=== PATIENT | female | born 1990 | race Caucasian/White ===

== ENCOUNTER 2016-09-26 14:18 | Inpatient (IN) | payer SELFPAY ==
[~2016-09-26] VITALS: Ht 157.5 cm; Wt 109.8 kg
[~2016-09-26 14:18] MED LIST: ASPI-664 PO; CARV12.579 PO; CARV6.2579 PO; FURO40TA4 PO; LEVO50TA74 PO; LISI20TA11 PO; LORA1TAB PO
[2016-09-26] MEDS ORDERED: ONDANSETRON 4 MG INJ IV STA ×2 (17:28→19:26)
[2016-09-26] MEDS ORDERED: SOD CHLORIDE 0.9% 1,000 ML IV STA ×2 (17:28→19:26)
[2016-09-26] MEDS ORDERED: morphine 4 MG/ML VIAL IV STA (17:28)
--- NOTE | 2016-09-26 18:10 | RADRPT ---
PROCEDURE: CT abdomen and pelvis without contrast. CLINICAL INDICATION: Abdominal Pain TECHNIQUE: CT scan of the abdomen and pelvis without contrast was performed and is reconstructed a t 5 mm contiguous axial intervals from the dome of the diaphragm to the inferior pubic rami.. The p atient was scanned without intravenous contrast. Sagittal and coronal reformatted images were obtai dorene from the axial source images. The calculated radiation dose measures 1204 mGy centimeters. The C TDI measures 20 mGy. COMPARISON: None. FINDINGS: Lung bases are clear of any infiltrate or nodule. There is no effusion. Liver is enlarged measuring 19.5 cm. There is fatty infiltration. No mass or ductal dilatation is present. No gallstones are visualized. No splenic or adrenal abnormality is present. There is no pancreatic mass or ductal dilatation. There is mild prominence of the uncinate process with probabl e stranding in the surrounding fat. Findings are suggestive of focal pancreatitis. There is no ass ociated hemorrhage and no gas is seen in the soft tissues. Kidneys are of normal size and contour. No hydronephrosis, calculus or masses present. Ureters are of normal course and caliber with no st one. No bladder masses stone is present. The uterus and ovaries are normal. There is diverticulos is. The appendix is normal. No bowel mass or obstruction is seen. There is no ascites or pneumope ritoneum. The osseous structures are normal. IMPRESSION: Enlarged fatty liver. Question focal pancreatitis uncinate process. Clinical correlation suggested. No hemorrhage. Diverticulosis. .Guillermo Watson MD, MD Date Time Electronically viewed and signed by .Guillermo Watson MD, MD on 09/26/2016 18:09 .A/
[2016-09-26 18:28] LABS: BASOPHILS % 0.1 % (0.0-2.0); EOSINOPHILS % 0.3 % (0.0-7.0); HEMOGLOBIN 15.3 g/dl (12.0-16.0); LYMPHOCYTES # 0.8 10^3/ul (0.8-2.9); LYMPHOCYTES % 11.3 % (15.0-51.0); MEAN CORPUSCULAR HEMOGLOBIN 32.9 pg (29.0-33.0); MEAN CORPUSCULAR HGB CONC 33.9 g/dl (32.0-37.0); MEAN PLATELET VOLUME 8.8 fl (7.4-10.4); MONOCYTE # 0.4 10^3/ul (0.3-0.9); MONOCYTES % 5.8 % (0.0-11.0); NEUTROPHIL # 5.9 10^3/ul (1.6-7.5); NEUTROPHILS % 82.5 % (39.0-77.0); PLATELET COUNT 214 10^3/UL (140-440); RED BLOOD COUNT 4.64 10^6/ul (4.20-5.40); RED CELL DISTRIBUTION WIDTH 14.6 % (11.5-14.5); UNCORRECTED WBC 7.1 10^3/ul (4.8-10.8); WHITE BLOOD COUNT 7.1 10^3/ul (4.8-10.8)
--- NOTE | 2016-09-26 18:28 | RADRPT ---
PROCEDURE: XR Chest. CLINICAL INDICATION: cough TECHNIQUE: Frontal chest x-ray was obtained. COMPARISON: Chest x-ray July 05, 2016 FINDINGS: Heart is not enlarged. Mediastinum is not widened. No hilar mass is present. Lungs are clear of a ny infiltrate or mass. There is no effusion or pneumothorax. IMPRESSION: No evidence for active cardiopulmonary disease. .Guillermo Watson MD, MD Date Time Electronically viewed and signed by .Guillermo Watson MD, on 09/26/2016 18:27 .A/
[2016-09-26 18:30] LABS: CONDITION 1; LH ANALYZER COMMENTS 1
[2016-09-26 18:41] LABS: ALBUMIN 5.1 g/dl (3.3-4.9)
[2016-09-26 18:41] LABS: ADD UMIC YES; URINE BILIRUBIN (Dip) 2+ (NEGATIVE); URINE BLOOD (Dip) NEGATIVE (NEGATIVE); URINE COLOR AMBER (YELLOW); URINE GLUCOSE (Dip) NEGATIVE (NEGATIVE); URINE KETONES (Dip) 15 (NEGATIVE); URINE LEUKOCYTE ESTERASE (Dip) NEGATIVE (NEGATIVE); URINE NITRITE (Dip) POSITIVE (NEGATIVE); URINE TOTAL PROTEIN (Dip) 2+ (NEGATIVE); URINE UROBILINOGEN (Dip) 2.0 E.U./dL (0.1-1.0)
[2016-09-26 18:42] LABS: POTASSIUM 3.3 mmol/L (3.5-5.1)
[2016-09-26 18:44] LABS: ALBUMIN/GLOBULIN RATIO 1.15; BILIRUBIN,INDIRECT 1.1 mg/dl (0-1.1); BILIRUBIN,TOTAL 1.1 mg/dl (0.2-1.3); CREATININE 0.94 mg/dl (0.44-1.00); TOTAL PROTEIN 9.5 g/dl (6.1-8.1)
[2016-09-26 18:45] LABS: CALCIUM 9.7 mg/dl (8.4-10.2)
[2016-09-26 19:00] LABS: ICTOTEST POSITIVE (NEGATIVE)
[2016-09-26 19:02] LABS: BACTERIA,URINE MANY; SQUAMOUS EPITHELIAL CELL,UR MANY; URINE RBCS NONE SEEN /HPF (0)
[2016-09-26 19:06] LABS: CANNABINOIDS Negative (NEGATIVE)
[2016-09-26 19:11] LABS: BARBITURATES Negative (NEGATIVE); BENZODIAZEPINES Negative (NEGATIVE); COCAINE Negative (NEGATIVE)
[2016-09-26] MEDS ORDERED: HYDROmorphONE 1 MG/ML SYG IV STA (19:26)
[2016-09-26] MEDS ORDERED: FAMOTIDINE 20 MG INJ IV STA (19:26)
[2016-09-26] MEDS ORDERED: CEFTRIAXONE 1 GM/50 ML (PMX) 50 ML IVPB ONE (19:30)
[2016-09-26 19:36] LABS: OPIATES Negative (NEGATIVE)
[2016-09-26] MEDS ORDERED: ACETAMINOPHEN 325 MG TAB PO PRN (20:30)
[2016-09-26] MEDS ORDERED: ONDANSETRON 4 MG INJ IV PRN ×2 (20:30→22:30)
[2016-09-26] MEDS ORDERED: METOCLOPRAMIDE 10 MG INJ IV ONE (20:30)
--- NOTE | 2016-09-26 21:08 | ERA ---
ER Documentation Chief Complaint Date/Time DATE: 09/26/16 TIME: 21:02 Chief Complaint COUGH AND SOB WHEN LAYING DOWN HPI This is a 26-year-old female with a known history of alcohol abuse and congestive heart failure diagnosed in 2013. The patient indicates she has been noncompliant with her Lasix and other medications as she ran out of them roughly 6 months prior to arrival. The patient indicates she drinks alcohol on a daily basis. For the past 3 days she indicates she has been having multiple episodes of nonbloody nonbilious emesis. She indicates that she has been experiencing epigastric pain that is worse when she lies supine and better when she sits up. Contrary to the triage note she denies any shortness of breath. She indicates the epigastric pain is a sharp shooting pain, 10 out of 10 in intensity. She denies any hemoptysis or hematemesis and no melanotic stools. She denies any swelling of her lower extremities. She complains of mild frequency urgency and dysuria. She denies any abnormal vaginal discharge or rashes. She denies a headache or changes in vision. She indicates that she has not been able to consume alcohol for the past 3 days due to the persistent emesis and epigastric pain she indicates that she has had roughly 50 episodes of emesis in the past 3 days. She denies any chest pain or pressure that radiates to the neck or back or jaw ROS All systems reviewed and are negative except as per history of present illness. Medications Home Meds Discontinued Reported Medications Levothyroxine Sodium* (Levothyroxine Sodium*) 50 Mcg Tablet, 50 MCG PO BEFORE BREAKFAST, #30 TAB 07/05/16 Aspirin (Low Dose Aspirin) 81 Mg Tablet.dr, 81 MG PO DAILY, #30 TAB 07/05/16 Furosemide* (Furosemide*) 40 Mg Tablet, 40 MG PO BID, TAB 07/05/16 Lisinopril* (Lisinopril*) 20 Mg Tablet, 20 MG PO DAILY, #30 TAB 07/05/16 Carvedilol* (Carvedilol*) 12.5 Mg Tablet, 12.5 MG PO BID, #60 TAB 07/05/16 Discontinued Scripts Carvedilol* (Carvedilol*) 6.25 Mg Tablet, 6.25 MG PO BID, #60 TAB Prov:APRIL BERGER DO 07/05/16 Furosemide* (Furosemide*) 40 Mg Tablet, 40 MG PO DAILY, #30 TAB Prov:APRIL BERGER. DO 07/05/16 Lisinopril* (Lisinopril*) 20 Mg Tablet, 20 MG PO DAILY, #30 TAB Prov:APRIL BERGER. DO 07/05/16 Lorazepam* (Lorazepam*) 1 Mg Tablet, 1 MG PO Q8H Y for ANXIETY, #12 TAB Prov:APRIL BERGER. DO 07/05/16 Allergies Allergies: Coded Allergies: No Known Allergy (Unverified , 09/26/16) PMhx/Soc History of Surgery: Yes (abdominal cyst as a child) Anesthesia Reaction: No Hx Neurological Disorder: No Hx Respiratory Disorders: No Hx Cardiac Disorders: Yes (chf; htn) Hx Psychiatric Problems: Yes (ETOH abuse) Hx Miscellaneous Medical Probl: No Hx Alcohol Use: Yes ("3 pints of vodka daily") Hx Substance Use: No Hx Tobacco Use: No Smoking Status: Never smoker Physical Exam Vitals Vital Signs Date Time Temp Pulse Resp B/P Pulse Ox O2 Delivery O2 Flow Rate FiO2 09/26/16 19:50 93 18 146/96 100 Room Air 09/26/16 14:26 98.8 89 18 166/91 98 Physical Exam Constitutional:Well-developed. Well-nourished. Patient appeared to be in a significant amount discomfort secondary to pain and actively vomiting nonbloody nonbilious emesis HEENT:Normocephalic. Atraumatic.Pupils were equal round reactive to light. Dry mucous membranes.No tonsillar exudates. Neck: No nuchal rigidity. No lymphadenopathy. No posterior cervical spine tenderness or step-offs. Respiratory: Not using accessory muscles of respiration.Lungs were clear to auscultation bilaterally. No rhonchi. No rales. No wheezing. Cardiovascular: Regular rate regular rhythm.No murmurs. No rubs were appreciated.S1, S2 normal. Distal pulses are palpable 2+ bilaterally. GI: Abdomen was soft. Epigastric tenderness Non Distended. No pulsatile abdominal masses or bruits. No rebound. No guarding. Bowel sounds were present and normal. Muscle skeletal: Full range of motion of both the upper and lower extremities bilaterally.Normal muscle tone.No assymetrical calf tenderness or swelling. Skin: No petechia, no purpura. No lesions on the palms or the soles of the feet. No maculopapular rash. No peripheral edema NEURO: Patient was alert, awake, orientated x3.No facial droop. Gait observed and normal with no ataxia.Speech had regular rate and rhythm. No focal neurological deficits. Result Diagram: 09/26/16 1735 09/26/16 1735 Results 24 hrs Laboratory Tests Test 09/26/16 17:00 09/26/16 17:35 09/26/16 17:52 Urine Amphetamines Screen Positive Urine Bacteria MANY Urine Barbiturates Negative Urine Benzodiazepines Screen Negative Urine Bilirubin 2+ Urine Cannabinoids Negative Urine Clarity CLOUDY Urine Cocaine Screen Negative Urine Color SUGAR Urine Glucose NEGATIVE% Urine Hemoglobin NEGATIVE Urine Ictotest POSITIVE Urine Ketones 15 Urine Leukocyte Esterase NEGATIVE Urine Microscopic RBC NONE SEEN/HPF Urine Microscopic WBC 10-25/HPF Urine Nitrite POSITIVE Urine Opiates Screen Negative Urine Specific [place] >=1.030 Urine Squamous Epithelial Cells MANY Urine Total Protein 2+ Urine Urobilinogen 2.0 E.U./dL Urine pH 5.0 Alanine Aminotransferase (ALT/SGPT) 238IU/L Albumin 5.1g/dl Albumin/Globulin Ratio 1.15 Alkaline Phosphatase 154IU/L Anion Gap 20 Aspartate Amino Transf (AST/SGOT) 354IU/L B-Type Natriuretic Peptide 80PG/ML Basophils # 0.010^3/ul Basophils % 0.1% Blood Morphology Comment Blood Urea Nitrogen 9mg/dl Calcium Level 9.7mg/dl Carbon Dioxide Level 32mmol/L Chloride Level 93mmol/L Creatinine 0.94mg/dl Direct Bilirubin 0.00mg/dl Eosinophils # 0.010^3/ul Eosinophils % 0.3% Globulin 4.40g/dl Glucose Level 147mg/dl Hematocrit 45.0% Hemoglobin 15.3g/dl Indirect Bilirubin 1.1mg/dl Lipase 1491U/L Lymphocytes # 0.810^3/ul Lymphocytes % 11.3% Mean Corpuscular Hemoglobin 32.9pg Mean Corpuscular Hemoglobin Concent 33.9g/dl Mean Corpuscular Volume 97.0fl Mean Platelet Volume 8.8fl Monocytes # 0.410^3/ul Monocytes % 5.8% Neutrophils # 5.910^3/ul Neutrophils % 82.5% Nucleated Red Blood Cells # 0.010^3/ul Nucleated Red Blood Cells % 0.0/100WBC Platelet Count 75825^3/UL Potassium Level 3.3mmol/L Red Blood Count 4.6410^6/ul Red Cell Distribution Width 14.6% Sodium Level 142mmol/L Total Bilirubin 1.1mg/dl Total Protein 9.5g/dl White Blood Count 7.110^3/ul Ethyl Alcohol Level < 10.0mg/dl Current Medications Medications (Trade) Dose Ordered Sig/Aliyah Route PRN Reason Start Time Stop Time Status Last Admin Dose Admin Sodium Chloride (NS) 1,000 ml @ 1,000 mls/hr Q1H STAT IV 09/26/16 17:28 09/26/16 18:27 Cancel Morphine Sulfate (morphine) 4 mg ONCE STAT IV 09/26/16 17:28 09/26/16 17:32 DC 09/26/16 17:50 Ondansetron HCl 4 mg 4 mg ONCE STAT IV 09/26/16 17:28 09/26/16 17:32 DC 09/26/16 17:49 Sodium Chloride (NS) 1,000 ml @ 1,000 mls/hr Q1H STAT IV 09/26/16 19:26 09/26/16 20:25 DC 09/26/16 20:01 Hydromorphone HCl (Dilaudid) 1 mg ONCE STAT IV 09/26/16 19:26 09/26/16 19:28 DC 09/26/16 20:01 Ondansetron HCl (Zofran Inj) 4 mg ONCE STAT IV 09/26/16 19:26 09/26/16 19:28 DC 09/26/16 20:01 Famotidine 20 mg 20 mg ONCE STAT IV 09/26/16 19:26 09/26/16 19:28 DC 09/26/16 20:01 Ceftriaxone Sodium (Rocephin) 50 ml @ 100 mls/hr ONCE ONCE IVPB 09/26/16 19:30 09/26/16 19:59 DC 09/26/16 20:01 Metoclopramide HCl (Reglan) 10 mg ONCE ONCE IV 09/26/16 20:30 09/26/16 20:57 DC Ondansetron HCl (Zofran Inj) 4 mg BRIDGE ORDER PRN IV NAUSEA AND/OR VOMITING 09/26/16 20:30 09/27/16 20:29 Acetaminophen (Tylenol Tab) 650 mg ER BRIDGE PRN PO MILD PAIN/FEVER 09/26/16 20:30 09/27/16 20:29 Procedures/MDM This patient presented to the emergency department with abdominal pain and was seen and evaluated by myself. My differential diagnosis included but was not limited to abdominal aortic aneurysm, appendicitis, pancreatitis, perforated peptic ulcer, perforated viscus, Boerhaaves syndrome or visceral pain such as diverticulitis, DKA, esophagitis, hepatitis or bowel obstruction. The patient was placed on a telephone answering service operator, continuous pulse oximetry, and IV access was established by nursing staff. 12 Lead EKG tracing ordered and reviewed by myself showed: Sinus tachycardia of 103 bpm and no arrhythmia. OR interval normal. QRS duration normal. No ST segment elevation No ST segment depression. No changes consistent with acute ischemia. I obtained a chest radiograph which showed no evidence of pulmonary vascular congestion. The patient's BNP was normal. I did not feel the patient was experiencing a CHF exacerbation The patient a CT scan of the abdomen that was ordered reviewed by myself as well as the radiologist and did show acute pancreatitis. The patient's lipase was elevated given that the patient was unable to tolerate oral intake despite multiple doses of antiemetics and PPIs the patient will be admitted for intractable nausea and vomiting and had been given opiates for analgesic control. She will be admitted in serious condition with an anticipated stay of greater than 2 midnights to the hospitalist Dr. Andrews to the medical surgical floor Departure Diagnosis: Primary Impression: Pancreatitis, acute Qualified Code: K85.20 - Alcohol-induced acute pancreatitis without infection or necrosis Additional Impression: Intractable nausea and vomiting Qualified Code: R11.2 - Intractable vomiting with nausea, unspecified vomiting type Condition: Serious LEYDI PINEDA Sep 26, 2016 21:07
[2016-09-26 21:41] VITALS: Ht 157.5 cm; Wt 109.8 kg
[2016-09-26 21:46] VITALS: BP 147/84; RESP 16
[2016-09-26] MEDS ORDERED: NACL 0.9% 3 ML SYG IV SCH (22:30)
[2016-09-26] MEDS: SOD CHLORIDE 0.45% 1,000 ML IV SCH (22:40)
[2016-09-27] MEDS: morphine 2 MG INJ IV PRN ×6 (03:12→23:02)
[2016-09-27] MEDS: PANTOPRAZOLE 40 MG INJ IV SCH (05:04)
[2016-09-27] MEDS: SOD CHLORIDE 0.45% 1,000 ML IV SCH (05:05)
[2016-09-27] MEDS ORDERED: VITAMIN A & D 5 GM OINT PACKET TOP ONE (05:12)
[2016-09-27 05:46] LABS: BASOPHILS % 0.1 % (0.0-2.0); EOSINOPHILS % 0.6 % (0.0-7.0); HEMATOCRIT 39.8 % (37.0-47.0); HEMOGLOBIN 13.4 g/dl (12.0-16.0); LYMPHOCYTES # 0.8 10^3/ul (0.8-2.9); LYMPHOCYTES % 12.5 % (15.0-51.0); MEAN CORPUSCULAR HEMOGLOBIN 32.9 pg (29.0-33.0); MEAN CORPUSCULAR HGB CONC 33.7 g/dl (32.0-37.0); MEAN CORPUSCULAR VOLUME 97.7 fl (82.0-101.0); MEAN PLATELET VOLUME 8.6 fl (7.4-10.4); MONOCYTE # 0.4 10^3/ul (0.3-0.9); MONOCYTES % 6.1 % (0.0-11.0); NEUTROPHIL # 5.5 10^3/ul (1.6-7.5); NEUTROPHILS % 80.7 % (39.0-77.0); PLATELET COUNT 156 10^3/UL (140-440); RED BLOOD COUNT 4.07 10^6/ul (4.20-5.40); RED CELL DISTRIBUTION WIDTH 14.3 % (11.5-14.5); UNCORRECTED WBC 6.8 10^3/ul (4.8-10.8); WHITE BLOOD COUNT 6.8 10^3/ul (4.8-10.8)
[2016-09-27 06:03] LABS: CONDITION 1
[2016-09-27 06:04] LABS: ALBUMIN 4.3 g/dl (3.3-4.9)
[2016-09-27 06:05] LABS: POTASSIUM 3.5 mmol/L (3.5-5.1)
[2016-09-27 06:07] LABS: ALBUMIN/GLOBULIN RATIO 1.26; BILIRUBIN,INDIRECT 0.9 mg/dl (0-1.1); BILIRUBIN,TOTAL 0.9 mg/dl (0.2-1.3); CREATININE 0.84 mg/dl (0.44-1.00); TOTAL PROTEIN 7.7 g/dl (6.1-8.1)
[2016-09-27 06:08] LABS: CALCIUM 8.7 mg/dl (8.4-10.2); MAGNESIUM 1.3 mg/dl (1.7-2.5); PHOSPHORUS 3.3 mg/dl (2.5-4.9)
[2016-09-27] MEDS ORDERED: LORAZEPAM 2 MG INJ IV PRN (08:00)
[2016-09-27 08:10] VITALS: BP 167/107; RESP 76
[2016-09-27] MEDS: 1/2 NS + KCL 20 MEQ 1,000 ML IV SCH ×2 (09:00→16:08)
[2016-09-27] MEDS ORDERED: MAGNESIUM SULFATE 4 GM/100 ML 100 ML IVPB ONE ×2 (09:00→15:00)
--- NOTE | 2016-09-27 09:00 | RADRPT ---
Vent Rate: 75 bpm RR Interval: 0 msec ME Interval: 156 msec QRS Duration: 98 msec QT Interval: 468 msec QTC Interval: 522 msec P-R-T Early: 15 - 15 - -2 degrees Normal sinus rhythm LVH Nonspecific T wave abnormality Prolonged QT Abnormal ECG Electronically Signed By: Myron Ferrer [id number]
--- NOTE | 2016-09-27 09:29 | HP ---
DATE OF ADMISSION: 09/26/2016 CHIEF COMPLAINT: Abdominal pain. HISTORY OF PRESENT ILLNESS: The patient is a 26-year-old female with a history of alcohol abuse. L ast drink was 2 days ago. She also has a history of heart failure, it sounds like dilated cardiomyo nabeel, but she is not exactly clear about that diagnosis. The patient began to develop abdominal pa in approximately 3 days ago associated with nausea and vomiting. She never had any episodes of panc reatitis in the past. With abdominal pain, she stopped drinking. The patient denies any hallucinat ions or any tremors. She has no other complaints except for the abdominal pain. PAST MEDICAL HISTORY: Alcohol abuse with likely dilated cardiomyopathy. The patient has not been c ompliant with her medications. It sounds like she was given an RENETTA inhibitor, beta dia, diureti c, and thiamine, but once again, she has not been taking those, has run out, and does not see a PCP for this. PAST SURGICAL HISTORY: Denies. HOME MEDICATIONS: None. ALLERGIES: NO KNOWN DRUG ALLERGIES. FAMILY HISTORY: Denies. SOCIAL HISTORY: Denies any drug abuse or tobacco abuse. She does drink daily. Last drink was satya ral days ago. REVIEW OF SYSTEMS: A 12-point review of systems negative except for that discussed in HPI. PHYSICAL EXAMINATION: VITAL SIGNS: Temperature is 97.4, pulse 76, respiratory rate 16, BP is 147/84, saturation 97% on ro om air. GENERAL: No acute distress, alert and oriented. HEENT: Normocephalic, atraumatic. LUNGS: Clear to auscultation. CARDIOVASCULAR: Regular rate and rhythm. ABDOMEN: Obese, nondistended, soft, tender to palpation in the epigastrium. EXTREMITIES: No clubbing, cyanosis, or edema. LABORATORIES: White count 6.8, hemoglobin 13.4, platelets 136. Chemistry within normal limits exce pt for chloride of 94, carbon dioxide 34. Magnesium is 1.3. AST is 206, ALT is 186. Lipase on arr ival was 1,491. UA shows 325 WBCs, leukocyte esterase negative, nitrites positive. U-tox is positi ve for amphetamines. DIAGNOSTICS: Chest x-ray shows no evidence for acute cardiopulmonary disease. Abdominopelvic CT sh ows enlarged fatty liver, questionable focal pancreatitis. ASSESSMENT AND PLAN: 1. Acute pancreatitis. This is the patient's first episode. It is secondary to alcohol abuse. Th e patient has been advised that she needs to stop drinking. We will keep the patient n.p.o. and giv e IV fluids. We will monitor lipase. 2. Substance abuse. The patient denies any substance abuse, but her U-tox is positive for amphetam baljit. We have advised to refrain from drug abuse as well. 3. Urinary tract infection. The patient does have what looks to be UTI on the UA. Would obtain ur ine culture and give her Rocephin empirically. 4. History of heart failure. Based on description, it sounds as though the patient has dilated car diomyopathy. She has not been compliant with her medications. She states that she was given an RENETTA inhibitor, beta dia, diuretic, and a vitamin which sounds like thiamine. We will get a 2-D ech o to evaluate for the status of her heart failure. 5. Alcohol abuse. The patient is a daily drinker. Her last drink was 2 days ago. She has no sign s of withdrawal at this time. We will give a banana bag as well as Ativan p.r.n. The patient once again has been advised to stop drinking. 6. Prophylaxis: SCDs. Dictated By: SAIRA CHACKO/TYRESE Conf#: [id number] DID#: [id number]
[2016-09-27] MEDS: CEFTRIAXONE 1 GM/50 ML (PMX) 50 ML IVPB SCH (10:10)
[2016-09-27] MEDS: hydrALAzine 20 MG INJ IV PRN ×2 (11:08→21:03)
--- NOTE | 2016-09-27 14:39 | PN ---
Date/Time of Note Date/Time of Note DATE: 09/27/16 TIME: 14:35 Assessment/Plan VTE Prophylaxis VTE Prophylaxis Intervention: SCD's Lines/Catheters IV Catheter Type (from [facility]): Peripheral IV Assessment/Plan Assessment/Plan 1. Acute pancreatitis. lipase downtrending - once < 500 and patient has appetite with less nausea - advance diet 2. Substance abuse. The patient denies any substance abuse, but her U-tox is positive for amphetamines. psychiatric social worker supervisor c/s 3. Urinary tract infection. The patient does have what looks to be UTI on the UA. Would obtain urine culture and give her Rocephin empirically. 4. Congestive heart failure. Based on description, it sounds as though the patient has dilated cardiomyopathy. ECHO pending - restart medications - once pancreatitis resolved 5. Alcohol abuse. The patient is a daily drinker. Her last drink was 2 days ago. She has no signs of withdrawal at this time. We will give a banana bag as well as Ativan p.r.n. The patient once again has been advised to stop drinking. 6. Prophylaxis: SCDs. 7. Hypomagnesemia - replete 8. GI ppx - protonix dispo- f/u labs, ECHO pending, as per clinical course this progress note took greater than 40 minutes to complete Subjective 24 Hr Interval Summary Free Text/Dictation Patient was admitted overnight 2/ to having pancreatitis. Patient complains of nausea, improved overall. I had a long discussion with her about ETOH abuse, and Methamphetamine use. She knows the risk of her lifestyle. She is open to options and resources. 20 minutes spent. Exam/Review of Systems Vital Signs Vitals Vital Signs Date Time Temp Pulse Resp B/P Pulse Ox O2 Delivery O2 Flow Rate FiO2 09/27/16 08:10 98.5 76 76 167/107 98 09/26/16 19:50 Room Air Intake and Output 09/26/16 09/26/16 09/27/16 15:00 23:00 07:00 Intake Total 1050 ml 1000 ml Balance 1050 ml 1000 ml Exam Gen Ellie: mild distress 2/2 to nausea, AAOx4, obese female HEENT: NC/AT, PERRLA, EOMI, no pharyngeal erythema, no tonsillar exudates, no lymphadenopathy, no JVD, no carotid bruits NECK: supple, no thyromegaly THORAX: symmetrical, no obvious deformities CV: S1S2, RRR, no M/G/R Lungs: CTAB no W/C/R/R Abd: soft, NT/ND, +BS, no rebound, no guarding, neg HSM EXT: no edema, no ecchymosis, no clubbing, FROM Neuro: CN II-XII grossly intact, no focal deficits Psych: good mentation, alert and oriented, good mood and affect Skin: C/D/I Results Result Diagram: 09/27/169 09/27/16448 Results 24 hrs Laboratory Tests Test 09/26/16 17:00 09/26/16 17:35 09/26/16 17:52 09/27/16 04:49 Urine Amphetamines Screen Positive Urine Bacteria MANY Urine Barbiturates Negative Urine Benzodiazepines Screen Negative Urine Bilirubin 2+ H Urine Cannabinoids Negative Urine Clarity CLOUDY Urine Cocaine Screen Negative Urine Color SUGAR Urine Glucose NEGATIVE Urine Hemoglobin NEGATIVE Urine Ictotest POSITIVE Urine Ketones 15 Urine Leukocyte Esterase NEGATIVE Urine Microscopic RBC NONE SEEN Urine Microscopic WBC 10-25 Urine Nitrite POSITIVE H Urine Opiates Screen Negative Urine Specific [place] >=1.030 H Urine Squamous Epithelial Cells MANY Urine Total Protein 2+ H Urine Urobilinogen 2.0 E.U./dL H Urine pH 5.0 Alanine Aminotransferase (ALT/SGPT) 238 H 186 H Albumin 5.1 H 4.3 Albumin/Globulin Ratio 1.15 1.26 Alkaline Phosphatase 154 H 115 Anion Gap 20 H 15 Aspartate Amino Transf (AST/SGOT) 354 H 206 H B-Type Natriuretic Peptide 80 Basophils # 0.0 0.0 Basophils % 0.1 0.1 Blood Morphology Comment Blood Urea Nitrogen 9 10 Calcium Level 9.7 8.7 Carbon Dioxide Level 32 H 34 H Chloride Level 93 L 94 L Creatinine 0.94 0.84 Direct Bilirubin 0.00 0.00 Eosinophils # 0.0 0.0 Eosinophils % 0.3 0.6 Globulin 4.40 H 3.40 H Glucose Level 147 107 # Hematocrit 45.0 39.8 Hemoglobin 15.3 13.4 Indirect Bilirubin 1.1 0.9 Lipase 1491 H 1060 H Lymphocytes # 0.8 0.8 Lymphocytes % 11.3 L 12.5 L Mean Corpuscular Hemoglobin 32.9 32.9 Mean Corpuscular Hemoglobin Concent 33.9 33.7 Mean Corpuscular Volume 97.0 97.7 Mean Platelet Volume 8.8 8.6 Monocytes # 0.4 0.4 Monocytes % 5.8 6.1 Neutrophils # 5.9 5.5 Neutrophils % 82.5 H 80.7 H Nucleated Red Blood Cells # 0.0 0.0 Nucleated Red Blood Cells % 0.0 0.0 Platelet Count 214 # 156 # Potassium Level 3.3 L 3.5 Red Blood Count 4.64 4.07 L Red Cell Distribution Width 14.6 H 14.3 Sodium Level 142 139 Total Bilirubin 1.1 0.9 Total Protein 9.5 H 7.7 # White Blood Count 7.1 6.8 Ethyl Alcohol Level < 10.0 Hemoglobin A1c 5.5 Magnesium Level 1.3 L Phosphorus Level 3.3 Medications Medications Current Medications Ondansetron HCl (Zofran Inj) 4 mg Q6H PRN IV NAUSEA AND/OR VOMITING; Start 09/26 at 22:30 Morphine Sulfate (morphine) 2 mg Q4H PRN IV SEVERE PAIN LEVEL 7-10 Last administered on 09/27/16 11:01; Admin Dose 2 MG; Start 09/26/16 at 22:30 Pantoprazole (Protonix Iv) 40 mg DAILY@06 IV Last administered on 09/27/16 05: 04; Admin Dose 40 MG; Start 09/27/16 at 06:00 Hydralazine HCl (Apresoline) 10 mg Q4H PRN IV SBP>170 Last administered on 11:08; Admin Dose 10 MG; Start 09/26/16 at 22:30 Influenza Virus Vaccine 0.5 ml 0.5 ml ONCE ONCE IM* ; Start 09/28/16 at 09:00; Stop 09/28/16 at 09:01 Multivitamins/ Thiamine HCl/ Folic Acid/Sodium Chloride (Mvi-12 Adult/ Vitamin B1/Folic Acid/NS) 1,011.2 ml @ 125 mls/ hr DAILY@09 IVPB ; Start 09/27/16 at 09: 00 Lorazepam 1 mg 1 mg Q4 PRN IV CONTROL WITHDRAWAL SYMPTOMS; Start 09/27/16 at 08: 00 Potassium Chloride/Sodium Chloride 1,000 ml @ 125 mls/hr Q8H IV ; Start at 09:00 Ceftriaxone Sodium (Rocephin) 50 ml @ 100 mls/hr Q24H IVPB Last administered on 09/27/16t 10:10; Admin Dose 100 MLS/HR; Start 09/27/16 at 08:15 DIANE PAYNE MD Sep 27, 2016 14:39
[2016-09-27] MEDS: MULTIVITAMINS 10 ML, THIAMINE 100 MG, FOLIC ACID 1 MG in SOD CHLORIDE 0.9% 1,000 ML IVPB SCH (15:15)
[2016-09-27 21:10] VITALS: BP 184/95; RESP 20
[2016-09-27 22:10] VITALS: BP 158/88; PULSE 91
[2016-09-28] MEDS: 1/2 NS + KCL 20 MEQ 1,000 ML IV SCH ×3 (00:19→17:21)
[2016-09-28] MEDS ORDERED: ZOLPIDEM 5 MG TAB PO PRN (01:30)
[2016-09-28] MEDS: morphine 2 MG INJ IV PRN ×5 (03:13→21:37)
[2016-09-28] MEDS: PANTOPRAZOLE 40 MG INJ IV SCH (05:06)
[2016-09-28 06:32] LABS: EOSINOPHILS # 0.1 10^3/ul (0.0-0.5); EOSINOPHILS % 1.4 % (0.0-7.0); HEMATOCRIT 40.7 % (37.0-47.0); HEMOGLOBIN 13.9 g/dl (12.0-16.0); LYMPHOCYTES % 15.1 % (15.0-51.0); MEAN CORPUSCULAR HEMOGLOBIN 33.1 pg (29.0-33.0); MEAN CORPUSCULAR VOLUME 97.1 fl (82.0-101.0); MEAN PLATELET VOLUME 8.8 fl (7.4-10.4); MONOCYTE # 0.4 10^3/ul (0.3-0.9); MONOCYTES % 5.8 % (0.0-11.0); NEUTROPHIL # 4.9 10^3/ul (1.6-7.5); NEUTROPHILS % 77.7 % (39.0-77.0); PLATELET COUNT 132 10^3/UL (140-440); RED BLOOD COUNT 4.19 10^6/ul (4.20-5.40); RED CELL DISTRIBUTION WIDTH 14.5 % (11.5-14.5); UNCORRECTED WBC 6.4 10^3/ul (4.8-10.8); WHITE BLOOD COUNT 6.4 10^3/ul (4.8-10.8)
[2016-09-28 06:35] LABS: CONDITION 1
[2016-09-28 06:38] LABS: ALBUMIN 4.3 g/dl (3.3-4.9)
[2016-09-28 06:41] LABS: ALBUMIN/GLOBULIN RATIO 1.26; BILIRUBIN,INDIRECT 0.8 mg/dl (0-1.1); BILIRUBIN,TOTAL 0.8 mg/dl (0.2-1.3); CREATININE 0.69 mg/dl (0.44-1.00); TOTAL PROTEIN 7.7 g/dl (6.1-8.1)
[2016-09-28 06:42] LABS: CALCIUM 9.1 mg/dl (8.4-10.2)
[2016-09-28 07:31] VITALS: BP 173/108; RESP 18
[2016-09-28] MEDS: CEFTRIAXONE 1 GM/50 ML (PMX) 50 ML IVPB SCH (07:42)
[2016-09-28 08:39] VITALS: BP 135/86; PULSE 96
[2016-09-28] MEDS: MULTIVITAMINS 10 ML, THIAMINE 100 MG, FOLIC ACID 1 MG in SOD CHLORIDE 0.9% 1,000 ML IVPB SCH (08:41)
[2016-09-28] MEDS ORDERED: INFLUENZA VIRUS VACCINE 0.5 ML (DISPENSING) IM* ONE (09:00)
[2016-09-28 13:00] LABS: CHOL/HDL RATIO 2.9 RATIO
--- NOTE | 2016-09-28 13:16 | PN ---
DATE: 09/28/2016 TIME OF EVALUATION: 12:15 p.m. SUBJECTIVE DATA: Complains of abdominal pain, but improved. Denies any nausea or vomiting. OBJECTIVE DATA: VITAL SIGNS: Temperature 98.8, pulse rate 96, respiratory rate 18, blood pressure 135/86, oxygen saturation 96% on room air. GENERAL: This is an obese female patient lying in bed in no apparent distress. HEENT: Head normocephalic and atraumatic. Eyes: Anicteric sclerae. Conjunctivae clear. ENT: Nasal septum is midline. Oral mucosa is dry. NECK: Supple. No JVD noticed. RESPIRATORY: Bilaterally clear to auscultation. No adventitious breath sounds heard. No use of accessory muscles of respiration. CARDIAC: Regular rate and rhythm. No murmurs heard. ABDOMEN: Distended. Diffuse tenderness. Bowel sounds hypoactive in all 4 quadrants. GENITOURINARY: Deferred. EXTREMITIES: No cyanosis, no clubbing, no edema. Peripheral pulses are palpable. NEUROLOGIC: The patient is awake, alert and oriented. Cranial nerves are grossly intact. SKIN: Clean, dry and intact. LABORATORY AND DIAGNOSTIC DATA: WBC 6.4, hemoglobin 13.9, hematocrit 40.7, platelet count 132. Sodium 140, potassium 4.0, chloride 90, carbon dioxide 29, anion gap 17, BUN 4, creatinine 0.69, glucose 89, calcium 9.1, AST 130, ALT 130 , alkaline phosphatase 104, lipase 1366. ASSESSMENT AND PLAN: 1. Acute pancreatitis. Most probably secondary to underlying alcohol abuse. Will trend pancreatic enzymes levels. The patient will be started on a diet once the pancreatic enzyme levels are trending down and when patient's abdominal pain is resolving. 2. Substance abuse. Urine drug toxicology positive for amphetamines. The patient denied using any recreational drugs. A social service consult ordered. 3. Urinary tract infection. Positive urinalysis: Urine culture inconclusive. Continue empiric antibiotic. 4. Cardiomegaly. Await 2D echocardiogram. No evidence of any heart failure at this time. 5. Alcohol abuse. Continue p.r.n. Ativan. Continue daily banana bag. Cessation was advised. 6. Obesity. BMI of 44.3 kilograms per meter squared. Hemoglobin A1c 5.5. Will obtain a fasting lipid panel on this patient. Will advise weight reduction. 7. Transaminitis. Most probably secondary to underlying alcohol abuse. Will trend LFTs. Will avoid any hepatotoxic medications. 8. Fluid, electrolytes and nutrition. Continue IV fluids. 9. Deep venous thrombosis prophylaxis. Bilateral sequential compression devices. 10. Gastrointestinal prophylaxis. Proton pump inhibitors. PLAN: Continue n.p.o. Continue IV hydration, trend LFTs and pancreatic enzyme levels. The patient unstable to be discharged home. The case was discussed with Dr. Lucas. NAOMI LUCAS MD, AM/TYRESE Conf#: [id number] DID#: [id number] [id number]
--- NOTE | 2016-09-28 16:41 | RADRPT ---
Echocardiogram Report Patient Name: BETHANY CARY Gender: Female Date: 1990 Study Date: 28-Sep-2016 Rn Emergency: Estella Griffin [facility] Location: 2248 Ref. Physician: SAIRA WILD Quality: Good Procedures: Transthoracic echocardiogram with complete 2D, M-Mode, and doppler examination. Indications: Cardiomyopathy. 2D/M Mode Doppler Measurement Value Normal Ranges Measurement Value Normal Ranges LVIDd 2D 6.1 3.5 - 5.6 cm AV Peak Nadeem 1.3 m/sec LVIDs 2D 4.6 2.1 - 4.1 cm AV Peak PG 6.6 mmHg LVPWd 2D 1.0 0.6 - 1.1 cm LVOT Peak Nadeem 0.7 m/sec IVSd 2D 1.1 0.6 - 1.1 cm LVOT Peak PG 1.9 mmHg AoR Diam 2D 2.7 2.0 - 3.7 cm MV E Peak Nadeem 0.8 m/sec EDV 2D 184.0 cm3 MV A Peak Nadeem 0.5 m/sec ESV 2D 98.0 cm3 MV E/A 1.6 LA Dimen 2D 4.5 2.3 - 4.0 cm MV Decel Time 161 msec MV Decel [place] 5 MV E/A 1.6 Findings Left Ventricle: Moderate enlargement of left ventricle cavity. Moderate global left ventricular systolic dysfunction. Ejection fraction is visually estimated at 35 %. Right Ventricle: Normal right ventricular size. Normal right ventricular systolic function. Left Atrium: There is moderate enlargement of left atrium. LA Dimension4.50 cm. Right Atrium: The right atrium is normal in size. Mitral Valve: Mitral valve leaflets appear mildly thickened. Mild mitral annular calcification. Trace mitral regurgitation. Aortic Valve: Normal appearance of the aortic valve. No significant aortic stenosis or insufficiency. Tricuspid Valve: Normal appearance and function of the tricuspid valve with trace physiologic regurgitation. Normal right ventricular systolic pressure. Pericardium: Normal pericardium with no significant pericardial effusion. Aorta: Normal aortic root. IVC: Normal size and normal respiratory collapse consistent with normal right atrial pressure. Conclusions 1.The left ventricle is moderately dilated with moderately reduced systolic function. There is global hypokinesis. 2.Estimated left ventricular ejection fraction of 35%. 3.Moderate left atrial enlargement. Electronically Signed By: Evan Hudson 28-Sep-2016 16:40:14 -0800 Patient Name: BETHANY CARY Study Date: 28-Sep-2016 [id number]
[2016-09-28 20:31] VITALS: BP 169/92; RESP 18
[2016-09-29] MEDS: 1/2 NS + KCL 20 MEQ 1,000 ML IV SCH ×3 (01:25→21:52)
[2016-09-29] MEDS: morphine 2 MG INJ IV PRN ×5 (01:27→20:40)
[2016-09-29] MEDS: PANTOPRAZOLE 40 MG INJ IV SCH (05:22)
[2016-09-29 06:26] LABS: BASOPHILS % 0.3 % (0.0-2.0); EOSINOPHILS # 0.1 10^3/ul (0.0-0.5); EOSINOPHILS % 2.1 % (0.0-7.0); HEMATOCRIT 39.9 % (37.0-47.0); HEMOGLOBIN 13.4 g/dl (12.0-16.0); LYMPHOCYTES # 1.2 10^3/ul (0.8-2.9); MEAN CORPUSCULAR HEMOGLOBIN 32.9 pg (29.0-33.0); MEAN CORPUSCULAR HGB CONC 33.7 g/dl (32.0-37.0); MEAN CORPUSCULAR VOLUME 97.7 fl (82.0-101.0); MEAN PLATELET VOLUME 9.4 fl (7.4-10.4); MONOCYTE # 0.5 10^3/ul (0.3-0.9); MONOCYTES % 7.5 % (0.0-11.0); NEUTROPHIL # 5.2 10^3/ul (1.6-7.5); NEUTROPHILS % 73.1 % (39.0-77.0); PLATELET COUNT 135 10^3/UL (140-440); RED BLOOD COUNT 4.08 10^6/ul (4.20-5.40); RED CELL DISTRIBUTION WIDTH 14.6 % (11.5-14.5); UNCORRECTED WBC 7.1 10^3/ul (4.8-10.8); WHITE BLOOD COUNT 7.1 10^3/ul (4.8-10.8)
[2016-09-29 06:32] LABS: ALBUMIN 3.8 g/dl (3.3-4.9); POTASSIUM 3.4 mmol/L (3.5-5.1)
[2016-09-29 06:33] LABS: CONDITION 1; LH ANALYZER COMMENTS 1
[2016-09-29 06:34] LABS: CREATININE 0.61 mg/dl (0.44-1.00)
[2016-09-29 06:35] LABS: ALBUMIN/GLOBULIN RATIO 1.11; BILIRUBIN,INDIRECT 0.5 mg/dl (0-1.1); BILIRUBIN,TOTAL 0.5 mg/dl (0.2-1.3); CALCIUM 9.2 mg/dl (8.4-10.2); TOTAL PROTEIN 7.2 g/dl (6.1-8.1)
[2016-09-29] MEDS: CEFTRIAXONE 1 GM/50 ML (PMX) 50 ML IVPB SCH (08:34)
[2016-09-29] MEDS: MULTIVITAMINS 10 ML, THIAMINE 100 MG, FOLIC ACID 1 MG in SOD CHLORIDE 0.9% 1,000 ML IVPB SCH (08:36)
[2016-09-29] MEDS: HYDROCODONE/APAP (5/325) TAB PO PRN ×4 (08:47→23:35)
[2016-09-29 08:53] VITALS: BP 165/99; PULSE 95; RESP 18
[2016-09-29 09:13] LABS: MAGNESIUM 1.7 mg/dl (1.7-2.5)
--- NOTE | 2016-09-29 10:13 | PN ---
Date/Time of Note Date/Time of Note DATE: 09/29/16 TIME: 10:08 Assessment/Plan VTE Prophylaxis VTE Prophylaxis Intervention: SCD's Lines/Catheters IV C[facility]ter Type (from [facility]): Peripheral IV Urinary Cath still in place: No Assessment/Plan Chief Complaint/Hosp Course 1. Acute pancreatitis. Most probably secondary to underlying alcohol abuse. No evidence of hypertriglyceridemia. No cholelithiasis. Will trend pancreatic enzymes levels. Enzyme levels are trending down. Will start the patient on clear liquid diet. 2. Nonischemic cardiomyopathy. Ejection fraction of 35%. No evidence of any acute decompensation. Will start the patient on beta blockers and RENETTA inhibitors. 3. Substance abuse. Urine drug toxicology positive for amphetamines. The patient initially denied using any recreational drugs. Social service consult ordered. 4. Urinary tract infection. Positive urinalysis: Urine culture inconclusive. Continue empiric antibiotics. 5. Alcohol abuse. Continue p.r.n. Ativan. Continue daily banana bag. Cessation was advised. 6. Obesity. BMI of 44.3 kilograms per meter squared. Hemoglobin A1c 5.5. 7. Transaminitis. Most probably secondary to underlying alcohol abuse. Will trend LFTs. Will avoid any hepatotoxic medications. 8. Fluid, electrolytes and nutrition. Continue IV fluids. 9. Deep venous thrombosis prophylaxis. Bilateral sequential compression devices. 10. Gastrointestinal prophylaxis. Proton pump inhibitors. PLAN: Replete potassium. Start the patient on clear liquids. Continue IV hydration, trend LFTs and pancreatic enzyme levels. Start the patient on beta- blockers and RENETTA inhibitors. The case was discussed with Dr. James. Problems: Subjective 24 Hr Interval Summary Free Text/Dictation Denies any nausea/vomiting. Abdominal pain better controlled. Exam/Review of Systems Vital Signs Vitals Vital Signs Date Time Temp Pulse Resp B/P Pulse Ox O2 Delivery O2 Flow Rate FiO2 09/29/16 08:53 97.8 95 18 165/99 95 Room Air Intake and Output 09/28/16 09/28/16 09/29/16 15:00 23:00 07:00 Intake Total 175 ml 1550 ml 1300 ml Balance 175 ml 1550 ml 1300 ml Exam GENERAL: This is an obese female patient lying in bed in no apparent distress. HEENT: Head normocephalic and atraumatic. Eyes: Anicteric sclerae. Conjunctivae clear. ENT: Nasal septum is midline. Oral mucosa is dry. NECK: Supple. No JVD noticed. RESPIRATORY: Bilaterally clear to auscultation. No adventitious breath sounds heard. No use of accessory muscles of respiration. CARDIAC: Regular rate and rhythm. No murmurs heard. ABDOMEN: Distended. Diffuse tenderness. Bowel sounds hypoactive in all 4 quadrants. GENITOURINARY: Deferred. EXTREMITIES: No cyanosis, no clubbing, no edema. Peripheral pulses are palpable. NEUROLOGIC: The patient is awake, alert and oriented. Cranial nerves are grossly intact. SKIN: Clean, dry and intact. Results Result Diagram: 09/29/165 09/29/16 0455 Results 24 hrs Laboratory Tests Test 09/29/16 04:55 Alanine Aminotransferase (ALT/SGPT) 96 H Albumin 3.8 Albumin/Globulin Ratio 1.11 Alkaline Phosphatase 103 Amylase Level 90 Anion Gap 15 Aspartate Amino Transf (AST/SGOT) 75 H Basophils # 0.0 Basophils % 0.3 Blood Morphology Comment Blood Urea Nitrogen 4 L Calcium Level 9.2 Carbon Dioxide Level 27 Chloride Level 100 Creatinine 0.61 Direct Bilirubin 0.00 Eosinophils # 0.1 Eosinophils % 2.1 Globulin 3.40 H Glucose Level 102 Hematocrit 39.9 Hemoglobin 13.4 Indirect Bilirubin 0.5 Lipase 725 H Lymphocytes # 1.2 Lymphocytes % 17.0 Magnesium Level 1.7 Mean Corpuscular Hemoglobin 32.9 Mean Corpuscular Hemoglobin Concent 33.7 Mean Corpuscular Volume 97.7 Mean Platelet Volume 9.4 Monocytes # 0.5 Monocytes % 7.5 Neutrophils # 5.2 Neutrophils % 73.1 Nucleated Red Blood Cells # 0.0 Nucleated Red Blood Cells % 0.0 Phosphorus Level 3.0 Platelet Count 135 L Potassium Level 3.4 L Red Blood Count 4.08 L Red Cell Distribution Width 14.6 H Sodium Level 139 Total Bilirubin 0.5 Total Protein 7.2 White Blood Count 7.1 Medications Medications Current Medications Ondansetron HCl (Zofran Inj) 4 mg Q6H PRN IV NAUSEA AND/OR VOMITING; Start 09/26 at 22:30 Morphine Sulfate (morphine) 2 mg Q4H PRN IV SEVERE PAIN LEVEL 7-10 Last administered on 09/29/16t 05:26; Admin Dose 2 MG; Start 09/26/16 at 22:30 Pantoprazole (Protonix Iv) 40 mg DAILY@06 IV Last administered on 09/29/16 05: 22; Admin Dose 40 MG; Start 09/27/16 at 06:00 Hydralazine HCl 10 mg 10 mg Q4H PRN IV SBP>170 Last administered on 09/27/16 21 :03; Admin Dose 10 MG; Start 09/26/16 at 22:30 Multivitamins/ Thiamine HCl/ Folic Acid/Sodium Chloride (Mvi-12 Adult/ Vitamin B1/Folic Acid/NS) 1,011.2 ml @ 125 mls/ hr DAILY@09 IVPB Last administered on 09/29/16 08:36; Admin Dose 125 MLS/HR; Start 09/27/16 at 09:00 Lorazepam 1 mg 1 mg Q4 PRN IV CONTROL WITHDRAWAL SYMPTOMS; Start 09/27/16 at 08: 00 Potassium Chloride/Sodium Chloride 1,000 ml @ 125 mls/hr Q8H IV Last administered on 09/29/16 01:25; Admin Dose 125 MLS/HR; Start 09/27/16 at 09:00 Ceftriaxone Sodium (Rocephin) 50 ml @ 100 mls/hr Q24H IVPB Last administered on 09/29/16 08:34; Admin Dose 100 MLS/HR; Start 09/27/16 at 08:15 Zolpidem Tartrate (Ambien) 5 mg HS PRN PO INSOMNIA Last administered on 01:30; Admin Dose 5 MG; Start 09/28/16 at 01:30 Acetaminophen/ Hydrocodone Bitart 1 tab 1 tab Q4H PRN PO PAIN Last administered on 09/29/16 08:47; Admin Dose 1 TAB; Start 09/29/16 at 08:45 Potassium Chloride/Dextrose (KCl/D5W) 265 ml @ 88.333 mls/ hr ONCE ONCE IVPB ; Start 09/29/16 at 11:00; Stop 09/29/16 at 13:59 NAOMI DUENAS NP Sep 29, 2016 10:12
[2016-09-29] MEDS: LISINOPRIL 5 MG TAB PO SCH (10:37)
[2016-09-29] MEDS ORDERED: POTASSIUM CHLORIDE 30 MEQ in DEXTROSE 5% 250 ML IVPB ONE (11:00)
[2016-09-29 11:35] VITALS: BP 171/97
[2016-09-29 12:45] VITALS: BP 152/89
[2016-09-29 20:42] VITALS: BP 153/93; RESP 18
[2016-09-30] MEDS: morphine 2 MG INJ IV PRN ×2 (01:18→05:32)
[2016-09-30] MEDS: PANTOPRAZOLE 40 MG INJ IV SCH (05:27)
[2016-09-30 05:40] LABS: BASOPHILS % 0.2 % (0.0-2.0); EOSINOPHILS # 0.3 10^3/ul (0.0-0.5); EOSINOPHILS % 4.7 % (0.0-7.0); HEMATOCRIT 36.9 % (37.0-47.0); HEMOGLOBIN 12.5 g/dl (12.0-16.0); LYMPHOCYTES # 1.4 10^3/ul (0.8-2.9); LYMPHOCYTES % 19.2 % (15.0-51.0); MEAN CORPUSCULAR HEMOGLOBIN 33.2 pg (29.0-33.0); MEAN CORPUSCULAR HGB CONC 33.9 g/dl (32.0-37.0); MEAN CORPUSCULAR VOLUME 98.1 fl (82.0-101.0); MEAN PLATELET VOLUME 9.3 fl (7.4-10.4); MONOCYTE # 0.5 10^3/ul (0.3-0.9); MONOCYTES % 6.5 % (0.0-11.0); NEUTROPHIL # 4.9 10^3/ul (1.6-7.5); NEUTROPHILS % 69.4 % (39.0-77.0); PLATELET COUNT 134 10^3/UL (140-440); RED BLOOD COUNT 3.77 10^6/ul (4.20-5.40); RED CELL DISTRIBUTION WIDTH 14.8 % (11.5-14.5); UNCORRECTED WBC 7.1 10^3/ul (4.8-10.8); WHITE BLOOD COUNT 7.1 10^3/ul (4.8-10.8)
[2016-09-30 05:50] LABS: ALBUMIN 3.5 g/dl (3.3-4.9); CONDITION 1; LH ANALYZER COMMENTS 1
[2016-09-30 05:51] LABS: POTASSIUM 4.3 mmol/L (3.5-5.1)
[2016-09-30 05:53] LABS: ALBUMIN/GLOBULIN RATIO 1.09; BILIRUBIN,INDIRECT 0.3 mg/dl (0-1.1); BILIRUBIN,TOTAL 0.3 mg/dl (0.2-1.3); CREATININE 0.7 mg/dl (0.44-1.00); TOTAL PROTEIN 6.7 g/dl (6.1-8.1)
[2016-09-30 05:54] LABS: CALCIUM 8.8 mg/dl (8.4-10.2)
[2016-09-30 05:59] LABS: MAGNESIUM 1.7 mg/dl (1.7-2.5); PHOSPHORUS 3.3 mg/dl (2.5-4.9)
[2016-09-30] MEDS: HYDROCODONE/APAP (5/325) TAB PO PRN ×2 (07:20→13:05)
[2016-09-30] MEDS: CEFTRIAXONE 1 GM/50 ML (PMX) 50 ML IVPB SCH (09:07)
[2016-09-30] MEDS: MULTIVITAMINS 10 ML, THIAMINE 100 MG, FOLIC ACID 1 MG in SOD CHLORIDE 0.9% 1,000 ML IVPB SCH (09:07)
[2016-09-30] MEDS: LISINOPRIL 5 MG TAB PO SCH (09:10)
[2016-09-30] MEDS: 1/2 NS + KCL 20 MEQ 1,000 ML IV SCH (10:54)
--- NOTE | 2016-09-30 11:20 | PDOCDIS ---
Discharge Instructions DIAGNOSIS Discharge Diagnosis: Alcoholic pancreatitis. Nonischemic cardiomyopathy. CONDITION Patient Condition: Stable HOME CARE INSTRUCTIONS: Diet Instructions: Regular FOLLOW UP/APPOINTMENTS Appointments Flex Williamson MD Specialty: Internal Medicine Office Address: [address] [place], [place] [id number] Office OTHER ORDERS: Other Orders: 1. Take medications as per prescription. 2. Abstain from using alcohol and recreational drugs. 3. Take a regular diet as tolerated. 4. Resume activities as tolerated. 5. Follow-up with a primary care physician in 2 weeks. If you do not have a primary care physician, please call Dr. Flex Williamson's office. NAOMI DUENAS NP Sep 30, 2016 11:20
[2016-09-30] MEDS ORDERED: LISI-313 PO (11:21)
[2016-09-30] MEDS ORDERED: CARV3.1260 PO (11:21)
--- NOTE | 2016-09-30 15:45 | DS ---
DATE OF ADMISSION: 09/26/2016 DATE OF DISCHARGE: 09/30/2016 FINAL DIAGNOSES 1. Acute pancreatitis secondary to alcohol abuse. Resolved. 2. Nonischemic cardiomyopathy. 3. Substance abuse. 4. Urinary tract infection. 5. Alcoholism. 6. Obesity. 7. Transaminitis. 8. Fatty liver. HOSPITAL COURSE: This is a 26-year-old female with past medical history of alcohol abuse and cardiomyopathy who came to the emergency room with chief complaint of abdominal pain. The patient verbalized that her last drink was 2 days prior to the ER visit. The patient also verbalized some associated nausea and vomiting. The patient was complaining of nonbilious emesis with associated nausea. In the emergency room, the patient underwent a CT scan of the abdomen and pelvis that showed enlarged fatty liver and possible underlying pancreatitis. The patient's pancreatic lipase level was found to be 1491. Provided the patient's history of present illness and the diagnostic findings, a clinical decision was made to admit the patient to inpatient setting to have her further evaluated. The patient was admitted to inpatient medical/surgical floor. The patient was kept n.p.o. She was started on IV fluids. The patient was started on analgesics. The patient's pancreatic lipase levels were trended with improvement. Once the patient's lipase levels are trending down and the abdominal pain was getting better, she was started on a clear liquid diet, and the diet was advanced as tolerated to a regular consistency diet without any significant gastrointestinal symptoms. The etiology of the patient's pancreatitis was concluded to be because of alcohol abuse. The patient had no hypertriglyceridemia. She had no cholelithiasis. The patient was maintained on multivitamin for her underlying alcohol abuse. She was maintained on p.r.n. benzodiazepines. The patient did not have any evidence of any alcohol withdrawal delirium. The patient was advised on quitting the use of alcohol. The patient was also noticed to have positive amphetamines in the urine. Although the patient denied any drug abuse in the beginning, later she admitted to using amphetamines. The patient was advised on quitting the use of illicit medications. The patient was seen by social work program coordinator and was provided with resources. The patient also has underlying cardiomyopathy. However, the patient has not been taking any medications at home. The patient most probably has nonischemic cardiomyopathy secondary to drug and alcohol abuse. The patient's 2D echocardiogram showed ejection fraction of 35% with moderate left atrial enlargement and global hypokinesis of the left ventricle. Because of this, the patient was started on RENETTA inhibitors and beta blockers. The patient had no evidence of any acute decompensated heart failure. The patient's BNP was within normal limits. The patient had no respiratory distress during this visit. The patient's urinalysis on admission was positive for nitrate with a urine microscopic WBC of 10 to 25. Hence, the patient was started on empiric antibiotics for any underlying urinary tract infection. The patient's urine culture was inconclusive. Despite that, the patient got 4 doses of IV antibiotics. The patient was noticed to be obese with a BMI of 44.3 kg per meter squared. The patient was advised on weight reduction. The patient's hemoglobin A1c was 5.5. The patient's fasting lipid panel was optimal. The patient had a stable hospital course. The patient is stable to be discharged home today. The patient is able to tolerate a regular consistency diet without any significant gastrointestinal symptoms. DISCHARGE DISPOSITION/PLAN: The patient will be discharged home today. The patient was instructed to take medications as per prescription. She was instructed to abstain from using alcohol and recreational drugs. She was instructed to take a regular diet as tolerated. She was instructed to resume activities as tolerated. She was instructed to follow up with a primary care physician in 2 weeks and if she does not have a primary care physician to please call Dr. Flex Williamson's office for an appointment. The patient was instructed to return back to the emergency room if she has any significant abdominal pain, persistent nausea and vomiting or any other unusual signs/ symptoms. The patient verbalized understanding of her discharge instructions. CONDITION AT DISCHARGE: Stable. DISCHARGE MEDICATIONS: 1. Coreg 3.125 mg p.o. twice a day. 2. Lisinopril 5 mg p.o. daily. PERTINENT LABORATORY AND DIAGNOSTIC DATA: 1. 2D echocardiogram. The left ventricle was moderately dilated with moderately reduced systolic function. There is global hypokinesis. Estimated left ventricular ejection fraction of 35%. Moderate left atrial enlargement. 2. Urine culture. Mixed gram-positive organisms. 3. Chest x-ray on admission. No evidence of active cardiopulmonary disease. 4. CT scan of the abdomen and pelvis. Enlarged fatty liver. Question focal pancreatitis. Diverticulosis. 5. Latest amylase and lipase 90 and 599 respectively. 6. Latest CBC: WBC 7.1, hemoglobin 12.5, hematocrit 36.9, platelet count 134. 7. Latest BMP: Sodium 140, potassium 4.3, chloride 104, carbon dioxide 27, anion gap 13, BUN 7, creatinine 0.74, glucose 100, calcium 8.8, phosphorus 3.3, magnesium 1.7, AST 59, ALT 77, alkaline phosphatase 96%. 8. Hemoglobin A1c 5.5. 9. Fasting lipid panel: Triglycerides 69, total cholesterol 155, LDL 89, HDL 52. The case and management of this patient was fully discussed with Dr. Lucas. Approximately 40 minutes was spent on coordinating the discharge on this patient. NAOMI LUCAS MD, AM/TYRESE Conf#: [id number] DID#: [id number] MTDD
== END 2016-09-30 15:40 | disposition home or self-care (01) | DRG 439 ==
LOC: FTE 14:18 → PP2 20:18
PROVIDERS: ADMIT Internal Medicine; ATTEND Internal Medicine
DX: K85.20 Alcohol induced acute pancreatitis without necrosis or infection (principal); I42.7 Cardiomyopathy due to drug and external agent; I42.6 Alcoholic cardiomyopathy; N39.0 Urinary tract infection, site not specified; Z68.41 Body mass index [BMI] 40.0-44.9, adult; E83.42 Hypomagnesemia; F15.10 Other stimulant abuse, uncomplicated; Z91.14 Patient's other noncompliance with medication regimen; E66.9 Obesity, unspecified; I51.7 Cardiomegaly; R74.0 Nonspecific elevation of levels of transaminase and lactic acid dehydrogenase [LDH]; F10.20 Alcohol dependence, uncomplicated
CPT/HCPCS: 71010; 74176; 80053; 80061; 80306; 80307; 81001; 81003; 82150; 83036; 83690; 83735; 83880; 84100; 85025; 87086; 90686; 93005; 93306; C9113; J0360; J0696; J1170; J2270; J2405; J2765; J3411; J3480; J7030; J7070

== ENCOUNTER 2016-10-13 06:14 | Emergency (ER) | END 2016-10-13 09:14 | disposition home or self-care (01) | DX: I10 Essential (primary) hypertension (principal); I50.9 Heart failure, unspecified; Z87.891 Personal history of nicotine dependence | CPT/HCPCS: 36415; 76705; 80053; 81003; 83690; 85025; 85610; 85730; 96361; 96374; 96375; 99285; J2270; J2405; J7030 ==

== ENCOUNTER 2016-11-22 21:06 | Inpatient (IN) | payer MEDICAID ==
[~2016-11-22] VITALS: Ht 152.4 cm; Wt 109.7 kg
[~2016-11-22 21:06] MED LIST changes: -ASPI-664 PO; -CARV12.579 PO; -CARV6.2579 PO; -FURO40TA4 PO; +HYDR-902 PO; -LEVO50TA74 PO; -LISI20TA11 PO; -LORA1TAB PO; +ONDA4TAB14 PO
[2016-11-22 21:48] LABS: URINE BLOOD (Dip) POC 2+ (NEGATIVE)
[2016-11-22 22:01] VITALS: TEMP 98.6
[2016-11-22] MEDS ORDERED: ONDANSETRON 4 MG INJ IV STA (22:10)
[2016-11-22] MEDS ORDERED: morphine 4 MG/ML VIAL IV STA (22:10)
[2016-11-22] MEDS ORDERED: hydrALAzine 20 MG INJ IV ONE (22:30)
[2016-11-22 22:44] LABS: ADD SCAN DIFF NO
[2016-11-22 22:50] LABS: BASOPHILS % 0.2 % (0.0-2.0); EOSINOPHILS % 0.1 % (0.0-7.0); HEMATOCRIT 49.4 % (37.0-47.0); HEMOGLOBIN 16.5 g/dl (12.0-16.0); LYMPHOCYTES # 1.2 10^3/ul (0.8-2.9); LYMPHOCYTES % 9.6 % (15.0-51.0); MEAN CORPUSCULAR HEMOGLOBIN 32.1 pg (29.0-33.0); MEAN CORPUSCULAR HGB CONC 33.4 g/dl (32.0-37.0); MEAN CORPUSCULAR VOLUME 96.1 fl (82.0-101.0); MEAN PLATELET VOLUME 9.9 fl (7.4-10.4); MONOCYTE # 0.7 10^3/ul (0.3-0.9); MONOCYTES % 5.6 % (0.0-11.0); NEUTROPHIL # 10.4 10^3/ul (1.6-7.5); NEUTROPHILS % 84.1 % (39.0-77.0); PLATELET COUNT 250 10^3/UL (140-415); RED BLOOD COUNT 5.14 10^6/ul (4.20-5.40); RED CELL DISTRIBUTION WIDTH 14.2 % (11.5-14.5); WHITE BLOOD COUNT 12.4 10^3/ul (4.8-10.8)
[2016-11-22 22:51] LABS: ADD UMIC YES; URINE BILIRUBIN (Dip) 2+ (NEGATIVE); URINE BLOOD (Dip) 2+ (NEGATIVE); URINE COLOR AMBER (YELLOW); URINE GLUCOSE (Dip) NEGATIVE (NEGATIVE); URINE KETONES (Dip) 15 (NEGATIVE); URINE LEUKOCYTE ESTERASE (Dip) NEGATIVE (NEGATIVE); URINE NITRITE (Dip) POSITIVE (NEGATIVE); URINE TOTAL PROTEIN (Dip) 4+ (NEGATIVE); URINE UROBILINOGEN (Dip) 1.0 E.U./dL (0.1-1.0)
[2016-11-22 22:55] LABS: ALBUMIN 4.7 g/dl (3.3-4.9); POTASSIUM 3.2 mmol/L (3.5-5.1)
[2016-11-22 22:57] LABS: CREATININE 0.92 mg/dl (0.44-1.00)
[2016-11-22 22:58] LABS: ALBUMIN/GLOBULIN RATIO 1.14; CALCIUM 9.1 mg/dl (8.4-10.2); TOTAL PROTEIN 8.8 g/dl (6.1-8.1)
[2016-11-22] MEDS ORDERED: METOCLOPRAMIDE 10 MG INJ IV ONE (23:00)
--- NOTE | 2016-11-22 23:04 | RADRPT ---
PROCEDURE: XR Chest. CLINICAL INDICATION: Abdominal pain. TECHNIQUE: Portable AP semi erect view of the chest was obtained. COMPARISON: 09/26/2016 FINDINGS: The cardiomediastinal silhouette is mildly enlarged. Mild bibasilar subsegmental atelectasis is not ed. There is no evidence for pleural effusion, pneumothorax or pulmonary vascular congestion. The osseous structures are intact with no evidence for acute abnormality. Copious soft tissues limit fin e evaluation, the exam limited by body evidence RPTAT:HJJR IMPRESSION: Mild cardiomegaly and bibasilar subsegmental atelectasis new compared 09/26/2016. Physician Cristina Date Time Electronically viewed and signed by Travis Roper Physician on 11/22/2016 23:04 JR/
[2016-11-22 23:07] LABS: SQUAMOUS EPITHELIAL CELL,UR MANY
[2016-11-22 23:08] LABS: BACTERIA,URINE MODERATE; ICTOTEST NEGATIVE (NEGATIVE); MUCUS,URINE MODERATE
[2016-11-22 23:10] LABS: TROPONIN-I 0.056 ng/ml (0.00-0.12)
[2016-11-23] VITALS (11 sets, daily range): BP systolic 131–183; BP diastolic 79–122; PULSE 106–125; RESP 18–24; Ht 152.4 cm; Wt 109.7 kg
[2016-11-23] MEDS ORDERED: IMIPENEM-CILAST 500MG IV (PMX) 100 ML IVPB ONE
[2016-11-23] MEDS ORDERED: HYDROmorphONE 2 MG/ML SYG IV STA (00:05)
--- NOTE | 2016-11-23 00:20 | ERA ---
ER Documentation Chief Complaint Date/Time DATE: 11/23/16 TIME: 00:17 Chief Complaint LT SIDE CHEST PAIN X2 HR NON RADIATING +ABDOMINAL PAIN HX CHF HPI 6 her female left-sided chest pain for 2 hours with certain epigastric region and radiates up. Patient has a history of pancreatitis. Patient is a chronic alcoholic. Pain is [id number] in intensity. Positive nausea. Multiple episodes of vomiting which nonbilious. No blood in the vomit. Patient admits to drinking recently. No other current complaints. ROS All systems reviewed and are negative except as per history of present illness. Medications Home Meds Active Scripts Ondansetron (Ondansetron Odt) 4 Mg Tab.rapdis, 4 MG PO Q6H Y for NAUSEA AND/OR VOMITING, #30 TAB Prov:JASBIR AGUSTIN MD 10/13/16 Hydrocodone/Acetaminophen ([place] 10-325 Tablet) 1 Each Tablet, 1 TAB PO Q6H Y for PAIN, #7 TAB Prov:JASBIR AGUSTIN MD 10/13/16 Allergies Allergies: Coded Allergies: No Known Allergy (Unverified , 11/22/16) PMhx/Soc History of Surgery: No Anesthesia Reaction: No Hx Neurological Disorder: No Hx Respiratory Disorders: No Hx Cardiac Disorders: Yes (HTN, HX CHF) Hx Psychiatric Problems: No Hx Miscellaneous Medical Probl: Yes (Pancreatitis) Hx Alcohol Use: Yes (2 pints of vodka per day ) Hx Substance Use: Yes (reports meth use today) Hx Tobacco Use: No Smoking Status: Never smoker Physical Exam Vitals Vital Signs Date Time Temp Pulse Resp B/P Pulse Ox O2 Delivery O2 Flow Rate FiO2 11/23/16 00:03 111 21 134/90 99 Room Air 11/22/16 22:01 98.6 111 16 173/115 100 Room Air 11/22/16 21:08 98.0 117 24 189/133 96 Physical Exam Const: [] Head: Atraumatic Eyes: Normal Conjunctiva ENT: Normal External Ears, Nose and Mouth. Neck: Full range of motion..~ No meningismus. Resp: Clear to auscultation bilaterally Cardio: Regular rate and rhythm, no murmurs Abd: Soft, non tender, non distended. Normal bowel sounds Skin: No petechiae or rashes Back: No midline or flank tenderness Ext: No cyanosis, or edema Neur: Awake and alert Psych: Normal Mood and Affect Result Diagram: 11/22/16222911/22/162229 Results 24 hrs Laboratory Tests Test 11/22/16 21:50 11/22/16 22:30 Bedside Urine Blood 2+ Bedside Urine Glucose (UA) Negative Bedside Urine Ketones (LAB) 1+ Bedside Urine Leukocyte Esterase (L Negative Bedside Urine Nitrite (LAB) Positive Bedside Urine Protein (LAB) 3+ Bedside Urine pH (LAB) 5.5 Alanine Aminotransferase (ALT/SGPT) 86IU/L Albumin 4.7g/dl Albumin/Globulin Ratio 1.14 Alkaline Phosphatase 159IU/L Anion Gap 24 Aspartate Amino Transf (AST/SGOT) 152IU/L Basophils # 0.010^3/ul Basophils % 0.2% Blood Urea Nitrogen 11mg/dl Calcium Level 9.1mg/dl Carbon Dioxide Level 25mmol/L Chloride Level 96mmol/L Creatinine 0.92mg/dl Direct Bilirubin 0.00mg/dl Eosinophils # 0.010^3/ul Eosinophils % 0.1% Globulin 4.10g/dl Glucose Level 108mg/dl Hematocrit 49.4% Hemoglobin 16.5g/dl Indirect Bilirubin 1.0mg/dl Lipase 50812C/L Lymphocytes # 1.210^3/ul Lymphocytes % 9.6% Mean Corpuscular Hemoglobin 32.1pg Mean Corpuscular Hemoglobin Concent 33.4g/dl Mean Corpuscular Volume 96.1fl Mean Platelet Volume 9.9fl Monocytes # 0.710^3/ul Monocytes % 5.6% Neutrophils # 10.410^3/ul Neutrophils % 84.1% Nucleated Red Blood Cells # 0.010^3/ul Nucleated Red Blood Cells % 0.0/100WBC Platelet Count 37089^3/UL Potassium Level 3.2mmol/L Red Blood Count 5.1410^6/ul Red Cell Distribution Width 14.2% Sodium Level 142mmol/L Total Bilirubin 1.0mg/dl Total Protein 8.8g/dl Troponin I 0.056ng/ml Urine Bacteria MODERATE Urine Bilirubin 2+ Urine Clarity CLOUDY Urine Color SUGAR Urine Glucose NEGATIVE% Urine Hemoglobin 2+ Urine Hyaline Casts OCCASIONAL Urine Ictotest NEGATIVE Urine Ketones 15 Urine Leukocyte Esterase NEGATIVE Urine Microscopic RBC 5-10/HPF Urine Microscopic WBC 5-10/HPF Urine Mucus MODERATE Urine Nitrite POSITIVE Urine Specific [place] >=1.030 Urine Squamous Epithelial Cells MANY Urine Total Protein 4+ Urine Urobilinogen 1.0 E.U./dL Urine pH 5.5 White Blood Count 12.410^3/ul Current Medications Medications (Trade) Dose Ordered Sig/Aliyah Route PRN Reason Start Time Stop Time Status Last Admin Dose Admin Morphine Sulfate (morphine) 4 mg ONCE STAT IV 11/22/16 22:10 11/22/16 22:16 DC 11/22/16 22:18 Ondansetron HCl (Zofran Inj) 4 mg ONCE STAT IV 11/22/16 22:10 11/22/16 22:16 DC 11/22/16 22:18 Hydralazine HCl (Apresoline) 20 mg ONCE ONCE IV 11/22/16 22:30 11/22/16 22:31 DC 11/22/16 22:19 Metoclopramide HCl 10 mg 10 mg ONCE ONCE IV 11/22/16 23:00 11/22/16 23:01 DC 11/22/16 22:54 Imipenem/ Cilastatin Sodium (Primaxin 500 Mg/ 100 ml (Pmx)) 100 ml @ 100 mls/hr ONCE ONCE IVPB 11/23/16 00:00 11/23/16 00:59 11/23/16 00:11 Hydromorphone HCl (Dilaudid) 2 mg ONCE STAT IV 11/23/16 00:05 11/23/16 00:06 DC 11/23/16 00:11 Procedures/MDM EKG: Rate/Rhythm: Normal Sinus Rhythm QRS, ST, T-waves: No changes consistent w/ acute ischemia Impression: No evidence of ischemia or arrhythmia Chest X-ray 1V Interpreted by me: Soft Tissue: No acute abnormalities Bones: No acute abnormalities Mediastinum/Cardiac Silhouette/Lungs: No acute abnormalities Medical decision-making: This is acute pancreatitis. Grandson score is low. This may severe pancreatitis unlikely. Patient was admitted to medical surgical floor. Hospitalist is notified. Patient also had evidence of urinary tract infection. Given dose of Ativan and to cover both urinary tract infection and acute pancreatitis. Departure Diagnosis: Primary Impression: Acute pancreatitis Qualified Code: K85.20 - Alcohol-induced acute pancreatitis, unspecified complication status Additional Impression: Hypertensive urgency, malignant Condition: Serious AMISHA COYNE Nov 23, 2016 00:19
[2016-11-23] MEDS ORDERED: SOD CHLORIDE 0.45% 1,000 ML IV SCH (00:50)
[2016-11-23] MEDS ORDERED: ACETAMINOPHEN 325 MG TAB PO PRN (01:00)
[2016-11-23] MEDS ORDERED: MAGNESIUM HYDROXIDE 30ML CUP PO PRN (01:00)
[2016-11-23] MEDS ORDERED: NITROGLYCERIN (SL) 0.4 MG TAB SL PRN (01:00)
[2016-11-23] MEDS ORDERED: ALBUTEROL/IPRATROPIUM (NEB) 3 ML AMP HHN PRN (01:00)
[2016-11-23] MEDS ORDERED: NACL 0.9% 3 ML SYG IV SCH (01:00)
[2016-11-23] MEDS ORDERED: hydrALAzine 20 MG INJ IV PRN (01:00)
[2016-11-23] MEDS ORDERED: NA PHOSPHATE/BIPHOS 133 ML ENEMA PR PRN (01:00)
[2016-11-23] MEDS ORDERED: DOCUSATE SODIUM 100 MG CAP PO PRN (01:00)
[2016-11-23] MEDS: ONDANSETRON 4 MG INJ IV PRN ×3 (01:30→17:29)
[2016-11-23] MEDS: morphine 2 MG INJ IV PRN ×2 (01:30→05:31)
[2016-11-23] MEDS: PIPER-TAZO 3.375 GM IV (PMX) 100 ML IVPB SCH ×4 (05:31→23:40)
[2016-11-23] MEDS: PANTOPRAZOLE 40 MG INJ IV SCH (05:32)
--- NOTE | 2016-11-23 06:18 | HP ---
DATE OF ADMISSION: 11/22/2016 The patient was seen and examined by me on 11/22/2016 at 11:30 p.m. CHIEF COMPLAINT: Abdominal pain and mild chest pain. HISTORY OF PRESENT ILLNESS: A 26-year-old female with past medical history of alcohol abuse, IV feroz g abuse prior pancreatitis, prior UTI, obesity, fatty liver, nonischemic cardiomyopathy who presents with abdominal pain and chest pain. The pain occurred for about 2 hours prior to admission. The p chetna is a chronic alcoholic, pain described mild to moderate in intensity. She also had some naus ea symptoms and some nonbilious, nonbloody vomiting. No upper or lower GI bleeding . No fevers or chills. When she came in today, she was found with an elevated white blood cell count of 12.4 and h er LFTs are slightly elevated as well and her lipase was 12,055. The patient was last here at our hospital 09/26/2016 to 09/30/2016 for pancreatitis at that time. PAST MEDICAL HISTORY: As stated above. ALLERGIES: NO KNOWN DRUG ALLERGIES. HOME MEDICATIONS: 1. [place] /325 q.6 hours p.r.n. 2. Zofran 4 mg p.o. q.6 hours p.r.n. FAMILY HISTORY: Noncontributory. PAST SURGICAL HISTORY: Unknown. SOCIAL HISTORY: Drinks 2 pints of vodka per day. Uses methamphetamine. Denies any smoking history today. PHYSICAL EXAMINATION: VITAL SIGNS: T-max 98.6, pulse 111 to 117, respirations 16 to 24, blood pressure is 134 to 189 syst olic/90 to 133 diastolic, saturating at 99% on room air. GENERAL: The patient is lying in bed in mild to moderate distress. HEENT: Pupils equal, round, react to light. Extraocular muscles intact. NECK: Supple, no thyromegaly. LUNGS: Clear to auscultation bilaterally. CARDIOVASCULAR: S1, S2 heard. No rubs or gallops. ABDOMEN: Obese, mild tenderness to palpation in epigastric area. No rebound or guarding. MUSCULOSKELETAL: No lower extremity edema bilaterally. NEUROLOGIC: No focal deficits. LABORATORIES: WBC 12.4, hemoglobin 16.5, hematocrit 49.4, platelets 250. Sodium 142, potassium 3.2 , chloride 96, CO2 of 25, BUN 11, creatinine 0.92, glucose 108. Her direct and total bilirubins are normal. AST is 152, ALT 86, alkaline phosphatase 159. Again, lipase 12,055. Chest x-ray: Mild c ardiomegaly, bibasilar subsegmental atelectasis. ASSESSMENT AND PLAN: A 26-year-old female with alcohol abuse, methamphetamine use, who presents wit h abdominal pain and signs of pancreatitis. 1. Abdominal pain secondary to pancreatitis, most likely alcohol induced, keep her n.p.o., put her on banana bag, antiemetic medicines, pain medicines, IV fluids, trend her lipase levels, consider [place] stroenterology consult. Trend her LFTs as well. 2. History nonischemic cardiomyopathy, consider checking an echocardiogram and continue to monitor for now. 3. Leukocytosis most likely secondary to urinary tract infection, also probably be from dehydration as well. She does have a positive UA with positive nitrites, so will put her on broad spectrum ant ibiotics; follow up on her culture results. 4. History of substance abuse. Again, need to do education for cessation. Monitor for signs of de lirium tremens or withdrawal. 5. Gastrointestinal prophylaxis, proton pump inhibitor. 6. Deep venous thrombosis prophylaxis, heparin subQ. Dictated By: DARIEN JACKSON Conf#: [id number] DID#: [id number]
[2016-11-23 06:33] LABS: ALBUMIN 4.5 g/dl (3.3-4.9)
[2016-11-23] MEDS: HYDROCODONE/APAP (5/325) TAB PO PRN ×3 (06:33→23:36)
[2016-11-23 06:36] LABS: BILIRUBIN,INDIRECT 1.2 mg/dl (0-1.1); BILIRUBIN,TOTAL 1.2 mg/dl (0.2-1.3); TOTAL PROTEIN 7.8 g/dl (6.1-8.1)
[2016-11-23] MEDS: MULTIVITAMINS 10 ML, THIAMINE 100 MG, FOLIC ACID 1 MG in SOD CHLORIDE 0.9% 1,000 ML IVPB SCH (09:00)
[2016-11-23] MEDS: morphine 4 MG/ML VIAL IV PRN ×4 (09:24→21:56)
[2016-11-23] MEDS: HEPARIN 5,000 UNIT/0.5 ML SYG SC SCH ×2 (09:28→20:51)
[2016-11-23] MEDS ORDERED: METOPROLOL 5 MG INJ IV PRN (12:00)
[2016-11-23] MEDS: D5W-0.45 NACL + KCL 20 MEQ 1,000 ML IV SCH ×3 (12:09→23:40)
[2016-11-23] MEDS: LORAZEPAM 2 MG INJ IV PRN (20:24)
[2016-11-23 20:54] LABS: BARBITURATES Negative (NEGATIVE); BENZODIAZEPINES Negative (NEGATIVE); CANNABINOIDS Negative (NEGATIVE); COCAINE Negative (NEGATIVE); OPIATES Positive (NEGATIVE)
[2016-11-24] VITALS (11 sets, daily range): BP systolic 105–149; BP diastolic 60–78; PULSE 107–126; RESP 15–22
[2016-11-24] MEDS: morphine 4 MG/ML VIAL IV PRN ×6 (01:59→22:18)
[2016-11-24] MEDS: PIPER-TAZO 3.375 GM IV (PMX) 100 ML IVPB SCH ×4 (05:27→23:19)
[2016-11-24] MEDS: PANTOPRAZOLE 40 MG INJ IV SCH (05:27)
[2016-11-24 07:56] LABS: ADD SCAN DIFF NO
[2016-11-24 07:58] LABS: BASOPHILS % 0.2 % (0.0-2.0); EOSINOPHILS % 0.1 % (0.0-7.0); HEMATOCRIT 43.9 % (37.0-47.0); HEMOGLOBIN 14.8 g/dl (12.0-16.0); LYMPHOCYTES # 0.6 10^3/ul (0.8-2.9); LYMPHOCYTES % 3.2 % (15.0-51.0); MEAN CORPUSCULAR HGB CONC 33.7 g/dl (32.0-37.0); MEAN PLATELET VOLUME 11.1 fl (7.4-10.4); MONOCYTES % 5.2 % (0.0-11.0); NEUTROPHIL # 17.5 10^3/ul (1.6-7.5); PLATELET COUNT 184 10^3/UL (140-415); RED BLOOD COUNT 4.48 10^6/ul (4.20-5.40); RED CELL DISTRIBUTION WIDTH 14.6 % (11.5-14.5); WHITE BLOOD COUNT 19.4 10^3/ul (4.8-10.8)
[2016-11-24] MEDS: D5W-0.45 NACL + KCL 20 MEQ 1,000 ML IV SCH ×2 (08:00→18:00)
[2016-11-24 08:01] LABS: NEUTROPHILS % 90.5 % (39.0-77.0)
[2016-11-24] MEDS: HYDROCODONE/APAP (5/325) TAB PO PRN ×2 (08:14→16:09)
[2016-11-24] MEDS: MULTIVITAMINS 10 ML, THIAMINE 100 MG, FOLIC ACID 1 MG in SOD CHLORIDE 0.9% 1,000 ML IVPB SCH (08:16)
[2016-11-24] MEDS: HEPARIN 5,000 UNIT/0.5 ML SYG SC SCH ×2 (08:25→20:22)
[2016-11-24 08:28] LABS: POTASSIUM 3.6 mmol/L (3.5-5.1)
[2016-11-24 08:30] LABS: CREATININE 1.51 mg/dl (0.44-1.00)
[2016-11-24 08:31] LABS: PHOSPHORUS 1.8 mg/dl (2.5-4.9)
[2016-11-24 08:32] LABS: CALCIUM 7.3 mg/dl (8.4-10.2); CHOL/HDL RATIO 3.1 RATIO; MAGNESIUM 1.2 mg/dl (1.7-2.5)
[2016-11-24 08:47] LABS: AMYLASE 282 U/L (11-123)
[2016-11-24 08:54] LABS: THYROID STIMULATING HORMONE 2.1 MIU/L (0.465-4.680)
[2016-11-24] MEDS ORDERED: LISINOPRIL 5 MG TAB PO SCH (09:00)
[2016-11-24] MEDS: ONDANSETRON 4 MG INJ IV PRN (13:15)
[2016-11-24] MEDS ORDERED: MAGNESIUM SULFATE 3 GM in SOD CHLORIDE 0.9% 100 ML IVPB ONE (16:30)
--- NOTE | 2016-11-24 17:17 | PN ---
DATE: 11/24/2016 SUBJECTIVE: The patient complains of abdominal pain. She had an episode of vomiting today. OBJECTIVE DATA: VITAL SIGNS: Temperature 98.4, pulse of 110, respiratory rate 20, blood pressure 105/74, oxygen saturation 94% on room air. GENERAL: This is an obese female patient lying in bed in no apparent distress. HEENT: Head normocephalic and atraumatic. Eyes: Anicteric sclerae. Conjunctivae clear. ENT: Nasal septum is midline. Oral mucosa is dry. NECK: Supple. No JVD noticed. RESPIRATORY: Bilaterally clear to auscultation. No adventitious breath sounds heard. No use of accessory muscles of respiration. CARDIAC: Regular rate and rhythm. No obvious murmurs heard. ABDOMEN: Distended. Diffuse tenderness. Bowel sounds positive in all 4 quadrants. GENITOURINARY: Deferred. EXTREMITIES: No cyanosis, no clubbing, no edema. Peripheral pulses are palpable. NEUROLOGIC: The patient is awake, alert and oriented. Cranial nerves are grossly intact. LABORATORY AND DIAGNOSTIC DATA: WBC 19.4, hemoglobin 14.8, hematocrit 43.9, platelet count 184. Sodium 132, potassium 3.6, chloride 93, carbon dioxide 25, anion gap 19, BUN 23, creatinine 1.51, glucose 141, calcium 7.3, phosphorus 1.8 , magnesium 1.2. ASSESSMENT AND PLAN: 1. Acute alcoholic pancreatitis. Continue the patient n.p.o. Continue IV fluids. Continue analgesics. 2. Nonischemic cardiomyopathy. Ejection fraction of 35% as per 2D echocardiogram done on 09/28/2016. Continue beta blockers and RENETTA inhibitors. However, RENETTA inhibitors will be put on hold because of worsening renal function. 3. Acute kidney injury. Etiology unclear, most probably secondary to hemodynamic versus other. Will hold the patient's RENETTA inhibitors at this time. 4. Substance abuse. Cessation was advised. 5. Leukocytosis. Etiology unclear. The patient remains afebrile. Continue antibiotics. 6. Obesity. BMI of 47.2 kilograms per meter square. We will advise weight reduction. 7. Sinus tachycardia. Currently the rate is controlled. Continue beta blockers. 8. Fluids, electrolytes and nutrition. Continue IV fluids. Continue n.p.o. except for ice chips. 9. DVT prophylaxis with subcutaneous heparin. 10. Gastrointestinal prophylaxis. Histamine 2 receptor blockers. 11. Plan. Continue n.p.o. Continue IV fluids. Continue pain control. Case discussed with Dr. Lucas. NAOMI LUCAS MD, AM/TYRESE Conf#: [id number] DID#: [id number] MTDD
[2016-11-24] MEDS: FAMOTIDINE 20 MG INJ IV SCH (20:17)
[2016-11-24] MEDS: SODIUM PHOSPHATE 30 MMOL in SOD CHLORIDE 0.9% 250 ML IVPB ONE ×2 (23:15→23:54)
[2016-11-25] VITALS (11 sets, daily range): BP systolic 117–152; BP diastolic 60–97; PULSE 100–117; RESP 15–22
[2016-11-25] MEDS: HYDROCODONE/APAP (5/325) TAB PO PRN ×4 (00:29→23:36)
[2016-11-25] MEDS: morphine 4 MG/ML VIAL IV PRN ×5 (03:17→20:27)
[2016-11-25] MEDS: D5W-0.45 NACL + KCL 20 MEQ 1,000 ML IV SCH ×2 (04:00→14:00)
[2016-11-25] MEDS: PANTOPRAZOLE 40 MG INJ IV SCH (05:36)
[2016-11-25] MEDS: PIPER-TAZO 3.375 GM IV (PMX) 100 ML IVPB SCH ×3 (05:36→19:00)
[2016-11-25 06:11] LABS: ADD SCAN DIFF NO
[2016-11-25 06:35] LABS: BASOPHILS % 0.2 % (0.0-2.0); EOSINOPHILS # 0.1 10^3/ul (0.0-0.5); EOSINOPHILS % 0.5 % (0.0-7.0); HEMATOCRIT 35.5 % (37.0-47.0); HEMOGLOBIN 11.8 g/dl (12.0-16.0); LYMPHOCYTES % 7.5 % (15.0-51.0); MEAN CORPUSCULAR HEMOGLOBIN 33.4 pg (29.0-33.0); MEAN CORPUSCULAR HGB CONC 33.2 g/dl (32.0-37.0); MEAN CORPUSCULAR VOLUME 100.6 fl (82.0-101.0); MEAN PLATELET VOLUME 10.9 fl (7.4-10.4); MONOCYTE # 0.9 10^3/ul (0.3-0.9); MONOCYTES % 6.3 % (0.0-11.0); NEUTROPHIL # 11.6 10^3/ul (1.6-7.5); NEUTROPHILS % 84.8 % (39.0-77.0); PLATELET COUNT 148 10^3/UL (140-415); RED BLOOD COUNT 3.53 10^6/ul (4.20-5.40); RED CELL DISTRIBUTION WIDTH 15.1 % (11.5-14.5); WHITE BLOOD COUNT 13.6 10^3/ul (4.8-10.8)
[2016-11-25 06:47] LABS: POTASSIUM 3.4 mmol/L (3.5-5.1)
[2016-11-25 06:50] LABS: CREATININE 1.53 mg/dl (0.44-1.00)
[2016-11-25 06:51] LABS: CALCIUM 7.3 mg/dl (8.4-10.2)
--- NOTE | 2016-11-25 07:26 | PN ---
Date/Time of Note Date/Time of Note DATE: 11/25/16 TIME: 07:25 Assessment/Plan VTE Prophylaxis VTE Prophylaxis Intervention: heparin Lines/Catheters IV C[facility] Type (from [facility] Peripheral IV Assessment/Plan Chief Complaint/Hosp Course 1. Acute alcoholic pancreatitis. Continue IV fluids. Continue analgesics. Will start the patient on clear liquid diet. 2. Nonischemic cardiomyopathy. Ejection fraction of 35% as per 2D echocardiogram done on 09/28/2016. Was on beta blockers and RENETTA inhibitors. However, RENETTA inhibitors on hold because of worsening renal function. 3. Acute kidney injury. Etiology unclear, most probably secondary to hemodynamic versus other. Will hold the patient's RENETTA inhibitors at this time. 4. Substance abuse. Cessation was advised. 5. Leukocytosis. Etiology unclear. The patient remains afebrile. Continue antibiotics. 6. Obesity. BMI of 47.2 kilograms per meter square. Will advise weight reduction. 7. Sinus tachycardia. Currently controlled. Continue beta blockers. 8. Fluids, electrolytes and nutrition. Continue IV fluids. Continue n.p.o. except for ice chips. 9. DVT prophylaxis with subcutaneous heparin. 10. Gastrointestinal prophylaxis. Histamine 2 receptor blockers. 12. Plan. Start clear liquids. Continue IV fluids. Continue pain control. Replete potassium. Transfer the patient to [facility]. Case discussed with Dr. James. Problems: Subjective 24 Hr Interval Summary Free Text/Dictation Abdominal pain well controlled. Denies any nausea or vomiting. Exam/Review of Systems Vital Signs Vitals Vital Signs Date Time Temp Pulse Resp B/P Pulse Ox O2 Delivery O2 Flow Rate FiO2 11/25/16 04:50 100 11/25/16 04:00 99.5 15 125/60 92 11/24/16 01:11 21 11/23/16 19:13 Room Air Intake and Output 11/24/16 11/24/16 11/25/16 15:00 23:00 07:00 Intake Total 100.663 ml 425.333 ml Output Total 600 ml Balance -499.337 ml 425.333 ml Exam GENERAL: This is an obese female patient lying in bed in no apparent distress. HEENT: Head normocephalic and atraumatic. Eyes: Anicteric sclerae. Conjunctivae clear. ENT: Nasal septum is midline. Oral mucosa is dry. NECK: Supple. No JVD noticed. RESPIRATORY: Bilaterally clear to auscultation. No adventitious breath sounds heard. No use of accessory muscles of respiration. CARDIAC: Regular rate and rhythm. No obvious murmurs heard. ABDOMEN: Distended. Diffuse tenderness. Bowel sounds positive in all 4 quadrants. GENITOURINARY: Deferred. EXTREMITIES: No cyanosis, no clubbing, no edema. Peripheral pulses are palpable. NEUROLOGIC: The patient is awake, alert and oriented. Cranial nerves are grossly intact. Results Result Diagram: 11/25/1655411/25/16 0555 Results 24 hrs Laboratory Tests Test 11/25/16 05:55 Anion Gap 14 Basophils # 0.0 Basophils % 0.2 Blood Urea Nitrogen 30 H Calcium Level 7.3 L Carbon Dioxide Level 26 Chloride Level 96 L Creatinine 1.53 H Eosinophils # 0.1 Eosinophils % 0.5 Glucose Level 118 Hematocrit 35.5 L Hemoglobin 11.8 #L Lymphocytes # 1.0 Lymphocytes % 7.5 L Magnesium Level 2.3 # Mean Corpuscular Hemoglobin 33.4 H Mean Corpuscular Hemoglobin Concent 33.2 Mean Corpuscular Volume 100.6 Mean Platelet Volume 10.9 H Monocytes # 0.9 Monocytes % 6.3 Neutrophils # 11.6 H Neutrophils % 84.8 H Nucleated Red Blood Cells # 0.0 Nucleated Red Blood Cells % 0.0 Platelet Count 148 Potassium Level 3.4 L Red Blood Count 3.53 #L Red Cell Distribution Width 15.1 H Sodium Level 133 L White Blood Count 13.6 #H Medications Medications Current Medications Ondansetron HCl (Zofran Inj) 4 mg Q6H PRN IV NAUSEA AND/OR VOMITING Last administered on 11/24/16 13:15; Admin Dose 4 MG; Start 11/23/16 at 01:00 Acetaminophen (Tylenol Tab) 650 mg Q6H PRN PO PAIN LEVEL 1-3 OR FEVER Last administered on 11/23/16 15:35; Admin Dose 650 MG; Start 11/23/16 at 01:00 Acetaminophen/ Hydrocodone Bitart ([place] (5/325)) 1 tab Q6H PRN PO MODERATE PAIN LEVEL 4-6 Last administered on 11/25/16 00:29; Admin Dose 1 TAB; Start 11/23 at 01:00 Docusate Sodium (Colace) 100 mg Q12H PRN PO CONSTIPATION; Start 11/23/16 at 01: 00 Magnesium Hydroxide (Milk Of Mag) 30 ml DAILY PRN PO CONSTIPATION; Start at 01:00 Sodium Biphosphate/ Sodium Phosphate (Fleet Enema) 133 ml DAILY PRN [place] CONSTIPATION; Start 11/23/16 at 01:00 Pantoprazole (Protonix Iv) 40 mg DAILY@06 IV Last administered on 11/25/16 05: 36; Admin Dose 40 MG; Start 11/23/16 at 06:00 Heparin Sodium (Porcine) (Heparin (5000 Units/0.5 ml)) 5,000 unit Q12 SC Last administered on 11/24/16 20:22; Admin Dose 5,000 UNIT; Start 11/23/16 at 09:00 Lorazepam 0.5 mg 0.5 mg Q6H PRN IV ANXIETY Last administered on 11/23/16 20:24 ; Admin Dose 0.5 MG; Start 11/23/16 at 01:00 Piperacillin Sod/ Tazobactam Sod (Zosyn 3.375gm/ 100 ml (Pmx)) 100 ml @ 200 mls /hr Q6 IVPB Last administered on 11/25/16 05:36; Admin Dose 200 MLS/HR; Start 11/23/16 at 06:00 Hydralazine HCl (Apresoline) 10 mg Q6H PRN IV ELEVATED BLOOD PRESSURE; Start at 01:00 Nitroglycerin 1 tab 1 tab Q5M PRN SL ANGINA; Start 11/23/16 at 01:00 Multivitamins/ Thiamine HCl/ Folic Acid/Sodium Chloride (Mvi-12 Adult/ Vitamin B1/Folic Acid/NS) 1,011.2 ml @ 125 mls/ hr DAILY@09 IVPB Last administered on 11/24/16 08:16; Admin Dose 125 MLS/HR; Start 11/23/16 at 09:00 Morphine Sulfate (morphine) 4 mg Q4H PRN IV SEVERE PAIN LEVEL 7-10 Last administered on 11/25/16 03:17; Admin Dose 4 MG; Start 11/23/16 at 09:17 Carvedilol 3.125 mg 3.125 mg BID PO Last administered on 11/24/16 20:21; Admin Dose 3.125 MG; Start 11/23/16 at 10:00 Potassium Chloride/Dextrose/ Sod Cl (D5-1/2ns + KCl 20 Meq) 1,000 ml @ 100 mls/ hr Q10H IV Last administered on 11/23/16 23:40; Admin Dose 100 MLS/HR; Start at 12:00 Metoprolol Tartrate (Lopressor) 2.5 mg Q6H PRN IV HR>130; Start 11/23/16 at 12: 00 Famotidine (Pepcid Iv) 20 mg BID IV Last administered on 11/24/16 20:17; Admin Dose 20 MG; Start 11/24/16 at 21:00 NAOMI DUENAS NP Nov 25, 2016 07:25
[2016-11-25 07:38] LABS: AMYLASE 151 U/L (11-123)
[2016-11-25] MEDS: FAMOTIDINE 20 MG INJ IV SCH ×2 (08:35→20:25)
[2016-11-25] MEDS: HEPARIN 5,000 UNIT/0.5 ML SYG SC SCH ×2 (08:44→20:34)
[2016-11-25] MEDS ORDERED: POTASSIUM CHLORIDE 30 MEQ in DEXTROSE 5% 250 ML IVPB SCH (09:00)
[2016-11-25] MEDS: MULTIVITAMINS 10 ML, THIAMINE 100 MG, FOLIC ACID 1 MG in SOD CHLORIDE 0.9% 1,000 ML IVPB SCH (12:45)
[2016-11-26] MEDS: PIPER-TAZO 3.375 GM IV (PMX) 100 ML IVPB SCH ×3 (00:28→11:45)
[2016-11-26] MEDS: morphine 4 MG/ML VIAL IV PRN ×6 (00:28→21:49)
[2016-11-26] MEDS: D5W-0.45 NACL + KCL 20 MEQ 1,000 ML IV SCH ×5 (02:22→22:10)
[2016-11-26] MEDS: HYDROCODONE/APAP (5/325) TAB PO PRN ×3 (05:23→20:21)
[2016-11-26 05:38] LABS: ADD SCAN DIFF NO
[2016-11-26 05:43] LABS: BASOPHILS % 0.3 % (0.0-2.0); EOSINOPHILS # 0.1 10^3/ul (0.0-0.5); EOSINOPHILS % 0.4 % (0.0-7.0); HEMATOCRIT 35.5 % (37.0-47.0); HEMOGLOBIN 11.6 g/dl (12.0-16.0); LYMPHOCYTES % 8.5 % (15.0-51.0); MEAN CORPUSCULAR HGB CONC 32.7 g/dl (32.0-37.0); MEAN CORPUSCULAR VOLUME 100.9 fl (82.0-101.0); MEAN PLATELET VOLUME 10.3 fl (7.4-10.4); MONOCYTE # 0.9 10^3/ul (0.3-0.9); MONOCYTES % 7.7 % (0.0-11.0); NEUTROPHIL # 9.8 10^3/ul (1.6-7.5); NEUTROPHILS % 81.7 % (39.0-77.0); PLATELET COUNT 175 10^3/UL (140-415); RED BLOOD COUNT 3.52 10^6/ul (4.20-5.40); RED CELL DISTRIBUTION WIDTH 15.4 % (11.5-14.5); WHITE BLOOD COUNT 11.9 10^3/ul (4.8-10.8)
[2016-11-26 05:56] LABS: POTASSIUM 3.9 mmol/L (3.5-5.1)
[2016-11-26 05:58] LABS: AMYLASE 51 U/L (11-123)
[2016-11-26 05:59] LABS: CREATININE 0.76 mg/dl (0.44-1.00)
[2016-11-26 06:00] LABS: CALCIUM 7.9 mg/dl (8.4-10.2)
[2016-11-26 08:15] VITALS: BP 129/70; RESP 16
[2016-11-26] MEDS: FAMOTIDINE 20 MG INJ IV SCH ×2 (08:37→20:26)
[2016-11-26] MEDS: HEPARIN 5,000 UNIT/0.5 ML SYG SC SCH ×2 (08:47→20:25)
[2016-11-26] MEDS: MULTIVITAMINS 10 ML, THIAMINE 100 MG, FOLIC ACID 1 MG in SOD CHLORIDE 0.9% 1,000 ML IVPB SCH (11:45)
[2016-11-26] MEDS: LORAZEPAM 2 MG INJ IV PRN (16:19)
[2016-11-26] MEDS: FUROSEMIDE 20 MG TAB PO SCH ×2 (16:19→17:48)
[2016-11-26] MEDS: MULTIVITAMINS THERAPEUTIC TAB PO SCH (16:19)
--- NOTE | 2016-11-26 21:59 | PN ---
Date/Time of Note Date/Time of Note DATE: 11/26/16 TIME: 21:57 Assessment/Plan VTE Prophylaxis VTE Prophylaxis Intervention: heparin Lines/Catheters IV Catheter Type (from [facility]): Peripheral IV Assessment/Plan Assessment/Plan 1. Acute alcoholic pancreatitis. Continue IV fluids. Continue analgesics. Will start the patient on clear liquid diet. 2. Nonischemic cardiomyopathy. Ejection fraction of 35% as per 2D echocardiogram done on 09/28/2016. Was on beta blockers and RENETTA inhibitors. However, RENETTA inhibitors on hold because of worsening renal function. 3. Acute kidney injury. Etiology unclear, most probably secondary to hemodynamic versus other. Will hold the patient's RENETTA inhibitors at this time. 4. Substance abuse. Cessation was advised. 5. Leukocytosis. Etiology unclear. The patient remains afebrile. Continue antibiotics. 6. Obesity. BMI of 47.2 kilograms per meter square. Will advise weight reduction. 7. Sinus tachycardia. Currently controlled. Continue beta blockers. 8. Fluids, electrolytes and nutrition. Continue IV fluids. Continue n.p.o. except for ice chips. 9. DVT prophylaxis with subcutaneous heparin. Subjective 24 Hr Interval Summary Free Text/Dictation pain controlled, labs ok, wants to have waterpill Exam/Review of Systems Vital Signs Vitals Vital Signs Date Time Temp Pulse Resp B/P Pulse Ox O2 Delivery O2 Flow Rate FiO2 11/26/16 08:15 98.6 99 16 129/70 95 11/25/16 16:27 Room Air 11/24/16 01:11 21 Intake and Output 11/25/16 11/25/16 11/26/16 15:00 23:00 07:00 Intake Total 981 ml 2781.2 ml Output Total 500 ml Balance 981 ml 2281.2 ml Exam GENERAL: This is an obese female patient lying in bed in no apparent distress. HEENT: Head normocephalic and atraumatic. Eyes: Anicteric sclerae. Conjunctivae clear. ENT: Nasal septum is midline. Oral mucosa is dry. NECK: Supple. No JVD noticed. RESPIRATORY: Bilaterally clear to auscultation. No adventitious breath sounds heard. No use of accessory muscles of respiration. CARDIAC: Regular rate and rhythm. No obvious murmurs heard. ABDOMEN: Distended. Diffuse tenderness. Bowel sounds positive in all 4 quadrants. GENITOURINARY: Deferred. EXTREMITIES: No cyanosis, no clubbing, no edema. Peripheral pulses are palpable. NEUROLOGIC: The patient is awake, alert and oriented. Cranial nerves are grossly intact. Results Result Diagram: 11/26/16 0520 11/26/16 0520 Results 24 hrs Laboratory Tests Test 11/26/16 05:20 Amylase Level 51 Anion Gap 15 Basophils # 0.0 Basophils % 0.3 Blood Urea Nitrogen 13 # Calcium Level 7.9 L Carbon Dioxide Level 27 Chloride Level 97 Creatinine 0.76 Eosinophils # 0.1 Eosinophils % 0.4 Glucose Level 146 Hematocrit 35.5 L Hemoglobin 11.6 L Lipase 279 Lymphocytes # 1.0 Lymphocytes % 8.5 L Magnesium Level 2.4 Mean Corpuscular Hemoglobin 33.0 Mean Corpuscular Hemoglobin Concent 32.7 Mean Corpuscular Volume 100.9 Mean Platelet Volume 10.3 Monocytes # 0.9 Monocytes % 7.7 Neutrophils # 9.8 H Neutrophils % 81.7 H Nucleated Red Blood Cells # 0.0 Nucleated Red Blood Cells % 0.0 Platelet Count 175 Potassium Level 3.9 Red Blood Count 3.52 L Red Cell Distribution Width 15.4 H Sodium Level 135 White Blood Count 11.9 H Medications Medications Current Medications Ondansetron HCl (Zofran Inj) 4 mg Q6H PRN IV NAUSEA AND/OR VOMITING Last administered on 11/24/16 13:15; Admin Dose 4 MG; Start 11/23/16 at 01:00 Acetaminophen (Tylenol Tab) 650 mg Q6H PRN PO PAIN LEVEL 1-3 OR FEVER Last administered on 11/23/16 15:35; Admin Dose 650 MG; Start 11/23/16 at 01:00 Acetaminophen/ Hydrocodone Bitart ([place] (5/325)) 1 tab Q6H PRN PO MODERATE PAIN LEVEL 4-6 Last administered on 11/26/16 20:21; Admin Dose 1 TAB; Start 11/23 at 01:00 Docusate Sodium (Colace) 100 mg Q12H PRN PO CONSTIPATION; Start 11/23/16 at 01: 00 Magnesium Hydroxide (Milk Of Mag) 30 ml DAILY PRN PO CONSTIPATION; Start at 01:00 Sodium Biphosphate/ Sodium Phosphate (Fleet Enema) 133 ml DAILY PRN [place] CONSTIPATION; Start 11/23/16 at 01:00 Heparin Sodium (Porcine) (Heparin (5000 Units/0.5 ml)) 5,000 unit Q12 SC Last administered on 11/26/16 20:25; Admin Dose 5,000 UNIT; Start 11/23/16 at 09:00 Lorazepam (Ativan) 0.5 mg Q6H PRN IV ANXIETY Last administered on 11/26/16 16: 19; Admin Dose 0.5 MG; Start 11/23/16 at 01:00 Hydralazine HCl (Apresoline) 10 mg Q6H PRN IV ELEVATED BLOOD PRESSURE; Start at 01:00 Nitroglycerin 1 tab 1 tab Q5M PRN SL ANGINA; Start 11/23/16 at 01:00 Multivitamins/ Thiamine HCl/ Folic Acid/Sodium Chloride (Mvi-12 Adult/ Vitamin B1/Folic Acid/NS) 1,011.2 ml @ 125 mls/ hr DAILY@09 IVPB Last administered on 11/26/16 11:45; Admin Dose 125 MLS/HR; Start 11/23/16 at 09:00 Morphine Sulfate (morphine) 4 mg Q4H PRN IV SEVERE PAIN LEVEL 7-10 Last administered on 11/26/16 21:49; Admin Dose 4 MG; Start 11/23/16 at 09:17 Carvedilol 3.125 mg 3.125 mg BID PO Last administered on 11/26/16 20:22; Admin Dose 3.125 MG; Start 11/23/16 at 10:00 Potassium Chloride/Dextrose/ Sod Cl (D5-1/2ns + KCl 20 Meq) 1,000 ml @ 100 mls/ hr Q10H IV Last administered on 11/26/16 10:00; Admin Dose 100 MLS/HR; Start at 12:00 Famotidine (Pepcid Iv) 20 mg BID IV Last administered on 11/26/16 20:26; Admin Dose 20 MG; Start 11/24/16 at 21:00; Stop 11/26/16 at 23:59 Multivitamins Therapeutic (Theragran) 1 tab DAILY PO Last administered on 16:19; Admin Dose 1 TAB; Start 11/26/16 at 12:30 Famotidine (Pepcid) 20 mg BID PO ; Start 3/10/17 at 09:00 MEHNAZ MCINTOSH MD Nov 26, 2016 21:59
[2016-11-27] MEDS: HYDROCODONE/APAP (5/325) TAB PO PRN ×2 (03:24→14:39)
[2016-11-27 05:48] LABS: ADD SCAN DIFF NO
[2016-11-27 05:54] LABS: BASOPHIL # 0.1 10^3/ul (0.0-0.1); BASOPHILS % 0.4 % (0.0-2.0); EOSINOPHILS # 0.1 10^3/ul (0.0-0.5); EOSINOPHILS % 0.6 % (0.0-7.0); HEMATOCRIT 34.9 % (37.0-47.0); HEMOGLOBIN 11.2 g/dl (12.0-16.0); LYMPHOCYTES # 1.2 10^3/ul (0.8-2.9); LYMPHOCYTES % 10.2 % (15.0-51.0); MEAN CORPUSCULAR HEMOGLOBIN 32.1 pg (29.0-33.0); MEAN CORPUSCULAR HGB CONC 32.1 g/dl (32.0-37.0); MEAN PLATELET VOLUME 10.6 fl (7.4-10.4); MONOCYTE # 1.3 10^3/ul (0.3-0.9); MONOCYTES % 11.8 % (0.0-11.0); NEUTROPHIL # 8.5 10^3/ul (1.6-7.5); NEUTROPHILS % 75.4 % (39.0-77.0); NUCLEATED RED BLOOD CELLS% 0.2 /100WBC (0.0-0.0); PLATELET COUNT 201 10^3/UL (140-415); RED BLOOD COUNT 3.49 10^6/ul (4.20-5.40); RED CELL DISTRIBUTION WIDTH 15.5 % (11.5-14.5); WHITE BLOOD COUNT 11.2 10^3/ul (4.8-10.8)
[2016-11-27] MEDS: D5W-0.45 NACL + KCL 20 MEQ 1,000 ML IV SCH (06:00)
[2016-11-27 06:07] LABS: POTASSIUM 3.1 mmol/L (3.5-5.1)
[2016-11-27 06:10] LABS: CREATININE 0.65 mg/dl (0.44-1.00)
[2016-11-27 06:11] LABS: CALCIUM 8.1 mg/dl (8.4-10.2)
[2016-11-27 06:11] LABS: AMYLASE 43 U/L (11-123)
[2016-11-27] MEDS: FUROSEMIDE 20 MG TAB PO SCH (06:11)
[2016-11-27 07:31] VITALS: BP 166/108; RESP 18
[2016-11-27] MEDS ORDERED: FAMOTIDINE 20 MG TAB PO SCH (09:00)
[2016-11-27] MEDS: MULTIVITAMINS THERAPEUTIC TAB PO SCH (10:25)
[2016-11-27] MEDS: MULTIVITAMINS 10 ML, THIAMINE 100 MG, FOLIC ACID 1 MG in SOD CHLORIDE 0.9% 1,000 ML IVPB SCH (10:26)
--- NOTE | 2016-11-27 10:46 | PDOCDIS ---
Discharge Instructions CONDITION Patient Condition: Good HOME CARE INSTRUCTIONS: Special Diet: Soft diet ACTIVITY: Activity Restrictions: Slowly Increase Activity Rest between Activity Avoid heavy lifting Avoid Heavy Housework FOLLOW UP/APPOINTMENTS Appointments follow up with her own PMD through HMO insurance in 1-2 week after MEHNAZ Soto MD Nov 27, 2016 10:46
[2016-11-27] MEDS ORDERED: ONDA4TAB14 PO (10:49)
[2016-11-27] MEDS ORDERED: LAS20 PO (10:49)
[2016-11-27] MEDS ORDERED: FAMO20TA18 PO (10:49)
[2016-11-27] MEDS ORDERED: MULTI PO (10:49)
[2016-11-27] MEDS ORDERED: AMLO5TAB4 PO (10:52)
[2016-11-27] MEDS: HEPARIN 5,000 UNIT/0.5 ML SYG SC SCH (11:10)
[2016-11-27] MEDS: morphine 4 MG/ML VIAL IV PRN (12:50)
[2016-11-27] MEDS ORDERED: POTASSIUM CHLORIDE (SR) 20 MEQ TAB PO STA (14:11)
--- NOTE | 2016-11-29 23:37 | DS ---
DATE OF ADMISSION: 11/22/2016 DATE OF DISCHARGE: 11/27/2016 FINAL DISCHARGE DIAGNOSES: 1. Acute alcoholic pancreatitis. 2. Nonischemic cardiomyopathy. 3. Acute kidney injury secondary to prerenal azotemia. 4. History of substance abuse. 5. History of morbid obesity. 6. Sinus tachycardia secondary to moderate dehydration and pain. CONSULTATIONS DONE DURING THIS HOSPITALIZATION: None. HOSPITAL COURSE: This is a 26-year-old female with a past medical history of nonischemic cardiomyop athy who has been on water pill, as per the patient, who presented with abdominal pain. The patient is noted to have acute alcoholic pancreatitis and intractable abdominal pain. She also had acute k idney injury and moderate to severe dehydration causing acute kidney injury. She was admitted to [facility] med-surg floor, was given IV fluids. The patient was subsequently started on diet after her lipas e was normalized. She was tolerating her diet and she was discharged home with prescriptions of Las ix. DISPOSITION: To home. DISCHARGE CONDITION: Stable and improved compared to admission. DISCHARGE ACTIVITIES: As tolerated, slowly resume to the normal baseline activity. DISCHARGE MEDICATIONS: She is given new prescriptions of amlodipine for better blood pressure contr ol upon discharge. DISCHARGE AND FOLLOWUP INSTRUCTIONS: The patient is to follow up with her own primary care doctor t [facility] her O insurance 1 to 2 weeks after discharge. DISCHARGE MEDICATIONS: She is given a prescription of: 1. Amlodipine. 2. Pepcid. 3. Lasix. 4. Multivitamin. The patient has been explained about her discharge plan and followup instructions. She understood a nd verbalized understanding. Dictated By: MEHNAZ MCINTOSH MD, KP/TYRESE Conf#: [id number] DID#: [id number] CC: DARIEN PRATER;*Irma*
== END 2016-11-27 15:10 | disposition home or self-care (01) | DRG 439 ==
LOC: E/R 21:06 → MS1 23:46 → TEL 11-23 00:21 → MS2 11-25 15:08
PROVIDERS: ADMIT Hospitalist; ATTEND Hospitalist
DX: K86.0 Alcohol-induced chronic pancreatitis (principal); I42.9 Cardiomyopathy, unspecified; N17.9 Acute kidney failure, unspecified; Z68.41 Body mass index [BMI] 40.0-44.9, adult; N39.0 Urinary tract infection, site not specified; E66.01 Morbid (severe) obesity due to excess calories; F15.90 Other stimulant use, unspecified, uncomplicated; F10.10 Alcohol abuse, uncomplicated; E86.0 Dehydration; R00.0 Tachycardia, unspecified
CPT/HCPCS: 36415; 71010; 80048; 80053; 80061; 80076; 80306; 80307; 81001; 81003; 82150; 83036; 83690; 83735; 84100; 84439; 84443; 84484; 84703; 85025; 87086; 93005; 96374; 96375; 96376; C9113; J0360; J0743; J1170; J2060; J2270; J2405; J2543; J2765; J3411; J3475; J3480; J7030; J7050; J7070

== ENCOUNTER 2017-03-20 18:07 | Emergency (ER) | payer MEDICAID, OTHER ==
[~2017-03-20] VITALS: Ht 154.9 cm; Wt 86.0 kg
[~2017-03-20 18:07] MED LIST changes: +AMLO5TAB4 PO; +FAMO20TA18 PO; +LAS20 PO; +MULTI PO
[2017-03-20 18:08] VITALS: Ht 154.9 cm; Wt 86.0 kg
[2017-03-20] MEDS ORDERED: ONDANSETRON 4 MG INJ IV STA ×2 (18:19→22:07)
[2017-03-20] MEDS ORDERED: KETOROLAC 30 MG INJ IV STA (18:19)
[2017-03-20] MEDS ORDERED: SOD CHLORIDE 0.9% 1,000 ML IV STA (18:19)
[2017-03-20] MEDS ORDERED: LISI20TA11 PO (18:24)
[2017-03-20] MEDS ORDERED: LEVO50TA71 PO (18:24)
[2017-03-20] MEDS ORDERED: LANT3I SC (18:24)
[2017-03-20] MEDS ORDERED: CARV6.2579 PO (18:24)
[2017-03-20] MEDS ORDERED: MULT-278 PO (18:25)
[2017-03-20 19:28] LABS: ALANINE AMINOTRANSFERASE 133 IU/L (13-69); ALBUMIN 4.5 g/dl (3.3-4.9); ALBUMIN/GLOBULIN RATIO 1.36; ALKALINE PHOSPHATASE 282 IU/L (42-121); ANION GAP 23 (8-16); ASPARTATE AMINO TRANSFERASE 507 IU/L (15-46); BILIRUBIN,INDIRECT 1.9 mg/dl (0-1.1); BILIRUBIN,TOTAL 8.1 mg/dl (0.2-1.3); BLOOD UREA NITROGEN 5 mg/dl (7-20); CALCIUM 7.8 mg/dl (8.4-10.2); CARBON DIOXIDE 30 mmol/L (21-31); CHLORIDE 83 mmol/L (97-110); CREATININE 1.22 mg/dl (0.44-1.00); GLUCOSE 136 mg/dl (70-220); SALICYLATE 7.4 mg/dl (5.0-30.0); SODIUM 134 mmol/L (135-144); TOTAL PROTEIN 7.8 g/dl (6.1-8.1)
[2017-03-20 19:31] LABS: ADD SCAN DIFF NO; BASOPHILS % 0.4 % (0.0-2.0); EOSINOPHILS % 0.4 % (0.0-7.0); HEMATOCRIT 36.4 % (37.0-47.0); HEMOGLOBIN 13.3 g/dl (12.0-16.0); LYMPHOCYTES # 1.6 10^3/ul (0.8-2.9); LYMPHOCYTES % 32.3 % (15.0-51.0); MEAN CORPUSCULAR HEMOGLOBIN 33.7 pg (29.0-33.0); MEAN CORPUSCULAR HGB CONC 36.5 g/dl (32.0-37.0); MEAN CORPUSCULAR VOLUME 92.2 fl (82.0-101.0); MEAN PLATELET VOLUME 11.1 fl (7.4-10.4); MONOCYTE # 0.5 10^3/ul (0.3-0.9); MONOCYTES % 9.4 % (0.0-11.0); NEUTROPHIL # 2.9 10^3/ul (1.6-7.5); NEUTROPHILS % 57.3 % (39.0-77.0); PLATELET COUNT 239 10^3/UL (140-415); RED BLOOD COUNT 3.95 10^6/ul (4.20-5.40); RED CELL DISTRIBUTION WIDTH 14.5 % (11.5-14.5)
[2017-03-20 19:32] LABS: INR 1.55; PROTIME 18.7 Sec (12.2-14.2); PT RATIO 1.5
[2017-03-20 19:33] LABS: PARTIAL THROMBOPLASTIN TIME 34.3 Sec (25.0-35.0)
[2017-03-20 19:34] LABS: ACETAMINOPHEN < 10.0 ug/ml (10.0-30.0); POTASSIUM 2.2 mmol/L (3.5-5.1)
[2017-03-20] MEDS ORDERED: POTASSIUM CHLORIDE (SR) 20 MEQ TAB PO STA (19:34)
--- NOTE | 2017-03-20 19:59 | RADRPT ---
PROCEDURE: Right Upper Quadrant Ultrasound. CLINICAL INDICATION: Abdominal Pain TECHNIQUE: Multiple real-time images were acquired of the patient's right upper quadrant abdomen a nd retroperitoneum utilizing a high resolution transducer. COMPARISON: None FINDINGS: The liver measures 22.8 cm, and demonstrates diffusely increased echogenicity. The main portal vein is patent with proper directional flow. There is no intrahepatic biliary ductal dilatation. The extr ahepatic common bile duct measures 5 mm. The gallbladder is without stones, wall thickening, or pericholecystic fluid. The gallbladder is con tracted. The pancreas is not visualized due to overlying bowel gas. The right kidney measures 10.4 cm and demonstrates normal echotexture. There is no right renal calcu trace or hydronephrosis. The visualized abdominal aorta and IVC are grossly unremarkable. IMPRESSION: Marked hepatomegaly with severe fatty infiltration. Contracted gallbladder without cholelithiasis or acute cholecystitis. Normal CBD. RPTAT: EE Physician Shaheed Date Time Electronically viewed and signed by Physician Shaehed on 03/20/2017 19:58 /
[2017-03-20] MEDS ORDERED: POTASSIUM CHLORIDE 250 ML IVPB ONE (20:00)
[2017-03-20 20:08] LABS: ADD UMIC YES; UR ASCORBIC ACID NEGATIVE (NEGATIVE); UR BACTERIA FEW /HPF (NONE SEEN); UR BILIRUBIN (Dip) 2+ mg/dL (NEGATIVE); UR BLOOD (Dip) 1+ mg/dL (NEGATIVE); UR CLARITY CLOUDY (CLEAR); UR COLOR AMBER (YELLOW); UR GLUCOSE (Dip) NEGATIVE (NEGATIVE); UR KETONES (Dip) NEGATIVE (NEGATIVE); UR LEUKOCYTE ESTERASE (Dip) 2+ Leu/ul (NEGATIVE); UR MUCUS MODERATE /HPF (NONE SEEN); UR NITRITE (Dip) NEGATIVE (NEGATIVE); UR RBC 3 /HPF (0-5); UR SPECIFIC GRAVITY (Dip) 1.027 (1.003-1.030); UR SQUAMOUS EPITHELIAL CELL MANY /HPF (FEW); UR TOTAL PROTEIN (Dip) 1+ mg/dl (NEGATIVE); UR UROBILINOGEN (Dip) 2+ mg/dL (NEGATIVE)
--- NOTE | 2017-03-20 20:09 | ERA ---
ER Documentation Chief Complaint Date/Time DATE: 03/20/17 TIME: 20:06 Chief Complaint ABDOMINAL PAIN X 3DAYS - HISTORY OF CHF, PANCREATITIS, HYPERTENSION; DM HPI Patient is a 27-year-old female with diabetes, high blood pressure, and CHF who presents with abdominal pain. She had abdominal pain for the past 1 week. She said that her eyes turned yellow 3 days ago. She has shortness of breath. She said that she has run out of her medications. She admits to drinking alcohol heavily this week and says that she is drinking about a pint of vodka per day. Upon review of old medical records this is the patient's 10th visit to the ER since 2008. Review of the emergency department information exchange system shows visits to 3 separate emergency departments. ROS All systems reviewed and are negative except as per history of present illness. Medications Home Meds Reported Medications Multivitamin (Daily Vitamin Formula) 1 Each Tablet, 1 EACH PO DAILY, TAB 03/20/17 Carvedilol* (Carvedilol*) 6.25 Mg Tablet, 6.25 MG PO BID, #60 TAB 03/20/17 Levothyroxine Sodium* (Levoxyl*) 50 Mcg Tablet, 50 MCG PO BEFORE BREAKFAST, #30 TAB 03/20/17 Lisinopril* (Lisinopril*) 20 Mg Tablet, 20 MG PO DAILY, #30 TAB 03/20/17 Insulin Glargine* (Lantus*) 100 Unit/Ml Soln, 22 UNIT SC QAM, #1 VIAL 03/20/17 Discontinued Scripts Amlodipine Besylate* (Norvasc*) 5 Mg Tablet, 5 MG PO DAILY, #90 TAB Prov:MEHNAZ MCINTOSH MD 11/27/16 Multivitamins* (Theragran*) 1 Tab Tab, 1 TAB PO DAILY, #100 TAB Prov:MEHNAZ MCINTOSH MD 11/27/16 Famotidine* (Famotidine*) 20 Mg Tablet, 20 MG PO BID, #60 TAB Prov:MEHNAZ MCINTOSH MD 11/27/16 Furosemide (Lasix) 20 Mg Tab, 20 MG PO DAILY, #30 TAB Prov:MEHNAZ MCINTOSH MD 11/27/16 Ondansetron (Ondansetron Odt) 4 Mg Tab.rapdis, 4 MG PO Q6H Y for NAUSEA AND/OR VOMITING, #30 TAB Prov:MEHNAZ MCINTOSH MD 11/27/16 Hydrocodone/Acetaminophen ([place] 10-325 Tablet) 1 Each Tablet, 1 TAB PO Q6H Y for PAIN, #7 TAB Prov:JASBIR AGUSTIN MD 10/13/16 Allergies Allergies: Coded Allergies: No Known Allergy (Unverified , 03/20/17) PMhx/Soc History of Surgery: No Anesthesia Reaction: No Hx Neurological Disorder: No Hx Respiratory Disorders: No Hx Cardiac Disorders: Yes (CHF) Hx Psychiatric Problems: No Hx Miscellaneous Medical Probl: Yes (DM, Pancreatitis) Hx Alcohol Use: Yes (2 PINTS VODKA. TODAY) Hx Substance Use: No Hx Tobacco Use: No Smoking Status: Never smoker FmHx Family History: diabetes Physical Exam Vitals Vital Signs Date Time Temp Pulse Resp B/P Pulse Ox O2 Delivery O2 Flow Rate FiO2 03/20/17 18:08 98.8 129 18 168/103 98 Physical Exam Const: Jaundice Head: Atraumatic Eyes: Scleral icterus ENT: Normal External Ears, Nose and Mouth. Neck: Full range of motion..~ No meningismus. Resp: Clear to auscultation bilaterally Cardio: Regular rate and rhythm, no murmurs Abd: Soft, distended abdomen Skin: Jaundice Back: No midline or flank tenderness Ext: No cyanosis, or edema Neur: Awake and alert Psych: Normal Mood and Affect Result Diagram: 03/20/17 1849 03/20/17 1849 Results 24 hrs Laboratory Tests Test 03/20/17 18:49 White Blood Count 5.010^3/ul Red Blood Count 3.9510^6/ul Hemoglobin 13.3g/dl Hematocrit 36.4% Mean Corpuscular Volume 92.2fl Mean Corpuscular Hemoglobin 33.7pg Mean Corpuscular Hemoglobin Concent 36.5g/dl Red Cell Distribution Width 14.5% Platelet Count 17209^3/UL Mean Platelet Volume 11.1fl Neutrophils % 57.3% Lymphocytes % 32.3% Monocytes % 9.4% Eosinophils % 0.4% Basophils % 0.4% Nucleated Red Blood Cells % 0.0/100WBC Neutrophils # 2.910^3/ul Lymphocytes # 1.610^3/ul Monocytes # 0.510^3/ul Eosinophils # 0.010^3/ul Basophils # 0.010^3/ul Nucleated Red Blood Cells # 0.010^3/ul Prothrombin Time 18.7Sec Prothrombin Time Ratio 1.5 INR International Normalized Ratio 1.55 Activated Partial Thromboplast Time 34.3Sec Sodium Level 134mmol/L Potassium Level 2.2mmol/L Chloride Level 83mmol/L Carbon Dioxide Level 30mmol/L Anion Gap 23 Blood Urea Nitrogen 5mg/dl Creatinine 1.22mg/dl Glucose Level 136mg/dl Calcium Level 7.8mg/dl Total Bilirubin 8.1mg/dl Direct Bilirubin 6.20mg/dl Indirect Bilirubin 1.9mg/dl Aspartate Amino Transf (AST/SGOT) 507IU/L Alanine Aminotransferase (ALT/SGPT) 133IU/L Alkaline Phosphatase 282IU/L Total Protein 7.8g/dl Albumin 4.5g/dl Globulin 3.30g/dl Albumin/Globulin Ratio 1.36 Lipase 70U/L Salicylates Level 7.4mg/dl Acetaminophen Level < 10.0ug/ml Ethyl Alcohol Level 173.0mg/dl Current Medications Medications (Trade) Dose Ordered Sig/Aliyah Route PRN Reason Start Time Stop Time Status Last Admin Dose Admin Sodium Chloride (NS) 1,000 ml @ 1,000 mls/hr Q1H STAT IV 03/20/17 18:19 03/20/17 19:18 DC 03/20/17 18:54 Ondansetron HCl (Zofran Inj) 4 mg ONCE STAT IV 03/20/17 18:19 03/20/17 18:20 DC 03/20/17 18:59 Ketorolac Tromethamine (Toradol) 30 mg ONCE STAT IV 03/20/17 18:19 03/20/17 18:20 DC 03/20/17 19:48 Potassium Chloride 40 meq 40 meq ONCE STAT PO 03/20/17 19:34 03/20/17 19:35 DC 03/20/17 19:47 Potassium Chloride (KCl 40 MEQ/250 ML NS) 250 ml @ 62.5 mls/hr ONCE ONCE IVPB 03/20/17 20:00 03/20/17 23:59 03/20/17 19:52 Procedures/MDM Ultrasound shows no gallbladder issues per radiology. Patient is a 27-year-old male who presents with what appears to be acute liver failure. Her bilirubin is elevated at 8.1. Her AST and ALT are elevated as well consistent with alcohol injury. The patient has a MELD score of 23 which portends a poor prognosis. The patient had significant hypokalemia with a potassium of 2.2 and will be given potassium both IV and by mouth. The patient will need admission and I am concerned about hepatic failure. She may require liver transplant if her liver function does not improve. The patient will need to be transferred to another hospital based on her insurance status which is capitated to [facility]. I spoke with Dr. Zurita who is accepting the patient in transfer and the patient will be admitted to a telemetry bed. The patient will be transferred by ambulance. Critical Care: Time: 35 minutes excluding all billable procedures. Treatments/Evaluations: Close monitoring and treatment of unstable vital signs, cardiorespiratory, and neurologic status, while maintaining tight balance of fluid, respiratory, and cardiac interventions. Departure Diagnosis: Primary Impression: Hypokalemia Additional Impressions: Liver failure Qualified Code: K72.00 - Acute liver failure without hepatic coma Abdominal pain Qualified Code: R10.84 - Generalized abdominal pain Condition: Serious JASBIR AGUSTIN MD Mar 20, 2017 20:09
[2017-03-20 20:42] LABS: BARBITURATES NEGATIVE (NEGATIVE); BENZODIAZEPINES NEGATIVE (NEGATIVE); CANNABINOIDS NEGATIVE (NEGATIVE); COCAINE NEGATIVE (NEGATIVE); OPIATES NEGATIVE (NEGATIVE)
[2017-03-20] MEDS ORDERED: morphine 4 MG/ML VIAL IV STA (22:07)
[2017-03-20 23:44] VITALS: BP 125/87; PULSE 106; RESP 18; TEMP 98.7
== END 2017-03-20 23:44 | disposition short-term general hospital (02) ==
LOC: E/R 18:07
DX: E87.6 Hypokalemia (principal); K72.00 Acute and subacute hepatic failure without coma; R10.84 Generalized abdominal pain; E11.9 Type 2 diabetes mellitus without complications; I50.9 Heart failure, unspecified; Z79.4 Long term (current) use of insulin
CPT/HCPCS: 36415; 76705; 80053; 80306; 80307; 81001; 83690; 85025; 85610; 85730; 96374; 96375; 96376; J1885; J2270; J2405; J3480; J7030; Z7502; Z7610

== ENCOUNTER 2017-06-07 04:47 | Inpatient (IN) | payer OTHER ==
[2017-06-07] VITALS (10 sets, daily range): BP systolic 111–130; BP diastolic 72–90; PULSE 66–107; RESP 17–20; TEMP 98.3; Ht 157.5 cm; Wt 89.2 kg
[~2017-06-07] VITALS: Ht 157.5 cm; Wt 89.2 kg
[~2017-06-07 04:47] MED LIST changes: -AMLO5TAB4 PO; +CARV6.2579 PO; -FAMO20TA18 PO; -HYDR-902 PO; +LANT3I SC; -LAS20 PO; +LEVO50TA71 PO; +LISI20TA11 PO; +MULT-278 PO; -MULTI PO; -ONDA4TAB14 PO
[2017-06-07] MEDS ORDERED: SOD CHLORIDE 0.9% 500 ML IV STA (05:08)
[2017-06-07 05:32] LABS: ABNORMAL IP MESSAGE 1; HEMATOCRIT 32.1 % (37.0-47.0); HEMOGLOBIN 10.6 g/dl (12.0-16.0); MEAN CORPUSCULAR VOLUME 115.1 fl (82.0-101.0); PLATELET COUNT 197 10^3/UL (140-415); RED BLOOD COUNT 2.79 10^6/ul (4.20-5.40); RED CELL DISTRIBUTION WIDTH 14.3 % (11.5-14.5); WHITE BLOOD COUNT 10.7 10^3/ul (4.8-10.8)
[2017-06-07 05:37] LABS: POSITIVE DIFF @See below
[2017-06-07 05:52] LABS: ADD UMIC YES; UR AMORPHOUS CRYSTAL MODERATE /HPF (NONE SEEN); UR ASCORBIC ACID NEGATIVE (NEGATIVE); UR BACTERIA FEW /HPF (NONE SEEN); UR BILIRUBIN (Dip) 2+ mg/dL (NEGATIVE); UR BLOOD (Dip) 1+ mg/dL (NEGATIVE); UR CLARITY SLIGHTLY CLOUDY (CLEAR); UR COLOR AMBER (YELLOW); UR GLUCOSE (Dip) NEGATIVE (NEGATIVE); UR KETONES (Dip) NEGATIVE (NEGATIVE); UR LEUKOCYTE ESTERASE (Dip) NEGATIVE Leu/ul (NEGATIVE); UR MUCUS MANY /HPF (NONE SEEN); UR NITRITE (Dip) NEGATIVE (NEGATIVE); UR RBC 1 /HPF (0-5); UR SPECIFIC GRAVITY (Dip) 1.018 (1.003-1.030); UR SQUAMOUS EPITHELIAL CELL MODERATE /HPF (FEW); UR TOTAL PROTEIN (Dip) 2+ mg/dl (NEGATIVE); UR TRANSITIONAL EPI CELL FEW /HPF (NONE SEEN); UR UROBILINOGEN (Dip) 2+ mg/dL (NEGATIVE)
[2017-06-07 05:58] LABS: ALANINE AMINOTRANSFERASE 75 IU/L (13-69); ALBUMIN/GLOBULIN RATIO 0.62; ALKALINE PHOSPHATASE 501 IU/L (42-121); ANION GAP 14 (8-16); ASPARTATE AMINO TRANSFERASE 117 IU/L (15-46); BILIRUBIN,INDIRECT 3.1 mg/dl (0-1.1); BLOOD UREA NITROGEN 5 mg/dl (7-20); CALCIUM 9.5 mg/dl (8.4-10.2); CARBON DIOXIDE 18 mmol/L (21-31); CHLORIDE 110 mmol/L (97-110); CREATININE 1.01 mg/dl (0.44-1.00); ETHANOL < 10.0 mg/dl; GLUCOSE 119 mg/dl (70-220); POTASSIUM 3.2 mmol/L (3.5-5.1); SALICYLATE < 1.0 mg/dl (5.0-30.0); SODIUM 139 mmol/L (135-144); TOTAL PROTEIN 7.8 g/dl (6.1-8.1)
[2017-06-07 06:16] LABS: TROPONIN-I < 0.012 ng/ml (0.00-0.12)
[2017-06-07 06:22] LABS: ANISOCYTOSIS 3+ (0-0); EOSINOPHILS % (M) 1 % (0-7); GIANT THROMBO% (M) 1 % (0-0); METAMYELOCYTES %M 2 % (0-0); MONOCYTES % (M) 6 % (0-11); MYELOCYTES % (M) 3 % (0-0); PLASMA CELLS #M 0.1 10^3/ul (0.0-0.0); PLASMAC%(M) 1 % (0); PLATELET ESTIMATE NORMAL; POIKILOCYTOSIS 1+ (0-0); POLYCHROMASIA 1+ (0-0); PROMYELOCYTES #M 0 10^3/ul (0-0); PROMYELOCYTES % (M) 2 % (0-0)
--- NOTE | 2017-06-07 06:27 | RADRPT ---
PROCEDURE: CT BRAIN WITHOUT CONTRAST CLINICAL INDICATION: 27-year-old female with altered mental status. TECHNIQUE: The study was performed utilizing a GE [employer] VCT 64-slice CT scanner. Direct axia l sections were obtained from the foramen magnum to the vertex without the use of intravenous contra st material. Sagittal and coronal reformations were obtained. One or more the following dose reduct ion techniques were utilized: automated exposure control, adjustment of the mA and/or kV according t o patient's size or use of iterative reconstruction technique. The images were viewed on a PACS [employer]. CTD/vol = 45.0 mGy; Total Exam DLP = 720.2 mGy-cm. COMPARISON: None. FINDINGS: The ventricles have a normal size, shape and position. There is no evidence for mass effect or midl ine shift. There are no intracranial areas of abnormal attenuation. There is no evidence for acute intra or extra-axial blood. The bony calvarium is intact. There is mild dependent mucosal thickenin g within the maxillary sinuses bilaterally. There is minimal soft tissue within the dependent portio n of the right mastoid air cells. The left mastoid air cells are without significant soft tissue. IMPRESSION: 1. The intracranial contents are unremarkable on this noncontrast CT scan of the brain. 2. Mild dependent mucosal thickening bilateral ethmoid air cells. .Jose Julio MD, Date Time Electronically viewed and signed by .Jose Julio MD, MD on 06/07/2017 06:26 .M/
--- NOTE | 2017-06-07 06:27 | ERA ---
ER Documentation Chief Complaint Date/Time DATE: 06/07/17 TIME: 06:26 Chief Complaint Pt reports liver damage, dizziness, more confused and abd pain, HPI 27-year-old woman with a history of alcoholic cirrhosis presents with complaints of "confusion" 2-3 days. Patient states her last drink was about a week ago, she complains of one episode of blood per rectum, no melena, no vomiting or diarrhea, no chest pain or shortness of breath, no loss of consciousness ROS All systems reviewed and are negative except as per history of present illness. Medications Home Meds Reported Medications Furosemide* (Furosemide*) 20 Mg Tablet, 20 MG PO DAILY, #60 TAB 06/07/17 Prednisone* (Prednisone*) 20 Mg Tab, 40 MG PO DAILY, TAB 06/07/17 Multivitamin (Daily Vitamin Formula) 1 Each Tablet, 1 EACH PO DAILY, TAB 03/20/17 Carvedilol* (Carvedilol*) 6.25 Mg Tablet, 6.25 MG PO BID, #60 TAB 03/20/17 Levothyroxine Sodium* (Levoxyl*) 50 Mcg Tablet, 50 MCG PO BEFORE BREAKFAST, #30 TAB 03/20/17 Lisinopril* (Lisinopril*) 20 Mg Tablet, 20 MG PO DAILY, #30 TAB 03/20/17 Insulin Glargine* (Lantus*) 100 Unit/Ml Soln, 22 UNIT SC QAM, #1 VIAL 03/20/17 Allergies Allergies: Coded Allergies: No Known Allergy (Unverified , 06/07/17) PMhx/Soc Alcoholism, cirrhosis, amphetamine abuse, alcoholism, hypertension, diabetes mellitus, congestive heart failure, recent negative gallbladder ultrasound History of Surgery: No Anesthesia Reaction: No Hx Neurological Disorder: No Hx Respiratory Disorders: No Hx Cardiac Disorders: Yes (CHF, HTN) Hx Psychiatric Problems: No Hx Miscellaneous Medical Probl: Yes (DM, Pancreatitis, liver failure) Hx Alcohol Use: Yes (pt states she has not had a drink since 06/01/17) Hx Substance Use: No Hx Tobacco Use: No Smoking Status: Never smoker FmHx Family History: No diabetes Physical Exam Vitals Vital Signs Date Time Temp Pulse Resp B/P Pulse Ox O2 Delivery O2 Flow Rate FiO2 06/07/17 05:03 98.3 122 20 122/96 100 Room Air 06/07/17 04:51 98.3 118 20 138/91 100 Physical Exam GENERAL: Well-developed, well-nourished, appears dehydrated, afebrile HEENT: Positive jaundice and icterus, dry mucous membranes, no Kernig's sign NEURO: Alert and oriented 3, cranial nerves II through XII intact bilaterally, pupils equal round reactive to light, no focal deficits or facial asymmetry, sensation intact distally Strength 5/5 in upper and lower extremities bilaterally CARDIAC:Tachycardic and regular, no murmurs rubs or gallops LUNGS: Clear bilaterally no wheezing crackles or stridor ABDOMEN: Soft nontender, no guarding, no rigidity, no rebound, no psoas sign no obturator sign. Normoactive bowel sounds SKIN: Warm and dry to touch, no abrasions, contusions, or hematomas, no lacerations, no ecchymosis, no target lesions, and without ulcers EXTREMITIES: No clubbing cyanosis, 3+ pitting edema in the lower extremities bilaterally,calves are bilaterally symmetrical, no Homans sign, no popliteal cord sign. Distal pulses equal and bilateral PSYCH: Normal affect without agitation or irritability Result Diagram: 06/07/1715 06/07/17 0515 Results 24 hrs Laboratory Tests Test 06/07/17 05:10 06/07/17 05:15 Urine Color SUGAR Urine Clarity SLIGHTLY CLOUDY Urine pH 6.0 Urine Specific Mobile 1.018 Urine Ketones NEGATIVEmg/dL Urine Nitrite NEGATIVEmg/dL Urine Bilirubin 2+mg/dL Urine Urobilinogen 2+mg/dL Urine Leukocyte Esterase NEGATIVELeu/ul Urine Microscopic RBC 1/HPF Urine Microscopic WBC 8/HPF Urine Squamous Epithelial Cells MODERATE/HPF Urine Transitional Epithelial Cells FEW/HPF Urine Amorphous Crystals MODERATE/HPF Urine Bacteria FEW/HPF Urine Hyaline Casts FEW/HPF Urine Granular Casts FEW/HPF Urine Mucus MANY/HPF Urine Hemoglobin 1+mg/dL Urine Glucose NEGATIVEmg/dL Urine Total Protein 2+mg/dl Urine Opiates Screen POSITIVE Urine Barbiturates Negative Urine Amphetamines Screen Positive Urine Benzodiazepines Screen Negative Urine Cocaine Screen Negative Urine Cannabinoids Negative White Blood Count 10.710^3/ul Red Blood Count 2.7910^6/ul Hemoglobin 10.6g/dl Hematocrit 32.1% Mean Corpuscular Volume 115.1fl Mean Corpuscular Hemoglobin 38.0pg Mean Corpuscular Hemoglobin Concent 33.0g/dl Red Cell Distribution Width 14.3% Platelet Count 78488^3/UL Mean Platelet Volume 10.0fl Neutrophils % % Segmented Neutrophils % (Manual) 72% Band Neutrophils % (Manual) 3% Lymphocytes % % Lymphocytes % (Manual) 10% Monocytes % % Monocytes % (Manual) 6% Eosinophils % % Eosinophils % (Manual) 1% Basophils % % Metamyelocytes % (manual) 2% Myelocytes % (Manual) 3% Promyelocytes % (Manual) 2% Plasma Cells % (manual) 1% Nucleated Red Blood Cells % 0.0/100WBC Neutrophils # 10^3/ul Neutrophils # (Manual) 7.710^3/ul Band Neutrophils # 0.310^3/ul Absolute Lymphocytes (Manual) 1.010^3/ul Lymphocytes # 10^3/ul Monocytes # 10^3/ul Absolute Monocytes (Manual) 0.610^3/ul Eosinophils # 10^3/ul Basophils # 10^3/ul Metamyelocytes # 0.210^3/ul Myelocytes # 0.310^3/ul Promyelocytes # 010^3/ul Plasma Cells # (manual) 0.110^3/ul Nucleated Red Blood Cells # 10^3/ul Platelet Estimate NORMAL Giant Platelets 1% Polychromasia 1+ Poikilocytosis 1+ Anisocytosis 3+ Macrocytosis 3+ Sodium Level 139mmol/L Potassium Level 3.2mmol/L Chloride Level 110mmol/L Carbon Dioxide Level 18mmol/L Anion Gap 14 Blood Urea Nitrogen 5mg/dl Creatinine 1.01mg/dl Glucose Level 119mg/dl Hemoglobin A1c 4.7% Calcium Level 9.5mg/dl Total Bilirubin 25.0mg/dl Direct Bilirubin 21.90mg/dl Indirect Bilirubin 3.1mg/dl Aspartate Amino Transf (AST/SGOT) 117IU/L Alanine Aminotransferase (ALT/SGPT) 75IU/L Alkaline Phosphatase 501IU/L Ammonia 143umol/l Troponin I < 0.012ng/ml Total Protein 7.8g/dl Albumin 3.0g/dl Globulin 4.80g/dl Albumin/Globulin Ratio 0.62 Amylase Level 57U/L Lipase 16U/L Salicylates Level < 1.0mg/dl Acetaminophen Level 16.0ug/ml Ethyl Alcohol Level < 10.0mg/dl Current Medications Medications (Trade) Dose Ordered Sig/Aliyah Route PRN Reason Start Time Stop Time Status Last Admin Dose Admin Sodium Chloride (NS) 500 ml @ 500 mls/hr Q1H STAT IV 06/07/17 05:08 06/07/17 06:08 DC 06/07/17 05:41 Lactulose (Enulose) 40 gm ONCE ONCE PO 06/07/17 06:30 06/07/17 06:31 DC 06/07/17 07:34 Procedures/MDM IV line was established patient was placed on quality assurance monitor body rhythm strip revealed a sinus tachycardia at 120 bpm. Patient was afebrile. EKG performed, read by me revealed a sinus tachycardia at 110 bpm, normal axis, narrow QRS complex, no concerning ST elevations or depressions noted. I administered 500 cc normal saline intravenously, morphine 2 mg IV, octreotide 50 mcg IV 1 given her recent history of GI bleed and alcoholic cirrhosis. CBC was normal, electrolytes revealed hypokalemia 3.2, liver function tests elevated, Total to direct bilirubin of 25/22, alkaline phosphatase elevated, troponin negative, ammonia level elevated at 143. Urine analysis revealed bilirubinuria, negative , no signs of infection. I treated the patient here with lactulose 40 g p.o. for hyperammonemia. Patient has had previous abnormal liver function tests and negative gallbladder ultrasound, further imaging if indicated deferred to admitting team. Patient admitted to telemetry setting. Departure Diagnosis: Primary Impression: Acute encephalopathy Additional Impressions: Cirrhosis Qualified Code: K70.30 - Alcoholic cirrhosis of liver without ascites Hyperammonemia Alcoholism Dehydration Condition: ALIN Hernandez MD Jun 07, 2017 06:27
[2017-06-07] MEDS ORDERED: LACTULOSE 30ML CUP PO ONE (06:30)
[2017-06-07 06:33] LABS: CANNABINOIDS Negative (NEGATIVE)
--- NOTE | 2017-06-07 06:33 | RADRPT ---
PROCEDURE: CHEST - 1 VIEW CLINICAL INDICATION: 27-year-old female with altered level of consciousness. TECHNIQUE: A single frontal AP upright portable view of the chest was performed. The images were reviewed on a PACS workstation. COMPARISON: Chest x-ray November 22, 2016. FINDINGS: The cardiomediastinal silhouette thin normal limits. There is a shallow inspiration. There is no patrice dence for an infiltrate. The pulmonary vascularity is within normal limits. There is no evidence fo r pneumothorax or pneumomediastinum. The osseous structures are intact. IMPRESSION: No evidence for active cardiopulmonary disease. .Jose Julio MD, MD Date Time Electronically viewed and signed by .Jose Julio MD, on 06/07/2017 06:33 .Catalino/
[2017-06-07 06:48] LABS: BARBITURATES Negative (NEGATIVE); BENZODIAZEPINES Negative (NEGATIVE); COCAINE Negative (NEGATIVE)
[2017-06-07 06:50] LABS: OPIATES POSITIVE (NEGATIVE)
[2017-06-07] MEDS ORDERED: OCTREOTIDE 50 MCG INJ SC ONE (07:00)
[2017-06-07] MEDS ORDERED: FUROSEMIDE 40 MG INJ IV ONE (07:00)
[2017-06-07] MEDS ORDERED: PRED20TA PO (07:14)
[2017-06-07] MEDS ORDERED: FURO20TA3 PO (07:15)
[2017-06-07] MEDS ORDERED: morphine 10 MG INJ IM PRN (08:30)
[2017-06-07] MEDS: LACTULOSE 30ML CUP PO SCH ×3 (09:03→20:27)
[2017-06-07] MEDS: PROPRANOLOL 20 MG TAB PO SCH ×2 (09:03→20:28)
[2017-06-07] MEDS: ONDANSETRON 4 MG INJ IV PRN ×2 (09:04→13:06)
[2017-06-07] MEDS: morphine 2 MG INJ IV PRN ×4 (09:04→22:07)
[2017-06-07 13:32] LABS: AMYLASE 57 U/L (11-123)
--- NOTE | 2017-06-07 13:39 | HP ---
DATE OF ADMISSION: 06/07/2017 CHIEF COMPLAINT: Confusion and gait imbalances with recent onset of falls and abdominal pain. HISTORY OF PRESENT ILLNESS: The patient is a 27-year-old female with history of congestive heart failure, cardiomyopathy, hypertension, diabetes mellitus, alcoholism, and history of pancreatitis, as well as history of amphetamine abuse. The patient presented to the emergency room stated that she is feeling more confused with increased jaundice. The patient was noted to have tachycardia in the emergency room with EKG reveals sinus tachycardia with no ST-segment elevation or depression. The patient was also noted to have elevated ammonia level, as well as elevated liver enzymes. In the emergency room the patient was given lactulose and octreotide, as well as Lasix and the patient denies any fever. Denies any dysuria. Denies chest pain. Denies shortness of breath. Complains of epigastric abdominal pain, increased jaundiced and indicate imbalances with recent falls. The patient will be admitted for further evaluation and management. The patient stated that she has been drinking vodka about 2 pints since she was 25 years old and patient stated that she quit drinking 1 week ago, last drink on June 01. PAST MEDICAL HISTORY: Per HPI. PAST SURGICAL HISTORY: Patient denies any surgeries in the past. FAMILY HISTORY: Patient's mother of alcoholic liver cirrhosis at age of 39, father at age of 27. SOCIAL HISTORY: The patient has history of methamphetamine use, stated that she does not use it any more. Patient drinks 2 pints of vodka per day, stopped 1 week ago. Patient denies any smoking history. Patient currently lives with her grandmother. ALLERGIES: NO KNOWN ALLERGIES. HOME MEDICATIONS: Includes Coreg, Lasix, Lantus, levothyroxine, lisinopril, prednisone, and multivitamins. REVIEW OF SYSTEMS: Twelve point review of system is negative unless what is mentioned in HPI. PHYSICAL EXAMINATION: GENERAL: Well-developed, obese female currently is awake, alert, appears jaundice. VITAL SIGNS: Temperature is 97.9, pulse is 88, blood pressure 123/92, respiratory rate 18, and oxygen saturation 99 percent on room air. HEENT: Head is atraumatic, normocephalic. Pupils equal, round, reactive to light and accommodation. Jaundice sclerae. NECK: Supple. No cervical lymphadenopathy. No thyromegaly. CHEST: Lungs clear bilaterally. There is no rhonchi, wheezes, or rales noted. CARDIOVASCULAR: Normal S1, S2. No murmurs, gallops, clicks, rubs noted. ABDOMEN: Protuberant, soft, nondistended. Patient complains of epigastric tenderness on palpation. EXTREMITIES: Mild edema. Pulses equal bilaterally 2 plus. SKIN: No rash. No petechiae noted. NEUROLOGICAL: Patient is awake, alert, and oriented times 3. LABORATORY/DIAGNOSTIC DATA: On admission, CBC, white blood cells 10.7, hemoglobin 10.6, hematocrit 32.1, and platelets 197. Chemistry, sodium was 139, potassium 3.2, chloride 110, carbon dioxide 18, anion gap of 14, BUN is 5, creatinine 1.01. Glucose 119, AST is 117, ALT 75, alkaline phosphatase 501. Ammonia is 143, troponin less than 0.012. Toxicology is positive for opiates and positive for amphetamines, Brain CT with impression of the intracranial contents are unremarkable. Noncontrast CT of the brain mild dependent mucosal thickening in bilateral ethmoid air cell cells. Chest x-ray was impression of no evidence for acute cardiopulmonary disease. ASSESSMENT AND PLAN: 1. Hepatic encephalopathy. Continue lactulose. Monitor ammonia level. We will ask Dr. Gonzalez to see patient in gastroenterology consultation. We will obtain amylase and lipase. 2. The patient has a history of alcoholic pancreatitis. 3. Nonischemic cardiomyopathy. 4. History of alcohol abuse. 5. History of amphetamine use with current drug screen is positive for amphetamines. 6. Morbid obesity. PLAN: 1. We will continue Protonix for peptic ulcer disease prophylaxis. 2. Continue to monitor electrolytes. 3. Further recommendations based on clinical course. Plan of care discussed with Dr. Dawson. Dictated By: Tabby Mark NP /regi/monica /Document#: [id number]
[2017-06-07] MEDS ORDERED: POTASSIUM CHLORIDE (SR) 20 MEQ TAB PO STA (19:23)
[2017-06-07] MEDS ORDERED: Discontinue current oral sulfonylureas (glyburide, glipizide, and/or glimepiride) prior to XX ONE ×2 (19:30)
[2017-06-07] MEDS ORDERED: HYPOGLYCEMIA PROTOCOL when Glucose is <70 mg/dL or symptomatic <90 mg/dL. XX ONE ×2 (19:30)
[2017-06-07] MEDS ORDERED: GLUCOSE GEL 15 GRAM TUBE BUCCAL PRN (20:00)
[2017-06-07] MEDS ORDERED: GLUCAGON 1 MG INJ IM PRN (20:00)
[2017-06-07] MEDS ORDERED: DEXTROSE 50% 50 ML SYRINGE IV PRN ×2 (20:00)
[2017-06-07] MEDS ORDERED: GLUCOSE GEL 15 GRAM TUBE PO PRN ×2 (20:00)
[2017-06-07] MEDS: INSULIN ASPART [NOVOLOG] 3 ML PEN SC SCH (20:30)
[2017-06-07] MEDS: THIAMINE 100 MG TAB PO SCH (20:37)
[2017-06-08] VITALS (12 sets, daily range): BP systolic 103–124; BP diastolic 66–81; PULSE 40–75; RESP 18–19
[2017-06-08] MEDS ORDERED: ACCU-CHEK XX SCH (02:00)
[2017-06-08] MEDS: ACCU-CHEK XX SCH ×2 (02:00)
[2017-06-08] MEDS: morphine 2 MG INJ IV PRN ×5 (04:52→21:16)
[2017-06-08] MEDS ORDERED: PANTOPRAZOLE 40 MG INJ IV SCH (06:00)
[2017-06-08] MEDS: LACTULOSE 30ML CUP PO SCH ×3 (06:06→21:11)
[2017-06-08] MEDS: INSULIN ASPART [NOVOLOG] 3 ML PEN SC SCH ×4 (08:00→21:00)
[2017-06-08 08:14] LABS: ABNORMAL IP MESSAGE 1; BASOPHILS % 0.5 % (0.0-2.0); EOSINOPHILS # 0.1 10^3/ul (0.0-0.5); EOSINOPHILS % 1.4 % (0.0-7.0); LYMPHOCYTES # 1.3 10^3/ul (0.8-2.9); LYMPHOCYTES % 15.3 % (15.0-51.0); MEAN CORPUSCULAR HEMOGLOBIN 37.8 pg (29.0-33.0); MEAN CORPUSCULAR HGB CONC 32.1 g/dl (32.0-37.0); MEAN CORPUSCULAR VOLUME 117.6 fl (82.0-101.0); MEAN PLATELET VOLUME 10.9 fl (7.4-10.4); MONOCYTE # 0.6 10^3/ul (0.3-0.9); MONOCYTES % 7.2 % (0.0-11.0); NEUTROPHILS % 69.5 % (39.0-77.0); PLATELET COUNT 170 10^3/UL (140-415); RED BLOOD COUNT 2.38 10^6/ul (4.20-5.40); RED CELL DISTRIBUTION WIDTH 14.4 % (11.5-14.5); WHITE BLOOD COUNT 8.6 10^3/ul (4.8-10.8)
[2017-06-08 08:16] LABS: POSITIVE DIFF @See below
[2017-06-08 08:29] LABS: ALBUMIN 2.6 g/dl (3.3-4.9); ALBUMIN/GLOBULIN RATIO 0.61; CALCIUM 9.1 mg/dl (8.4-10.2); CREATININE 1.07 mg/dl (0.44-1.00); POTASSIUM 3.4 mmol/L (3.5-5.1); TOTAL PROTEIN 6.8 g/dl (6.1-8.1)
[2017-06-08 08:51] LABS: BILIRUBIN,INDIRECT 2.6 mg/dl (0-1.1); BILIRUBIN,TOTAL 21.6 mg/dl (0.2-1.3)
[2017-06-08] MEDS: THIAMINE 100 MG TAB PO SCH (08:59)
[2017-06-08] MEDS: FOLIC ACID 1 MG TAB PO SCH (08:59)
[2017-06-08] MEDS: PROPRANOLOL 20 MG TAB PO SCH ×2 (09:38→21:14)
[2017-06-08 09:46] LABS: ANISOCYTOSIS 2+ (0-0); EOSINOPHILS % (M) 3 % (0-7); METAMYELOCYTES %M 2 % (0-0); MONOCYTES % (M) 4 % (0-11); MYELOCYTES % (M) 2 % (0-0); PLATELET ESTIMATE NORMAL; POIKILOCYTOSIS 1+ (0-0); POLYCHROMASIA 3+ (0-0)
[2017-06-08] MEDS ORDERED: POTASSIUM CHLORIDE (SR) 20 MEQ TAB PO STA (17:20)
[2017-06-08] MEDS: SPIRONOLACTONE 50 MG TAB PO SCH (19:03)
--- NOTE | 2017-06-08 19:27 | PN ---
Date/Time of Note Date/Time of Note DATE: 06/08/17 TIME: 19:25 Assessment/Plan VTE Prophylaxis VTE Prophylaxis Intervention: SCD's Lines/Catheters [facility] Saline Lock Urinary Cath still in place: No Assessment/Plan Assessment/Plan 1. Hepatic encephalopathy. Continue lactulose. Monitor ammonia level. 2. Transaminitis 3. Nonischemic cardiomyopathy. 4. History of alcohol abuse. 5. History of amphetamine use with current drug screen is positive for amphetamines. 6. Morbid obesity. Further recommendations based on clinical course. Plan of care discussed with Dr. Dawson. Exam/Review of Systems Vital Signs Vitals Vital Signs Date Time Temp Pulse Resp B/P Pulse Ox O2 Delivery O2 Flow Rate FiO2 06/08/17 16:21 67 06/08/17 15:50 97.5 19 122/81 98 06/07/17 07:58 Room Air Intake and Output 06/07/17 06/07/17 06/08/17 15:00 23:00 07:00 Intake Total 100 ml 1000 ml Balance 100 ml 1000 ml Exam Constitutional: alert, other Head: normocephalic Eyes: icteric Neck: supple Cardiovascular: nl pulses Gastrointestinal: soft, tender Extremities: normal pulses Results Result Diagram: 06/08/17 0645 06/08/17 0645 Results 24 hrs Laboratory Tests Test 06/07/17 20:26 06/08/17 06:45 06/08/17 08:08 06/08/17 12:00 Bedside Glucose 101 109 118 White Blood Count 8.6 Red Blood Count 2.38 L Hemoglobin 9.0 L Hematocrit 28.0 L Mean Corpuscular Volume 117.6 H Mean Corpuscular Hemoglobin 37.8 H Mean Corpuscular Hemoglobin Concent 32.1 Red Cell Distribution Width 14.4 Platelet Count 170 Mean Platelet Volume 10.9 H Neutrophils % 69.5 Segmented Neutrophils % (Manual) 76 Lymphocytes % 15.3 Lymphocytes % (Manual) 13 L Monocytes % 7.2 Monocytes % (Manual) 4 Eosinophils % 1.4 Eosinophils % (Manual) 3 Basophils % 0.5 Metamyelocytes % (manual) 2 H Myelocytes % (Manual) 2 H Nucleated Red Blood Cells % 0.0 Neutrophils # 6.0 Absolute Lymphocytes (Manual) 1.1 Lymphocytes # 1.3 Monocytes # 0.6 Absolute Monocytes (Manual) 0.3 Eosinophils # 0.1 Basophils # 0.0 Metamyelocytes # 0.1 H Myelocytes # 0.1 H Nucleated Red Blood Cells # 0.0 Platelet Estimate NORMAL Polychromasia 3+ Poikilocytosis 1+ Anisocytosis 2+ Macrocytosis 2+ Sodium Level 137 Potassium Level 3.4 L Chloride Level 112 H Carbon Dioxide Level 20 L Anion Gap 8 Blood Urea Nitrogen 6 L Creatinine 1.07 H Glucose Level 99 Hemoglobin A1c 4.7 Calcium Level 9.1 Total Bilirubin 21.6 H Direct Bilirubin 19.00 *H Indirect Bilirubin 2.6 H Aspartate Amino Transf (AST/SGOT) 111 H Alanine Aminotransferase (ALT/SGPT) 64 Alkaline Phosphatase 353 H Ammonia 196 H Total Protein 6.8 # Albumin 2.6 L Globulin 4.20 H Albumin/Globulin Ratio 0.61 Test 06/08/17 18:01 Bedside Glucose 100 Medications Medications Current Medications Lactulose (Enulose) 20 gm Q8 PO Last administered on 06/08/17 13:03; Admin Dose 20 GM; Start 06/07/17 at 09:00 Ondansetron HCl (Zofran Inj) 4 mg Q4H PRN IV NAUSEA AND/OR VOMITING Last administered on 06/07/17 13:06; Admin Dose 4 MG; Start 06/07/17 at 09:00 Morphine Sulfate (morphine) 2 mg Q4H PRN IV pain 7-10 Last administered on 06/08 17:50; Admin Dose 2 MG; Start 06/07/17 at 09:00 Thiamine HCl (Vitamin B1) 100 mg DAILY PO Last administered on 06/08/17 08:59 ; Admin Dose 100 MG; Start 06/07/17 at 19:30 Folic Acid (Folic Acid) 1 mg DAILY PO Last administered on 06/08/17 08:59; Admin Dose 1 MG; Start 06/08/17 at 09:00 Diagnostic Test (Pha) (Accu-Chek) 1 ea 02 XX ; Start 06/08/17 at 02:00 Diagnostic Test (Pha) (Accu-Chek) 1 ea 02 XX ; Start 06/08/17 at 02:00 Miscellaneous Information 1 ea NOTE XX ; Start 06/07/17 at 20:00 Glucose (Glutose) 15 gm Q15M PRN PO DECREASED GLUCOSE; Start 06/07/17 at 20:00 Glucose (Glutose) 22.5 gm Q15M PRN PO DECREASED GLUCOSE; Start 06/07/17 at 20: 00 Dextrose (D50w Syringe) 25 ml Q15M PRN IV DECREASED GLUCOSE; Start 06/07/17 at 20:00 Dextrose (D50w Syringe) 50 ml Q15M PRN IV DECREASED GLUCOSE; Start 06/07/17 at 20:00 Glucagon (Glucagen) 1 mg Q15M PRN IM DECREASED GLUCOSE; Start 06/07/17 at 20:00 Glucose (Glutose) 15 gm Q15M PRN BUCCAL DECREASED GLUCOSE; Start 06/07/17 at 20 :00 Diagnostic Test (Pha) (Accu-Chek) 1 ea 02 XX ; Start 06/09/17 at 02:00 Spironolactone (Aldactone) 100 mg DAILY PO Last administered on 06/08/17t 19:03 ; Admin Dose 100 MG; Start 06/08/17 at 18:30 Propranolol HCl (Inderal) 10 mg BID PO ; Start 06/08/17 at 21:00 Pantoprazole (Protonix Tab) 40 mg DAILY@06 PO ; Start 06/09/17 at 06:00 KORIN FORBES Jun 08, 2017 19:27
[2017-06-08] MEDS ORDERED: PROPRANOLOL 10 MG TAB PO SCH (21:00)
[2017-06-09] VITALS (12 sets, daily range): BP systolic 106–122; BP diastolic 66–82; PULSE 63–68; RESP 16–18
[2017-06-09] MEDS: ACCU-CHEK XX SCH ×3 (02:00)
[2017-06-09] MEDS: morphine 2 MG INJ IV PRN ×5 (03:15→20:26)
[2017-06-09] MEDS: PANTOPRAZOLE (EC) 40 MG TAB PO SCH (05:45)
[2017-06-09] MEDS: LACTULOSE 30ML CUP PO SCH ×3 (05:45→22:05)
[2017-06-09] MEDS: INSULIN ASPART [NOVOLOG] 3 ML PEN SC SCH ×4 (07:31→20:29)
[2017-06-09] MEDS: SPIRONOLACTONE 50 MG TAB PO SCH (08:35)
[2017-06-09] MEDS: PROPRANOLOL 20 MG TAB PO SCH ×2 (08:35→20:26)
[2017-06-09] MEDS: FOLIC ACID 1 MG TAB PO SCH (08:35)
[2017-06-09] MEDS: THIAMINE 100 MG TAB PO SCH (08:35)
[2017-06-09 08:51] LABS: CALCIUM 8.5 mg/dl (8.4-10.2); CREATININE 0.93 mg/dl (0.44-1.00); POTASSIUM 4.1 mmol/L (3.5-5.1)
--- NOTE | 2017-06-09 14:00 | PN ---
Date/Time of Note Date/Time of Note DATE: 06/09/17 TIME: 13:57 Assessment/Plan VTE Prophylaxis VTE Prophylaxis Intervention: SCD's Lines/Catheters [facility] Saline Lock Urinary Cath still in place: No Assessment/Plan Chief Complaint/Hosp Course Patient complains of melena, will obtain stool for occult blood, CBC tomorrow. Ammonia level is trending down, patient denies any nausea vomiting. Continue physical therapy. Assessment/Plan 1. Hepatic encephalopathy. Continue lactulose. Monitor ammonia level. 2. Transaminitis. Gastroenterology consultation, Dr. Gonzalez is pending. 3. Nonischemic cardiomyopathy. 4. History of alcohol abuse. 5. History of amphetamine use with current drug screen is positive for amphetamines. 6. Morbid obesity. Further recommendations based on clinical course. Plan of care discussed with Dr. Dawson. Problems: Exam/Review of Systems Vital Signs Vitals Vital Signs Date Time Temp Pulse Resp B/P Pulse Ox O2 Delivery O2 Flow Rate FiO2 06/09/17 12:06 66 06/09/17 11:35 98.6 18 106/66 100 06/07/17 07:58 Room Air Intake and Output 06/08/17 06/08/17 06/09/17 15:00 23:00 07:00 Intake Total 1100 ml 1000 ml 900 ml Balance 1100 ml 1000 ml 900 ml Exam Constitutional: alert, other Head: normocephalic Eyes: icteric Neck: supple Cardiovascular: nl pulses Gastrointestinal: soft, tender Extremities: normal pulses Results Result Diagram: 06/08/17 0645 06/09/17 0713 Results 24 hrs Laboratory Tests Test 06/08/17 18:01 06/08/17 21:09 06/09/17 07:13 06/09/17 07:28 Bedside Glucose 100 86 130 Sodium Level 137 Potassium Level 4.1 Chloride Level 115 H Carbon Dioxide Level 16 L Anion Gap 10 Blood Urea Nitrogen 6 L Creatinine 0.93 Glucose Level 126 Calcium Level 8.5 Ammonia 149 H Test 06/09/17 11:55 Bedside Glucose 121 Medications Medications Current Medications Lactulose (Enulose) 20 gm Q8 PO Last administered on 06/09/17t 13:48; Admin Dose 20 GM; Start 06/07/17 at 09:00 Ondansetron HCl (Zofran Inj) 4 mg Q4H PRN IV NAUSEA AND/OR VOMITING Last administered on 06/07/17 13:06; Admin Dose 4 MG; Start 06/07/17 at 09:00 Morphine Sulfate (morphine) 2 mg Q4H PRN IV pain 7-10 Last administered on 06/09 11:51; Admin Dose 2 MG; Start 06/07/17 at 09:00 Thiamine HCl (Vitamin B1) 100 mg DAILY PO Last administered on 06/09/17 08:35 ; Admin Dose 100 MG; Start 06/07/17 at 19:30 Folic Acid (Folic Acid) 1 mg DAILY PO Last administered on 06/09/17 08:35; Admin Dose 1 MG; Start 06/08/17 at 09:00 Diagnostic Test (Pha) (Accu-Chek) 1 ea 02 XX ; Start 06/08/17 at 02:00 Diagnostic Test (Pha) (Accu-Chek) 1 ea 02 XX ; Start 06/08/17 at 02:00 Miscellaneous Information 1 ea NOTE XX ; Start 06/07/17 at 20:00 Glucose (Glutose) 15 gm Q15M PRN PO DECREASED GLUCOSE; Start 06/07/17 at 20:00 Glucose (Glutose) 22.5 gm Q15M PRN PO DECREASED GLUCOSE; Start 06/07/17 at 20: 00 Dextrose (D50w Syringe) 25 ml Q15M PRN IV DECREASED GLUCOSE; Start 06/07/17 at 20:00 Dextrose (D50w Syringe) 50 ml Q15M PRN IV DECREASED GLUCOSE; Start 06/07/17 at 20:00 Glucagon (Glucagen) 1 mg Q15M PRN IM DECREASED GLUCOSE; Start 06/07/17 at 20:00 Glucose (Glutose) 15 gm Q15M PRN BUCCAL DECREASED GLUCOSE; Start 06/07/17 at 20 :00 Diagnostic Test (Pha) (Accu-Chek) 1 ea 02 XX ; Start 06/09/17 at 02:00 Spironolactone (Aldactone) 100 mg DAILY PO Last administered on 06/09/17 08:35 ; Admin Dose 100 MG; Start 06/08/17 at 18:30 Propranolol HCl (Inderal) 10 mg BID PO Last administered on 06/09/17 08:35; Admin Dose 10 MG; Start 06/08/17 at 21:00 Pantoprazole (Protonix Tab) 40 mg DAILY@06 PO Last administered on 06/09/17t 05 :45; Admin Dose 40 MG; Start 06/09/17 at 06:00 KORIN FORBES Jun 09, 2017 14:00
[2017-06-09 19:48] LABS: INR 1.95; PROTIME 22.4 Sec (12.2-14.2); PT RATIO 1.8
--- NOTE | 2017-06-09 21:40 | CONS ---
DATE OF ADMISSION: 06/07/2017 DATE OF CONSULTATION: 06/09/2017 HISTORY OF PRESENT ILLNESS: The patient is a 27-year-old female with a history of cardiomyopathy, hypertension, diabetes mellitus, pancreatitis in the past, amphetamine abuse, alcoholism, who comes to the hospital with increased jaundice and confusional state. The patient's bilirubin was high at 22. In the ER, for some reason, the patient was started on octreotide and was given lactulose. She denies of any acute GI bleeding. No vomiting. No hematochezia. No melena. She had fresh red blood in the stool, most probably related to her hemorrhoids. PAST MEDICAL HISTORY: As described. FAMILY HISTORY: Mother from alcoholic liver disease at the age of 39, father at the age of 27. SOCIAL HISTORY: Amphetamine use. She drinks 2 pints of vodka per day. Stopped just 1 week ago. History of smoking. ALLERGIES: NONE. MEDICATION: All reviewed. The patient is on Coreg, Lasix, Lantus, levothyroxine, lisinopril and prednisolone. REVIEW OF SYSTEMS: Negative. PHYSICAL EXAMINATION: GENERAL: Overweight, not in distress. VITAL SIGNS: Stable. HEENT: Unremarkable. NECK: Supple. No thyromegaly. No lymphadenopathy. HEART: No murmur, gallop, or click. LUNGS: Clear. ABDOMEN: Benign. EXTREMITIES: No edema. NEUROLOGIC: The patient is oriented to time, place, and space, but has got a hepatic flap. LABORATORY: Bilirubin is 21.6. IMPRESSION: 1. Alcoholic liver disease. 2. Anemia with macrocytosis. 3. Cardiomyopathy by history. 4. Amphetamine abuse. 5. Obesity. 6. Hepatic encephalopathy. PLAN: To continue lactulose and rifaximin. Agree with thiamine. Refrain from sedatives. We will check PT, PTT as a prognosticator. Will monitor total bilirubin closely. Patient needs also ultrasound of the liver. Dictated By: Aneesh Gonzalez MD /regi/yuly /Document#: [id number] CC: Aneesh Gonzalez MD;*EndCC*
[2017-06-10] VITALS (11 sets, daily range): BP systolic 111–135; BP diastolic 52–77; PULSE 54–74; RESP 15–18
[2017-06-10] MEDS: morphine 2 MG INJ IV PRN ×5 (00:41→20:29)
[2017-06-10] MEDS: ACCU-CHEK XX SCH (02:00)
[2017-06-10] MEDS: PANTOPRAZOLE (EC) 40 MG TAB PO SCH (06:02)
[2017-06-10] MEDS: LACTULOSE 30ML CUP PO SCH ×3 (06:02→20:29)
[2017-06-10 07:50] LABS: BASOPHILS % 0.2 % (0.0-2.0); EOSINOPHILS # 0.1 10^3/ul (0.0-0.5); HEMATOCRIT 26.5 % (37.0-47.0); HEMOGLOBIN 8.3 g/dl (12.0-16.0); LYMPHOCYTES # 1.6 10^3/ul (0.8-2.9); LYMPHOCYTES % 18.2 % (15.0-51.0); MEAN CORPUSCULAR HEMOGLOBIN 36.6 pg (29.0-33.0); MEAN CORPUSCULAR HGB CONC 31.3 g/dl (32.0-37.0); MEAN CORPUSCULAR VOLUME 116.7 fl (82.0-101.0); MEAN PLATELET VOLUME 10.5 fl (7.4-10.4); MONOCYTE # 0.7 10^3/ul (0.3-0.9); MONOCYTES % 7.5 % (0.0-11.0); NEUTROPHIL # 6.2 10^3/ul (1.6-7.5); NEUTROPHILS % 70.7 % (39.0-77.0); PLATELET COUNT 153 10^3/UL (140-415); RED BLOOD COUNT 2.27 10^6/ul (4.20-5.40); RED CELL DISTRIBUTION WIDTH 14.2 % (11.5-14.5); WHITE BLOOD COUNT 8.8 10^3/ul (4.8-10.8)
[2017-06-10] MEDS: INSULIN ASPART [NOVOLOG] 3 ML PEN SC SCH ×4 (07:56→21:00)
[2017-06-10 08:10] LABS: ALBUMIN 2.3 g/dl (3.3-4.9); ALBUMIN/GLOBULIN RATIO 0.6; BILIRUBIN,INDIRECT 2.5 mg/dl (0-1.1); BILIRUBIN,TOTAL 17.9 mg/dl (0.2-1.3); CALCIUM 9.2 mg/dl (8.4-10.2); CREATININE 0.88 mg/dl (0.44-1.00); POTASSIUM 3.7 mmol/L (3.5-5.1); TOTAL PROTEIN 6.1 g/dl (6.1-8.1)
[2017-06-10] MEDS: FOLIC ACID 1 MG TAB PO SCH (08:17)
[2017-06-10] MEDS: THIAMINE 100 MG TAB PO SCH (08:17)
[2017-06-10] MEDS: PROPRANOLOL 20 MG TAB PO SCH ×2 (08:18→20:29)
[2017-06-10] MEDS: SPIRONOLACTONE 50 MG TAB PO SCH (08:18)
--- NOTE | 2017-06-10 12:55 | CONS ---
Date/Time of Note Date/Time of Note DATE: 06/10/17 TIME: 12:54 Assessment/Plan Assessment/Plan Additional Assessment/Plan IMPRESSION: 1. Alcoholic liver disease. Bilirubin has come down to 17 from 2. Anemia with macrocytosis. 3. Cardiomyopathy by history. 4. Amphetamine abuse. 5. Obesity. 6. Hepatic encephalopathy. Plan Continue lactulose and rifaximin PPI Monitor H&H Monitor total bilirubin. Vitamin K to correct the coagulopathy. Consultation Date/Type/Reason Admit Date/Time Jun 07, 2017 at 06:49 Initial Consult Date 24 HR Interval Summary Constitutional: improved Exam/Review of Systems Vital Signs Vitals Vital Signs Date Time Temp Pulse Resp B/P Pulse Ox O2 Delivery O2 Flow Rate FiO2 06/10/17 12:10 60 06/10/17 11:35 98.2 18 124/72 100 06/10/17 04:07 Room Air Intake and Output 06/09/17 06/09/17 06/10/17 15:00 23:00 07:00 Intake Total 1200 ml 300 ml Balance 1200 ml 300 ml Exam Constitutional: alert, oriented, well developed Psych: nl mood/affect, no complaints Head: atraumatic, normocephalic Eyes: EOMI, PERRL, nl conjunctiva, nl lids, nl sclera ENMT: nl external ears & nose, nl lips & teeth, nl nasal mucosa & septum Neck: non-tender, supple Respiratory: clear to auscultation, normal air movement Cardiovascular: nl pulses, regular rate and rhythm Gastrointestinal: nl liver, spleen, non-tender, soft Musculoskeletal: nl extremities to inspection, nl gait and stance Extremities: normal pulses Neurological: SAUSAGE CUTTER II-XII intact, 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, nl speech, nl strength Skin: nl turgor, No rash or lesions Lymph: nl lymph nodes Results Result Diagram: 06/10/17 0702 06/10/17 0702 Results 24 hrs Laboratory Tests Test 06/09/17 16:30 06/09/17 16:51 06/09/17 19:12 06/09/17 20:25 Stool Occult Blood POSITIVE Bedside Glucose 114 128 Prothrombin Time 22.4 H Prothrombin Time Ratio 1.8 INR International Normalized Ratio 1.95 Test 06/10/17 07:02 06/10/17 07:51 06/10/17 11:38 White Blood Count 8.8 Red Blood Count 2.27 L Hemoglobin 8.3 L Hematocrit 26.5 L Mean Corpuscular Volume 116.7 H Mean Corpuscular Hemoglobin 36.6 H Mean Corpuscular Hemoglobin Concent 31.3 L Red Cell Distribution Width 14.2 Platelet Count 153 Mean Platelet Volume 10.5 H Neutrophils % 70.7 Lymphocytes % 18.2 Monocytes % 7.5 Eosinophils % 1.0 Basophils % 0.2 Nucleated Red Blood Cells % 0.0 Neutrophils # 6.2 Lymphocytes # 1.6 Monocytes # 0.7 Eosinophils # 0.1 Basophils # 0.0 Nucleated Red Blood Cells # 0.0 Sodium Level 137 Potassium Level 3.7 Chloride Level 114 H Carbon Dioxide Level 18 L Anion Gap 9 Blood Urea Nitrogen 5 L Creatinine 0.88 Glucose Level 105 Calcium Level 9.2 Total Bilirubin 17.9 H Direct Bilirubin 15.40 *H Indirect Bilirubin 2.5 H Aspartate Amino Transf (AST/SGOT) 105 H Alanine Aminotransferase (ALT/SGPT) 58 Alkaline Phosphatase 286 H Ammonia 105 H Total Protein 6.1 Albumin 2.3 L Globulin 3.80 H Albumin/Globulin Ratio 0.60 Bedside Glucose 99 130 Medications Medications Current Medications Lactulose (Enulose) 20 gm Q8 PO Last administered on 06/10/17 06:02; Admin Dose 20 GM; Start 06/07/17 at 09:00 Ondansetron HCl (Zofran Inj) 4 mg Q4H PRN IV NAUSEA AND/OR VOMITING Last administered on 06/07/17 13:06; Admin Dose 4 MG; Start 06/07/17 at 09:00 Morphine Sulfate (morphine) 2 mg Q4H PRN IV pain 7-10 Last administered on 06/10 10:51; Admin Dose 2 MG; Start 06/07/17 at 09:00 Thiamine HCl (Vitamin B1) 100 mg DAILY PO Last administered on 06/10/17 08:17 ; Admin Dose 100 MG; Start 06/07/17 at 19:30 Folic Acid (Folic Acid) 1 mg DAILY PO Last administered on 06/10/17 08:17; Admin Dose 1 MG; Start 06/08/17 at 09:00 Miscellaneous Information 1 ea NOTE XX ; Start 06/07/17 at 20:00 Glucose (Glutose) 15 gm Q15M PRN PO DECREASED GLUCOSE; Start 06/07/17 at 20:00 Glucose (Glutose) 22.5 gm Q15M PRN PO DECREASED GLUCOSE; Start 06/07/17 at 20: 00 Dextrose (D50w Syringe) 25 ml Q15M PRN IV DECREASED GLUCOSE; Start 06/07/17 at 20:00 Dextrose (D50w Syringe) 50 ml Q15M PRN IV DECREASED GLUCOSE; Start 06/07/17 at 20:00 Glucagon (Glucagen) 1 mg Q15M PRN IM DECREASED GLUCOSE; Start 06/07/17 at 20:00 Glucose (Glutose) 15 gm Q15M PRN BUCCAL DECREASED GLUCOSE; Start 06/07/17 at 20 :00 Diagnostic Test (Pha) (Accu-Chek) 1 ea 02 XX ; Start 06/09/17 at 02:00 Spironolactone (Aldactone) 100 mg DAILY PO Last administered on 06/10/17 08:18 ; Admin Dose 100 MG; Start 06/08/17 at 18:30 Propranolol HCl (Inderal) 10 mg BID PO Last administered on 06/10/17 08:18; Admin Dose 10 MG; Start 06/08/17 at 21:00 Pantoprazole (Protonix Tab) 40 mg DAILY@06 PO Last administered on 06/10/17 06 :02; Admin Dose 40 MG; Start 06/09/17 at 06:00 SUSAN GARCIAS MD Jun 10, 2017 12:55
--- NOTE | 2017-06-10 19:43 | PN ---
Date/Time of Note Date/Time of Note DATE: 06/10/17 TIME: 19:41 Assessment/Plan VTE Prophylaxis VTE Prophylaxis Intervention: other Lines/Catheters IV [facility]from [facility] Saline Lock Urinary Cath still in place: No Assessment/Plan Assessment/Plan 1. Hepatic encephalopathy. Continue lactulose. Monitor ammonia - 105, cont monitor am level. 2. Transaminitis. Gastroenterology consultation, Dr. Gonzalez is pending. 3. Nonischemic cardiomyopathy. 4. History of alcohol abuse. 5. History of amphetamine use with current drug screen is positive for amphetamines. 6. Morbid obesity. - weight management Further recommendations based on clinical course. Plan of care discussed with Dr. Dawson. Subjective 24 Hr Interval Summary Respiratory: no complaints Cardiovascular: no complaints Gastrointestinal: no complaints Genitourinary: no complaints Musculoskeletal: no complaints Exam/Review of Systems Vital Signs Vitals Vital Signs Date Time Temp Pulse Resp B/P Pulse Ox O2 Delivery O2 Flow Rate FiO2 06/10/17 19:24 98.3 62 15 112/75 99 06/10/17 04:07 Room Air Intake and Output 06/09/17 06/09/17 06/10/17 15:00 23:00 07:00 Intake Total 1200 ml 300 ml Balance 1200 ml 300 ml Exam Constitutional: alert, obese, oriented, well developed Respiratory: clear to auscultation, normal air movement Cardiovascular: nl pulses, regular rate and rhythm Gastrointestinal: non-tender, soft Musculoskeletal: nl extremities to inspection Extremities: normal pulses Neurological: 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, nl speech Results Result Diagram: 06/10/17 0702 06/10/17 0702 Results 24 hrs Laboratory Tests Test 06/09/17 20:25 06/10/17 07:02 06/10/17 07:51 06/10/17 11:38 Bedside Glucose 128 99 130 White Blood Count 8.8 Red Blood Count 2.27 L Hemoglobin 8.3 L Hematocrit 26.5 L Mean Corpuscular Volume 116.7 H Mean Corpuscular Hemoglobin 36.6 H Mean Corpuscular Hemoglobin Concent 31.3 L Red Cell Distribution Width 14.2 Platelet Count 153 Mean Platelet Volume 10.5 H Neutrophils % 70.7 Lymphocytes % 18.2 Monocytes % 7.5 Eosinophils % 1.0 Basophils % 0.2 Nucleated Red Blood Cells % 0.0 Neutrophils # 6.2 Lymphocytes # 1.6 Monocytes # 0.7 Eosinophils # 0.1 Basophils # 0.0 Nucleated Red Blood Cells # 0.0 Sodium Level 137 Potassium Level 3.7 Chloride Level 114 H Carbon Dioxide Level 18 L Anion Gap 9 Blood Urea Nitrogen 5 L Creatinine 0.88 Glucose Level 105 Calcium Level 9.2 Total Bilirubin 17.9 H Direct Bilirubin 15.40 *H Indirect Bilirubin 2.5 H Aspartate Amino Transf (AST/SGOT) 105 H Alanine Aminotransferase (ALT/SGPT) 58 Alkaline Phosphatase 286 H Ammonia 105 H Total Protein 6.1 Albumin 2.3 L Globulin 3.80 H Albumin/Globulin Ratio 0.60 Test 06/10/17 17:03 Bedside Glucose 135 Medications Medications Current Medications Lactulose (Enulose) 20 gm Q8 PO Last administered on 06/10/17 13:59; Admin Dose 20 GM; Start 06/07/17 at 09:00 Ondansetron HCl (Zofran Inj) 4 mg Q4H PRN IV NAUSEA AND/OR VOMITING Last administered on 06/07/17 13:06; Admin Dose 4 MG; Start 06/07/17 at 09:00 Morphine Sulfate (morphine) 2 mg Q4H PRN IV pain 7-10 Last administered on 06/10 15:10; Admin Dose 2 MG; Start 06/07/17 at 09:00 Thiamine HCl (Vitamin B1) 100 mg DAILY PO Last administered on 06/10/17 08:17 ; Admin Dose 100 MG; Start 06/07/17 at 19:30 Folic Acid (Folic Acid) 1 mg DAILY PO Last administered on 06/10/17 08:17; Admin Dose 1 MG; Start 06/08/17 at 09:00 Miscellaneous Information 1 ea NOTE XX ; Start 06/07/17 at 20:00 Glucose (Glutose) 15 gm Q15M PRN PO DECREASED GLUCOSE; Start 06/07/17 at 20:00 Glucose (Glutose) 22.5 gm Q15M PRN PO DECREASED GLUCOSE; Start 06/07/17 at 20: 00 Dextrose (D50w Syringe) 25 ml Q15M PRN IV DECREASED GLUCOSE; Start 06/07/17 at 20:00 Dextrose (D50w Syringe) 50 ml Q15M PRN IV DECREASED GLUCOSE; Start 06/07/17 at 20:00 Glucagon (Glucagen) 1 mg Q15M PRN IM DECREASED GLUCOSE; Start 06/07/17 at 20:00 Glucose (Glutose) 15 gm Q15M PRN BUCCAL DECREASED GLUCOSE; Start 06/07/17 at 20 :00 Diagnostic Test (Pha) (Accu-Chek) 1 ea 02 XX ; Start 06/09/17 at 02:00 Spironolactone (Aldactone) 100 mg DAILY PO Last administered on 06/10/17 08:18 ; Admin Dose 100 MG; Start 06/08/17 at 18:30 Propranolol HCl (Inderal) 10 mg BID PO Last administered on 06/10/17 08:18; Admin Dose 10 MG; Start 06/08/17 at 21:00 Pantoprazole (Protonix Tab) 40 mg DAILY@06 PO Last administered on 06/10/17 06 :02; Admin Dose 40 MG; Start 06/09/17 at 06:00 SWATHI RESENDIZ Jun 10, 2017 19:43
[2017-06-11] VITALS (10 sets, daily range): BP systolic 110–125; BP diastolic 65–77; PULSE 58–64; RESP 15–18
[2017-06-11] MEDS: morphine 2 MG INJ IV PRN ×6 (00:24→21:12)
[2017-06-11] MEDS: ACCU-CHEK XX SCH ×2 (01:10→21:15)
[2017-06-11] MEDS: LACTULOSE 30ML CUP PO SCH ×3 (05:36→21:14)
[2017-06-11] MEDS: PANTOPRAZOLE (EC) 40 MG TAB PO SCH (05:36)
[2017-06-11 07:22] LABS: BASOPHILS % 0.3 % (0.0-2.0); EOSINOPHILS # 0.1 10^3/ul (0.0-0.5); EOSINOPHILS % 1.3 % (0.0-7.0); HEMOGLOBIN 8.5 g/dl (12.0-16.0); LYMPHOCYTES # 1.7 10^3/ul (0.8-2.9); LYMPHOCYTES % 19.8 % (15.0-51.0); MEAN CORPUSCULAR HEMOGLOBIN 38.5 pg (29.0-33.0); MEAN CORPUSCULAR HGB CONC 32.7 g/dl (32.0-37.0); MEAN CORPUSCULAR VOLUME 117.6 fl (82.0-101.0); MEAN PLATELET VOLUME 10.6 fl (7.4-10.4); MONOCYTE # 0.8 10^3/ul (0.3-0.9); MONOCYTES % 9.7 % (0.0-11.0); NEUTROPHIL # 5.8 10^3/ul (1.6-7.5); NEUTROPHILS % 66.9 % (39.0-77.0); PLATELET COUNT 168 10^3/UL (140-415); RED BLOOD COUNT 2.21 10^6/ul (4.20-5.40); RED CELL DISTRIBUTION WIDTH 14.1 % (11.5-14.5); WHITE BLOOD COUNT 8.7 10^3/ul (4.8-10.8)
[2017-06-11 07:48] LABS: CALCIUM 9.1 mg/dl (8.4-10.2); CREATININE 0.85 mg/dl (0.44-1.00); POTASSIUM 4.1 mmol/L (3.5-5.1)
[2017-06-11] MEDS: INSULIN ASPART [NOVOLOG] 3 ML PEN SC SCH ×4 (08:00→20:17)
[2017-06-11] MEDS: SPIRONOLACTONE 50 MG TAB PO SCH (08:35)
[2017-06-11] MEDS: FOLIC ACID 1 MG TAB PO SCH (08:35)
[2017-06-11] MEDS: PROPRANOLOL 20 MG TAB PO SCH ×2 (08:36→20:14)
[2017-06-11] MEDS: THIAMINE 100 MG TAB PO SCH (08:36)
[2017-06-11] MEDS ORDERED: PHYTONADIONE 10 MG/ML INJ SC ONE (13:00)
[2017-06-11 13:07] LABS: BILIRUBIN,DIRECT 15.4 mg/dl (0.00-0.20)
[2017-06-11] MEDS: RIFAXIMIN 550 MG TAB PO SCH ×2 (13:36→20:14)
--- NOTE | 2017-06-11 18:56 | PN ---
Date/Time of Note Date/Time of Note DATE: 06/11/17 TIME: 18:51 Assessment/Plan VTE Prophylaxis VTE Prophylaxis Intervention: SCD's Lines/Catheters [facility] Saline Lock Urinary Cath still in place: No Assessment/Plan Chief Complaint/Hosp Course Patient tolerates diet well denies any nausea and vomiting, complaints of abdominal occasional abdominal pain, jaundice. Assessment/Plan - Alcoholic liver disease. Dr. Gonzalez is following in gastroenterology consultation. Continue propranolol and Aldactone. - Hepatic encephalopathy. Continue lactulose. Monitor ammonia level. - Stool for OB positive, continue Protonix. - Nonischemic cardiomyopathy. - History of alcohol abuse. - History of amphetamine use with current drug screen is positive for amphetamines. - Morbid obesity. Further recommendations based on clinical course. Plan of care discussed with Dr. Dawson. Problems: Exam/Review of Systems Vital Signs Vitals Vital Signs Date Time Temp Pulse Resp B/P Pulse Ox O2 Delivery O2 Flow Rate FiO2 06/11/17 16:01 60 06/11/17 15:45 17 125/74 99 06/11/17 11:17 97.2 06/10/17 04:07 Room Air Intake and Output 06/10/17 06/10/17 06/11/17 15:00 23:00 07:00 Intake Total 1200 ml 500 ml Balance 1200 ml 500 ml Exam Constitutional: alert, other Head: normocephalic Eyes: icteric Neck: supple Cardiovascular: nl pulses Gastrointestinal: soft, tender Extremities: normal pulses Results Result Diagram: 06/11/17 0643 06/11/17 0643 Results 24 hrs Laboratory Tests Test 06/10/17 21:22 06/11/17 06:43 06/11/17 08:22 06/11/17 12:09 Bedside Glucose 131 100 109 White Blood Count 8.7 Red Blood Count 2.21 L Hemoglobin 8.5 L Hematocrit 26.0 L Mean Corpuscular Volume 117.6 H Mean Corpuscular Hemoglobin 38.5 H Mean Corpuscular Hemoglobin Concent 32.7 Red Cell Distribution Width 14.1 Platelet Count 168 Mean Platelet Volume 10.6 H Neutrophils % 66.9 Lymphocytes % 19.8 Monocytes % 9.7 Eosinophils % 1.3 Basophils % 0.3 Nucleated Red Blood Cells % 0.0 Neutrophils # 5.8 Lymphocytes # 1.7 Monocytes # 0.8 Eosinophils # 0.1 Basophils # 0.0 Nucleated Red Blood Cells # 0.0 Sodium Level 137 Potassium Level 4.1 Chloride Level 113 H Carbon Dioxide Level 22 Anion Gap 6 L Blood Urea Nitrogen 4 L Creatinine 0.85 Glucose Level 104 Calcium Level 9.1 Ammonia 128 H Test 06/11/17 17:40 Bedside Glucose 137 Medications Medications Current Medications Lactulose (Enulose) 20 gm Q8 PO Last administered on 06/11/17 13:33; Admin Dose 20 GM; Start 06/07/17 at 09:00 Ondansetron HCl (Zofran Inj) 4 mg Q4H PRN IV NAUSEA AND/OR VOMITING Last administered on 06/07/17 13:06; Admin Dose 4 MG; Start 06/07/17 at 09:00 Morphine Sulfate (morphine) 2 mg Q4H PRN IV pain 7-10 Last administered on 06/11 17:41; Admin Dose 2 MG; Start 06/07/17 at 09:00 Thiamine HCl (Vitamin B1) 100 mg DAILY PO Last administered on 06/11/17 08:36 ; Admin Dose 100 MG; Start 06/07/17 at 19:30 Folic Acid (Folic Acid) 1 mg DAILY PO Last administered on 06/11/17 08:35; Admin Dose 1 MG; Start 06/08/17 at 09:00 Miscellaneous Information 1 ea NOTE XX ; Start 06/07/17 at 20:00 Glucose (Glutose) 15 gm Q15M PRN PO DECREASED GLUCOSE; Start 06/07/17 at 20:00 Glucose (Glutose) 22.5 gm Q15M PRN PO DECREASED GLUCOSE; Start 06/07/17 at 20: 00 Dextrose (D50w Syringe) 25 ml Q15M PRN IV DECREASED GLUCOSE; Start 06/07/17 at 20:00 Dextrose (D50w Syringe) 50 ml Q15M PRN IV DECREASED GLUCOSE; Start 06/07/17 at 20:00 Glucagon (Glucagen) 1 mg Q15M PRN IM DECREASED GLUCOSE; Start 06/07/17 at 20:00 Glucose (Glutose) 15 gm Q15M PRN BUCCAL DECREASED GLUCOSE; Start 06/07/17 at 20 :00 Diagnostic Test (Pha) (Accu-Chek) 1 ea 02 XX ; Start 06/09/17 at 02:00 Spironolactone (Aldactone) 100 mg DAILY PO Last administered on 06/11/17 08:35 ; Admin Dose 100 MG; Start 06/08/17 at 18:30 Propranolol HCl (Inderal) 10 mg BID PO Last administered on 06/11/17 08:36; Admin Dose 10 MG; Start 06/08/17 at 21:00 Pantoprazole (Protonix Tab) 40 mg DAILY@06 PO Last administered on 06/11/17 05 :36; Admin Dose 40 MG; Start 06/09/17 at 06:00 Rifaximin (Xifaxan) 550 mg BID PO Last administered on 06/11/17 13:36; Admin Dose 550 MG; Start 06/11/17 at 13:00 KORIN FORBES Jun 11, 2017 18:56
--- NOTE | 2017-06-11 22:56 | CONS ---
DATE OF ADMISSION: 06/07/2017 DATE OF CONSULTATION: 06/11/2017 SUBJECTIVE: Patient is a 27-year-old female with a history of alcohol abuse, has no complaint now. OBJECTIVE: VITAL SIGNS: Stable. ABDOMEN: Benign. LUNGS: Clear. EXTREMITIES: No edema. NEUROLOGIC: STEWARD/STEWARDESS SMOKE ROOM is within normal limits. She is oriented to time, place, and space, an hepatic flareup has reduced. LABORATORY: Her hematocrit is 26. WBCs within normal limits. Platelet count is 168,000. Her INR is elevated, it is 1.8. Stool for occult blood was reported positive. IMPRESSION: 1. Alcoholic liver disease. 2. Hepatic encephalopathy. 3. Anemia. 4. History of amphetamine use. 5. Morbid obesity. 6. Nonischemic cardiomyopathy. PLAN: Plan at this point is to continue lactulose and rifaximin. Avoid all kinds of sedatives and patient needs further workup for positive stool guaiac in the form of EGD and colonoscopy. This can be done as an outpatient since patient is not acutely bleeding. Will monitor ammonia level. Dictated By: Aneesh Gonzalez MD /regi/jody /Document#: [id number]
[2017-06-12] VITALS (12 sets, daily range): BP systolic 114–137; BP diastolic 70–86; PULSE 58–74; RESP 15–20
[2017-06-12] MEDS: morphine 2 MG INJ IV PRN ×4 (03:37→20:31)
[2017-06-12] MEDS: PANTOPRAZOLE (EC) 40 MG TAB PO SCH (06:08)
[2017-06-12] MEDS: LACTULOSE 30ML CUP PO SCH ×3 (06:09→21:38)
[2017-06-12 07:17] LABS: BASOPHIL # 0.1 10^3/ul (0.0-0.1); BASOPHILS % 0.5 % (0.0-2.0); EOSINOPHILS # 0.1 10^3/ul (0.0-0.5); EOSINOPHILS % 1.4 % (0.0-7.0); HEMATOCRIT 28.7 % (37.0-47.0); HEMOGLOBIN 9.4 g/dl (12.0-16.0); LYMPHOCYTES # 1.8 10^3/ul (0.8-2.9); LYMPHOCYTES % 18.4 % (15.0-51.0); MEAN CORPUSCULAR HEMOGLOBIN 38.1 pg (29.0-33.0); MEAN CORPUSCULAR HGB CONC 32.8 g/dl (32.0-37.0); MEAN CORPUSCULAR VOLUME 116.2 fl (82.0-101.0); MEAN PLATELET VOLUME 11.1 fl (7.4-10.4); MONOCYTE # 0.8 10^3/ul (0.3-0.9); MONOCYTES % 7.7 % (0.0-11.0); NEUTROPHILS % 70.4 % (39.0-77.0); PLATELET COUNT 184 10^3/UL (140-415); RED BLOOD COUNT 2.47 10^6/ul (4.20-5.40); RED CELL DISTRIBUTION WIDTH 13.7 % (11.5-14.5)
[2017-06-12] MEDS: INSULIN ASPART [NOVOLOG] 3 ML PEN SC SCH ×4 (07:50→21:00)
[2017-06-12] MEDS: ONDANSETRON 4 MG INJ IV PRN ×2 (07:55→16:55)
[2017-06-12] MEDS: THIAMINE 100 MG TAB PO SCH (07:56)
[2017-06-12] MEDS: FOLIC ACID 1 MG TAB PO SCH (07:56)
[2017-06-12] MEDS: SPIRONOLACTONE 50 MG TAB PO SCH (07:56)
[2017-06-12 07:57] LABS: ALBUMIN 2.8 g/dl (3.3-4.9); ALBUMIN/GLOBULIN RATIO 0.62; BILIRUBIN,INDIRECT 2.7 mg/dl (0-1.1); BILIRUBIN,TOTAL 18.8 mg/dl (0.2-1.3); CALCIUM 9.1 mg/dl (8.4-10.2); CREATININE 0.84 mg/dl (0.44-1.00); POTASSIUM 5.3 mmol/L (3.5-5.1); TOTAL PROTEIN 7.3 g/dl (6.1-8.1)
[2017-06-12] MEDS: PROPRANOLOL 20 MG TAB PO SCH ×2 (07:58→20:31)
[2017-06-12] MEDS: RIFAXIMIN 550 MG TAB PO SCH ×2 (08:01→20:30)
[2017-06-12 08:15] LABS: BILIRUBIN,DIRECT 16.1 mg/dl (0.00-0.20)
--- NOTE | 2017-06-12 11:20 | PN ---
Date/Time of Note Date/Time of Note DATE: 06/12/17 TIME: 11:14 Assessment/Plan VTE Prophylaxis VTE Prophylaxis Intervention: other Lines/Catheters [facility] Peripheral IV Urinary Cath still in place: No Assessment/Plan Assessment/Plan - Hyperkalemia- Kayexalate 15 gm po x1, bmp am - Alcoholic liver disease. Dr. Gonzalez is following in gastroenterology consultation. Continue propranolol and Aldactone. - Hepatic encephalopathy. Continue lactulose. Monitor ammonia level. - 143 today - Stool for OB positive, continue Protonix. - Nonischemic cardiomyopathy. - History of alcohol abuse. - History of amphetamine use with current drug screen is positive for amphetamines. - Morbid obesity. - dietary consult Further recommendations based on clinical course. Plan of care discussed with Dr. Dawson. Subjective 24 Hr Interval Summary Free Text/Dictation complaints of abdominal occasional abdominal pain, jaundice, asks morphine all times- walks with unsteady gait , will change morphine toQ6 PRN, tolerating diet well without any nausea and vomiting reported, Constitutional: improved Respiratory: no complaints Cardiovascular: no complaints Gastrointestinal: pain Genitourinary: no complaints Musculoskeletal: no complaints Exam/Review of Systems Vital Signs Vitals Vital Signs Date Time Temp Pulse Resp B/P Pulse Ox O2 Delivery O2 Flow Rate FiO2 06/12/17 08:01 59 06/12/17 07:51 98.1 18 122/74 99 06/12/17 04:00 Room Air Intake and Output 06/11/17 06/11/17 06/12/17 15:00 23:00 07:00 Intake Total 1200 ml 500 ml Balance 1200 ml 500 ml Exam Constitutional: alert, obese, oriented Respiratory: clear to auscultation, normal air movement Cardiovascular: nl pulses, other (SB HR 50's) Musculoskeletal: nl extremities to inspection Extremities: normal pulses Neurological: 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, nl speech Results Result Diagram: 06/12/17 0605 06/12/17 0605 Results 24 hrs Laboratory Tests Test 06/11/17 12:09 06/11/17 17:40 06/11/17 20:15 06/11/17 20:59 Bedside Glucose 109 137 127 Hepatitis B Surface Antigen NEGATIVE Hepatitis C Antibody NEGATIVE Test 06/12/17 06:05 06/12/17 07:49 White Blood Count 10.0 Red Blood Count 2.47 L Hemoglobin 9.4 L Hematocrit 28.7 L Mean Corpuscular Volume 116.2 H Mean Corpuscular Hemoglobin 38.1 H Mean Corpuscular Hemoglobin Concent 32.8 Red Cell Distribution Width 13.7 Platelet Count 184 Mean Platelet Volume 11.1 H Neutrophils % 70.4 Lymphocytes % 18.4 Monocytes % 7.7 Eosinophils % 1.4 Basophils % 0.5 Nucleated Red Blood Cells % 0.0 Neutrophils # 7.0 Lymphocytes # 1.8 Monocytes # 0.8 Eosinophils # 0.1 Basophils # 0.1 Nucleated Red Blood Cells # 0.0 Sodium Level 135 Potassium Level 5.3 H Chloride Level 113 H Carbon Dioxide Level 16 L Anion Gap 11 Blood Urea Nitrogen 4 L Creatinine 0.84 Glucose Level 121 Calcium Level 9.1 Total Bilirubin 18.8 H Direct Bilirubin 16.10 *H Indirect Bilirubin 2.7 H Aspartate Amino Transf (AST/SGOT) 133 H Alanine Aminotransferase (ALT/SGPT) 56 Alkaline Phosphatase 284 H Ammonia 143 H Total Protein 7.3 # Albumin 2.8 L Globulin 4.50 H Albumin/Globulin Ratio 0.62 Bedside Glucose 133 Medications Medications Current Medications Lactulose (Enulose) 20 gm Q8 PO Last administered on 06/12/17 06:09; Admin Dose 20 GM; Start 06/07/17 at 09:00 Ondansetron HCl (Zofran Inj) 4 mg Q4H PRN IV NAUSEA AND/OR VOMITING Last administered on 06/12/17 07:55; Admin Dose 4 MG; Start 06/07/17 at 09:00 Morphine Sulfate (morphine) 2 mg Q4H PRN IV pain 7-10 Last administered on 06/12 07:55; Admin Dose 2 MG; Start 06/07/17 at 09:00 Thiamine HCl (Vitamin B1) 100 mg DAILY PO Last administered on 06/12/17 07:56 ; Admin Dose 100 MG; Start 06/07/17 at 19:30 Folic Acid (Folic Acid) 1 mg DAILY PO Last administered on 06/12/17 07:56; Admin Dose 1 MG; Start 06/08/17 at 09:00 Miscellaneous Information 1 ea NOTE XX ; Start 06/07/17 at 20:00 Glucose (Glutose) 15 gm Q15M PRN PO DECREASED GLUCOSE; Start 06/07/17 at 20:00 Glucose (Glutose) 22.5 gm Q15M PRN PO DECREASED GLUCOSE; Start 06/07/17 at 20: 00 Dextrose (D50w Syringe) 25 ml Q15M PRN IV DECREASED GLUCOSE; Start 06/07/17 at 20:00 Dextrose (D50w Syringe) 50 ml Q15M PRN IV DECREASED GLUCOSE; Start 06/07/17 at 20:00 Glucagon (Glucagen) 1 mg Q15M PRN IM DECREASED GLUCOSE; Start 06/07/17 at 20:00 Glucose (Glutose) 15 gm Q15M PRN BUCCAL DECREASED GLUCOSE; Start 06/07/17 at 20 :00 Diagnostic Test (Pha) (Accu-Chek) 1 ea 02 XX ; Start 06/09/17 at 02:00 Spironolactone (Aldactone) 100 mg DAILY PO Last administered on 06/12/17 07:56 ; Admin Dose 100 MG; Start 06/08/17 at 18:30 Propranolol HCl (Inderal) 10 mg BID PO Last administered on 06/12/17 07:58; Admin Dose 10 MG; Start 06/08/17 at 21:00 Pantoprazole (Protonix Tab) 40 mg DAILY@06 PO Last administered on 06/12/17 06 :08; Admin Dose 40 MG; Start 06/09/17 at 06:00 Rifaximin (Xifaxan) 550 mg BID PO Last administered on 06/12/17 08:01; Admin Dose 550 MG; Start 06/11/17 at 13:00 SWATHI RESENDIZ Jun 12, 2017 11:20
[2017-06-12] MEDS ORDERED: NA POLYST SULFON 15 GM/60 ML BTL PO ONE (12:00)
--- NOTE | 2017-06-12 13:04 | CONS ---
Date/Time of Note Date/Time of Note DATE: 06/12/17 TIME: 13:04 Assessment/Plan Assessment/Plan Additional Assessment/Plan Additional Assessment/Plan IMPRESSION: 1. Alcoholic liver disease. Bilirubin has come down to 17 from 21 2. Anemia with macrocytosis. 3. Cardiomyopathy by history. 4. Amphetamine abuse. 5. Obesity. 6. Hepatic encephalopathy. Likely resolved patient is oriented to time place and space and there is no hepatic flap Plan Continue lactulose and rifaximin PPI Monitor H&H Monitor total bilirubin. Vitamin K to correct the coagulopathy. Ultrasound of the abdomen Consultation Date/Type/Reason Admit Date/Time Jun 07, 2017 at 06:49 24 HR Interval Summary Free Text/Dictation Complaints of weakness and abdominal pain Exam/Review of Systems Vital Signs Vitals Vital Signs Date Time Temp Pulse Resp B/P Pulse Ox O2 Delivery O2 Flow Rate FiO2 06/12/17 12:01 63 06/12/17 11:45 98.6 17 114/72 100 06/12/17 04:00 Room Air Intake and Output 06/11/17 06/11/17 06/12/17 14:59 22:59 06:59 Intake Total 1200 ml 500 ml Balance 1200 ml 500 ml Exam Constitutional: alert, oriented, well developed Psych: nl mood/affect, no complaints Head: atraumatic, normocephalic Eyes: EOMI, PERRL, nl conjunctiva, nl lids, nl sclera ENMT: nl external ears & nose, nl lips & teeth, nl nasal mucosa & septum Neck: non-tender, supple Respiratory: clear to auscultation, normal air movement Cardiovascular: nl pulses, regular rate and rhythm Gastrointestinal: nl liver, spleen, non-tender, soft Musculoskeletal: nl extremities to inspection, nl gait and stance Extremities: normal pulses 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, 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, nl speech, nl strength Skin: nl turgor, No rash or lesions Lymph: nl lymph nodes Results Result Diagram: 06/12/17 0606/12/17 06 Results 24 hrs Laboratory Tests Test 06/11/17 17:40 06/11/17 20:15 06/11/17 20:59 06/12/17 06:05 Bedside Glucose 137 127 Hepatitis B Surface Antigen NEGATIVE Hepatitis C Antibody NEGATIVE White Blood Count 10.0 Red Blood Count 2.47 L Hemoglobin 9.4 L Hematocrit 28.7 L Mean Corpuscular Volume 116.2 H Mean Corpuscular Hemoglobin 38.1 H Mean Corpuscular Hemoglobin Concent 32.8 Red Cell Distribution Width 13.7 Platelet Count 184 Mean Platelet Volume 11.1 H Neutrophils % 70.4 Lymphocytes % 18.4 Monocytes % 7.7 Eosinophils % 1.4 Basophils % 0.5 Nucleated Red Blood Cells % 0.0 Neutrophils # 7.0 Lymphocytes # 1.8 Monocytes # 0.8 Eosinophils # 0.1 Basophils # 0.1 Nucleated Red Blood Cells # 0.0 Sodium Level 135 Potassium Level 5.3 H Chloride Level 113 H Carbon Dioxide Level 16 L Anion Gap 11 Blood Urea Nitrogen 4 L Creatinine 0.84 Glucose Level 121 Calcium Level 9.1 Total Bilirubin 18.8 H Direct Bilirubin 16.10 *H Indirect Bilirubin 2.7 H Aspartate Amino Transf (AST/SGOT) 133 H Alanine Aminotransferase (ALT/SGPT) 56 Alkaline Phosphatase 284 H Ammonia 143 H Total Protein 7.3 # Albumin 2.8 L Globulin 4.50 H Albumin/Globulin Ratio 0.62 Test 06/12/17 07:49 06/12/17 11:42 06/12/17 11:52 Bedside Glucose 133 111 Ammonia 135 H Medications Medications Current Medications Lactulose (Enulose) 20 gm Q8 PO Last administered on 06/12/17 06:09; Admin Dose 20 GM; Start 06/07/17 at 09:00 Ondansetron HCl (Zofran Inj) 4 mg Q4H PRN IV NAUSEA AND/OR VOMITING Last administered on 06/12/17 07:55; Admin Dose 4 MG; Start 06/07/17 at 09:00 Thiamine HCl (Vitamin B1) 100 mg DAILY PO Last administered on 06/12/17 07:56 ; Admin Dose 100 MG; Start 06/07/17 at 19:30 Folic Acid (Folic Acid) 1 mg DAILY PO Last administered on 06/12/17 07:56; Admin Dose 1 MG; Start 06/08/17 at 09:00 Miscellaneous Information 1 ea NOTE XX ; Start 06/07/17 at 20:00 Glucose (Glutose) 15 gm Q15M PRN PO DECREASED GLUCOSE; Start 06/07/17 at 20:00 Glucose (Glutose) 22.5 gm Q15M PRN PO DECREASED GLUCOSE; Start 06/07/17 at 20: 00 Dextrose (D50w Syringe) 25 ml Q15M PRN IV DECREASED GLUCOSE; Start 06/07/17 at 20:00 Dextrose (D50w Syringe) 50 ml Q15M PRN IV DECREASED GLUCOSE; Start 06/07/17 at 20:00 Glucagon (Glucagen) 1 mg Q15M PRN IM DECREASED GLUCOSE; Start 06/07/17 at 20:00 Glucose (Glutose) 15 gm Q15M PRN BUCCAL DECREASED GLUCOSE; Start 06/07/17 at 20 :00 Diagnostic Test (Pha) (Accu-Chek) 1 ea 02 XX ; Start 06/09/17 at 02:00 Spironolactone (Aldactone) 100 mg DAILY PO Last administered on 06/12/17 07:56 ; Admin Dose 100 MG; Start 06/08/17 at 18:30 Propranolol HCl (Inderal) 10 mg BID PO Last administered on 06/12/17 07:58; Admin Dose 10 MG; Start 06/08/17 at 21:00 Pantoprazole (Protonix Tab) 40 mg DAILY@06 PO Last administered on 06/12/17 06 :08; Admin Dose 40 MG; Start 06/09/17 at 06:00 Rifaximin (Xifaxan) 550 mg BID PO Last administered on 06/12/17 08:01; Admin Dose 550 MG; Start 06/11/17 at 13:00 Morphine Sulfate (morphine) 2 mg Q6 PRN IV pain 7-10; Start 06/12/17 at 12:00 SUSAN GARCIAS MD Jun 12, 2017 13:04
[2017-06-12 15:18] LABS: INR 1.78; PROTIME 20.9 Sec (12.2-14.2); PT RATIO 1.6
[2017-06-13] VITALS (11 sets, daily range): BP systolic 111–124; BP diastolic 65–78; PULSE 53–66; RESP 15–18
[2017-06-13] MEDS: ACCU-CHEK XX SCH (02:00)
[2017-06-13] MEDS: morphine 2 MG INJ IV PRN ×4 (02:14→20:42)
[2017-06-13] MEDS: LACTULOSE 30ML CUP PO SCH ×3 (06:13→22:00)
[2017-06-13] MEDS: PANTOPRAZOLE (EC) 40 MG TAB PO SCH (06:13)
[2017-06-13 07:19] LABS: BASOPHIL # 0.1 10^3/ul (0.0-0.1); BASOPHILS % 0.7 % (0.0-2.0); EOSINOPHILS # 0.1 10^3/ul (0.0-0.5); EOSINOPHILS % 1.4 % (0.0-7.0); HEMATOCRIT 28.5 % (37.0-47.0); HEMOGLOBIN 9.1 g/dl (12.0-16.0); LYMPHOCYTES # 1.9 10^3/ul (0.8-2.9); LYMPHOCYTES % 22.3 % (15.0-51.0); MEAN CORPUSCULAR HEMOGLOBIN 37.3 pg (29.0-33.0); MEAN CORPUSCULAR HGB CONC 31.9 g/dl (32.0-37.0); MEAN CORPUSCULAR VOLUME 116.8 fl (82.0-101.0); MEAN PLATELET VOLUME 11.3 fl (7.4-10.4); MONOCYTE # 0.8 10^3/ul (0.3-0.9); MONOCYTES % 9.6 % (0.0-11.0); NEUTROPHIL # 5.4 10^3/ul (1.6-7.5); NEUTROPHILS % 64.2 % (39.0-77.0); PLATELET COUNT 220 10^3/UL (140-415); RED BLOOD COUNT 2.44 10^6/ul (4.20-5.40); RED CELL DISTRIBUTION WIDTH 13.4 % (11.5-14.5); WHITE BLOOD COUNT 8.4 10^3/ul (4.8-10.8)
[2017-06-13 07:23] LABS: POSITIVE DIFF @See below
[2017-06-13 07:27] LABS: CALCIUM 9.4 mg/dl (8.4-10.2); CREATININE 0.91 mg/dl (0.44-1.00); POTASSIUM 4.1 mmol/L (3.5-5.1)
[2017-06-13] MEDS: INSULIN ASPART [NOVOLOG] 3 ML PEN SC SCH ×4 (07:58→20:43)
[2017-06-13] MEDS: FOLIC ACID 1 MG TAB PO SCH (09:02)
[2017-06-13] MEDS: THIAMINE 100 MG TAB PO SCH (09:02)
[2017-06-13] MEDS: ONDANSETRON 4 MG INJ IV PRN ×3 (09:02→18:06)
[2017-06-13] MEDS: RIFAXIMIN 550 MG TAB PO SCH ×2 (09:02→20:43)
[2017-06-13] MEDS: PROPRANOLOL 20 MG TAB PO SCH ×2 (09:04→20:43)
[2017-06-13] MEDS: SPIRONOLACTONE 50 MG TAB PO SCH (09:04)
--- NOTE | 2017-06-13 11:09 | PN ---
Date/Time of Note Date/Time of Note DATE: 06/13/17 TIME: 11:07 Assessment/Plan VTE Prophylaxis VTE Prophylaxis Intervention: other Lines/Catheters IV [facility]ter Type (from [facility]): Peripheral IV Urinary Cath still in place: No Assessment/Plan Assessment/Plan - Hyperkalemia- Kayexalate 15 gm po x1, bmp am - Alcoholic liver disease. Dr. Gonzalez is following in gastroenterology consultation. Continue propranolol and Aldactone. - Hepatic encephalopathy. Continue lactulose. Monitor ammonia level. - 143 today - Stool for OB positive, continue Protonix. - Nonischemic cardiomyopathy. - History of alcohol abuse. - History of amphetamine use with current drug screen is positive for amphetamines. - Morbid obesity. - dietary consult Further recommendations based on clinical course. Plan of care discussed with Dr. Dawson. Subjective 24 Hr Interval Summary Respiratory: no complaints Cardiovascular: no complaints Gastrointestinal: pain Genitourinary: no complaints Musculoskeletal: no complaints Skin: no complaints Exam/Review of Systems Vital Signs Vitals Vital Signs Date Time Temp Pulse Resp B/P Pulse Ox O2 Delivery O2 Flow Rate FiO2 06/13/17 08:00 66 06/13/17 07:49 98.1 16 113/71 97 06/12/17 04:00 Room Air Intake and Output 06/12/17 06/12/17 06/13/17 15:00 23:00 07:00 Intake Total 500 ml Balance 500 ml Exam Constitutional: alert, obese, oriented Cardiovascular: nl pulses, regular rate and rhythm Gastrointestinal: soft Musculoskeletal: nl extremities to inspection Neurological: 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, nl speech Results Result Diagram: 06/13/17 0641 06/13/17 0641 Results 24 hrs Laboratory Tests Test 06/12/17 11:42 06/12/17 11:52 06/12/17 14:33 06/12/17 16:59 Ammonia 135 H Bedside Glucose 111 98 Prothrombin Time 20.9 H Prothrombin Time Ratio 1.6 INR International Normalized Ratio 1.78 Test 06/12/17 21:31 06/13/17 06:41 06/13/17 07:49 Bedside Glucose 138 106 White Blood Count 8.4 Red Blood Count 2.44 L Hemoglobin 9.1 L Hematocrit 28.5 L Mean Corpuscular Volume 116.8 H Mean Corpuscular Hemoglobin 37.3 H Mean Corpuscular Hemoglobin Concent 31.9 L Red Cell Distribution Width 13.4 Platelet Count 220 Mean Platelet Volume 11.3 H Neutrophils % 64.2 Lymphocytes % 22.3 Monocytes % 9.6 Eosinophils % 1.4 Basophils % 0.7 Nucleated Red Blood Cells % 0.0 Neutrophils # 5.4 Lymphocytes # 1.9 Monocytes # 0.8 Eosinophils # 0.1 Basophils # 0.1 Nucleated Red Blood Cells # 0.0 Sodium Level 136 Potassium Level 4.1 Chloride Level 113 H Carbon Dioxide Level 19 L Anion Gap 8 Blood Urea Nitrogen 5 L Creatinine 0.91 Glucose Level 104 Calcium Level 9.4 Medications Medications Current Medications Lactulose (Enulose) 20 gm Q8 PO Last administered on 06/13/17 06:13; Admin Dose 20 GM; Start 06/07/17 at 09:00 Ondansetron HCl (Zofran Inj) 4 mg Q4H PRN IV NAUSEA AND/OR VOMITING Last administered on 06/13/17 09:02; Admin Dose 4 MG; Start 06/07/17 at 09:00 Thiamine HCl (Vitamin B1) 100 mg DAILY PO Last administered on 06/13/17 09:02 ; Admin Dose 100 MG; Start 06/07/17 at 19:30 Folic Acid (Folic Acid) 1 mg DAILY PO Last administered on 06/13/17 09:02; Admin Dose 1 MG; Start 06/08/17 at 09:00 Miscellaneous Information 1 ea NOTE XX ; Start 06/07/17 at 20:00 Glucose (Glutose) 15 gm Q15M PRN PO DECREASED GLUCOSE; Start 06/07/17 at 20:00 Glucose (Glutose) 22.5 gm Q15M PRN PO DECREASED GLUCOSE; Start 06/07/17 at 20: 00 Dextrose (D50w Syringe) 25 ml Q15M PRN IV DECREASED GLUCOSE; Start 06/07/17 at 20:00 Dextrose (D50w Syringe) 50 ml Q15M PRN IV DECREASED GLUCOSE; Start 06/07/17 at 20:00 Glucagon (Glucagen) 1 mg Q15M PRN IM DECREASED GLUCOSE; Start 06/07/17 at 20:00 Glucose (Glutose) 15 gm Q15M PRN BUCCAL DECREASED GLUCOSE; Start 06/07/17 at 20 :00 Diagnostic Test (Pha) (Accu-Chek) 1 ea 02 XX ; Start 06/09/17 at 02:00 Spironolactone (Aldactone) 100 mg DAILY PO Last administered on 06/13/17 09:04 ; Admin Dose 100 MG; Start 06/08/17 at 18:30 Propranolol HCl (Inderal) 10 mg BID PO Last administered on 06/13/17 09:04; Admin Dose 10 MG; Start 06/08/17 at 21:00 Pantoprazole (Protonix Tab) 40 mg DAILY@06 PO Last administered on 06/13/17 06 :13; Admin Dose 40 MG; Start 06/09/17 at 06:00 Rifaximin (Xifaxan) 550 mg BID PO Last administered on 06/13/17 09:02; Admin Dose 550 MG; Start 06/11/17 at 13:00 Morphine Sulfate (morphine) 2 mg Q6 PRN IV pain 7-10 Last administered on 07:58; Admin Dose 2 MG; Start 06/12/17 at 12:00 SWATHI RESENDIZ Jun 13, 2017 11:09
--- NOTE | 2017-06-13 11:43 | RADRPT ---
AMENDMENT: 06/13/2017 11:44:49 AM Betito Matt MD Correction: IMPRESSION: 1. Hepatomegaly. 2. Fatty metamorphosis of the liver. 3. Gallbladder wall thickening and edema. No gallstones. This may indicate acalculous cholecystitis or may be related to hepatic, renal, or cardiac disease. Clinical correlation is advised. 4. Pancreas not visualized. 5. Small amount of free fluid. 6. Otherwise unremarkable study PROCEDURE: US Abdomen (right upper quadrant). CLINICAL INDICATION: Right upper quadrant abdomen pain. TECHNIQUE: Multiple real-time longitudinal and transverse images of the right upper quadrant of [facility] abdomen were acquired utilizing a curved array transducer. Images were reviewed on a high-resoluti on PACS workstation. COMPARISON: None FINDINGS: The liver is enlarged and diffusely increased in echogenicity. There is no focal hepatic lesion. Color Doppler and pulsed Doppler sonography demonstrate normal a ntegrade flow in the portal vein. There is gallbladder wall thickening and edema with gallbladder wall measuring 7.5 mm. There are no gallstones in the gallbladder. The bile ducts are normal with the common bile duct measuring 5.1 mm in diameter. The pancreas is not visualized due to overlying bowel gas. There is a small amount of free fluid in the right upper quadrant and in the pelvis. The right kidney measures 11.4 x 4.6 x 5.8 cm. There is normal echogenicity of the right kidney. There is no perinephric fluid collection. No hydronephrosis, mass, or calculus is seen. IMPRESSION: 1. Unremarkable right upper quadrant abdomen ultrasound. RPTAT: QQ .Betito Matt MD, MD Date Time Electronically viewed and signed by .Betito Matt MD, on 06/13/2017 11:44 .R/
--- NOTE | 2017-06-13 14:32 | CONS ---
Date/Time of Note Date/Time of Note DATE: 06/13/17 TIME: 14:31 Assessment/Plan Assessment/Plan Additional Assessment/Plan IMPRESSION: 1. Alcoholic liver disease. Bilirubin has come down to 17 from 21 2. Anemia with macrocytosis. 3. Cardiomyopathy by history. 4. Amphetamine abuse. 5. Obesity. 6. Hepatic encephalopathy. Likely resolved patient is oriented to time place and space and there is no hepatic flap ammonia is still high Plan Continue lactulose and rifaximin PPI Monitor H&H Monitor total bilirubin. Vitamin K to correct the coagulopathy. Ultrasound of the abdomen shows steatohepatitis Continue with lactulose and rifaximin Patient will need EGD and colonoscopy which can be done as an outpatient there is no evidence of active GI bleeding Consultation Date/Type/Reason Admit Date/Time Jun 07, 2017 at 06:49 24 HR Interval Summary Constitutional: no complaints Exam/Review of Systems Vital Signs Vitals Vital Signs Date Time Temp Pulse Resp B/P Pulse Ox O2 Delivery O2 Flow Rate FiO2 06/13/17 12:00 63 06/13/17 11:46 97.2 18 124/78 100 06/12/17 04:00 Room Air Intake and Output 06/12/17 06/12/17 06/13/17 15:00 23:00 07:00 Intake Total 500 ml Balance 500 ml Exam Constitutional: alert, oriented, well developed Psych: nl mood/affect, no complaints Head: atraumatic, normocephalic Eyes: EOMI, PERRL, nl conjunctiva, nl lids, nl sclera ENMT: nl external ears & nose, nl lips & teeth, nl nasal mucosa & septum Neck: non-tender, supple Respiratory: clear to auscultation, normal air movement Cardiovascular: nl pulses, regular rate and rhythm Gastrointestinal: nl liver, spleen, non-tender, soft Musculoskeletal: nl extremities to inspection, nl gait and stance Extremities: normal pulses 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, 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, nl speech, nl strength Skin: nl turgor, No rash or lesions Lymph: nl lymph nodes Results Result Diagram: 06/13/17 0641 06/13/17 0641 Results 24 hrs Laboratory Tests Test 06/12/17 14:33 06/12/17 16:59 06/12/17 21:31 06/13/17 06:41 Prothrombin Time 20.9 H Prothrombin Time Ratio 1.6 INR International Normalized Ratio 1.78 Bedside Glucose 98 138 White Blood Count 8.4 Red Blood Count 2.44 L Hemoglobin 9.1 L Hematocrit 28.5 L Mean Corpuscular Volume 116.8 H Mean Corpuscular Hemoglobin 37.3 H Mean Corpuscular Hemoglobin Concent 31.9 L Red Cell Distribution Width 13.4 Platelet Count 220 Mean Platelet Volume 11.3 H Neutrophils % 64.2 Lymphocytes % 22.3 Monocytes % 9.6 Eosinophils % 1.4 Basophils % 0.7 Nucleated Red Blood Cells % 0.0 Neutrophils # 5.4 Lymphocytes # 1.9 Monocytes # 0.8 Eosinophils # 0.1 Basophils # 0.1 Nucleated Red Blood Cells # 0.0 Sodium Level 136 Potassium Level 4.1 Chloride Level 113 H Carbon Dioxide Level 19 L Anion Gap 8 Blood Urea Nitrogen 5 L Creatinine 0.91 Glucose Level 104 Calcium Level 9.4 Test 06/13/17 07:49 06/13/17 11:48 06/13/17 11:53 Bedside Glucose 106 99 Ammonia 112 H Medications Medications Current Medications Lactulose (Enulose) 20 gm Q8 PO Last administered on 06/13/17 13:41; Admin Dose 20 GM; Start 06/07/17 at 09:00 Ondansetron HCl (Zofran Inj) 4 mg Q4H PRN IV NAUSEA AND/OR VOMITING Last administered on 06/13/17 13:41; Admin Dose 4 MG; Start 06/07/17 at 09:00 Thiamine HCl (Vitamin B1) 100 mg DAILY PO Last administered on 06/13/17 09:02 ; Admin Dose 100 MG; Start 06/07/17 at 19:30 Folic Acid (Folic Acid) 1 mg DAILY PO Last administered on 06/13/17 09:02; Admin Dose 1 MG; Start 06/08/17 at 09:00 Miscellaneous Information 1 ea NOTE XX ; Start 06/07/17 at 20:00 Glucose (Glutose) 15 gm Q15M PRN PO DECREASED GLUCOSE; Start 06/07/17 at 20:00 Glucose (Glutose) 22.5 gm Q15M PRN PO DECREASED GLUCOSE; Start 06/07/17 at 20: 00 Dextrose (D50w Syringe) 25 ml Q15M PRN IV DECREASED GLUCOSE; Start 06/07/17 at 20:00 Dextrose (D50w Syringe) 50 ml Q15M PRN IV DECREASED GLUCOSE; Start 06/07/17 at 20:00 Glucagon (Glucagen) 1 mg Q15M PRN IM DECREASED GLUCOSE; Start 06/07/17 at 20:00 Glucose (Glutose) 15 gm Q15M PRN BUCCAL DECREASED GLUCOSE; Start 06/07/17 at 20 :00 Diagnostic Test (Pha) (Accu-Chek) 1 ea 02 XX ; Start 06/09/17 at 02:00 Spironolactone (Aldactone) 100 mg DAILY PO Last administered on 06/13/17 09:04 ; Admin Dose 100 MG; Start 06/08/17 at 18:30 Propranolol HCl (Inderal) 10 mg BID PO Last administered on 06/13/17 09:04; Admin Dose 10 MG; Start 06/08/17 at 21:00 Pantoprazole (Protonix Tab) 40 mg DAILY@06 PO Last administered on 06/13/17 06 :13; Admin Dose 40 MG; Start 06/09/17 at 06:00 Rifaximin (Xifaxan) 550 mg BID PO Last administered on 06/13/17 09:02; Admin Dose 550 MG; Start 06/11/17 at 13:00 Morphine Sulfate (morphine) 2 mg Q6 PRN IV pain 7-10 Last administered on 07:58; Admin Dose 2 MG; Start 06/12/17 at 12:00 SUSAN GARCIAS MD Jun 13, 2017 14:32
[2017-06-14] VITALS (13 sets, daily range): BP systolic 103–118; BP diastolic 56–79; PULSE 66–78; RESP 15–20
[2017-06-14] MEDS: morphine 2 MG INJ IV PRN ×4 (01:53→20:42)
[2017-06-14] MEDS: ONDANSETRON 4 MG INJ IV PRN ×2 (01:53→20:42)
[2017-06-14] MEDS: ACCU-CHEK XX SCH (01:54)
[2017-06-14] MEDS: PANTOPRAZOLE (EC) 40 MG TAB PO SCH (05:45)
[2017-06-14] MEDS: LACTULOSE 30ML CUP PO SCH ×3 (05:45→20:41)
[2017-06-14 07:14] LABS: BASOPHILS % 0.2 % (0.0-2.0); EOSINOPHILS # 0.1 10^3/ul (0.0-0.5); EOSINOPHILS % 0.7 % (0.0-7.0); HEMATOCRIT 25.8 % (37.0-47.0); HEMOGLOBIN 8.2 g/dl (12.0-16.0); LYMPHOCYTES # 1.7 10^3/ul (0.8-2.9); LYMPHOCYTES % 16.7 % (15.0-51.0); MEAN CORPUSCULAR HEMOGLOBIN 36.4 pg (29.0-33.0); MEAN CORPUSCULAR HGB CONC 31.8 g/dl (32.0-37.0); MEAN CORPUSCULAR VOLUME 114.7 fl (82.0-101.0); MEAN PLATELET VOLUME 10.9 fl (7.4-10.4); MONOCYTE # 0.8 10^3/ul (0.3-0.9); NEUTROPHIL # 7.6 10^3/ul (1.6-7.5); NEUTROPHILS % 73.1 % (39.0-77.0); PLATELET COUNT 229 10^3/UL (140-415); RED BLOOD COUNT 2.25 10^6/ul (4.20-5.40); RED CELL DISTRIBUTION WIDTH 13.5 % (11.5-14.5); WHITE BLOOD COUNT 10.4 10^3/ul (4.8-10.8)
[2017-06-14 07:35] LABS: CALCIUM 8.7 mg/dl (8.4-10.2); CREATININE 0.92 mg/dl (0.44-1.00); POTASSIUM 4.5 mmol/L (3.5-5.1)
[2017-06-14] MEDS: INSULIN ASPART [NOVOLOG] 3 ML PEN SC SCH ×4 (08:00→20:42)
[2017-06-14] MEDS: FOLIC ACID 1 MG TAB PO SCH (09:57)
[2017-06-14] MEDS: THIAMINE 100 MG TAB PO SCH (09:57)
[2017-06-14] MEDS: RIFAXIMIN 550 MG TAB PO SCH ×2 (09:57→20:41)
[2017-06-14] MEDS: SPIRONOLACTONE 50 MG TAB PO SCH (09:59)
[2017-06-14] MEDS: PROPRANOLOL 20 MG TAB PO SCH ×2 (09:59→20:41)
--- NOTE | 2017-06-14 14:00 | CONS ---
Date/Time of Note Date/Time of Note DATE: 06/14/17 TIME: 13:59 Assessment/Plan Assessment/Plan Additional Assessment/Plan IMPRESSION: 1. Alcoholic liver disease. Bilirubin has come down to 17 from 21 2. Anemia with macrocytosis. 3. Cardiomyopathy by history. 4. Amphetamine abuse. 5. Obesity. 6. Hepatic encephalopathy. Likely resolved patient is oriented to time place and space and there is no hepatic flap ammonia is still high Plan Continue lactulose and rifaximin PPI Monitor H&H Monitor total bilirubin. Vitamin K to correct the coagulopathy. Ultrasound of the abdomen shows steatohepatitis Continue with lactulose and rifaximin Patient will need EGD and colonoscopy which can be done as an outpatient there is no evidence of active GI bleeding Discontinue narcotics and sedatives Consultation Date/Type/Reason Admit Date/Time Jun 07, 2017 at 06:49 24 HR Interval Summary Constitutional: improved Exam/Review of Systems Vital Signs Vitals Vital Signs Date Time Temp Pulse Resp B/P Pulse Ox O2 Delivery O2 Flow Rate FiO2 06/14/17 12:00 74 06/14/17 11:39 98.0 20 113/66 100 06/14/17 08:30 Nasal Cannula Intake and Output 06/13/17 06/13/17 06/14/17 15:00 23:00 07:00 Intake Total 600 ml 750 ml Balance 600 ml 750 ml Exam Constitutional: alert, oriented, well developed Psych: nl mood/affect, no complaints Head: atraumatic, normocephalic Eyes: EOMI, PERRL, nl conjunctiva, nl lids, nl sclera ENMT: nl external ears & nose, nl lips & teeth, nl nasal mucosa & septum Neck: non-tender, supple Respiratory: clear to auscultation, normal air movement Cardiovascular: nl pulses, regular rate and rhythm Gastrointestinal: nl liver, spleen, non-tender, soft Musculoskeletal: nl extremities to inspection, nl gait and stance Extremities: normal pulses 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, 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, nl speech, nl strength Skin: nl turgor, No rash or lesions Lymph: nl lymph nodes Results Result Diagram: 06/14/17 0623 06/14/17 0623 Results 24 hrs Laboratory Tests Test 06/13/17 17:05 06/13/17 20:41 06/14/17 06:23 06/14/17 08:31 Bedside Glucose 119 135 136 White Blood Count 10.4 # Red Blood Count 2.25 L Hemoglobin 8.2 L Hematocrit 25.8 L Mean Corpuscular Volume 114.7 H Mean Corpuscular Hemoglobin 36.4 H Mean Corpuscular Hemoglobin Concent 31.8 L Red Cell Distribution Width 13.5 Platelet Count 229 Mean Platelet Volume 10.9 H Neutrophils % 73.1 Lymphocytes % 16.7 Monocytes % 8.0 Eosinophils % 0.7 Basophils % 0.2 Nucleated Red Blood Cells % 0.0 Neutrophils # 7.6 H Lymphocytes # 1.7 Monocytes # 0.8 Eosinophils # 0.1 Basophils # 0.0 Nucleated Red Blood Cells # 0.0 Sodium Level 130 L Potassium Level 4.5 Chloride Level 108 Carbon Dioxide Level 19 L Anion Gap 8 Blood Urea Nitrogen 5 L Creatinine 0.92 Glucose Level 128 Calcium Level 8.7 Ammonia 113 H Test 06/14/17 12:00 Bedside Glucose 129 Medications Medications Current Medications Lactulose (Enulose) 20 gm Q8 PO Last administered on 06/14/17 13:42; Admin Dose 20 GM; Start 06/07/17 at 09:00 Ondansetron HCl (Zofran Inj) 4 mg Q4H PRN IV NAUSEA AND/OR VOMITING Last administered on 06/14/17 01:53; Admin Dose 4 MG; Start 06/07/17 at 09:00 Thiamine HCl (Vitamin B1) 100 mg DAILY PO Last administered on 06/14/17 09:57 ; Admin Dose 100 MG; Start 06/07/17 at 19:30 Folic Acid (Folic Acid) 1 mg DAILY PO Last administered on 06/14/17 09:57; Admin Dose 1 MG; Start 06/08/17 at 09:00 Miscellaneous Information 1 ea NOTE XX ; Start 06/07/17 at 20:00 Glucose (Glutose) 15 gm Q15M PRN PO DECREASED GLUCOSE; Start 06/07/17 at 20:00 Glucose (Glutose) 22.5 gm Q15M PRN PO DECREASED GLUCOSE; Start 06/07/17 at 20: 00 Dextrose (D50w Syringe) 25 ml Q15M PRN IV DECREASED GLUCOSE; Start 06/07/17 at 20:00 Dextrose (D50w Syringe) 50 ml Q15M PRN IV DECREASED GLUCOSE; Start 06/07/17 at 20:00 Glucagon (Glucagen) 1 mg Q15M PRN IM DECREASED GLUCOSE; Start 06/07/17 at 20:00 Glucose (Glutose) 15 gm Q15M PRN BUCCAL DECREASED GLUCOSE; Start 06/07/17 at 20 :00 Diagnostic Test (Pha) (Accu-Chek) 1 ea 02 XX ; Start 06/09/17 at 02:00 Spironolactone (Aldactone) 100 mg DAILY PO Last administered on 06/14/17 09:59 ; Admin Dose 100 MG; Start 06/08/17 at 18:30 Propranolol HCl (Inderal) 10 mg BID PO Last administered on 06/14/17 09:59; Admin Dose 10 MG; Start 06/08/17 at 21:00 Pantoprazole (Protonix Tab) 40 mg DAILY@06 PO Last administered on 06/14/17 05 :45; Admin Dose 40 MG; Start 06/09/17 at 06:00 Rifaximin (Xifaxan) 550 mg BID PO Last administered on 06/14/17 09:57; Admin Dose 550 MG; Start 06/11/17 at 13:00 Morphine Sulfate (morphine) 2 mg Q6 PRN IV pain 7-10 Last administered on 13:57; Admin Dose 2 MG; Start 06/12/17 at 12:00 USSAN GARCIAS MD Jun 14, 2017 14:00
--- NOTE | 2017-06-14 18:41 | PN ---
Date/Time of Note Date/Time of Note DATE: 06/14/17 TIME: 18:38 Assessment/Plan VTE Prophylaxis VTE Prophylaxis Intervention: SCD's Lines/Catheters IV [facility]ter [facility] (from [facility]): Peripheral IV Urinary Cath still in place: No Assessment/Plan Chief Complaint/Hosp Course Patient is jaundiced, able to tolerate diet well without any nausea and vomiting , complains of abdominal pain, continue to taper off morphine. Assessment/Plan - Alcoholic liver disease. Dr. Gonzalez is following in gastroenterology consultation. Continue propranolol and Aldactone. - Hepatic encephalopathy, resolving. continue lactulose. Monitor ammonia level. - Stool for OB positive, continue Protonix. Discussed with Dr. Gonzalez, recommendation to undergo endoscopy as an outpatient. Continue to monitor hemoglobin and hematocrit. - Nonischemic cardiomyopathy. - History of alcohol abuse. - History of amphetamine use with current drug screen is positive for amphetamines. - Morbid obesity. Further recommendations based on clinical course. Plan of care discussed with Dr. Dawson. Problems: Exam/Review of Systems Vital Signs Vitals Vital Signs Date Time Temp Pulse Resp B/P Pulse Ox O2 Delivery O2 Flow Rate FiO2 06/14/17 16:00 78 06/14/17 15:56 98.4 19 118/66 100 06/14/17 08:30 Nasal Cannula Intake and Output 06/13/17 06/13/17 06/14/17 15:00 23:00 07:00 Intake Total 600 ml 750 ml Balance 600 ml 750 ml Exam Constitutional: alert, other Head: normocephalic Eyes: icteric Neck: supple Cardiovascular: nl pulses Gastrointestinal: soft, tender Extremities: normal pulses Results Result Diagram: 06/14/1723 06/14/17 0623 Results 24 hrs Laboratory Tests Test 06/13/17 20:41 06/14/17 06:23 06/14/17 08:31 06/14/17 12:00 Bedside Glucose 135 136 129 White Blood Count 10.4 # Red Blood Count 2.25 L Hemoglobin 8.2 L Hematocrit 25.8 L Mean Corpuscular Volume 114.7 H Mean Corpuscular Hemoglobin 36.4 H Mean Corpuscular Hemoglobin Concent 31.8 L Red Cell Distribution Width 13.5 Platelet Count 229 Mean Platelet Volume 10.9 H Neutrophils % 73.1 Lymphocytes % 16.7 Monocytes % 8.0 Eosinophils % 0.7 Basophils % 0.2 Nucleated Red Blood Cells % 0.0 Neutrophils # 7.6 H Lymphocytes # 1.7 Monocytes # 0.8 Eosinophils # 0.1 Basophils # 0.0 Nucleated Red Blood Cells # 0.0 Sodium Level 130 L Potassium Level 4.5 Chloride Level 108 Carbon Dioxide Level 19 L Anion Gap 8 Blood Urea Nitrogen 5 L Creatinine 0.92 Glucose Level 128 Calcium Level 8.7 Ammonia 113 H Test 06/14/17 17:15 Bedside Glucose 134 Medications Medications Current Medications Lactulose (Enulose) 20 gm Q8 PO Last administered on 06/14/17 13:42; Admin Dose 20 GM; Start 06/07/17 at 09:00 Ondansetron HCl (Zofran Inj) 4 mg Q4H PRN IV NAUSEA AND/OR VOMITING Last administered on 06/14/17 01:53; Admin Dose 4 MG; Start 06/07/17 at 09:00 Thiamine HCl (Vitamin B1) 100 mg DAILY PO Last administered on 06/14/17 09:57 ; Admin Dose 100 MG; Start 06/07/17 at 19:30 Folic Acid (Folic Acid) 1 mg DAILY PO Last administered on 06/14/17 09:57; Admin Dose 1 MG; Start 06/08/17 at 09:00 Miscellaneous Information 1 ea NOTE XX ; Start 06/07/17 at 20:00 Glucose (Glutose) 15 gm Q15M PRN PO DECREASED GLUCOSE; Start 06/07/17 at 20:00 Glucose (Glutose) 22.5 gm Q15M PRN PO DECREASED GLUCOSE; Start 06/07/17 at 20: 00 Dextrose (D50w Syringe) 25 ml Q15M PRN IV DECREASED GLUCOSE; Start 06/07/17 at 20:00 Dextrose (D50w Syringe) 50 ml Q15M PRN IV DECREASED GLUCOSE; Start 06/07/17 at 20:00 Glucagon (Glucagen) 1 mg Q15M PRN IM DECREASED GLUCOSE; Start 06/07/17 at 20:00 Glucose (Glutose) 15 gm Q15M PRN BUCCAL DECREASED GLUCOSE; Start 06/07/17 at 20 :00 Diagnostic Test (Pha) (Accu-Chek) 1 ea 02 XX ; Start 06/09/17 at 02:00 Spironolactone (Aldactone) 100 mg DAILY PO Last administered on 06/14/17 09:59 ; Admin Dose 100 MG; Start 06/08/17 at 18:30 Propranolol HCl (Inderal) 10 mg BID PO Last administered on 06/14/17 09:59; Admin Dose 10 MG; Start 06/08/17 at 21:00 Pantoprazole (Protonix Tab) 40 mg DAILY@06 PO Last administered on 06/14/17 05 :45; Admin Dose 40 MG; Start 06/09/17 at 06:00 Rifaximin (Xifaxan) 550 mg BID PO Last administered on 06/14/17 09:57; Admin Dose 550 MG; Start 06/11/17 at 13:00 Morphine Sulfate (morphine) 2 mg Q6 PRN IV pain 7-10 Last administered on 13:57; Admin Dose 2 MG; Start 06/12/17 at 12:00 KORIN FORBES Jun 14, 2017 18:41
[2017-06-15] VITALS (9 sets, daily range): BP systolic 102–119; BP diastolic 58–72; PULSE 67–75; RESP 18–20
[2017-06-15] MEDS: ACCU-CHEK XX SCH (01:54)
[2017-06-15] MEDS: morphine 2 MG INJ IV PRN ×3 (03:33→14:53)
[2017-06-15] MEDS: ONDANSETRON 4 MG INJ IV PRN ×2 (03:33→14:53)
[2017-06-15] MEDS: LACTULOSE 30ML CUP PO SCH ×2 (06:12→13:09)
[2017-06-15] MEDS: PANTOPRAZOLE (EC) 40 MG TAB PO SCH (06:12)
[2017-06-15 07:36] LABS: BASOPHILS % 0.4 % (0.0-2.0); EOSINOPHILS # 0.1 10^3/ul (0.0-0.5); EOSINOPHILS % 1.6 % (0.0-7.0); HEMATOCRIT 24.2 % (37.0-47.0); MEAN CORPUSCULAR HEMOGLOBIN 38.1 pg (29.0-33.0); MEAN CORPUSCULAR HGB CONC 33.1 g/dl (32.0-37.0); MEAN CORPUSCULAR VOLUME 115.2 fl (82.0-101.0); MEAN PLATELET VOLUME 11.4 fl (7.4-10.4); MONOCYTE # 1.2 10^3/ul (0.3-0.9); MONOCYTES % 14.3 % (0.0-11.0); NEUTROPHIL # 4.6 10^3/ul (1.6-7.5); NEUTROPHILS % 56.7 % (39.0-77.0); PLATELET COUNT 228 10^3/UL (140-415); RED CELL DISTRIBUTION WIDTH 13.5 % (11.5-14.5)
[2017-06-15 07:52] LABS: ALBUMIN 2.2 g/dl (3.3-4.9); ALBUMIN/GLOBULIN RATIO 0.5; BILIRUBIN,INDIRECT 2.1 mg/dl (0-1.1); BILIRUBIN,TOTAL 15.1 mg/dl (0.2-1.3); CALCIUM 8.9 mg/dl (8.4-10.2); CREATININE 0.99 mg/dl (0.44-1.00); POTASSIUM 4.9 mmol/L (3.5-5.1); TOTAL PROTEIN 6.6 g/dl (6.1-8.1)
[2017-06-15 07:53] LABS: INR 2.02; PROTIME 23.1 Sec (12.2-14.2); PT RATIO 1.8
[2017-06-15] MEDS: INSULIN ASPART [NOVOLOG] 3 ML PEN SC SCH ×2 (08:00→12:00)
[2017-06-15] MEDS: THIAMINE 100 MG TAB PO SCH (08:51)
[2017-06-15] MEDS: FOLIC ACID 1 MG TAB PO SCH (08:51)
[2017-06-15] MEDS: SPIRONOLACTONE 50 MG TAB PO SCH (08:51)
[2017-06-15] MEDS: RIFAXIMIN 550 MG TAB PO SCH (08:51)
[2017-06-15] MEDS: PROPRANOLOL 20 MG TAB PO SCH (08:52)
[2017-06-15] MEDS ORDERED: PANT40TA4 PO (16:06)
[2017-06-15] MEDS ORDERED: RIFA550T4 PO (16:06)
[2017-06-15] MEDS ORDERED: TRAM50TA2 PO (16:06)
[2017-06-15] MEDS ORDERED: Thiamine PO (16:06)
[2017-06-15] MEDS ORDERED: PROP20TA4 PO (16:06)
[2017-06-15] MEDS ORDERED: LACT20SO2 PO (16:06)
[2017-06-15] MEDS ORDERED: FOLI-49 PO (16:06)
[2017-06-15] MEDS ORDERED: SPIR50TA PO (16:06)
--- NOTE | 2017-06-15 17:41 | DS ---
Date/Time of Note Date/Time of Note DATE: 06/15/17 TIME: 17:38 Discharge Summary Admission/Discharge Info Admit Date/Time Jun 07, 2017 at 06:49 Discharge Date/Time Patient Condition: Stable Hx of Present Illness The patient is a 27-year-old female with history of congestive heart failure, cardiomyopathy, hypertension, diabetes mellitus, alcoholism, and history of pancreatitis, as well as history of amphetamine abuse. The patient presented to the emergency room stated that she is feeling more confused with increased jaundice. The patient was noted to have tachycardia in the emergency room with EKG reveals sinus tachycardia with no ST-segment elevation or depression. The patient was also noted to have elevated ammonia level, as well as elevated liver enzymes. In the emergency room the patient was given lactulose and octreotide, as well as Lasix and the patient denies any fever. Denies any dysuria. Denies chest pain. Denies shortness of breath. Complains of epigastric abdominal pain, increased jaundiced and indicate imbalances with recent falls. The patient will be admitted for further evaluation and management. The patient stated that she has been drinking vodka about 2 pints since she was 25 years old and patient stated that she quit drinking 1 week ago, last drink on June 01. Hospital Course - Alcoholic liver disease. Dr. Gonzalez is following in gastroenterology consultation. Continue propranolol and Aldactone. - Hepatic encephalopathy, resolved. Continue lactulose. Monitor ammonia level. - Stool for OB positive, continue Protonix. Discussed with Dr. Gonzalez, recommendation to undergo endoscopy as an outpatient. Continue to monitor hemoglobin and hematocrit. - Nonischemic cardiomyopathy. - History of alcohol abuse. - History of amphetamine use with current drug screen is positive for amphetamines. - Morbid obesity. Patient condition improved, patient is alert and oriented with no episodes of confusion, ambulates in the hallway. Home Meds Active Scripts Tramadol HCl (Tramadol HCl) 50 Mg Tablet, 50 MG PO Q6H Y for PAIN, #30 TAB Prov:KORIN FORBES 06/15/17 Folic Acid* (Folic Acid*) 1 Mg Tablet, 1 MG PO DAILY for 14 Days, TAB Prov:KORIN FORBES 06/15/17 [Thiamine] 100 MG TAB No Conflict Check, 100 MG PO DAILY for 14 Days Prov:KORIN FORBES 06/15/17 Spironolactone* (Aldactone*) 50 Mg Tablet, 100 MG PO DAILY for 30 Days, TAB Prov:KORIN FORBES 06/15/17 Rifaximin* (Xifaxan*) 550 Mg Tablet, 550 MG PO BID for 30 Days, TAB Prov:KORIN FORBES 06/15/17 Propranolol Hcl* (Propranolol Hcl*) 20 Mg Tablet, 10 MG PO BID for 30 Days, TAB Prov:KORIN FORBES 06/15/17 Pantoprazole* (Pantoprazole*) 40 Mg Tablet.dr, 40 MG PO DAILY@06 for 30 Days Prov:KORIN FORBES 06/15/17 Lactulose* (Lactulose*) 20 Gm/30 Ml Solution, 20 GM PO Q8 for 30 Days Prov:KORIN FORBES 06/15/17 Reported Medications Multivitamin (Daily Vitamin Formula) 1 Each Tablet, 1 EACH PO DAILY, TAB 03/20/17 Levothyroxine Sodium* (Levoxyl*) 50 Mcg Tablet, 50 MCG PO BEFORE BREAKFAST, #30 TAB 03/20/17 Discontinued Reported Medications Furosemide* (Furosemide*) 20 Mg Tablet, 20 MG PO DAILY, #60 TAB 06/07/17 Prednisone* (Prednisone*) 20 Mg Tab, 40 MG PO DAILY, TAB 06/07/17 Carvedilol* (Carvedilol*) 6.25 Mg Tablet, 6.25 MG PO BID, #60 TAB 03/20/17 Lisinopril* (Lisinopril*) 20 Mg Tablet, 20 MG PO DAILY, #30 TAB 03/20/17 Insulin Glargine* (Lantus*) 100 Unit/Ml Soln, 22 UNIT SC QAM, #1 VIAL 03/20/17 Follow-up Plan Follow-up with PMD in 2 weeks, CBC and CMP in 2 weeks at PMD office, follow up with Dr. Gonzalez or contracted GI provider in 2 weeks. Primary Care Provider Care Physician No Primary Time spent on discharge: > 30 minutes Pending Labs Laboratory Tests Test 06/14/17 20:39 06/15/17 06:12 06/15/17 08:15 06/15/17 11:49 Bedside Glucose 142mg/dL (70-220) 111mg/dL (70-220) 125mg/dL (70-220) White Blood Count 8.010^3/ul (4.8-10.8) Red Blood Count 2.1010^6/ul (4.20-5.40) Hemoglobin 8.0g/dl (12.0-16.0) Hematocrit 24.2% (37.0-47.0) Mean Corpuscular Volume 115.2fl (82.0-101.0) Mean Corpuscular Hemoglobin 38.1pg (29.0-33.0) Mean Corpuscular Hemoglobin Concent 33.1g/dl (32.0-37.0) Red Cell Distribution Width 13.5% (11.5-14.5) Platelet Count 84394^3/UL (140-415) Mean Platelet Volume 11.4fl (7.4-10.4) Neutrophils % 56.7% (39.0-77.0) Lymphocytes % 25.0% (15.0-51.0) Monocytes % 14.3% (0.0-11.0) Eosinophils % 1.6% (0.0-7.0) Basophils % 0.4% (0.0-2.0) Nucleated Red Blood Cells % 0.0/100WBC (0.0-0.0) Neutrophils # 4.610^3/ul (1.6-7.5) Lymphocytes # 2.010^3/ul (0.8-2.9) Monocytes # 1.210^3/ul (0.3-0.9) Eosinophils # 0.110^3/ul (0.0-0.5) Basophils # 0.010^3/ul (0.0-0.1) Nucleated Red Blood Cells # 0.010^3/ul (0.0-0.0) Prothrombin Time 23.1Sec (12.2-14.2) Prothrombin Time Ratio 1.8 INR International Normalized Ratio 2.02 Sodium Level 132mmol/L (135-144) Potassium Level 4.9mmol/L (3.5-5.1) Chloride Level 111mmol/L (97-110) Carbon Dioxide Level 19mmol/L (21-31) Anion Gap 7 (8-16) Blood Urea Nitrogen 5mg/dl (7-20) Creatinine 0.99mg/dl (0.44-1.00) Glucose Level 131mg/dl (70-220) Calcium Level 8.9mg/dl (8.4-10.2) Total Bilirubin 15.1mg/dl (0.2-1.3) Direct Bilirubin 13.00mg/dl (0.00-0.20) Indirect Bilirubin 2.1mg/dl (0-1.1) Aspartate Amino Transf (AST/SGOT) 92IU/L (15-46) Alanine Aminotransferase (ALT/SGPT) 51IU/L (13-69) Alkaline Phosphatase 235IU/L (42-121) Ammonia 145umol/l (9-30) Total Protein 6.6g/dl (6.1-8.1) Albumin 2.2g/dl (3.3-4.9) Globulin 4.40g/dl (1.3-3.2) Albumin/Globulin Ratio 0.50 KORIN FORBES Jun 15, 2017 17:41
== END 2017-06-15 18:31 | disposition home or self-care (01) | DRG 433 ==
LOC: E/R 04:47 → MS4 06:49
PROVIDERS: ADMIT Internal Medicine; ATTEND Internal Medicine
DX: K70.40 Alcoholic hepatic failure without coma (principal); I42.9 Cardiomyopathy, unspecified; E66.01 Morbid (severe) obesity due to excess calories; E87.5 Hyperkalemia; I11.0 Hypertensive heart disease with heart failure; I50.9 Heart failure, unspecified; D64.9 Anemia, unspecified; F11.129 Opioid abuse with intoxication, unspecified; F15.129 Other stimulant abuse with intoxication, unspecified; Z68.36 Body mass index [BMI] 36.0-36.9, adult; K64.9 Unspecified hemorrhoids; F10.20 Alcohol dependence, uncomplicated; F15.10 Other stimulant abuse, uncomplicated; Z81.1 Family history of alcohol abuse and dependence; D53.9 Nutritional anemia, unspecified; E11.9 Type 2 diabetes mellitus without complications
CPT/HCPCS: 36415; 70450; 71010; 76705; 80048; 80053; 80306; 80307; 81001; 82140; 82150; 82270; 82962; 83036; 83690; 84484; 85025; 85610; 86803; 87340; 93005; 96372; 96374; 97110; 97116; 97161; 97530; C9113; J1815; J1940; J2270; J2405; J7040

== ENCOUNTER 2017-06-29 09:37 | Inpatient (IN) | payer OTHER ==
[~2017-06-29] VITALS: Ht 154.9 cm; Wt 80.0 kg
[~2017-06-29 09:37] MED LIST changes: -CARV6.2579 PO; +FOLI-49 PO; +LACT20SO2 PO; -LANT3I SC; -LISI20TA11 PO; +PANT40TA4 PO; +PROP20TA4 PO; +RIFA550T4 PO; +SPIR50TA PO; +TRAM50TA2 PO; +Thiamine PO
[2017-06-29] MEDS ORDERED: SOD CHLORIDE 0.9% 500 ML IV STA (10:15)
[2017-06-29] MEDS ORDERED: ONDANSETRON 4 MG INJ IV STA (10:15)
[2017-06-29] MEDS ORDERED: morphine 2 MG INJ IV STA (10:15)
[2017-06-29 10:31] VITALS: TEMP 98.6
[2017-06-29 10:32] LABS: BASOPHILS % 0.4 % (0.0-2.0); EOSINOPHILS % 0.5 % (0.0-7.0); HEMATOCRIT 24.7 % (37.0-47.0); LYMPHOCYTES # 1.3 10^3/ul (0.8-2.9); LYMPHOCYTES % 16.8 % (15.0-51.0); MEAN CORPUSCULAR HEMOGLOBIN 33.3 pg (29.0-33.0); MEAN CORPUSCULAR HGB CONC 32.4 g/dl (32.0-37.0); MEAN CORPUSCULAR VOLUME 102.9 fl (82.0-101.0); MEAN PLATELET VOLUME 10.1 fl (7.4-10.4); MONOCYTE # 0.6 10^3/ul (0.3-0.9); MONOCYTES % 7.3 % (0.0-11.0); NEUTROPHIL # 5.9 10^3/ul (1.6-7.5); PLATELET COUNT 276 10^3/UL (140-415); RED CELL DISTRIBUTION WIDTH 15.5 % (11.5-14.5); WHITE BLOOD COUNT 7.9 10^3/ul (4.8-10.8)
[2017-06-29 10:50] LABS: INR 1.9; PT RATIO 1.7
[2017-06-29 10:51] LABS: PARTIAL THROMBOPLASTIN TIME 46.3 Sec (25.0-35.0)
[2017-06-29 10:56] LABS: ALBUMIN 2.8 g/dl (3.3-4.9); ALBUMIN/GLOBULIN RATIO 0.52; CALCIUM 9.4 mg/dl (8.4-10.2); CREATININE 1.12 mg/dl (0.44-1.00); TOTAL PROTEIN 8.1 g/dl (6.1-8.1)
[2017-06-29 11:03] LABS: BILIRUBIN,TOTAL 14.2 mg/dl (0.2-1.3)
[2017-06-29 11:04] LABS: BILIRUBIN,DIRECT 11.5 mg/dl (0.00-0.20); BILIRUBIN,INDIRECT 2.7 mg/dl (0-1.1)
[2017-06-29] MEDS ORDERED: LACTULOSE 30ML CUP PO ONE (12:30)
[2017-06-29] MEDS ORDERED: POTASSIUM CHLORIDE (SR) 20 MEQ TAB PO STA (12:47)
[2017-06-29] MEDS ORDERED: SOD CHLORIDE 0.9% 1,000 ML IV SCH (12:52)
--- NOTE | 2017-06-29 12:52 | ERA ---
ER Documentation Chief Complaint Date/Time DATE: 06/29/17 TIME: 12:48 Chief Complaint ap, nausea, cofusion at times hx cirrhosis HPI This is a 27-year-old female who was an alcoholic and quit drinking 1 month ago. She was drinking 2 bottles of vodka a day she is subsequently developed alcoholic cardiomyopathy with liver cirrhosis. The patient says that she is feeling weak over the past 2-3 days with nausea. She states that she is feeling confused with brain fog and dozing off repeatedly during the past 2 days. She says this is how her symptoms were last time she was here and she had a very elevated ammonia level. Patient says that she fell 3 days ago while losing her balance but did not hit her head. She also states her abdomen feels "sore all over". She is having no vomiting or diarrhea but is nauseated. Denies any chest pain shortness of breath recent illness such as fever cough GI symptoms. Bilirubin on last admit was 13 ROS All systems reviewed and are negative except as per history of present illness. Medications Home Meds Active Scripts Tramadol HCl (Tramadol HCl) 50 Mg Tablet, 50 MG PO Q6H Y for PAIN, #30 TAB Prov:KORIN FORBES 06/15/17 Folic Acid* (Folic Acid*) 1 Mg Tablet, 1 MG PO DAILY for 14 Days, TAB Prov:KORIN FORBES 06/15/17 [Thiamine] 100 MG TAB No Conflict Check, 100 MG PO DAILY for 14 Days Prov:KORIN FORBES 06/15/17 Spironolactone* (Aldactone*) 50 Mg Tablet, 100 MG PO DAILY for 30 Days, TAB Prov:KORIN FORBES 06/15/17 Rifaximin* (Xifaxan*) 550 Mg Tablet, 550 MG PO BID for 30 Days, TAB Prov:KORIN FORBES 06/15/17 Propranolol Hcl* (Propranolol Hcl*) 20 Mg Tablet, 10 MG PO BID for 30 Days, TAB Prov:KORIN FORBES 06/15/17 Pantoprazole* (Pantoprazole*) 40 Mg Tablet.dr, 40 MG PO DAILY@06 for 30 Days Prov:KORIN FORBES 06/15/17 Lactulose* (Lactulose*) 20 Gm/30 Ml Solution, 20 GM PO Q8 for 30 Days Prov:KORIN FORBES 06/15/17 Reported Medications Multivitamin (Daily Vitamin Formula) 1 Each Tablet, 1 EACH PO DAILY, TAB 03/20/17 Levothyroxine Sodium* (Levoxyl*) 50 Mcg Tablet, 50 MCG PO BEFORE BREAKFAST, #30 TAB 03/20/17 Allergies Allergies: Coded Allergies: No Known Allergy (Unverified , 06/29/17) PMhx/Soc History of Surgery: No Anesthesia Reaction: No Hx Neurological Disorder: No Hx Respiratory Disorders: No Hx Cardiac Disorders: No Hx Psychiatric Problems: No Hx Miscellaneous Medical Probl: Yes (Alcohol and amphetamine abuse, ALCOHOL INDUCED HEPATITIS. ) Hx Alcohol Use: Yes Hx Substance Use: Yes Hx Tobacco Use: No Smoking Status: Never smoker FmHx Family History: No coronary disease Physical Exam Vitals Vital Signs Date Time Temp Pulse Resp B/P Pulse Ox O2 Delivery O2 Flow Rate FiO2 06/29/17 10:31 98.6 77 18 123/98 100 Room Air 06/29/17 09:41 98.1 77 18 152/90 99 Physical Exam Const: Well-developed, well-nourished Head: Atraumatic, normocephalic Eyes: Normal Conjunctiva, PERRLA, EOMI, icteric sclera, no nystagmus ENT: Normal External Ears, Nose and Mouth, moist mucus membranes. Neck: Full range of motion. No meningismus, no lymphadenopathy. Resp: Clear to auscultation bilaterally, no wheezing, rhonchi, rales Cardio: Regular rate and rhythm, no murmurs, S1 S2 present Abd: Soft, mild diffuse tenderness, non distended. Normal bowel sounds , no guarding or rebound, no pulsitile abdominal masses or bruits Skin: No petechiae or rashes, no ecchymosis , no maculopapular rash Back: No midline or flank tenderness Ext: No cyanosis, or edema, FROM x 4, normal inspection, neurovascularly intact x 4 Neur: Awake and alert, STR 5/5 x 4, sensation intact x 4, no focal findings, cerebellum intact Psych: Normal Mood and Affect Result Diagram: 06/29/17 1020 06/29/17 1020 Results 24 hrs Laboratory Tests Test 06/29/17 10:20 06/29/17 10:26 White Blood Count 7.910^3/ul Red Blood Count 2.4010^6/ul Hemoglobin 8.0g/dl Hematocrit 24.7% Mean Corpuscular Volume 102.9fl Mean Corpuscular Hemoglobin 33.3pg Mean Corpuscular Hemoglobin Concent 32.4g/dl Red Cell Distribution Width 15.5% Platelet Count 76308^3/UL Mean Platelet Volume 10.1fl Neutrophils % 74.0% Lymphocytes % 16.8% Monocytes % 7.3% Eosinophils % 0.5% Basophils % 0.4% Nucleated Red Blood Cells % 0.0/100WBC Neutrophils # 5.910^3/ul Lymphocytes # 1.310^3/ul Monocytes # 0.610^3/ul Eosinophils # 0.010^3/ul Basophils # 0.010^3/ul Nucleated Red Blood Cells # 0.010^3/ul Prothrombin Time 22.0Sec Prothrombin Time Ratio 1.7 INR International Normalized Ratio 1.90 Activated Partial Thromboplast Time 46.3Sec Sodium Level 134mmol/L Potassium Level 3.0mmol/L Chloride Level 110mmol/L Carbon Dioxide Level 19mmol/L Anion Gap 8 Blood Urea Nitrogen 3mg/dl Creatinine 1.12mg/dl Glucose Level 124mg/dl Calcium Level 9.4mg/dl Total Bilirubin 14.2mg/dl Direct Bilirubin 11.50mg/dl Indirect Bilirubin 2.7mg/dl Aspartate Amino Transf (AST/SGOT) 115IU/L Alanine Aminotransferase (ALT/SGPT) 64IU/L Alkaline Phosphatase 262IU/L Total Protein 8.1g/dl Albumin 2.8g/dl Globulin 5.30g/dl Albumin/Globulin Ratio 0.52 Lipase 47U/L Ammonia 175umol/l Current Medications Medications (Trade) Dose Ordered Sig/Aliyah Route PRN Reason Start Time Stop Time Status Last Admin Dose Admin Sodium Chloride (NS) 500 ml @ 500 mls/hr Q1H STAT IV 06/29/17 10:15 06/29/17 11:14 DC 06/29/17 10:31 Morphine Sulfate (morphine) 2 mg ONCE STAT IV 06/29/17 10:15 06/29/17 10:17 DC 06/29/17 10:31 Ondansetron HCl (Zofran Inj) 4 mg ONCE STAT IV 06/29/17 10:15 06/29/17 10:17 DC 06/29/17 10:31 Lactulose (Enulose) 20 gm ONCE ONCE PO 06/29/17 12:30 06/29/17 12:31 DC Procedures/MDM Patient's labs show she has some anemia with hypokalemia which was replaced orally. The patient's ammonia level is very elevated consistent with her mental status. The patient will need to be admitted for ammonia correction. Patient has a CT head and abdomen currently pending. However did not fill these will have any significant findings, she does not have a surgical abdomen and no signs of head trauma Patient has an elevated INR of 1.9. Feel the patient needs to be admitted for the above corrections and also needs to be evaluated for getting put on a liver transplant list Departure Diagnosis: Primary Impression: Hepatic encephalopathy Additional Impressions: Hyperbilirubinemia Hyperammonemia Condition: Stable APRIL BERGER DO Jun 29, 2017 12:52
[2017-06-29] MEDS ORDERED: ACETAMINOPHEN 325 MG TAB PO PRN (13:00)
[2017-06-29] MEDS ORDERED: ONDANSETRON 4 MG INJ IV PRN (13:00)
[2017-06-29] MEDS ORDERED: IOHEXOL 300MG/ML 150 ML BTL ONE (14:50)
[2017-06-29] MEDS ORDERED: SOD CHLORIDE 0.9% 100 ML ONE (14:50)
--- NOTE | 2017-06-29 15:19 | RADRPT ---
PROCEDURE: CT BRAIN WITHOUT CONTRAST. CLINICAL INDICATION: Headache TECHNIQUE: A CT of the brain was performed on a multidetector high-resolution CT scanner utilizing axial imaging from the skull base through the vertex without IV contrast. Multiplanar reformatted images were made. Images were reviewed on a PACS workstation. The CTDIvol is 44.5 mGy and the DLP is 720.2 mGycm. One or more of the following dose reduction techniques were used: - Automated exposure control. - Adjustment of the mA and/or kV according to patient size. - Use of iterative reconstruction technique. COMPARISON: None FINDINGS: The posterior fossa structures are unremarkable. The kassandra, midbrain, and medulla appear to be with n ormal limits. There is no evidence of acute intracranial hemorrhage, infarct, or extra-axial fluid collection. No gross mass effect or midline shift. Cerebral sulci, cisternal spaces, and ventricles are within norm al limits. The visualized paranasal sinuses are clear. The mastoid air cells are well-aerated. The calvarium is unremarkable. IMPRESSION: 1. No evidence of acute intracranial hemorrhage, infarct, or extra-axial fluid collection. 2. Unremarkable CT brain. RPTAT: AARR Physician Zenaida Date Time Electronically viewed and signed by Physician Zenaida on 06/29/2017 15:19 RILEY/
--- NOTE | 2017-06-29 16:00 | RADRPT ---
PROCEDURE: CT Abdomen and Pelvis with intravenous contrast. CLINICAL INDICATION: Abdominal pain.. History of cirrhosis and alcohol induced hepatitis. TECHNIQUE: CT scan of the abdomen and pelvis with intravenous contrast was performed on the multi- slice CT scanner. The patient was scanned following the uncomplicated intravenous administration of 100 cc of Omnipaque-300 contrast. Coronal and sagittal reformatted images were obtained from the a xial source images. Images were reviewed on a high-resolution PACS workstation. Total DLP = 1315.4 mGy-cm. CTDIvol = 23.1 mGy. One or more of the following dose reduction techniques were used: Automated exposure control. Adjustment of the mA and/or kV according to patient size. Use of iterative reconstruction technique. COMPARISON: 09/26/2016 FINDINGS: CT abdomen and pelvis: The lung bases are clear of acute infiltrates or effusions. There is focal cavitary or bronchiectati c changes seen in the left lung base new since prior exam. The heart size is normal in size. The liver is enlarged and diffusely fatty in density without focal mass or intrahepatic biliary dilatati on. The spleen is normal in size and homogeneous in density. The pancreas demonstrates a 4.2 cm c ystic lesion in the tail the pancreas new since prior exam.. The gallbladder shows no evidence of stones or distension . The adrenal glands are normal. The kidneys are symmetrically unremarkable. No urolithiasis, obstructive uropathy, or solid mass lesion is seen. The stomach is partially collapsed, but is grossly unremarkable. The small bowels demonstrates mild fluid distension in the left abdomen. I no evidence of small bowel obstruction. The colon and rectum are normal. The appendix is normal.. No evidence of acute appendicitis or diverticulitis. The pelv ic organs are normal. The bladder is decompressed. There is mild scattered ascites in the abdomen an d pelvis new since prior exam. There is no abdominal or pelvic adenopathy, free air. The aorta is normal in caliber and course. The osseous structures are intact. No osteolytic or osteo blastic lesions are identified. The soft tissues are within normal limits. IMPRESSION: 1. Cystic 4.2 cm lesion at the tail of the pancreas new since prior exam.. This likely represents s equela of pancreatitis with pseudocyst formation.. Cystic masses of the pancreas are less likely. Mu ltiphasic CT of the abdomen - pancreatic protocol could be obtained to further evaluate. 2. Mild scattered ascites new since prior exam. 3. Hepatomegaly with steatosis. 4. Focal cavitary or bronchiectatic changes seen in the left lung base new since prior exam. CT sca n of the chest could be obtained to further evaluate. 5. Mild fluid distension of left abdominal small bowels suggesting ileus or enteritis. No evidence of bowel obstruction. RPTAT: GG .Favian Winkler MD, MD Date Time Electronically viewed and signed by .Favian Winkler MD, on 06/29/2017 16:00 .L/
[2017-06-29 16:11] VITALS: BP 107/74; RESP 16
--- NOTE | 2017-06-29 16:30 | HP ---
Date/Time of Note Date/Time of Note DATE: 06/29/17 TIME: 16:27 Assessment/Plan VTE Prophylaxis VTE Prophylaxis Intervention: SCD's Assessment/Plan Chief Complaint/Hosp Course Assessment/Plan - Alcoholic liver disease. Dr. Gonzalez is to see pt in gastroenterology consultation. Continue propranolol and Aldactone. - Hepatic encephalopathy, Monitor ammonia level. - Nonischemic cardiomyopathy. - Anemia - Hx of GI bleed - History of alcohol abuse. - History of amphetamine - Morbid obesity. Further recommendations based on clinical course. Plan of care discussed with Dr. Dawson. Problems: HPI/ROS Admit Date/Time Admit Date/Time Jun 29, 2017 at 12:53 Hx of Present Illness Patient is a 27-year-old female known to me from previous admission. The patient with alcoholic liver disease and cardiomyopathy, stated that her last drink was 1 month ago. Patient was treated for hepatic encephalopathy and discharged home in stable condition previously. Patient stated that she was compliant with her medication regimen was discharged on with prescription for lactulose. The patient patient stated that she was feeling weak over the last couple of days, she also felt confused and forgetful. Patient says that she fell 3 days ago while losing her balance but did not hit her head. Patient also complains of generalized abdominal pain but denies any vomiting and diarrhea. She complains of nausea. Patient complains of nonproductive cough, although denies any chest pain denies shortness of breath. Patient underwent CT of the brain in emergency room which was unremarkable. Patient ammonia level was elevated and patient is being admitted for further evaluation and management. PMH/Family/Social Past Medical History Medical History: other (Alcoholic liver disease) Family History Significant Family History: other ( Patient's mother of alcoholic liver) Social History The patient has history of methamphetamine history of alcohol use stated that her last drink was 1 month ago Patient denies any smoking history. Patient currently lives with her grandmother. Alcohol Use: heavy Smoking Status: Never smoker Drug Use: other (Methamphetamine ) Exam/Review of Systems Vital Signs Vitals Vital Signs Date Time Temp Pulse Resp B/P Pulse Ox O2 Delivery O2 Flow Rate FiO2 06/29/17 16:11 97.7 69 16 107/74 100 06/29/17 13:47 Room Air Exam Constitutional: alert, oriented, other (jaundiced) Head: atraumatic, normocephalic Eyes: icteric Neck: supple Respiratory: diminished breath sounds, normal air movement Cardiovascular: nl pulses Gastrointestinal: distended, hepatomegaly, soft, tender Extremities: normal pulses Neurological: 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 Labs Result Diagram: 06/29/17 1020 06/29/17 1020 Medications Medications Current Medications Sodium Chloride (NS) 1,000 ml @ 80 mls/hr [id number] IV ; Start 06/29/17 at 12:52 ; Stop 06/30/17 at 01:21 KORIN FORBES Jun 29, 2017 16:30
[2017-06-29 17:32] VITALS: Ht 154.9 cm; Wt 80.0 kg
[2017-06-29] MEDS: ONDANSETRON 4 MG INJ IV PRN ×2 (17:59→23:51)
[2017-06-29] MEDS: morphine 2 MG INJ IV PRN ×2 (18:00→23:47)
[2017-06-29 20:00] VITALS: BP 124/69; RESP 18
[2017-06-29] MEDS ORDERED: INFLUENZA VIRUS VACCINE 0.5 ML (DISPENSING) IM* ONE (20:30)
[2017-06-29] MEDS: RIFAXIMIN 550 MG TAB PO SCH (20:40)
[2017-06-29] MEDS: PROPRANOLOL 20 MG TAB PO SCH (20:41)
[2017-06-29] MEDS: LACTULOSE 30ML CUP PO SCH (22:30)
[2017-06-30 02:02] VITALS: BP 110/62; RESP 16
[2017-06-30] MEDS: ONDANSETRON 4 MG INJ IV PRN ×4 (04:17→20:01)
[2017-06-30] MEDS: morphine 2 MG INJ IV PRN ×4 (04:19→20:01)
[2017-06-30] MEDS: LACTULOSE 30ML CUP PO SCH ×3 (05:29→21:25)
[2017-06-30] MEDS: PANTOPRAZOLE (EC) 40 MG TAB PO SCH (05:29)
[2017-06-30 06:17] LABS: BASOPHILS % 0.2 % (0.0-2.0); EOSINOPHILS # 0.1 10^3/ul (0.0-0.5); EOSINOPHILS % 0.5 % (0.0-7.0); HEMATOCRIT 22.3 % (37.0-47.0); LYMPHOCYTES # 1.6 10^3/ul (0.8-2.9); LYMPHOCYTES % 14.7 % (15.0-51.0); MEAN CORPUSCULAR HEMOGLOBIN 33.3 pg (29.0-33.0); MEAN CORPUSCULAR HGB CONC 31.4 g/dl (32.0-37.0); MEAN CORPUSCULAR VOLUME 106.2 fl (82.0-101.0); MEAN PLATELET VOLUME 10.5 fl (7.4-10.4); MONOCYTE # 0.6 10^3/ul (0.3-0.9); MONOCYTES % 5.3 % (0.0-11.0); NEUTROPHIL # 8.7 10^3/ul (1.6-7.5); NEUTROPHILS % 78.8 % (39.0-77.0); PLATELET COUNT 205 10^3/UL (140-415)
[2017-06-30 06:40] LABS: ADD UMIC YES; UR ASCORBIC ACID NEGATIVE (NEGATIVE); UR BILIRUBIN (Dip) 2+ mg/dL (NEGATIVE); UR BLOOD (Dip) NEGATIVE (NEGATIVE); UR CLARITY CLEAR (CLEAR); UR COLOR AMBER (YELLOW); UR GLUCOSE (Dip) NEGATIVE (NEGATIVE); UR KETONES (Dip) NEGATIVE (NEGATIVE); UR LEUKOCYTE ESTERASE (Dip) NEGATIVE Leu/ul (NEGATIVE); UR NITRITE (Dip) NEGATIVE (NEGATIVE); UR RBC 1 /HPF (0-5); UR TOTAL PROTEIN (Dip) 1+ mg/dl (NEGATIVE); UR UROBILINOGEN (Dip) 2+ mg/dL (NEGATIVE)
[2017-06-30 06:50] LABS: CALCIUM 8.6 mg/dl (8.4-10.2); CREATININE 0.98 mg/dl (0.44-1.00); POTASSIUM 3.6 mmol/L (3.5-5.1)
[2017-06-30 07:08] LABS: BARBITURATES Negative (NEGATIVE); BENZODIAZEPINES Negative (NEGATIVE); CANNABINOIDS Negative (NEGATIVE); COCAINE Negative (NEGATIVE)
[2017-06-30 07:10] LABS: OPIATES Positive (NEGATIVE)
[2017-06-30 07:30] VITALS: BP 118/72; RESP 16
[2017-06-30] MEDS: RIFAXIMIN 550 MG TAB PO SCH ×2 (09:19→20:07)
[2017-06-30] MEDS: SPIRONOLACTONE 50 MG TAB PO SCH (09:19)
[2017-06-30] MEDS: PROPRANOLOL 20 MG TAB PO SCH ×2 (09:20→20:06)
[2017-06-30 13:20] VITALS: BP 104/55; RESP 16
--- NOTE | 2017-06-30 14:05 | PN ---
Date/Time of Note Date/Time of Note DATE: 06/30/17 TIME: 13:58 Assessment/Plan VTE Prophylaxis VTE Prophylaxis Intervention: SCD's Lines/Catheters [facility]from [facility] Saline Lock Central line still needed: Yes Assessment/Plan Chief Complaint/Hosp Course Patient's hemoglobin is 7.0, obtain stool for OB, transfuse 2 units of packed red blood cells, the patient's remains hemodynamically stable, afebrile, calm. Clear liquid diet if pt patient tolerates Assessment/Plan - Alcoholic liver disease. Dr. Gonzalez is to see pt in gastroenterology consultation. Continue propranolol and Aldactone. - Hepatic encephalopathy, Monitor ammonia level. - Possible chronic pancreatitis with pseudocyst formation per CT - Possible ileus per CT - Nonischemic cardiomyopathy. - Anemia, will obtain stool for OB, transfuse as needed, need to monitor hemoglobin and hematocrit. - Hx of GI bleed - History of alcohol abuse. - History of amphetamine - Morbid obesity. Further recommendations based on clinical course. Plan of care discussed with Dr. Dawson. Problems: Exam/Review of Systems Vital Signs Vitals Vital Signs Date Time Temp Pulse Resp B/P Pulse Ox O2 Delivery O2 Flow Rate FiO2 06/30/17 13:20 98.2 70 16 104/55 100 06/29/17 13:47 Room Air Intake and Output 06/29/17 06/29/17 06/30/17 15:00 23:00 07:00 Intake Total 120 ml 2160 ml Output Total 200 ml Balance 120 ml 1960 ml Exam Constitutional: alert, oriented, other (jaundiced) Head: atraumatic, normocephalic Eyes: icteric Neck: supple Respiratory: diminished breath sounds, normal air movement Cardiovascular: nl pulses Gastrointestinal: distended, hepatomegaly, soft, tender Extremities: normal pulses Neurological: 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 Results Result Diagram: 06/30/17 0547 06/30/17 0547 Results 24 hrs Laboratory Tests Test 06/30/17 04:20 06/30/17 05:47 Urine Color SUGAR Urine Clarity CLEAR Urine pH 8.0 Urine Specific [place] 1.040 H Urine Ketones NEGATIVE Urine Nitrite NEGATIVE Urine Bilirubin 2+ H Urine Urobilinogen 2+ H Urine Leukocyte Esterase NEGATIVE Urine Microscopic RBC 1 Urine Microscopic WBC 4 Urine Hemoglobin NEGATIVE Urine Glucose NEGATIVE Urine Total Protein 1+ H Urine Opiates Screen Positive Urine Barbiturates Negative Urine Amphetamines Screen Negative Urine Benzodiazepines Screen Negative Urine Cocaine Screen Negative Urine Cannabinoids Negative White Blood Count 11.0 #H Red Blood Count 2.10 L Hemoglobin 7.0 L Hematocrit 22.3 L Mean Corpuscular Volume 106.2 H Mean Corpuscular Hemoglobin 33.3 H Mean Corpuscular Hemoglobin Concent 31.4 L Red Cell Distribution Width 16.0 H Platelet Count 205 # Mean Platelet Volume 10.5 H Neutrophils % 78.8 H Lymphocytes % 14.7 L Monocytes % 5.3 Eosinophils % 0.5 Basophils % 0.2 Nucleated Red Blood Cells % 0.0 Neutrophils # 8.7 H Lymphocytes # 1.6 Monocytes # 0.6 Eosinophils # 0.1 Basophils # 0.0 Nucleated Red Blood Cells # 0.0 Sodium Level 133 L Potassium Level 3.6 Chloride Level 112 H Carbon Dioxide Level 18 L Anion Gap 7 L Blood Urea Nitrogen 3 L Creatinine 0.98 Glucose Level 155 Calcium Level 8.6 Medications Medications Current Medications Morphine Sulfate (morphine) 2 mg Q4H PRN IV PAIN Last administered on 10:39; Admin Dose 2 MG; Start 06/29/17 at 17:00 Ondansetron HCl (Zofran Inj) 4 mg Q4H PRN IV NAUSEA AND/OR VOMITING Last administered on 06/30/17 10:39; Admin Dose 4 MG; Start 06/29/17 at 17:00 Lactulose (Enulose) 20 gm Q8 PO Last administered on 06/30/17 05:29; Admin Dose 20 GM; Start 06/29/17 at 22:00 Pantoprazole (Protonix Tab) 40 mg DAILY@06 PO Last administered on 06/30/17 05:29; Admin Dose 40 MG; Start 06/30/17 at 06:00 Propranolol HCl (Inderal) 10 mg BID PO Last administered on 06/30/17 09:20; Admin Dose 10 MG; Start 06/29/17 at 21:00 Rifaximin (Xifaxan) 550 mg BID PO Last administered on 06/30/17 09:19; Admin Dose 550 MG; Start 06/29/17 at 21:00 Spironolactone (Aldactone) 100 mg DAILY PO Last administered on 06/30/17 09: 19; Admin Dose 100 MG; Start 06/30/17 at 09:00 KORIN FORBES Jun 30, 2017 14:05
[2017-06-30 19:52] VITALS: BP 133/72; RESP 18
[2017-06-30] MEDS ORDERED: RIFAXIMIN 550 MG TAB PO SCH (21:00)
[2017-06-30 22:20] VITALS: BP 147/87; PULSE 65; RESP 18
[2017-07-01] MEDS: ONDANSETRON 4 MG INJ IV PRN ×5 (01:52→21:26)
[2017-07-01] MEDS: morphine 2 MG INJ IV PRN ×5 (01:53→21:26)
[2017-07-01 02:00] VITALS: BP 146/96; RESP 20
[2017-07-01] MEDS: PANTOPRAZOLE (EC) 40 MG TAB PO SCH (05:39)
[2017-07-01] MEDS: LACTULOSE 30ML CUP PO SCH ×3 (05:40→21:25)
[2017-07-01 05:47] LABS: BASOPHIL # 0.1 10^3/ul (0.0-0.1); BASOPHILS % 0.7 % (0.0-2.0); EOSINOPHILS # 0.1 10^3/ul (0.0-0.5); EOSINOPHILS % 1.5 % (0.0-7.0); HEMATOCRIT 31.9 % (37.0-47.0); HEMOGLOBIN 10.7 g/dl (12.0-16.0); LYMPHOCYTES # 1.5 10^3/ul (0.8-2.9); LYMPHOCYTES % 20.5 % (15.0-51.0); MEAN CORPUSCULAR HEMOGLOBIN 32.6 pg (29.0-33.0); MEAN CORPUSCULAR HGB CONC 33.5 g/dl (32.0-37.0); MEAN CORPUSCULAR VOLUME 97.3 fl (82.0-101.0); MEAN PLATELET VOLUME 10.6 fl (7.4-10.4); MONOCYTE # 0.7 10^3/ul (0.3-0.9); MONOCYTES % 9.7 % (0.0-11.0); NEUTROPHIL # 4.7 10^3/ul (1.6-7.5); NEUTROPHILS % 66.8 % (39.0-77.0); PLATELET COUNT 201 10^3/UL (140-415); RED BLOOD COUNT 3.28 10^6/ul (4.20-5.40); RED CELL DISTRIBUTION WIDTH 18.1 % (11.5-14.5); WHITE BLOOD COUNT 7.1 10^3/ul (4.8-10.8)
[2017-07-01 06:04] LABS: ALBUMIN 2.6 g/dl (3.3-4.9); ALBUMIN/GLOBULIN RATIO 0.55; BILIRUBIN,DIRECT 12.7 mg/dl (0.00-0.20); BILIRUBIN,INDIRECT 2.6 mg/dl (0-1.1); BILIRUBIN,TOTAL 15.3 mg/dl (0.2-1.3); CALCIUM 8.7 mg/dl (8.4-10.2); CREATININE 0.98 mg/dl (0.44-1.00); POTASSIUM 3.9 mmol/L (3.5-5.1); TOTAL PROTEIN 7.3 g/dl (6.1-8.1)
--- NOTE | 2017-07-01 07:17 | CONS ---
DATE OF ADMISSION: 06/29/2017 DATE OF CONSULTATION: HISTORY OF PRESENT ILLNESS: Thank you for your kind referral. The patient is a 27-year-old female with a history of ethanol abuse who comes to the hospital complaining of abdominal pain. Patient wa s evaluated in the ER, had a CAT scan of the abdomen and pelvis done which showed a pancreatic pseud ocyst in the tail of the pancreas. The patient also had a fatty liver. She has been sober for the last 1 month. 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 The patient has been co nfused for the last 2 to 3 days and the lost her balance a few days ago. She also complains of nonp roductive cough. PAST MEDICAL HISTORY: Alcoholic liver disease. FAMILY HISTORY: Mother of alcoholic liver. 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 No smoking. Currentl y lives with her grandmother, alcohol use heavy in the past. PHYSICAL EXAMINATION GENERAL: Well-built, well-nourished, not in distress, anxious, crying. CARDIOVASCULAR: No murmur, gallop or click. LUNGS: Clear. ABDOMEN: Benign. EXTREMITIES: No edema. CENTRAL NERVOUS SYSTEM: Grossly within normal limits. LABORATORY DATA: Hematocrit is 24.7, platelet count is 276, BUN is 3, creatinine is 1.1, total bili tam is 14.2, INR is 1.7. IMPRESSION: 1. Alcoholic liver disease, most probably fatty liver. 2. Cyst in the tail of the pancreas, probably cirrhosis. 3. Anemia. 4. Mild coagulopathy 5. Hepatitic encephalopathy. PLAN: To continue with lactulose and rifaximin. Await [place] sedatives. I would like to revi ew her 2D echo because the history says there is a history of cardiomyopathy and I do not see any re port on a 2D echo. Dictated By: SUSAN ALVARADO/TYRESE Conf#: [id number] DID#: [id number]
[2017-07-01 07:25] LABS: THYROID STIMULATING HORMONE 2.48 MIU/L (0.465-4.680)
[2017-07-01 07:32] VITALS: BP 122/77; RESP 16
[2017-07-01] MEDS: SPIRONOLACTONE 50 MG TAB PO SCH ×2 (08:47→12:02)
[2017-07-01] MEDS: RIFAXIMIN 550 MG TAB PO SCH ×3 (08:48→21:26)
[2017-07-01] MEDS: PROPRANOLOL 20 MG TAB PO SCH ×3 (08:48→21:27)
--- NOTE | 2017-07-01 11:02 | CONS ---
Date/Time of Note Date/Time of Note DATE: 07/01/17 TIME: 11:01 Assessment/Plan Assessment/Plan Additional Assessment/Plan IMPRESSION: 1. Alcoholic liver disease, most probably fatty liver. 2. Cyst in the tail of the pancreas, probably cirrhosis. 3. Anemia. 4. Mild coagulopathy 5. Hepatitic encephalopathy. PLAN: To continue with lactulose and rifaximin. Avoid sedatives and narcotics Patient may be started on prednisolone Consultation Date/Type/Reason Admit Date/Time Jun 29, 2017 at 12:53 Initial Consult Date 24 HR Interval Summary Free Text/Dictation Feels better Exam/Review of Systems Vital Signs Vitals Vital Signs Date Time Temp Pulse Resp B/P Pulse Ox O2 Delivery O2 Flow Rate FiO2 07/01/17 07:32 98.2 61 16 122/77 99 06/30/17 22:20 Room Air Intake and Output 06/30/17 06/30/17 07/01/17 15:00 23:00 07:00 Intake Total 1820 ml 830 ml Output Total 850 ml 1400 ml Balance 970 ml -570 ml Exam Constitutional: alert, oriented, well developed Psych: nl mood/affect, no complaints Head: atraumatic, normocephalic Eyes: EOMI, PERRL, nl conjunctiva, nl lids, nl sclera ENMT: nl external ears & nose, nl lips & teeth, nl nasal mucosa & septum Neck: non-tender, supple Respiratory: clear to auscultation, normal air movement Cardiovascular: nl pulses, regular rate and rhythm Gastrointestinal: nl liver, spleen, non-tender, soft Musculoskeletal: nl extremities to inspection, nl gait and stance Extremities: normal pulses Neurological: CORPORATE STRATEGY ASSOCIATE II-XII intact, 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, nl speech, nl strength Skin: nl turgor, No rash or lesions Lymph: nl lymph nodes Results Result Diagram: 07/01/17 0500 07/01/17 0500 Results 24 hrs Laboratory Tests Test 07/01/17 05:00 07/01/17 06:14 White Blood Count 7.1 # Red Blood Count 3.28 #L Hemoglobin 10.7 #L Hematocrit 31.9 #L Mean Corpuscular Volume 97.3 Mean Corpuscular Hemoglobin 32.6 Mean Corpuscular Hemoglobin Concent 33.5 Red Cell Distribution Width 18.1 H Platelet Count 201 Mean Platelet Volume 10.6 H Neutrophils % 66.8 Lymphocytes % 20.5 Monocytes % 9.7 Eosinophils % 1.5 Basophils % 0.7 Nucleated Red Blood Cells % 0.0 Neutrophils # 4.7 Lymphocytes # 1.5 Monocytes # 0.7 Eosinophils # 0.1 Basophils # 0.1 Nucleated Red Blood Cells # 0.0 Sodium Level 137 Potassium Level 3.9 Chloride Level 113 H Carbon Dioxide Level 18 L Anion Gap 10 Blood Urea Nitrogen 3 L Creatinine 0.98 Glucose Level 137 Calcium Level 8.7 Total Bilirubin 15.3 H Direct Bilirubin 12.70 H Indirect Bilirubin 2.6 H Aspartate Amino Transf (AST/SGOT) 88 H Alanine Aminotransferase (ALT/SGPT) 50 Alkaline Phosphatase 226 H Ammonia 150 H Total Protein 7.3 Albumin 2.6 L Globulin 4.70 H Albumin/Globulin Ratio 0.55 Amylase Level 48 Lipase 32 Thyroid Stimulating Hormone (TSH) 2.480 Lab Scanned Report BLOOD TRANSFUSION Medications Medications Current Medications Morphine Sulfate (morphine) 2 mg Q4H PRN IV PAIN Last administered on 05:47; Admin Dose 2 MG; Start 06/29/17 at 17:00 Ondansetron HCl (Zofran Inj) 4 mg Q4H PRN IV NAUSEA AND/OR VOMITING Last administered on 07/01/17 05:40; Admin Dose 4 MG; Start 06/29/17 at 17:00 Lactulose (Enulose) 20 gm Q8 PO Last administered on 07/01/17 05:40; Admin Dose 20 GM; Start 06/29/17 at 22:00 Pantoprazole (Protonix Tab) 40 mg DAILY@06 PO Last administered on 07/01/17 05:39; Admin Dose 40 MG; Start 06/30/17 at 06:00 Propranolol HCl (Inderal) 10 mg BID PO Last administered on 06/30/17 20:06; Admin Dose 10 MG; Start 06/29/17 at 21:00 Rifaximin (Xifaxan) 550 mg BID PO Last administered on 06/30/17 20:07; Admin Dose 550 MG; Start 06/29/17 at 21:00 Spironolactone (Aldactone) 100 mg DAILY PO Last administered on 06/30/17 09: 19; Admin Dose 100 MG; Start 06/30/17 at 09:00 SUSAN GARCIAS MD Jul 01, 2017 11:02
[2017-07-01 13:47] VITALS: BP 148/93; RESP 18
[2017-07-01 20:06] VITALS: BP 138/89; RESP 16
--- NOTE | 2017-07-01 20:30 | PN ---
Date/Time of Note Date/Time of Note DATE: 07/01/17 TIME: 20:30 Assessment/Plan Lines/Catheters IV [facility] (from [facility]): Saline Lock Assessment/Plan Assessment/Plan - Alcoholic liver disease. Dr. Gonzalez is to see pt in gastroenterology consultation. Continue propranolol and Aldactone. - Hepatic encephalopathy, Monitor ammonia level. - Possible chronic pancreatitis with pseudocyst formation per CT - Possible ileus per CT - Nonischemic cardiomyopathy. - Anemia, will obtain stool for OB, transfuse as needed, need to monitor hemoglobin and hematocrit. - Hx of GI bleed - History of alcohol abuse. - History of amphetamine - Morbid obesity. Further recommendations based on clinical course. Plan of care discussed with Dr. Dawson. Exam/Review of Systems Vital Signs Vitals Vital Signs Date Time Temp Pulse Resp B/P Pulse Ox O2 Delivery O2 Flow Rate FiO2 07/01/17 20:06 97.9 66 16 138/89 98 06/30/17 22:20 Room Air Intake and Output 06/30/17 06/30/17 07/01/17 15:00 23:00 07:00 Intake Total 1820 ml 830 ml Output Total 850 ml 1400 ml Balance 970 ml -570 ml Results Result Diagram: 07/01/17 0500 07/01/17 0500 Results 24 hrs Laboratory Tests Test 07/01/17 05:00 07/01/17 06:14 White Blood Count 7.1 # Red Blood Count 3.28 #L Hemoglobin 10.7 #L Hematocrit 31.9 #L Mean Corpuscular Volume 97.3 Mean Corpuscular Hemoglobin 32.6 Mean Corpuscular Hemoglobin Concent 33.5 Red Cell Distribution Width 18.1 H Platelet Count 201 Mean Platelet Volume 10.6 H Neutrophils % 66.8 Lymphocytes % 20.5 Monocytes % 9.7 Eosinophils % 1.5 Basophils % 0.7 Nucleated Red Blood Cells % 0.0 Neutrophils # 4.7 Lymphocytes # 1.5 Monocytes # 0.7 Eosinophils # 0.1 Basophils # 0.1 Nucleated Red Blood Cells # 0.0 Sodium Level 137 Potassium Level 3.9 Chloride Level 113 H Carbon Dioxide Level 18 L Anion Gap 10 Blood Urea Nitrogen 3 L Creatinine 0.98 Glucose Level 137 Calcium Level 8.7 Total Bilirubin 15.3 H Direct Bilirubin 12.70 H Indirect Bilirubin 2.6 H Aspartate Amino Transf (AST/SGOT) 88 H Alanine Aminotransferase (ALT/SGPT) 50 Alkaline Phosphatase 226 H Ammonia 150 H Total Protein 7.3 Albumin 2.6 L Globulin 4.70 H Albumin/Globulin Ratio 0.55 Amylase Level 48 Lipase 32 Thyroid Stimulating Hormone (TSH) 2.480 Lab Scanned Report BLOOD TRANSFUSION Medications Medications Current Medications Morphine Sulfate (morphine) 2 mg Q4H PRN IV PAIN Last administered on 16:48; Admin Dose 2 MG; Start 06/29/17 at 17:00 Ondansetron HCl (Zofran Inj) 4 mg Q4H PRN IV NAUSEA AND/OR VOMITING Last administered on 07/01/17 16:48; Admin Dose 4 MG; Start 06/29/17 at 17:00 Lactulose (Enulose) 20 gm Q8 PO Last administered on 07/01/17 15:16; Admin Dose 20 GM; Start 06/29/17 at 22:00 Pantoprazole (Protonix Tab) 40 mg DAILY@06 PO Last administered on 07/01/17 05:39; Admin Dose 40 MG; Start 06/30/17 at 06:00 Propranolol HCl (Inderal) 10 mg BID PO Last administered on 07/01/17 12:01; Admin Dose 10 MG; Start 06/29/17 at 21:00 Rifaximin (Xifaxan) 550 mg BID PO Last administered on 07/01/17 12:01; Admin Dose 550 MG; Start 06/29/17 at 21:00 Spironolactone (Aldactone) 100 mg DAILY PO Last administered on 07/01/17 12: 02; Admin Dose 100 MG; Start 06/30/17 at 09:00 SWATHI RESENDIZ Jul 01, 2017 20:30
[2017-07-02] MEDS: morphine 2 MG INJ IV PRN ×5 (00:28→22:30)
[2017-07-02] MEDS: ONDANSETRON 4 MG INJ IV PRN ×5 (00:28→22:47)
[2017-07-02] MEDS: PANTOPRAZOLE (EC) 40 MG TAB PO SCH (04:57)
[2017-07-02] MEDS: LACTULOSE 30ML CUP PO SCH ×3 (04:58→21:04)
[2017-07-02 07:50] VITALS: BP 129/80; RESP 16
[2017-07-02] MEDS: SPIRONOLACTONE 50 MG TAB PO SCH (08:59)
[2017-07-02] MEDS: RIFAXIMIN 550 MG TAB PO SCH ×2 (09:00→21:05)
[2017-07-02] MEDS: PROPRANOLOL 20 MG TAB PO SCH ×3 (09:02→21:05)
[2017-07-02 14:17] VITALS: BP 171/90; RESP 16
--- NOTE | 2017-07-02 14:57 | PN ---
Date/Time of Note Date/Time of Note DATE: 07/02/17 TIME: 14:55 Assessment/Plan VTE Prophylaxis VTE Prophylaxis Intervention: SCD's Lines/Catheters IV Catheter Type (from [facility]): Saline Lock Assessment/Plan Chief Complaint/Hosp Course Pt tolerated diet well, denies N/V,unstable balance, PT eval Assessment/Plan - Alcoholic liver disease. Dr. Gonzalez is to see pt in gastroenterology consultation. Continue propranolol and Aldactone. - Hepatic encephalopathy, Monitor ammonia level. - Possible chronic pancreatitis with pseudocyst formation per CT - Possible ileus per CT - Nonischemic cardiomyopathy. - Anemia, will obtain stool for OB, transfuse as needed, need to monitor hemoglobin and hematocrit. - Hx of GI bleed - History of alcohol abuse. - History of amphetamine - Morbid obesity. Further recommendations based on clinical course. Plan of care discussed with Dr. Dawson. Problems: Exam/Review of Systems Vital Signs Vitals Vital Signs Date Time Temp Pulse Resp B/P Pulse Ox O2 Delivery O2 Flow Rate FiO2 07/02/17 14:17 98.0 60 16 171/90 100 06/30/17 22:20 Room Air Intake and Output 07/01/17 07/01/17 07/02/17 15:00 23:00 07:00 Intake Total 560 ml 240 ml Output Total 700 ml Balance -140 ml 240 ml Exam Constitutional: alert, oriented, other (jaundiced) Head: atraumatic, normocephalic Eyes: icteric Neck: supple Respiratory: diminished breath sounds, normal air movement Cardiovascular: nl pulses Gastrointestinal: distended, hepatomegaly, soft, tender Extremities: normal pulses Neurological: 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 Results Result Diagram: 07/01/17 0500 07/01/17 0500 Medications Medications Current Medications Morphine Sulfate (morphine) 2 mg Q4H PRN IV PAIN Last administered on 12:58; Admin Dose 2 MG; Start 06/29/17 at 17:00 Ondansetron HCl (Zofran Inj) 4 mg Q4H PRN IV NAUSEA AND/OR VOMITING Last administered on 07/02/17 12:57; Admin Dose 4 MG; Start 06/29/17 at 17:00 Lactulose (Enulose) 20 gm Q8 PO Last administered on 07/02/17 13:41; Admin Dose 20 GM; Start 06/29/17 at 22:00 Pantoprazole (Protonix Tab) 40 mg DAILY@06 PO Last administered on 07/02/17 04:57; Admin Dose 40 MG; Start 06/30/17 at 06:00 Propranolol HCl (Inderal) 10 mg BID PO Last administered on 07/02/17 09:33; Admin Dose 10 MG; Start 06/29/17 at 21:00 Rifaximin (Xifaxan) 550 mg BID PO Last administered on 07/02/17 09:00; Admin Dose 550 MG; Start 06/29/17 at 21:00 Spironolactone (Aldactone) 100 mg DAILY PO Last administered on 07/02/17 08: 59; Admin Dose 100 MG; Start 06/30/17 at 09:00 KORIN FORBES Jul 02, 2017 14:57
[2017-07-02 15:22] VITALS: BP 151/94; PULSE 57; RESP 16
--- NOTE | 2017-07-02 18:42 | CONS ---
Date/Time of Note Date/Time of Note DATE: 07/02/17 TIME: 18:42 Assessment/Plan Assessment/Plan Additional Assessment/Plan Additional Assessment/Plan IMPRESSION: 1. Alcoholic liver disease, most probably fatty liver. 2. Cyst in the tail of the pancreas, probably a pseudocyst 3. Anemia. 4. Mild coagulopathy 5. Hepatitic encephalopathy. Clinically better PLAN: To continue with lactulose and rifaximin. Avoid sedatives and narcotics Patient may be started on prednisolone Consultation Date/Type/Reason Admit Date/Time Jun 29, 2017 at 12:53 24 HR Interval Summary Constitutional: improved Exam/Review of Systems Vital Signs Vitals Vital Signs Date Time Temp Pulse Resp B/P Pulse Ox O2 Delivery O2 Flow Rate FiO2 07/02/17 15:22 97.5 57 16 151/94 94 Room Air Intake and Output 07/01/17 07/01/17 07/02/17 15:00 23:00 07:00 Intake Total 560 ml 240 ml Output Total 700 ml Balance -140 ml 240 ml Exam Constitutional: alert, oriented, well developed Psych: nl mood/affect, no complaints Head: atraumatic, normocephalic Eyes: EOMI, PERRL, nl conjunctiva, nl lids, nl sclera ENMT: nl external ears & nose, nl lips & teeth, nl nasal mucosa & septum Neck: non-tender, supple Respiratory: clear to auscultation, normal air movement Cardiovascular: nl pulses, regular rate and rhythm Gastrointestinal: nl liver, spleen, non-tender, soft Musculoskeletal: nl extremities to inspection, nl gait and stance Extremities: normal pulses Neurological: IP NETWORK ARCHITECT II-XII intact, 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, nl speech, nl strength Skin: nl turgor, No rash or lesions Lymph: nl lymph nodes Results Result Diagram: 07/01/17 0500 07/01/17 0500 Medications Medications Current Medications Morphine Sulfate (morphine) 2 mg Q4H PRN IV PAIN Last administered on 18:28; Admin Dose 2 MG; Start 06/29/17 at 17:00 Ondansetron HCl (Zofran Inj) 4 mg Q4H PRN IV NAUSEA AND/OR VOMITING Last administered on 07/02/17 18:28; Admin Dose 4 MG; Start 06/29/17 at 17:00 Lactulose (Enulose) 20 gm Q8 PO Last administered on 07/02/17 13:41; Admin Dose 20 GM; Start 06/29/17 at 22:00 Pantoprazole (Protonix Tab) 40 mg DAILY@06 PO Last administered on 07/02/17 04:57; Admin Dose 40 MG; Start 06/30/17 at 06:00 Propranolol HCl (Inderal) 10 mg BID PO Last administered on 07/02/17 09:33; Admin Dose 10 MG; Start 06/29/17 at 21:00 Rifaximin (Xifaxan) 550 mg BID PO Last administered on 07/02/17 09:00; Admin Dose 550 MG; Start 06/29/17 at 21:00 Spironolactone (Aldactone) 100 mg DAILY PO Last administered on 07/02/17 08: 59; Admin Dose 100 MG; Start 06/30/17 at 09:00 SUSAN GARCIAS MD Jul 02, 2017 18:42
[2017-07-02 19:51] VITALS: BP 118/98; RESP 18
[2017-07-03 02:00] VITALS: BP 128/78; RESP 18
[2017-07-03] MEDS: morphine 2 MG INJ IV PRN ×4 (02:46→19:01)
[2017-07-03] MEDS: ONDANSETRON 4 MG INJ IV PRN ×5 (02:47→22:52)
[2017-07-03] MEDS: PANTOPRAZOLE (EC) 40 MG TAB PO SCH (05:15)
[2017-07-03] MEDS: LACTULOSE 30ML CUP PO SCH ×3 (05:15→21:10)
[2017-07-03 06:31] LABS: BASOPHIL # 0.1 10^3/ul (0.0-0.1); BASOPHILS % 0.8 % (0.0-2.0); EOSINOPHILS # 0.1 10^3/ul (0.0-0.5); EOSINOPHILS % 1.9 % (0.0-7.0); HEMATOCRIT 30.4 % (37.0-47.0); HEMOGLOBIN 10.3 g/dl (12.0-16.0); LYMPHOCYTES # 1.7 10^3/ul (0.8-2.9); MEAN CORPUSCULAR HEMOGLOBIN 32.6 pg (29.0-33.0); MEAN CORPUSCULAR HGB CONC 33.9 g/dl (32.0-37.0); MEAN CORPUSCULAR VOLUME 96.2 fl (82.0-101.0); MEAN PLATELET VOLUME 10.7 fl (7.4-10.4); MONOCYTE # 0.8 10^3/ul (0.3-0.9); MONOCYTES % 11.6 % (0.0-11.0); NEUTROPHIL # 3.8 10^3/ul (1.6-7.5); NEUTROPHILS % 58.1 % (39.0-77.0); PLATELET COUNT 185 10^3/UL (140-415); RED BLOOD COUNT 3.16 10^6/ul (4.20-5.40); RED CELL DISTRIBUTION WIDTH 18.2 % (11.5-14.5); WHITE BLOOD COUNT 6.5 10^3/ul (4.8-10.8)
[2017-07-03 06:59] LABS: ALBUMIN 2.3 g/dl (3.3-4.9); ALBUMIN/GLOBULIN RATIO 0.48; BILIRUBIN,DIRECT 12.9 mg/dl (0.00-0.20); BILIRUBIN,INDIRECT 2.6 mg/dl (0-1.1); BILIRUBIN,TOTAL 15.5 mg/dl (0.2-1.3); CALCIUM 8.9 mg/dl (8.4-10.2); CREATININE 1.08 mg/dl (0.44-1.00); POTASSIUM 3.8 mmol/L (3.5-5.1)
[2017-07-03 08:06] VITALS: BP 130/86; RESP 16
[2017-07-03] MEDS: SPIRONOLACTONE 50 MG TAB PO SCH (08:36)
[2017-07-03] MEDS: PROPRANOLOL 20 MG TAB PO SCH ×2 (08:36→21:10)
[2017-07-03] MEDS: RIFAXIMIN 550 MG TAB PO SCH ×2 (08:36→21:10)
--- NOTE | 2017-07-03 10:49 | PN ---
Date/Time of Note Date/Time of Note DATE: 07/03/17 TIME: 10:48 Assessment/Plan VTE Prophylaxis VTE Prophylaxis Intervention: other Lines/Catheters [facility] Saline Lock Assessment/Plan Chief Complaint/Hosp Course - Alcoholic liver disease. Dr. Gonzalez is to see pt in gastroenterology consultation. Continue propranolol and Aldactone. - Hepatic encephalopathy, Monitor ammonia level. - Possible chronic pancreatitis with pseudocyst formation per CT - Possible ileus per CT - Nonischemic cardiomyopathy. - Anemia, will obtain stool for OB, transfuse as needed, need to monitor hemoglobin and hematocrit. - Hx of GI bleed - History of alcohol abuse. - History of amphetamine - Morbid obesity. Problems: Subjective 24 Hr Interval Summary Free Text/Dictation Patient complain of abdominal pain Exam/Review of Systems Vital Signs Vitals Vital Signs Date Time Temp Pulse Resp B/P Pulse Ox O2 Delivery O2 Flow Rate FiO2 07/03/17 08:06 97.4 69 16 130/86 100 07/02/17 15:22 Room Air Intake and Output 07/02/17 07/02/17 07/03/17 15:00 23:00 07:00 Intake Total 1400 ml 1950 ml Balance 1400 ml 1950 ml Exam Constitutional: well developed Head: atraumatic, normocephalic Neck: supple Respiratory: clear to auscultation Cardiovascular: regular rate and rhythm Gastrointestinal: non-tender, soft Extremities: normal pulses Results Result Diagram: 07/03/17 0504 07/03/17 0504 Results 24 hrs Laboratory Tests Test 07/03/17 05:04 White Blood Count 6.5 Red Blood Count 3.16 L Hemoglobin 10.3 L Hematocrit 30.4 L Mean Corpuscular Volume 96.2 Mean Corpuscular Hemoglobin 32.6 Mean Corpuscular Hemoglobin Concent 33.9 Red Cell Distribution Width 18.2 H Platelet Count 185 Mean Platelet Volume 10.7 H Neutrophils % 58.1 Lymphocytes % 27.0 Monocytes % 11.6 H Eosinophils % 1.9 Basophils % 0.8 Nucleated Red Blood Cells % 0.0 Neutrophils # 3.8 Lymphocytes # 1.7 Monocytes # 0.8 Eosinophils # 0.1 Basophils # 0.1 Nucleated Red Blood Cells # 0.0 Sodium Level 131 L Potassium Level 3.8 Chloride Level 113 H Carbon Dioxide Level 18 L Anion Gap 4 L Blood Urea Nitrogen 4 L Creatinine 1.08 H Glucose Level 135 Calcium Level 8.9 Total Bilirubin 15.5 H Direct Bilirubin 12.90 H Indirect Bilirubin 2.6 H Aspartate Amino Transf (AST/SGOT) 94 H Alanine Aminotransferase (ALT/SGPT) 47 Alkaline Phosphatase 193 H Ammonia 172 H Total Protein 7.0 Albumin 2.3 L Globulin 4.70 H Albumin/Globulin Ratio 0.48 Medications Medications Current Medications Morphine Sulfate (morphine) 2 mg Q4H PRN IV PAIN Last administered on 07:07; Admin Dose 2 MG; Start 06/29/17 at 17:00 Ondansetron HCl (Zofran Inj) 4 mg Q4H PRN IV NAUSEA AND/OR VOMITING Last administered on 07/03/17 07:07; Admin Dose 4 MG; Start 06/29/17 at 17:00 Lactulose (Enulose) 20 gm Q8 PO Last administered on 07/03/17 05:15; Admin Dose 20 GM; Start 06/29/17 at 22:00 Pantoprazole (Protonix Tab) 40 mg DAILY@06 PO Last administered on 07/03/17 05:15; Admin Dose 40 MG; Start 06/30/17 at 06:00 Propranolol HCl (Inderal) 10 mg BID PO Last administered on 07/03/17 08:36; Admin Dose 10 MG; Start 06/29/17 at 21:00 Rifaximin (Xifaxan) 550 mg BID PO Last administered on 07/03/17 08:36; Admin Dose 550 MG; Start 06/29/17 at 21:00 Spironolactone (Aldactone) 100 mg DAILY PO Last administered on 07/03/17 08: 36; Admin Dose 100 MG; Start 06/30/17 at 09:00 SYMONE JOHNSON Jul 03, 2017 10:49
[2017-07-03 14:30] VITALS: BP 141/95; RESP 16
[2017-07-03 20:00] VITALS: BP 122/73; PULSE 78; RESP 18
[2017-07-04 02:00] VITALS: BP 151/92; PULSE 78; RESP 18
[2017-07-04] MEDS: ONDANSETRON 4 MG INJ IV PRN ×4 (04:29→20:43)
[2017-07-04] MEDS: morphine 2 MG INJ IV PRN ×4 (04:30→20:44)
[2017-07-04] MEDS: LACTULOSE 30ML CUP PO SCH ×3 (05:58→22:57)
[2017-07-04] MEDS: PANTOPRAZOLE (EC) 40 MG TAB PO SCH (05:58)
[2017-07-04 08:26] VITALS: BP 139/94; RESP 18
[2017-07-04] MEDS: SPIRONOLACTONE 50 MG TAB PO SCH (09:00)
[2017-07-04] MEDS: RIFAXIMIN 550 MG TAB PO SCH ×2 (09:00→20:43)
[2017-07-04] MEDS: PROPRANOLOL 20 MG TAB PO SCH ×2 (09:00→20:43)
--- NOTE | 2017-07-04 11:52 | PN ---
Date/Time of Note Date/Time of Note DATE: 07/04/17 TIME: 11:52 Assessment/Plan VTE Prophylaxis VTE Prophylaxis Intervention: other Lines/Catheters IV [facility] Saline Lock Assessment/Plan Chief Complaint/Hosp Course - Alcoholic liver disease. Dr. Gonzalez is to see pt in gastroenterology consultation. Continue propranolol and Aldactone. - Hepatic encephalopathy, Monitor ammonia level. - Possible chronic pancreatitis with pseudocyst formation per CT - Possible ileus per CT - Nonischemic cardiomyopathy. - Anemia, will obtain stool for OB, transfuse as needed, need to monitor hemoglobin and hematocrit. - Hx of GI bleed - History of alcohol abuse. - History of amphetamine - Morbid obesity. Problems: Subjective 24 Hr Interval Summary Free Text/Dictation Patient has no complaints Exam/Review of Systems Vital Signs Vitals Vital Signs Date Time Temp Pulse Resp B/P Pulse Ox O2 Delivery O2 Flow Rate FiO2 07/04/17 08:26 98.2 71 18 139/94 100 07/04/17 02:00 Room Air Intake and Output 07/03/17 07/03/17 07/04/17 14:59 22:59 06:59 Intake Total 1320 ml 550 ml Output Total 100 ml Balance 1220 ml 550 ml Exam Constitutional: well developed Head: atraumatic, normocephalic Neck: supple Respiratory: clear to auscultation Cardiovascular: regular rate and rhythm Gastrointestinal: non-tender, soft Extremities: normal pulses Results Result Diagram: 07/03/17 0504 07/03/17 0504 Medications Medications Current Medications Morphine Sulfate (morphine) 2 mg Q4H PRN IV PAIN Last administered on 11:10; Admin Dose 2 MG; Start 06/29/17 at 17:00 Ondansetron HCl (Zofran Inj) 4 mg Q4H PRN IV NAUSEA AND/OR VOMITING Last administered on 07/04/17 11:10; Admin Dose 4 MG; Start 06/29/17 at 17:00 Lactulose (Enulose) 20 gm Q8 PO Last administered on 07/04/17 05:58; Admin Dose 20 GM; Start 06/29/17 at 22:00 Pantoprazole (Protonix Tab) 40 mg DAILY@06 PO Last administered on 07/04/17 05:58; Admin Dose 40 MG; Start 06/30/17 at 06:00 Propranolol HCl (Inderal) 10 mg BID PO Last administered on 07/04/17 09:00; Admin Dose 10 MG; Start 06/29/17 at 21:00 Rifaximin (Xifaxan) 550 mg BID PO Last administered on 07/04/17 09:00; Admin Dose 550 MG; Start 06/29/17 at 21:00 Spironolactone (Aldactone) 100 mg DAILY PO Last administered on 07/04/17 09: 00; Admin Dose 100 MG; Start 06/30/17 at 09:00 SYMONE JOHNSON Jul 04, 2017 11:52
[2017-07-04 15:12] VITALS: BP 136/93; RESP 18
[2017-07-04 19:37] VITALS: BP 136/92; RESP 20
[2017-07-05 01:43] VITALS: BP 113/70; RESP 20
[2017-07-05] MEDS: ONDANSETRON 4 MG INJ IV PRN ×4 (03:52→19:38)
[2017-07-05] MEDS: morphine 2 MG INJ IV PRN ×4 (03:53→19:38)
[2017-07-05] MEDS: PANTOPRAZOLE (EC) 40 MG TAB PO SCH (05:40)
[2017-07-05] MEDS: LACTULOSE 30ML CUP PO SCH ×3 (05:40→20:26)
[2017-07-05 05:57] LABS: BASOPHILS % 0.6 % (0.0-2.0); EOSINOPHILS # 0.1 10^3/ul (0.0-0.5); EOSINOPHILS % 1.2 % (0.0-7.0); HEMATOCRIT 29.8 % (37.0-47.0); LYMPHOCYTES # 1.5 10^3/ul (0.8-2.9); MEAN CORPUSCULAR HEMOGLOBIN 31.8 pg (29.0-33.0); MEAN CORPUSCULAR HGB CONC 33.6 g/dl (32.0-37.0); MEAN CORPUSCULAR VOLUME 94.9 fl (82.0-101.0); MEAN PLATELET VOLUME 10.8 fl (7.4-10.4); MONOCYTE # 0.9 10^3/ul (0.3-0.9); MONOCYTES % 13.8 % (0.0-11.0); NEUTROPHIL # 4.2 10^3/ul (1.6-7.5); NEUTROPHILS % 61.5 % (39.0-77.0); PLATELET COUNT 151 10^3/UL (140-415); RED BLOOD COUNT 3.14 10^6/ul (4.20-5.40); RED CELL DISTRIBUTION WIDTH 17.1 % (11.5-14.5); WHITE BLOOD COUNT 6.8 10^3/ul (4.8-10.8)
[2017-07-05 07:41] VITALS: BP 136/92; RESP 18
[2017-07-05] MEDS: SPIRONOLACTONE 50 MG TAB PO SCH (08:37)
[2017-07-05] MEDS: RIFAXIMIN 550 MG TAB PO SCH ×2 (08:37→20:26)
[2017-07-05] MEDS: PROPRANOLOL 20 MG TAB PO SCH ×2 (08:38→20:27)
[2017-07-05 14:08] VITALS: BP 140/93; RESP 18
--- NOTE | 2017-07-05 18:16 | PN ---
Date/Time of Note Date/Time of Note DATE: 07/05/17 TIME: 18:14 Assessment/Plan VTE Prophylaxis VTE Prophylaxis Intervention: SCD's Lines/Catheters IV [facility]from [facility] Saline Lock Assessment/Plan Chief Complaint/Hosp Course Pt had emesis with progression to regular diet, continue clear liquid diet. Assessment/Plan - Alcoholic liver disease. Dr. Gonzalez is to see pt in gastroenterology consultation. Continue propranolol and Aldactone. - Hepatic encephalopathy, continue lactulose and rifaximin, monitor ammonia level. - Possible chronic pancreatitis with pseudocyst formation per CT - Possible ileus per CT - Nonischemic cardiomyopathy. - Anemia, will obtain stool for OB, transfuse as needed, need to monitor hemoglobin and hematocrit. - Hx of GI bleed - History of alcohol abuse. - History of amphetamine - Morbid obesity. Further recommendations based on clinical course. Plan of care discussed with Dr. Dawson. Problems: Exam/Review of Systems Vital Signs Vitals Vital Signs Date Time Temp Pulse Resp B/P Pulse Ox O2 Delivery O2 Flow Rate FiO2 07/05/17 14:08 97.8 76 18 140/93 98 07/04/17 02:00 Room Air Intake and Output 07/04/17 07/04/17 07/05/17 15:00 23:00 07:00 Intake Total 1440 ml 700 ml Balance 1440 ml 700 ml Exam Constitutional: alert, oriented, other (jaundiced) Respiratory: normal air movement Cardiovascular: nl pulses Gastrointestinal: distended, hepatomegaly, soft, tender Extremities: normal pulses Neurological: 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 Results Result Diagram: 07/05/17 0521 07/03/17 0504 Results 24 hrs Laboratory Tests Test 07/05/17 05:21 White Blood Count 6.8 Red Blood Count 3.14 L Hemoglobin 10.0 L Hematocrit 29.8 L Mean Corpuscular Volume 94.9 Mean Corpuscular Hemoglobin 31.8 Mean Corpuscular Hemoglobin Concent 33.6 Red Cell Distribution Width 17.1 H Platelet Count 151 Mean Platelet Volume 10.8 H Neutrophils % 61.5 Lymphocytes % 22.0 Monocytes % 13.8 H Eosinophils % 1.2 Basophils % 0.6 Nucleated Red Blood Cells % 0.0 Neutrophils # 4.2 Lymphocytes # 1.5 Monocytes # 0.9 Eosinophils # 0.1 Basophils # 0.0 Nucleated Red Blood Cells # 0.0 Medications Medications Current Medications Morphine Sulfate (morphine) 2 mg Q4H PRN IV PAIN Last administered on 15:22; Admin Dose 2 MG; Start 06/29/17 at 17:00 Ondansetron HCl (Zofran Inj) 4 mg Q4H PRN IV NAUSEA AND/OR VOMITING Last administered on 07/05/17 15:22; Admin Dose 4 MG; Start 06/29/17 at 17:00 Lactulose (Enulose) 20 gm Q8 PO Last administered on 07/05/17 13:49; Admin Dose 20 GM; Start 06/29/17 at 22:00 Pantoprazole (Protonix Tab) 40 mg DAILY@06 PO Last administered on 07/05/17 05:40; Admin Dose 40 MG; Start 06/30/17 at 06:00 Propranolol HCl (Inderal) 10 mg BID PO Last administered on 07/05/17 08:38; Admin Dose 10 MG; Start 06/29/17 at 21:00 Rifaximin (Xifaxan) 550 mg BID PO Last administered on 07/05/17 08:37; Admin Dose 550 MG; Start 06/29/17 at 21:00 Spironolactone (Aldactone) 100 mg DAILY PO Last administered on 07/05/17 08: 37; Admin Dose 100 MG; Start 06/30/17 at 09:00 KORIN FORBES Jul 05, 2017 18:16
[2017-07-05 20:16] VITALS: BP 137/84; RESP 18
[2017-07-06] MEDS: ONDANSETRON 4 MG INJ IV PRN ×4 (00:20→21:41)
[2017-07-06] MEDS: morphine 2 MG INJ IV PRN ×4 (00:21→21:41)
[2017-07-06 02:33] VITALS: BP 128/73; RESP 18
[2017-07-06 05:39] LABS: BASOPHILS % 0.6 % (0.0-2.0); EOSINOPHILS # 0.1 10^3/ul (0.0-0.5); EOSINOPHILS % 1.4 % (0.0-7.0); HEMATOCRIT 29.4 % (37.0-47.0); LYMPHOCYTES # 1.7 10^3/ul (0.8-2.9); LYMPHOCYTES % 23.2 % (15.0-51.0); MEAN CORPUSCULAR HEMOGLOBIN 32.3 pg (29.0-33.0); MEAN CORPUSCULAR VOLUME 94.8 fl (82.0-101.0); MEAN PLATELET VOLUME 10.9 fl (7.4-10.4); MONOCYTE # 0.9 10^3/ul (0.3-0.9); MONOCYTES % 12.1 % (0.0-11.0); NEUTROPHIL # 4.5 10^3/ul (1.6-7.5); NEUTROPHILS % 61.9 % (39.0-77.0); PLATELET COUNT 152 10^3/UL (140-415); RED CELL DISTRIBUTION WIDTH 17.4 % (11.5-14.5); WHITE BLOOD COUNT 7.2 10^3/ul (4.8-10.8)
[2017-07-06] MEDS: LACTULOSE 30ML CUP PO SCH ×3 (05:44→20:19)
[2017-07-06] MEDS: PANTOPRAZOLE (EC) 40 MG TAB PO SCH (05:44)
[2017-07-06 06:42] LABS: CALCIUM 8.9 mg/dl (8.4-10.2); CREATININE 0.92 mg/dl (0.44-1.00); POTASSIUM 3.5 mmol/L (3.5-5.1)
[2017-07-06 07:36] VITALS: BP 136/99; RESP 18
[2017-07-06] MEDS: SPIRONOLACTONE 50 MG TAB PO SCH (08:23)
[2017-07-06] MEDS: PROPRANOLOL 20 MG TAB PO SCH ×2 (08:24→20:20)
[2017-07-06] MEDS: RIFAXIMIN 550 MG TAB PO SCH ×2 (08:24→20:19)
[2017-07-06 14:42] VITALS: BP 123/73; RESP 18
--- NOTE | 2017-07-06 15:10 | PN ---
Date/Time of Note Date/Time of Note DATE: 07/06/17 TIME: 15:05 Assessment/Plan VTE Prophylaxis VTE Prophylaxis Intervention: SCD's Lines/Catheters IV [facility] Type (from [facility]): Saline Lock Urinary Cath still in place: No Assessment/Plan Chief Complaint/Hosp Course Pt lanes of intermittent intermittent confusion, however verbalizes that she should take less pain medication, will advance diet as patient tolerates continue get out of bed. Assessment/Plan - Alcoholic liver disease. Dr. Gonzalez is to see pt in gastroenterology consultation. Continue propranolol and Aldactone. - Hepatic encephalopathy, continue lactulose and rifaximin, monitor ammonia level. - Possible chronic pancreatitis with pseudocyst formation per CT - Possible ileus per CT - Nonischemic cardiomyopathy. - Anemia, will obtain stool for OB, transfuse as needed, need to monitor hemoglobin and hematocrit. - Hx of GI bleed - History of alcohol abuse. - History of amphetamine - Morbid obesity. Further recommendations based on clinical course. Plan of care discussed with Dr. Dawson. Problems: Exam/Review of Systems Vital Signs Vitals Vital Signs Date Time Temp Pulse Resp B/P Pulse Ox O2 Delivery O2 Flow Rate FiO2 07/06/17 14:42 98.3 60 18 123/73 91 07/04/17 02:00 Room Air Intake and Output 07/05/17 07/05/17 07/06/17 15:00 23:00 07:00 Intake Total 780 ml Balance 780 ml Exam Constitutional: alert, oriented, other (jaundiced) Respiratory: normal air movement Cardiovascular: nl pulses Gastrointestinal: distended, hepatomegaly, soft, tender Extremities: normal pulses Neurological: 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 Results Result Diagram: 07/06/17 0510 07/06/17 0510 Results 24 hrs Laboratory Tests Test 07/06/17 05:10 07/06/17 10:14 White Blood Count 7.2 Red Blood Count 3.10 L Hemoglobin 10.0 L Hematocrit 29.4 L Mean Corpuscular Volume 94.8 Mean Corpuscular Hemoglobin 32.3 Mean Corpuscular Hemoglobin Concent 34.0 Red Cell Distribution Width 17.4 H Platelet Count 152 Mean Platelet Volume 10.9 H Neutrophils % 61.9 Lymphocytes % 23.2 Monocytes % 12.1 H Eosinophils % 1.4 Basophils % 0.6 Nucleated Red Blood Cells % 0.0 Neutrophils # 4.5 Lymphocytes # 1.7 Monocytes # 0.9 Eosinophils # 0.1 Basophils # 0.0 Nucleated Red Blood Cells # 0.0 Sodium Level 137 Potassium Level 3.5 Chloride Level 112 H Carbon Dioxide Level 18 L Anion Gap 11 Blood Urea Nitrogen 5 L Creatinine 0.92 Glucose Level 188 Calcium Level 8.9 Lab Scanned Report REFERENCE LAB Medications Medications Current Medications Morphine Sulfate (morphine) 2 mg Q4H PRN IV PAIN Last administered on 11:36; Admin Dose 2 MG; Start 06/29/17 at 17:00 Ondansetron HCl (Zofran Inj) 4 mg Q4H PRN IV NAUSEA AND/OR VOMITING Last administered on 07/06/17 11:31; Admin Dose 4 MG; Start 06/29/17 at 17:00 Pantoprazole (Protonix Tab) 40 mg DAILY@06 PO Last administered on 07/06/17 05:44; Admin Dose 40 MG; Start 06/30/17 at 06:00 Propranolol HCl (Inderal) 10 mg BID PO Last administered on 07/06/17 08:24; Admin Dose 10 MG; Start 06/29/17 at 21:00 Rifaximin (Xifaxan) 550 mg BID PO Last administered on 07/06/17 08:24; Admin Dose 550 MG; Start 06/29/17 at 21:00 Spironolactone (Aldactone) 100 mg DAILY PO Last administered on 07/06/17 08: 23; Admin Dose 100 MG; Start 06/30/17 at 09:00 Lactulose (Enulose) 20 gm 08,12,20 PO ; Start 07/06/17 at 20:00 KORIN FORBES Jul 06, 2017 15:10
--- NOTE | 2017-07-06 18:32 | CONS ---
Date/Time of Note Date/Time of Note DATE: 07/06/17 TIME: 18:26 Assessment/Plan Assessment/Plan Additional Assessment/Plan Additional Assessment/Plan IMPRESSION: 1. Alcoholic liver disease, most probably fatty liver. 2. Cyst in the tail of the pancreas, probably a pseudocyst 3. Anemia. 4. Mild coagulopathy 5. Hepatitic encephalopathy. Clinically better PLAN: To continue with lactulose and rifaximin. Avoid sedatives and narcotics Patient may be started on prednisolone Patient hepatitis discriminant score is 62 and this is an indication for prednisolone treatment 40 mg once a day Consultation Date/Type/Reason Admit Date/Time Jun 29, 2017 at 12:53 24 HR Interval Summary Constitutional: improved Exam/Review of Systems Vital Signs Vitals Vital Signs Date Time Temp Pulse Resp B/P Pulse Ox O2 Delivery O2 Flow Rate FiO2 07/06/17 14:42 98.3 60 18 123/73 91 07/04/17 02:00 Room Air Intake and Output 07/05/17 07/05/17 07/06/17 15:00 23:00 07:00 Intake Total 780 ml Balance 780 ml Exam Constitutional: alert, oriented, well developed Psych: nl mood/affect, no complaints Head: atraumatic, normocephalic Eyes: EOMI, PERRL, nl conjunctiva, nl lids, nl sclera ENMT: nl external ears & nose, nl lips & teeth, nl nasal mucosa & septum Neck: non-tender, supple Respiratory: clear to auscultation, normal air movement Cardiovascular: nl pulses, regular rate and rhythm Gastrointestinal: nl liver, spleen, non-tender, soft Musculoskeletal: nl extremities to inspection, nl gait and stance Extremities: normal pulses 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, 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, nl speech, nl strength Skin: nl turgor, No rash or lesions Lymph: nl lymph nodes Results Result Diagram: 07/06/17 0510 07/06/17 0510 Results 24 hrs Laboratory Tests Test 07/06/17 05:10 07/06/17 10:14 White Blood Count 7.2 Red Blood Count 3.10 L Hemoglobin 10.0 L Hematocrit 29.4 L Mean Corpuscular Volume 94.8 Mean Corpuscular Hemoglobin 32.3 Mean Corpuscular Hemoglobin Concent 34.0 Red Cell Distribution Width 17.4 H Platelet Count 152 Mean Platelet Volume 10.9 H Neutrophils % 61.9 Lymphocytes % 23.2 Monocytes % 12.1 H Eosinophils % 1.4 Basophils % 0.6 Nucleated Red Blood Cells % 0.0 Neutrophils # 4.5 Lymphocytes # 1.7 Monocytes # 0.9 Eosinophils # 0.1 Basophils # 0.0 Nucleated Red Blood Cells # 0.0 Sodium Level 137 Potassium Level 3.5 Chloride Level 112 H Carbon Dioxide Level 18 L Anion Gap 11 Blood Urea Nitrogen 5 L Creatinine 0.92 Glucose Level 188 Calcium Level 8.9 Lab Scanned Report REFERENCE LAB Medications Medications Current Medications Morphine Sulfate (morphine) 2 mg Q4H PRN IV PAIN Last administered on 11:36; Admin Dose 2 MG; Start 06/29/17 at 17:00 Ondansetron HCl (Zofran Inj) 4 mg Q4H PRN IV NAUSEA AND/OR VOMITING Last administered on 07/06/17 11:31; Admin Dose 4 MG; Start 06/29/17 at 17:00 Pantoprazole (Protonix Tab) 40 mg DAILY@06 PO Last administered on 07/06/17 05:44; Admin Dose 40 MG; Start 06/30/17 at 06:00 Propranolol HCl (Inderal) 10 mg BID PO Last administered on 07/06/17 08:24; Admin Dose 10 MG; Start 06/29/17 at 21:00 Rifaximin (Xifaxan) 550 mg BID PO Last administered on 07/06/17 08:24; Admin Dose 550 MG; Start 06/29/17 at 21:00 Spironolactone (Aldactone) 100 mg DAILY PO Last administered on 07/06/17 08: 23; Admin Dose 100 MG; Start 06/30/17 at 09:00 Lactulose (Enulose) 20 gm 08,12,20 PO ; Start 07/06/17 at 20:00 SUSAN GARCIAS MD Jul 06, 2017 18:32
[2017-07-06] MEDS ORDERED: predniSOLONE (3 MG/ML) CUP PO SCH (19:30)
[2017-07-06 20:16] VITALS: BP 133/77; RESP 18
[2017-07-06] MEDS ORDERED: predniSOLONE (3 MG/ML PO SYG) PO SCH (20:30)
[2017-07-06] MEDS: predniSOLONE (3 MG/ML PO SYG) PO SCH (22:27)
[2017-07-07 02:00] VITALS: BP 120/73; RESP 20
[2017-07-07] MEDS: PANTOPRAZOLE (EC) 40 MG TAB PO SCH (05:11)
[2017-07-07] MEDS: ONDANSETRON 4 MG INJ IV PRN (05:13)
[2017-07-07] MEDS: morphine 2 MG INJ IV PRN ×2 (05:13→23:29)
[2017-07-07 06:37] LABS: CALCIUM 8.8 mg/dl (8.4-10.2); CREATININE 0.89 mg/dl (0.44-1.00); POTASSIUM 3.8 mmol/L (3.5-5.1)
[2017-07-07 07:53] VITALS: BP 124/72; RESP 16
[2017-07-07] MEDS: RIFAXIMIN 550 MG TAB PO SCH ×2 (09:16→21:13)
[2017-07-07] MEDS: LACTULOSE 30ML CUP PO SCH ×3 (09:16→21:13)
[2017-07-07] MEDS: SPIRONOLACTONE 50 MG TAB PO SCH (09:16)
[2017-07-07] MEDS: PROPRANOLOL 20 MG TAB PO SCH ×2 (09:19→21:14)
[2017-07-07] MEDS: predniSOLONE (3 MG/ML PO SYG) PO SCH (12:53)
[2017-07-07 14:38] VITALS: BP 145/92; RESP 16
--- NOTE | 2017-07-07 17:09 | PN ---
Date/Time of Note Date/Time of Note DATE: 07/07/17 TIME: 17:05 Assessment/Plan VTE Prophylaxis VTE Prophylaxis Intervention: SCD's Lines/Catheters IV Catheter Type (from [facility]): Saline Lock Urinary Cath still in place: No Assessment/Plan Chief Complaint/Hosp Course Patient tolerates diet well, continue current care, continue physical therapy Assessment/Plan - Alcoholic liver disease. Dr. Gonzalez is to see pt in gastroenterology consultation. Continue propranolol and Aldactone. - Hepatic encephalopathy, continue lactulose and rifaximin, monitor ammonia level. - Possible chronic pancreatitis with pseudocyst formation per CT - Possible ileus per CT - Nonischemic cardiomyopathy. - Anemia, will obtain stool for OB, transfuse as needed, need to monitor hemoglobin and hematocrit. - Hx of GI bleed - History of alcohol abuse. - History of amphetamine - Morbid obesity. Further recommendations based on clinical course. Plan of care discussed with Dr. Dawson. Problems: Exam/Review of Systems Vital Signs Vitals Vital Signs Date Time Temp Pulse Resp B/P Pulse Ox O2 Delivery O2 Flow Rate FiO2 07/07/17 14:38 98.1 75 16 145/92 98 07/04/17 02:00 Room Air Intake and Output 07/06/17 07/06/17 07/07/17 15:00 23:00 07:00 Intake Total 1120 ml 1300 ml Output Total 800 ml 950 ml Balance 320 ml 350 ml Exam Constitutional: alert, oriented, other (jaundiced) Respiratory: normal air movement Cardiovascular: nl pulses Gastrointestinal: distended, hepatomegaly, soft, tender Extremities: normal pulses Neurological: 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 Results Result Diagram: 07/06/17 0510 07/07/17 0524 Results 24 hrs Laboratory Tests Test 07/07/17 05:24 Sodium Level 138 Potassium Level 3.8 Chloride Level 111 H Carbon Dioxide Level 16 L Anion Gap 15 Blood Urea Nitrogen 4 L Creatinine 0.89 Glucose Level 268 H Calcium Level 8.8 Medications Medications Current Medications Morphine Sulfate (morphine) 2 mg Q4H PRN IV PAIN Last administered on 05:13; Admin Dose 2 MG; Start 06/29/17 at 17:00 Ondansetron HCl (Zofran Inj) 4 mg Q4H PRN IV NAUSEA AND/OR VOMITING Last administered on 07/07/17 05:13; Admin Dose 4 MG; Start 06/29/17 at 17:00 Pantoprazole (Protonix Tab) 40 mg DAILY@06 PO Last administered on 07/07/17 05:11; Admin Dose 40 MG; Start 06/30/17 at 06:00 Propranolol HCl (Inderal) 10 mg BID PO Last administered on 07/07/17 09:19; Admin Dose 10 MG; Start 06/29/17 at 21:00 Rifaximin (Xifaxan) 550 mg BID PO Last administered on 07/07/17 09:16; Admin Dose 550 MG; Start 06/29/17 at 21:00 Spironolactone (Aldactone) 100 mg DAILY PO Last administered on 07/07/17 09: 16; Admin Dose 100 MG; Start 06/30/17 at 09:00 Lactulose (Enulose) 20 gm 08,12,20 PO Last administered on 07/07/17 12:53; Admin Dose 20 GM; Start 07/06/17 at 20:00 Prednisolone (Prelone (Ped)) 40 mg DAILY PO Last administered on 07/07/17 12: 53; Admin Dose 40 MG; Start 07/06/17 at 20:30 KORIN FORBES Jul 07, 2017 17:09
--- NOTE | 2017-07-07 18:00 | CONS ---
Date/Time of Note Date/Time of Note DATE: 07/07/17 TIME: 17:59 Assessment/Plan Assessment/Plan Additional Assessment/Plan 1. Alcoholic liver disease, most probably fatty liver. 2. Cyst in the tail of the pancreas, probably a pseudocyst 3. Anemia. 4. Mild coagulopathy 5. Hepatitic encephalopathy. Clinically better PLAN: To continue with lactulose and rifaximin. Avoid sedatives and narcotics Patient may be started on prednisolone Patient hepatitis discriminant score is 62 and this is an indication for prednisolone treatment 40 mg once a day Monitor total bilirubin periodically Consultation Date/Type/Reason Admit Date/Time Jun 29, 2017 at 12:53 24 HR Interval Summary Constitutional: improved, no complaints Exam/Review of Systems Vital Signs Vitals Vital Signs Date Time Temp Pulse Resp B/P Pulse Ox O2 Delivery O2 Flow Rate FiO2 07/07/17 14:38 98.1 75 16 145/92 98 07/04/17 02:00 Room Air Intake and Output 07/06/17 07/06/17 07/07/17 15:00 23:00 07:00 Intake Total 1120 ml 1300 ml Output Total 800 ml 950 ml Balance 320 ml 350 ml Exam Constitutional: alert, oriented, well developed Psych: nl mood/affect, no complaints Head: atraumatic, normocephalic Eyes: EOMI, PERRL, nl conjunctiva, nl lids, nl sclera ENMT: nl external ears & nose, nl lips & teeth, nl nasal mucosa & septum Neck: non-tender, supple Respiratory: clear to auscultation, normal air movement Cardiovascular: nl pulses, regular rate and rhythm Gastrointestinal: nl liver, spleen, non-tender, soft Musculoskeletal: nl extremities to inspection, nl gait and stance Extremities: normal pulses 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, 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, nl speech, nl strength Skin: nl turgor, No rash or lesions Lymph: nl lymph nodes Results Result Diagram: 07/06/17 0510 07/07/17 0524 Results 24 hrs Laboratory Tests Test 07/07/17 05:24 Sodium Level 138 Potassium Level 3.8 Chloride Level 111 H Carbon Dioxide Level 16 L Anion Gap 15 Blood Urea Nitrogen 4 L Creatinine 0.89 Glucose Level 268 H Calcium Level 8.8 Medications Medications Current Medications Morphine Sulfate (morphine) 2 mg Q4H PRN IV PAIN Last administered on 05:13; Admin Dose 2 MG; Start 06/29/17 at 17:00 Ondansetron HCl (Zofran Inj) 4 mg Q4H PRN IV NAUSEA AND/OR VOMITING Last administered on 07/07/17 05:13; Admin Dose 4 MG; Start 06/29/17 at 17:00 Pantoprazole (Protonix Tab) 40 mg DAILY@06 PO Last administered on 07/07/17 05:11; Admin Dose 40 MG; Start 06/30/17 at 06:00 Propranolol HCl (Inderal) 10 mg BID PO Last administered on 07/07/17 09:19; Admin Dose 10 MG; Start 06/29/17 at 21:00 Rifaximin (Xifaxan) 550 mg BID PO Last administered on 07/07/17 09:16; Admin Dose 550 MG; Start 06/29/17 at 21:00 Spironolactone (Aldactone) 100 mg DAILY PO Last administered on 07/07/17 09: 16; Admin Dose 100 MG; Start 06/30/17 at 09:00 Lactulose (Enulose) 20 gm 08,12,20 PO Last administered on 07/07/17 12:53; Admin Dose 20 GM; Start 07/06/17 at 20:00 Prednisolone (Prelone (Ped)) 40 mg DAILY PO Last administered on 07/07/17 12: 53; Admin Dose 40 MG; Start 07/06/17 at 20:30 SUSAN GARCIAS MD Jul 07, 2017 18:00
[2017-07-07 19:49] VITALS: BP 140/92; RESP 20
[2017-07-07 21:30] VITALS: BP 158/91; PULSE 84
[2017-07-08] VITALS (8 sets, daily range): BP systolic 114–132; BP diastolic 70–85; PULSE 82–96; RESP 18–19
[2017-07-08] MEDS ORDERED: LORAZEPAM 2 MG INJ IV ONE (04:30)
[2017-07-08] MEDS: PANTOPRAZOLE (EC) 40 MG TAB PO SCH (06:00)
[2017-07-08] MEDS: morphine 2 MG INJ IV PRN (09:07)
[2017-07-08] MEDS: LACTULOSE 30ML CUP PO SCH ×5 (09:30→21:22)
[2017-07-08] MEDS: RIFAXIMIN 550 MG TAB PO SCH ×2 (09:31→21:22)
[2017-07-08] MEDS: PROPRANOLOL 20 MG TAB PO SCH ×2 (09:32→21:23)
[2017-07-08] MEDS: SPIRONOLACTONE 50 MG TAB PO SCH (09:33)
--- NOTE | 2017-07-08 09:49 | CONS ---
Date/Time of Note Date/Time of Note DATE: 07/08/17 TIME: 09:48 Assessment/Plan Assessment/Plan Additional Assessment/Plan Assessment/Plan Additional Assessment/Plan 1. Alcoholic liver disease, most probably fatty liver. 2. Cyst in the tail of the pancreas, probably a pseudocyst 3. Anemia. 4. Mild coagulopathy 5. Hepatitic encephalopathy. Patient is confused and agitated PLAN: To continue with lactulose and rifaximin. Avoid sedatives and narcotics Patient may be started on prednisolone Patient hepatitis discriminant score is 62 and this is an indication for prednisolone treatment 40 mg once a day Monitor total bilirubin periodically Increase the dose of lactulose and titrate with 4-5 bowel movements a day Consultation Date/Type/Reason Admit Date/Time Jun 29, 2017 at 12:53 24 HR Interval Summary Free Text/Dictation Patient is confused, agitated Exam/Review of Systems Vital Signs Vitals Vital Signs Date Time Temp Pulse Resp B/P Pulse Ox O2 Delivery O2 Flow Rate FiO2 07/08/17 07:43 97.2 81 19 114/81 99 Intake and Output 07/07/17 07/07/17 07/08/17 15:00 23:00 07:00 Intake Total 1260 ml 200 ml Output Total 800 ml 900 ml Balance 460 ml -700 ml Exam Neck: non-tender, supple Respiratory: clear to auscultation, normal air movement Cardiovascular: nl pulses, regular rate and rhythm Gastrointestinal: nl liver, spleen, non-tender, soft Musculoskeletal: nl extremities to inspection, nl gait and stance Extremities: normal pulses Neurological: confused Results Result Diagram: 07/06/1750907/07/17 0524 Medications Medications Current Medications Morphine Sulfate (morphine) 2 mg Q4H PRN IV PAIN Last administered on 09:07; Admin Dose 2 MG; Start 06/29/17 at 17:00 Ondansetron HCl (Zofran Inj) 4 mg Q4H PRN IV NAUSEA AND/OR VOMITING Last administered on 07/07/17 05:13; Admin Dose 4 MG; Start 06/29/17 at 17:00 Pantoprazole (Protonix Tab) 40 mg DAILY@06 PO Last administered on 07/07/17 05:11; Admin Dose 40 MG; Start 06/30/17 at 06:00 Propranolol HCl (Inderal) 10 mg BID PO Last administered on 07/08/17 09:32; Admin Dose 10 MG; Start 06/29/17 at 21:00 Rifaximin (Xifaxan) 550 mg BID PO Last administered on 07/08/17 09:31; Admin Dose 550 MG; Start 06/29/17 at 21:00 Spironolactone (Aldactone) 100 mg DAILY PO Last administered on 07/08/17 09: 33; Admin Dose 100 MG; Start 06/30/17 at 09:00 Prednisolone (Prelone (Ped)) 40 mg DAILY PO Last administered on 07/07/17 12: 53; Admin Dose 40 MG; Start 07/06/17 at 20:30 SUSAN GARCIAS MD Jul 08, 2017 09:49
[2017-07-08] MEDS: predniSOLONE (3 MG/ML PO SYG) PO SCH (09:53)
[2017-07-08 10:34] LABS: CALCIUM 9.2 mg/dl (8.4-10.2); CREATININE 0.92 mg/dl (0.44-1.00); POTASSIUM 4.3 mmol/L (3.5-5.1)
[2017-07-08 11:00] LABS: HEMATOCRIT 31.4 % (37.0-47.0); HEMOGLOBIN 10.5 g/dl (12.0-16.0); LYMPHOCYTES # 1.5 10^3/ul (0.8-2.9); LYMPHOCYTES % 27.6 % (15.0-51.0); MEAN CORPUSCULAR HEMOGLOBIN 31.9 pg (29.0-33.0); MEAN CORPUSCULAR HGB CONC 33.4 g/dl (32.0-37.0); MEAN CORPUSCULAR VOLUME 95.4 fl (82.0-101.0); MEAN PLATELET VOLUME 11.2 fl (7.4-10.4); MONOCYTE # 0.5 10^3/ul (0.3-0.9); MONOCYTES % 8.6 % (0.0-11.0); NEUTROPHIL # 3.4 10^3/ul (1.6-7.5); NEUTROPHILS % 63.4 % (39.0-77.0); PLATELET COUNT 222 10^3/UL (140-415); RED BLOOD COUNT 3.29 10^6/ul (4.20-5.40); RED CELL DISTRIBUTION WIDTH 17.2 % (11.5-14.5); WHITE BLOOD COUNT 5.4 10^3/ul (4.8-10.8)
[2017-07-09 00:11] VITALS: BP 125/73; RESP 18
[2017-07-09 01:17] VITALS: BP 126/87; RESP 18
[2017-07-09] MEDS: PANTOPRAZOLE (EC) 40 MG TAB PO SCH (05:50)
[2017-07-09 06:02] LABS: BASOPHILS % 0.1 % (0.0-2.0); HEMATOCRIT 27.7 % (37.0-47.0); HEMOGLOBIN 9.3 g/dl (12.0-16.0); LYMPHOCYTES # 1.8 10^3/ul (0.8-2.9); LYMPHOCYTES % 15.2 % (15.0-51.0); MEAN CORPUSCULAR HEMOGLOBIN 32.3 pg (29.0-33.0); MEAN CORPUSCULAR HGB CONC 33.6 g/dl (32.0-37.0); MEAN CORPUSCULAR VOLUME 96.2 fl (82.0-101.0); MEAN PLATELET VOLUME 11.1 fl (7.4-10.4); MONOCYTE # 1.2 10^3/ul (0.3-0.9); MONOCYTES % 9.9 % (0.0-11.0); NEUTROPHIL # 8.7 10^3/ul (1.6-7.5); NEUTROPHILS % 74.5 % (39.0-77.0); PLATELET COUNT 184 10^3/UL (140-415); RED BLOOD COUNT 2.88 10^6/ul (4.20-5.40); RED CELL DISTRIBUTION WIDTH 17.2 % (11.5-14.5); WHITE BLOOD COUNT 11.7 10^3/ul (4.8-10.8)
[2017-07-09 07:17] LABS: ALBUMIN 2.3 g/dl (3.3-4.9); ALBUMIN/GLOBULIN RATIO 0.52; BILIRUBIN,INDIRECT 3.2 mg/dl (0-1.1); BILIRUBIN,TOTAL 18.2 mg/dl (0.2-1.3); CALCIUM 9.2 mg/dl (8.4-10.2); POTASSIUM 4.6 mmol/L (3.5-5.1); TOTAL PROTEIN 6.7 g/dl (6.1-8.1)
[2017-07-09 07:51] VITALS: BP 133/90; RESP 18
[2017-07-09] MEDS: SPIRONOLACTONE 50 MG TAB PO SCH (09:04)
[2017-07-09] MEDS: RIFAXIMIN 550 MG TAB PO SCH ×2 (09:04→20:11)
[2017-07-09] MEDS: PROPRANOLOL 20 MG TAB PO SCH ×2 (09:07→20:10)
[2017-07-09] MEDS: predniSOLONE (3 MG/ML PO SYG) PO SCH (09:07)
[2017-07-09] MEDS: LACTULOSE 30ML CUP PO SCH ×5 (09:14→20:10)
[2017-07-09 13:57] VITALS: BP 141/94; RESP 16
--- NOTE | 2017-07-09 16:44 | PN ---
Date/Time of Note Date/Time of Note DATE: 07/09/17 TIME: 16:43 Assessment/Plan VTE Prophylaxis VTE Prophylaxis Intervention: SCD's Lines/Catheters IV Catheter Type (from [facility]): Saline Lock Urinary Cath still in place: No Assessment/Plan Chief Complaint/Hosp Course Patient with intermittent confusion and very poor balance, pending evaluation for ARU Assessment/Plan - Alcoholic liver disease. Dr. Gonzalez is to see pt in gastroenterology consultation. Continue propranolol and Aldactone. - Hepatic encephalopathy, continue lactulose and rifaximin, monitor ammonia level. - Possible chronic pancreatitis with pseudocyst formation per CT - Possible ileus per CT - Nonischemic cardiomyopathy. - Anemia, will obtain stool for OB, transfuse as needed, need to monitor hemoglobin and hematocrit. - Hx of GI bleed - History of alcohol abuse. - History of amphetamine - Morbid obesity. Further recommendations based on clinical course. Plan of care discussed with Dr. Dawson. Problems: Exam/Review of Systems Vital Signs Vitals Vital Signs Date Time Temp Pulse Resp B/P Pulse Ox O2 Delivery O2 Flow Rate FiO2 07/09/17 13:57 97.4 86 16 141/94 99 07/08/17 22:00 Room Air Intake and Output 07/08/17 07/08/17 07/09/17 15:00 23:00 07:00 Intake Total 680 ml Balance 680 ml Exam Constitutional: alert, oriented, other (jaundiced) Respiratory: normal air movement Cardiovascular: nl pulses Gastrointestinal: distended, hepatomegaly, soft, tender Extremities: normal pulses Neurological: 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 Results Result Diagram: 07/09/17 0505 07/09/17 0505 Results 24 hrs Laboratory Tests Test 07/09/17 05:05 White Blood Count 11.7 #H Red Blood Count 2.88 L Hemoglobin 9.3 L Hematocrit 27.7 L Mean Corpuscular Volume 96.2 Mean Corpuscular Hemoglobin 32.3 Mean Corpuscular Hemoglobin Concent 33.6 Red Cell Distribution Width 17.2 H Platelet Count 184 Mean Platelet Volume 11.1 H Neutrophils % 74.5 Lymphocytes % 15.2 Monocytes % 9.9 Eosinophils % 0.0 Basophils % 0.1 Nucleated Red Blood Cells % 0.0 Neutrophils # 8.7 H Lymphocytes # 1.8 Monocytes # 1.2 H Eosinophils # 0.0 Basophils # 0.0 Nucleated Red Blood Cells # 0.0 Sodium Level 139 Potassium Level 4.6 Chloride Level 113 H Carbon Dioxide Level 17 L Anion Gap 14 Blood Urea Nitrogen 9 Creatinine 1.00 Glucose Level 146 Calcium Level 9.2 Total Bilirubin 18.2 H Direct Bilirubin 15.00 H Indirect Bilirubin 3.2 H Aspartate Amino Transf (AST/SGOT) 71 H Alanine Aminotransferase (ALT/SGPT) 40 Alkaline Phosphatase 180 H Ammonia 162 H Total Protein 6.7 Albumin 2.3 L Globulin 4.40 H Albumin/Globulin Ratio 0.52 Alpha Fetoprotein 3.09 Medications Medications Current Medications Morphine Sulfate (morphine) 2 mg Q4H PRN IV PAIN Last administered on 09:07; Admin Dose 2 MG; Start 06/29/17 at 17:00 Ondansetron HCl (Zofran Inj) 4 mg Q4H PRN IV NAUSEA AND/OR VOMITING Last administered on 07/07/17 05:13; Admin Dose 4 MG; Start 06/29/17 at 17:00 Pantoprazole (Protonix Tab) 40 mg DAILY@06 PO Last administered on 07/09/17 05:50; Admin Dose 40 MG; Start 06/30/17 at 06:00 Propranolol HCl (Inderal) 10 mg BID PO Last administered on 07/09/17 09:07; Admin Dose 10 MG; Start 06/29/17 at 21:00 Rifaximin (Xifaxan) 550 mg BID PO Last administered on 07/09/17 09:04; Admin Dose 550 MG; Start 06/29/17 at 21:00 Spironolactone (Aldactone) 100 mg DAILY PO Last administered on 07/09/17 09: 04; Admin Dose 100 MG; Start 06/30/17 at 09:00 Prednisolone (Prelone (Ped)) 40 mg DAILY PO Last administered on 07/09/17 09: 07; Admin Dose 40 MG; Start 07/06/17 at 20:30 KORIN FORBES Jul 09, 2017 16:44
--- NOTE | 2017-07-09 17:19 | CONS ---
Date/Time of Note Date/Time of Note DATE: 07/09/17 TIME: 17:18 Assessment/Plan Assessment/Plan Additional Assessment/Plan Additional Assessment/Plan 1. Alcoholic liver disease, most probably fatty liver. Total bilirubin has gone up now 2. Cyst in the tail of the pancreas, probably a pseudocyst 3. Anemia. 4. Mild coagulopathy 5. Hepatitic encephalopathy. Patient is confused and agitated PLAN: To continue with lactulose and rifaximin. Avoid sedatives and narcotics Patient may be started on prednisolone Patient hepatitis discriminant score is 62 and this is an indication for prednisolone treatment 40 mg once a day Monitor total bilirubin periodically Increase the dose of lactulose and titrate with 4-5 bowel movements a day Consultation Date/Type/Reason Admit Date/Time Jun 29, 2017 at 12:53 24 HR Interval Summary Free Text/Dictation Patient is sleepy Exam/Review of Systems Vital Signs Vitals Vital Signs Date Time Temp Pulse Resp B/P Pulse Ox O2 Delivery O2 Flow Rate FiO2 07/09/17 13:57 97.4 86 16 141/94 99 07/08/17 22:00 Room Air Intake and Output 07/08/17 07/08/17 07/09/17 15:00 23:00 07:00 Intake Total 680 ml Balance 680 ml Exam Constitutional: alert, oriented, well developed Psych: nl mood/affect, no complaints Head: atraumatic, normocephalic Eyes: EOMI, PERRL, nl conjunctiva, nl lids, nl sclera ENMT: nl external ears & nose, nl lips & teeth, nl nasal mucosa & septum Neck: non-tender, supple Respiratory: clear to auscultation, normal air movement Cardiovascular: nl pulses, regular rate and rhythm Gastrointestinal: nl liver, spleen, non-tender, soft Musculoskeletal: nl extremities to inspection, nl gait and stance Extremities: normal pulses Neurological: SPIN[employer] PIPE II-XII intact, 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, nl speech, nl strength Skin: nl turgor, No rash or lesions Lymph: nl lymph nodes Results Result Diagram: 07/09/17 0505 07/09/17 0505 Results 24 hrs Laboratory Tests Test 07/09/17 05:05 White Blood Count 11.7 #H Red Blood Count 2.88 L Hemoglobin 9.3 L Hematocrit 27.7 L Mean Corpuscular Volume 96.2 Mean Corpuscular Hemoglobin 32.3 Mean Corpuscular Hemoglobin Concent 33.6 Red Cell Distribution Width 17.2 H Platelet Count 184 Mean Platelet Volume 11.1 H Neutrophils % 74.5 Lymphocytes % 15.2 Monocytes % 9.9 Eosinophils % 0.0 Basophils % 0.1 Nucleated Red Blood Cells % 0.0 Neutrophils # 8.7 H Lymphocytes # 1.8 Monocytes # 1.2 H Eosinophils # 0.0 Basophils # 0.0 Nucleated Red Blood Cells # 0.0 Sodium Level 139 Potassium Level 4.6 Chloride Level 113 H Carbon Dioxide Level 17 L Anion Gap 14 Blood Urea Nitrogen 9 Creatinine 1.00 Glucose Level 146 Calcium Level 9.2 Total Bilirubin 18.2 H Direct Bilirubin 15.00 H Indirect Bilirubin 3.2 H Aspartate Amino Transf (AST/SGOT) 71 H Alanine Aminotransferase (ALT/SGPT) 40 Alkaline Phosphatase 180 H Ammonia 162 H Total Protein 6.7 Albumin 2.3 L Globulin 4.40 H Albumin/Globulin Ratio 0.52 Alpha Fetoprotein 3.09 Medications Medications Current Medications Morphine Sulfate (morphine) 2 mg Q4H PRN IV PAIN Last administered on 09:07; Admin Dose 2 MG; Start 06/29/17 at 17:00 Ondansetron HCl (Zofran Inj) 4 mg Q4H PRN IV NAUSEA AND/OR VOMITING Last administered on 07/07/17 05:13; Admin Dose 4 MG; Start 06/29/17 at 17:00 Pantoprazole (Protonix Tab) 40 mg DAILY@06 PO Last administered on 07/09/17 05:50; Admin Dose 40 MG; Start 06/30/17 at 06:00 Propranolol HCl (Inderal) 10 mg BID PO Last administered on 07/09/17 09:07; Admin Dose 10 MG; Start 06/29/17 at 21:00 Rifaximin (Xifaxan) 550 mg BID PO Last administered on 07/09/17 09:04; Admin Dose 550 MG; Start 06/29/17 at 21:00 Spironolactone (Aldactone) 100 mg DAILY PO Last administered on 07/09/17 09: 04; Admin Dose 100 MG; Start 06/30/17 at 09:00 Prednisolone (Prelone (Ped)) 40 mg DAILY PO Last administered on 07/09/17 09: 07; Admin Dose 40 MG; Start 07/06/17 at 20:30 Tramadol HCl (Ultram) 50 mg Q6H PRN PO PAIN; Start 07/09/17 at 17:30 SUSAN GARCIAS MD Jul 09, 2017 17:19
[2017-07-09] MEDS: morphine 2 MG INJ IV PRN (18:19)
[2017-07-09 23:05] VITALS: BP 164/103; PULSE 88; RESP 19
[2017-07-09] MEDS: QUETIAPINE 25 MG TAB PO SCH (23:36)
[2017-07-10] VITALS (15 sets, daily range): BP systolic 138–181; BP diastolic 91–107; PULSE 75–105; RESP 17–22
[2017-07-10] MEDS ORDERED: HALOPERIDOL 5 MG INJ ONE (03:54)
[2017-07-10] MEDS ORDERED: HALOPERIDOL 5 MG INJ IM ONE (04:00)
[2017-07-10 04:54] LABS: BASOPHILS % 0.1 % (0.0-2.0); HEMATOCRIT 29.3 % (37.0-47.0); HEMOGLOBIN 9.7 g/dl (12.0-16.0); LYMPHOCYTES % 13.8 % (15.0-51.0); MEAN CORPUSCULAR HEMOGLOBIN 31.9 pg (29.0-33.0); MEAN CORPUSCULAR HGB CONC 33.1 g/dl (32.0-37.0); MEAN CORPUSCULAR VOLUME 96.4 fl (82.0-101.0); MONOCYTE # 1.4 10^3/ul (0.3-0.9); MONOCYTES % 9.9 % (0.0-11.0); NEUTROPHIL # 10.8 10^3/ul (1.6-7.5); PLATELET COUNT 211 10^3/UL (140-415); RED BLOOD COUNT 3.04 10^6/ul (4.20-5.40); RED CELL DISTRIBUTION WIDTH 16.6 % (11.5-14.5); WHITE BLOOD COUNT 14.4 10^3/ul (4.8-10.8)
[2017-07-10 05:39] LABS: CALCIUM 9.9 mg/dl (8.4-10.2); CREATININE 1.04 mg/dl (0.44-1.00); POTASSIUM 4.2 mmol/L (3.5-5.1)
[2017-07-10] MEDS: PANTOPRAZOLE (EC) 40 MG TAB PO SCH (05:56)
[2017-07-10] MEDS: LACTULOSE 30ML CUP PO SCH ×5 (05:57→22:13)
[2017-07-10] MEDS: RIFAXIMIN 550 MG TAB PO SCH ×2 (08:59→22:10)
[2017-07-10] MEDS: QUETIAPINE 25 MG TAB PO SCH ×2 (09:00→22:13)
[2017-07-10] MEDS: PROPRANOLOL 20 MG TAB PO SCH ×2 (09:00→22:12)
[2017-07-10] MEDS: SPIRONOLACTONE 50 MG TAB PO SCH (09:01)
[2017-07-10] MEDS: traMADol 50 MG TAB PO PRN (09:02)
[2017-07-10] MEDS: predniSOLONE (3 MG/ML PO SYG) PO SCH (09:02)
--- NOTE | 2017-07-10 14:08 | CONS ---
Date/Time of Note Date/Time of Note DATE: 07/10/17 TIME: 14:01 Assessment/Plan Assessment/Plan Chief Complaint/Hosp Course Impression: 1. Alcoholic liver disease, most probably fatty liver. Total bilirubin has gone up now 2. Cyst in the tail of the pancreas, probably a pseudocyst 3. Anemia. 4. Mild coagulopathy 5. Hepatitic encephalopathy. Patient is confused and agitated PLAN: To continue with lactulose and rifaximin. Avoid sedatives and narcotics continue prednisolone Patient hepatitis discriminant score is 62 and this is an indication for prednisolone treatment 40 mg once a day will check labs tomorrrow to see whether bilirubin is down-rending check ammonia tomorrow as marker to assess for hepatic encephalopathy Increase the dose of lactulose and titrate with 4-5 bowel movements a day alcohol cessation Problems: Consultation Date/Type/Reason Admit Date/Time Jun 29, 2017 at 12:53 Initial Consult Date 24 HR Interval Summary Constitutional: disoriented Exam/Review of Systems Vital Signs Vitals Vital Signs Date Time Temp Pulse Resp B/P Pulse Ox O2 Delivery O2 Flow Rate FiO2 07/10/17 12:18 97.8 93 20 161/107 100 07/10/17 06:00 Room Air Intake and Output 07/09/17 07/09/17 07/10/17 14:59 22:59 06:59 Intake Total 1080 ml 2480 ml Balance 1080 ml 2480 ml Exam Constitutional: other (disoriented, confused) Psych: confusion Head: atraumatic, normocephalic Eyes: EOMI, icteric, nl lids ENMT: nl external ears & nose, nl lips & teeth, nl nasal mucosa & septum Neck: non-tender, supple Respiratory: clear to auscultation, normal air movement Cardiovascular: nl pulses, regular rate and rhythm Gastrointestinal: bowel sounds, non-tender, soft Results Result Diagram: 07/10/179 07/10/17428 Results 24 hrs Laboratory Tests Test 07/10/17 04:29 White Blood Count 14.4 #H Red Blood Count 3.04 L Hemoglobin 9.7 L Hematocrit 29.3 L Mean Corpuscular Volume 96.4 Mean Corpuscular Hemoglobin 31.9 Mean Corpuscular Hemoglobin Concent 33.1 Red Cell Distribution Width 16.6 H Platelet Count 211 Mean Platelet Volume 11.0 H Neutrophils % 75.0 Lymphocytes % 13.8 L Monocytes % 9.9 Eosinophils % 0.0 Basophils % 0.1 Nucleated Red Blood Cells % 0.0 Neutrophils # 10.8 H Lymphocytes # 2.0 Monocytes # 1.4 H Eosinophils # 0.0 Basophils # 0.0 Nucleated Red Blood Cells # 0.0 Sodium Level 140 Potassium Level 4.2 Chloride Level 115 H Carbon Dioxide Level 14 L Anion Gap 15 Blood Urea Nitrogen 10 Creatinine 1.04 H Glucose Level 161 Calcium Level 9.9 Ammonia 185 H Medications Medications Current Medications Ondansetron HCl (Zofran Inj) 4 mg Q4H PRN IV NAUSEA AND/OR VOMITING Last administered on 07/07/17 05:13; Admin Dose 4 MG; Start 06/29/17 at 17:00 Pantoprazole (Protonix Tab) 40 mg DAILY@06 PO Last administered on 07/10/17 05:56; Admin Dose 40 MG; Start 06/30/17 at 06:00 Propranolol HCl (Inderal) 10 mg BID PO Last administered on 07/10/17 09:00; Admin Dose 10 MG; Start 06/29/17 at 21:00 Rifaximin (Xifaxan) 550 mg BID PO Last administered on 07/10/17 08:59; Admin Dose 550 MG; Start 06/29/17 at 21:00 Spironolactone (Aldactone) 100 mg DAILY PO Last administered on 07/10/17 09: 01; Admin Dose 100 MG; Start 06/30/17 at 09:00 Prednisolone (Prelone (Ped)) 40 mg DAILY PO Last administered on 07/10/17 09: 02; Admin Dose 40 MG; Start 07/06/17 at 20:30 Tramadol HCl (Ultram) 50 mg Q6H PRN PO PAIN Last administered on 07/10/17 09: 02; Admin Dose 50 MG; Start 07/09/17 at 17:30 Morphine Sulfate (morphine) 1 mg Q6H PRN IV PAIN Last administered on 18:19; Admin Dose 1 MG; Start 07/09/17 at 18:00 Quetiapine Fumarate (Seroquel) 25 mg BID PO Last administered on 07/10/17 09: 00; Admin Dose 25 MG; Start 07/09/17 at 23:30 Lactulose (Enulose) 20 gm Q4 PO Last administered on 07/10/17t 13:13; Admin Dose 20 GM; Start 07/10/17 at 05:00 ALIN MOODY MD Jul 10, 2017 14:08
[2017-07-10] MEDS ORDERED: hydrALAzine 20 MG INJ IV PRN (15:30)
[2017-07-10] MEDS: DEXTROSE 5%-0.45% NACL 1,000 ML IV SCH (15:41)
--- NOTE | 2017-07-10 16:13 | PN ---
Date/Time of Note Date/Time of Note DATE: 07/10/17 TIME: 16:11 Assessment/Plan VTE Prophylaxis VTE Prophylaxis Intervention: SCD's Lines/Catheters [facility] Saline Lock Urinary Cath still in place: No Assessment/Plan Assessment/Plan - Hepatic encephalopathy, continue lactulose and rifaximin, monitor ammonia level.-183 today -increased confusion- transfer to tele with same orders - Alcoholic liver disease. Dr. Gonzalez is to see pt in gastroenterology consultation. Continue propranolol and Aldactone. - Possible chronic pancreatitis with pseudocyst formation per CT - Possible ileus per CT - Nonischemic cardiomyopathy. - Anemia, will obtain stool for OB, transfuse as needed, need to monitor hemoglobin and hematocrit. - Hx of GI bleed - History of alcohol abuse. - History of amphetamine - Morbid obesity. Dusty Dawson Further recommendations based on clinical course. Plan of care discussed with Dr. Dawson. Subjective 24 Hr Interval Summary Free Text/Dictation -increased confusion- transfer to tele with same orders - dw staff Constitutional: disoriented Exam/Review of Systems Vital Signs Vitals Vital Signs Date Time Temp Pulse Resp B/P Pulse Ox O2 Delivery O2 Flow Rate FiO2 07/10/17 14:11 97.2 95 22 149/91 100 07/10/17 06:00 Room Air Intake and Output 07/09/17 07/09/17 07/10/17 15:00 23:00 07:00 Intake Total 1080 ml 2480 ml Balance 1080 ml 2480 ml Results Result Diagram: 07/10/17 0429 07/10/17 0429 Results 24 hrs Laboratory Tests Test 07/10/17 04:29 White Blood Count 14.4 #H Red Blood Count 3.04 L Hemoglobin 9.7 L Hematocrit 29.3 L Mean Corpuscular Volume 96.4 Mean Corpuscular Hemoglobin 31.9 Mean Corpuscular Hemoglobin Concent 33.1 Red Cell Distribution Width 16.6 H Platelet Count 211 Mean Platelet Volume 11.0 H Neutrophils % 75.0 Lymphocytes % 13.8 L Monocytes % 9.9 Eosinophils % 0.0 Basophils % 0.1 Nucleated Red Blood Cells % 0.0 Neutrophils # 10.8 H Lymphocytes # 2.0 Monocytes # 1.4 H Eosinophils # 0.0 Basophils # 0.0 Nucleated Red Blood Cells # 0.0 Sodium Level 140 Potassium Level 4.2 Chloride Level 115 H Carbon Dioxide Level 14 L Anion Gap 15 Blood Urea Nitrogen 10 Creatinine 1.04 H Glucose Level 161 Calcium Level 9.9 Ammonia 185 H Medications Medications Current Medications Ondansetron HCl (Zofran Inj) 4 mg Q4H PRN IV NAUSEA AND/OR VOMITING Last administered on 07/07/17 05:13; Admin Dose 4 MG; Start 06/29/17 at 17:00 Pantoprazole (Protonix Tab) 40 mg DAILY@06 PO Last administered on 07/10/17 05:56; Admin Dose 40 MG; Start 06/30/17 at 06:00 Propranolol HCl (Inderal) 10 mg BID PO Last administered on 07/10/17 09:00; Admin Dose 10 MG; Start 06/29/17 at 21:00 Rifaximin (Xifaxan) 550 mg BID PO Last administered on 07/10/17 08:59; Admin Dose 550 MG; Start 06/29/17 at 21:00 Spironolactone (Aldactone) 100 mg DAILY PO Last administered on 07/10/17 09: 01; Admin Dose 100 MG; Start 06/30/17 at 09:00 Prednisolone (Prelone (Ped)) 40 mg DAILY PO Last administered on 07/10/17 09: 02; Admin Dose 40 MG; Start 07/06/17 at 20:30 Tramadol HCl (Ultram) 50 mg Q6H PRN PO PAIN Last administered on 07/10/17 09: 02; Admin Dose 50 MG; Start 07/09/17 at 17:30 Morphine Sulfate (morphine) 1 mg Q6H PRN IV PAIN Last administered on 18:19; Admin Dose 1 MG; Start 07/09/17 at 18:00 Quetiapine Fumarate (Seroquel) 25 mg BID PO Last administered on 07/10/17 09: 00; Admin Dose 25 MG; Start 07/09/17 at 23:30 Lactulose (Enulose) 20 gm Q4 PO Last administered on 07/10/17 13:13; Admin Dose 20 GM; Start 07/10/17 at 05:00 Hydralazine HCl 10 mg 10 mg Q6H PRN IV ELEVATED BLOOD PRESSURE; Start at 15:30 Dextrose/Sodium Chloride (D5-1/2ns) 1,000 ml @ 70 mls/hr [id number] IV Last administered on 07/10/17t 15:41; Admin Dose 70 MLS/HR; Start 07/10/17 at 15:30 SWATHI RESENDIZ Jul 10, 2017 16:13
[2017-07-11] VITALS (12 sets, daily range): BP systolic 125–156; BP diastolic 78–102; PULSE 63–93; RESP 20
[2017-07-11] MEDS: LACTULOSE 30ML CUP PO SCH ×6 (02:53→23:02)
[2017-07-11] MEDS: DEXTROSE 5%-0.45% NACL 1,000 ML IV SCH (05:59)
[2017-07-11] MEDS: PANTOPRAZOLE (EC) 40 MG TAB PO SCH (05:59)
[2017-07-11 08:30] LABS: EOSINOPHILS % 0.1 % (0.0-7.0); HEMATOCRIT 25.8 % (37.0-47.0); LYMPHOCYTES # 1.7 10^3/ul (0.8-2.9); LYMPHOCYTES % 20.7 % (15.0-51.0); MEAN CORPUSCULAR HEMOGLOBIN 33.3 pg (29.0-33.0); MEAN CORPUSCULAR HGB CONC 34.9 g/dl (32.0-37.0); MEAN CORPUSCULAR VOLUME 95.6 fl (82.0-101.0); MEAN PLATELET VOLUME 10.6 fl (7.4-10.4); MONOCYTE # 0.7 10^3/ul (0.3-0.9); MONOCYTES % 8.3 % (0.0-11.0); NEUTROPHIL # 5.6 10^3/ul (1.6-7.5); NEUTROPHILS % 69.9 % (39.0-77.0); PLATELET COUNT 157 10^3/UL (140-415); RED CELL DISTRIBUTION WIDTH 17.1 % (11.5-14.5); WHITE BLOOD COUNT 8.1 10^3/ul (4.8-10.8)
[2017-07-11 08:57] LABS: ALBUMIN 2.1 g/dl (3.3-4.9); ALBUMIN/GLOBULIN RATIO 0.45; BILIRUBIN,DIRECT 13.9 mg/dl (0.00-0.20); BILIRUBIN,INDIRECT 2.4 mg/dl (0-1.1); BILIRUBIN,TOTAL 16.3 mg/dl (0.2-1.3); CALCIUM 9.7 mg/dl (8.4-10.2); CREATININE 0.88 mg/dl (0.44-1.00); POTASSIUM 4.1 mmol/L (3.5-5.1); TOTAL PROTEIN 6.7 g/dl (6.1-8.1)
[2017-07-11] MEDS: PROPRANOLOL 20 MG TAB PO SCH ×2 (09:56→23:04)
[2017-07-11] MEDS: predniSOLONE (3 MG/ML PO SYG) PO SCH (09:57)
[2017-07-11] MEDS: RIFAXIMIN 550 MG TAB PO SCH ×2 (09:57→23:03)
[2017-07-11] MEDS: QUETIAPINE 25 MG TAB PO SCH ×2 (09:58→23:03)
[2017-07-11] MEDS: SPIRONOLACTONE 50 MG TAB PO SCH (09:58)
[2017-07-11] MEDS: morphine 2 MG INJ IV PRN (19:03)
--- NOTE | 2017-07-11 19:20 | PN ---
Date/Time of Note Date/Time of Note DATE: 07/11/17 TIME: 19:15 Assessment/Plan VTE Prophylaxis VTE Prophylaxis Intervention: other Lines/Catheters IV C[facility]ter Type (from [facility]): Peripheral IV Urinary Cath still in place: No Assessment/Plan Assessment/Plan - Hepatic encephalopathy, continue lactulose and rifaximin, monitor ammonia level.-155 today - Alcoholic liver disease. Dr. Gonzalez is to see pt in gastroenterology consultation. Continue propranolol and Aldactone. - Possible chronic pancreatitis with pseudocyst formation per CT - Possible ileus per CT - Nonischemic cardiomyopathy. - Anemia, will obtain stool for OB, transfuse as needed, need to monitor hemoglobin and hematocrit. - Hx of GI bleed - History of alcohol abuse. - History of amphetamine - Morbid obesity. Dusty Dawson Further recommendations based on clinical course. Plan of care discussed with Dr. Dawson. Subjective 24 Hr Interval Summary Free Text/Dictation afebrile, NH3 level trending down, con to monitor, sitter at bed side. no new issues reported, dw staff Exam/Review of Systems Vital Signs Vitals Vital Signs Date Time Temp Pulse Resp B/P Pulse Ox O2 Delivery O2 Flow Rate FiO2 07/11/17 16:00 63 07/11/17 15:37 98.5 20 138/85 98 07/11/17 04:05 Room Air Intake and Output 07/10/17 07/10/17 07/11/17 15:00 23:00 07:00 Intake Total 1000 ml 1460 ml 250 ml Output Total 800 ml Balance 200 ml 1460 ml 250 ml Exam Constitutional: well developed Cardiovascular: nl pulses Gastrointestinal: non-tender, soft Musculoskeletal: nl extremities to inspection Extremities: normal pulses Neurological: confused, lethargic Skin: other (ICTERIC) Results Result Diagram: 07/11/17 0813 07/11/17 0813 Results 24 hrs Laboratory Tests Test 07/11/17 08:13 White Blood Count 8.1 # Red Blood Count 2.70 L Hemoglobin 9.0 L Hematocrit 25.8 L Mean Corpuscular Volume 95.6 Mean Corpuscular Hemoglobin 33.3 H Mean Corpuscular Hemoglobin Concent 34.9 Red Cell Distribution Width 17.1 H Platelet Count 157 # Mean Platelet Volume 10.6 H Neutrophils % 69.9 Lymphocytes % 20.7 Monocytes % 8.3 Eosinophils % 0.1 Basophils % 0.0 Nucleated Red Blood Cells % 0.0 Neutrophils # 5.6 Lymphocytes # 1.7 Monocytes # 0.7 Eosinophils # 0.0 Basophils # 0.0 Nucleated Red Blood Cells # 0.0 Sodium Level 142 Potassium Level 4.1 Chloride Level 120 H Carbon Dioxide Level 17 L Anion Gap 9 # Blood Urea Nitrogen 10 Creatinine 0.88 Glucose Level 173 Calcium Level 9.7 Total Bilirubin 16.3 H Direct Bilirubin 13.90 H Indirect Bilirubin 2.4 H Aspartate Amino Transf (AST/SGOT) 85 H Alanine Aminotransferase (ALT/SGPT) 52 Alkaline Phosphatase 191 H Ammonia 155 H Total Protein 6.7 Albumin 2.1 L Globulin 4.60 H Albumin/Globulin Ratio 0.45 Medications Medications Current Medications Ondansetron HCl (Zofran Inj) 4 mg Q4H PRN IV NAUSEA AND/OR VOMITING Last administered on 07/07/17 05:13; Admin Dose 4 MG; Start 06/29/17 at 17:00 Pantoprazole (Protonix Tab) 40 mg DAILY@06 PO Last administered on 07/11/17 05:59; Admin Dose 40 MG; Start 06/30/17 at 06:00 Propranolol HCl (Inderal) 10 mg BID PO Last administered on 07/11/17 09:56; Admin Dose 10 MG; Start 06/29/17 at 21:00 Rifaximin (Xifaxan) 550 mg BID PO Last administered on 07/11/17 09:57; Admin Dose 550 MG; Start 06/29/17 at 21:00 Spironolactone (Aldactone) 100 mg DAILY PO Last administered on 07/11/17 09: 58; Admin Dose 100 MG; Start 06/30/17 at 09:00 Prednisolone (Prelone (Ped)) 40 mg DAILY PO Last administered on 07/11/17 09: 57; Admin Dose 40 MG; Start 07/06/17 at 20:30 Tramadol HCl (Ultram) 50 mg Q6H PRN PO PAIN Last administered on 07/10/17 09: 02; Admin Dose 50 MG; Start 07/09/17 at 17:30 Morphine Sulfate (morphine) 1 mg Q6H PRN IV PAIN Last administered on 19:03; Admin Dose 1 MG; Start 07/09/17 at 18:00 Quetiapine Fumarate (Seroquel) 25 mg BID PO Last administered on 07/11/17 09: 58; Admin Dose 25 MG; Start 07/09/17 at 23:30 Lactulose (Enulose) 20 gm Q4 PO Last administered on 07/11/17 17:22; Admin Dose 20 GM; Start 07/10/17 at 05:00 Hydralazine HCl 10 mg 10 mg Q6H PRN IV ELEVATED BLOOD PRESSURE; Start at 15:30 Dextrose/Sodium Chloride (D5-1/2ns) 1,000 ml @ 70 mls/hr [id number] IV Last administered on 07/11/17 05:59; Admin Dose 70 MLS/HR; Start 07/10/17 at 15:30 SWATHI RESENDIZ Jul 11, 2017 19:20
--- NOTE | 2017-07-11 22:23 | CONS ---
Date/Time of Note Date/Time of Note DATE: 07/11/17 TIME: 22:22 Assessment/Plan Assessment/Plan Chief Complaint/Hosp Course Impression: 1. Alcoholic liver disease, most probably fatty liver. Total bilirubin has gone up now 2. Cyst in the tail of the pancreas, probably a pseudocyst 3. Anemia. 4. Mild coagulopathy 5. Hepatitic encephalopathy. Patient is confused and agitated PLAN: To continue with lactulose and rifaximin. Avoid sedatives and narcotics continue prednisolone Patient hepatitis discriminant score is 62 and this is an indication for prednisolone treatment 40 mg once a day will check labs tomorrrow to see whether bilirubin is down-rending check ammonia tomorrow as marker to assess for hepatic encephalopathy Increase the dose of lactulose and titrate with 4-5 bowel movements a day alcohol cessation Dr. Gonzalez to resume care of this patient tomorrow Problems: Consultation Date/Type/Reason Admit Date/Time Jun 29, 2017 at 12:53 24 HR Interval Summary Free Text/Dictation less confused Constitutional: improved Exam/Review of Systems Vital Signs Vitals Vital Signs Date Time Temp Pulse Resp B/P Pulse Ox O2 Delivery O2 Flow Rate FiO2 07/11/17 20:15 75 07/11/17 20:05 98.5 20 135/82 98 07/11/17 04:05 Room Air Intake and Output 07/10/17 07/10/17 07/11/17 15:00 23:00 07:00 Intake Total 1000 ml 1460 ml 250 ml Output Total 800 ml Balance 200 ml 1460 ml 250 ml Exam Head: atraumatic, normocephalic Eyes: EOMI, nl lids ENMT: nl external ears & nose, nl lips & teeth, nl nasal mucosa & septum Neck: non-tender, supple Respiratory: clear to auscultation, normal air movement Cardiovascular: nl pulses, regular rate and rhythm Gastrointestinal: bowel sounds, non-tender, soft Results Result Diagram: 07/11/1713 07/11/1713 Results 24 hrs Laboratory Tests Test 07/11/17 08:13 White Blood Count 8.1 # Red Blood Count 2.70 L Hemoglobin 9.0 L Hematocrit 25.8 L Mean Corpuscular Volume 95.6 Mean Corpuscular Hemoglobin 33.3 H Mean Corpuscular Hemoglobin Concent 34.9 Red Cell Distribution Width 17.1 H Platelet Count 157 # Mean Platelet Volume 10.6 H Neutrophils % 69.9 Lymphocytes % 20.7 Monocytes % 8.3 Eosinophils % 0.1 Basophils % 0.0 Nucleated Red Blood Cells % 0.0 Neutrophils # 5.6 Lymphocytes # 1.7 Monocytes # 0.7 Eosinophils # 0.0 Basophils # 0.0 Nucleated Red Blood Cells # 0.0 Sodium Level 142 Potassium Level 4.1 Chloride Level 120 H Carbon Dioxide Level 17 L Anion Gap 9 # Blood Urea Nitrogen 10 Creatinine 0.88 Glucose Level 173 Calcium Level 9.7 Total Bilirubin 16.3 H Direct Bilirubin 13.90 H Indirect Bilirubin 2.4 H Aspartate Amino Transf (AST/SGOT) 85 H Alanine Aminotransferase (ALT/SGPT) 52 Alkaline Phosphatase 191 H Ammonia 155 H Total Protein 6.7 Albumin 2.1 L Globulin 4.60 H Albumin/Globulin Ratio 0.45 Medications Medications Current Medications Ondansetron HCl (Zofran Inj) 4 mg Q4H PRN IV NAUSEA AND/OR VOMITING Last administered on 07/07/17 05:13; Admin Dose 4 MG; Start 06/29/17 at 17:00 Pantoprazole (Protonix Tab) 40 mg DAILY@06 PO Last administered on 07/11/17 05:59; Admin Dose 40 MG; Start 06/30/17 at 06:00 Propranolol HCl (Inderal) 10 mg BID PO Last administered on 07/11/17 09:56; Admin Dose 10 MG; Start 06/29/17 at 21:00 Rifaximin (Xifaxan) 550 mg BID PO Last administered on 07/11/17 09:57; Admin Dose 550 MG; Start 06/29/17 at 21:00 Spironolactone (Aldactone) 100 mg DAILY PO Last administered on 07/11/17 09: 58; Admin Dose 100 MG; Start 06/30/17 at 09:00 Prednisolone (Prelone (Ped)) 40 mg DAILY PO Last administered on 07/11/17 09: 57; Admin Dose 40 MG; Start 07/06/17 at 20:30 Tramadol HCl (Ultram) 50 mg Q6H PRN PO PAIN Last administered on 07/10/17 09: 02; Admin Dose 50 MG; Start 07/09/17 at 17:30 Morphine Sulfate (morphine) 1 mg Q6H PRN IV PAIN Last administered on 19:03; Admin Dose 1 MG; Start 07/09/17 at 18:00 Quetiapine Fumarate (Seroquel) 25 mg BID PO Last administered on 07/11/17 09: 58; Admin Dose 25 MG; Start 07/09/17 at 23:30 Lactulose (Enulose) 20 gm Q4 PO Last administered on 07/11/17 17:22; Admin Dose 20 GM; Start 07/10/17 at 05:00 Hydralazine HCl 10 mg 10 mg Q6H PRN IV ELEVATED BLOOD PRESSURE; Start at 15:30 Dextrose/Sodium Chloride (D5-1/2ns) 1,000 ml @ 70 mls/hr [id number] IV Last administered on 07/11/17 05:59; Admin Dose 70 MLS/HR; Start 07/10/17 at 15:30 ALIN MOODY MD Jul 11, 2017 22:23
[2017-07-11] MEDS: traMADol 50 MG TAB PO PRN (23:04)
[2017-07-12] VITALS (12 sets, daily range): BP systolic 139–160; BP diastolic 85–105; PULSE 67–99; RESP 18–20
[2017-07-12] MEDS: morphine 2 MG INJ IV PRN ×2 (00:59→21:03)
[2017-07-12] MEDS: LACTULOSE 30ML CUP PO SCH ×6 (03:19→23:54)
[2017-07-12] MEDS: DEXTROSE 5%-0.45% NACL 1,000 ML IV SCH ×2 (05:45→10:24)
[2017-07-12] MEDS: PANTOPRAZOLE (EC) 40 MG TAB PO SCH (06:02)
[2017-07-12] MEDS: predniSOLONE (3 MG/ML PO SYG) PO SCH (09:00)
[2017-07-12] MEDS: RIFAXIMIN 550 MG TAB PO SCH ×3 (09:00→20:59)
[2017-07-12 09:13] LABS: EOSINOPHILS % 0.3 % (0.0-7.0); HEMATOCRIT 24.6 % (37.0-47.0); HEMOGLOBIN 7.8 g/dl (12.0-16.0); LYMPHOCYTES # 1.5 10^3/ul (0.8-2.9); LYMPHOCYTES % 16.7 % (15.0-51.0); MEAN CORPUSCULAR HEMOGLOBIN 32.6 pg (29.0-33.0); MEAN CORPUSCULAR HGB CONC 31.7 g/dl (32.0-37.0); MEAN CORPUSCULAR VOLUME 102.9 fl (82.0-101.0); MEAN PLATELET VOLUME 10.7 fl (7.4-10.4); MONOCYTE # 0.9 10^3/ul (0.3-0.9); MONOCYTES % 9.6 % (0.0-11.0); NEUTROPHIL # 6.3 10^3/ul (1.6-7.5); NEUTROPHILS % 71.3 % (39.0-77.0); PLATELET COUNT 150 10^3/UL (140-415); RED BLOOD COUNT 2.39 10^6/ul (4.20-5.40); RED CELL DISTRIBUTION WIDTH 17.8 % (11.5-14.5); WHITE BLOOD COUNT 8.9 10^3/ul (4.8-10.8)
[2017-07-12] MEDS: PROPRANOLOL 20 MG TAB PO SCH ×2 (09:17→21:02)
[2017-07-12] MEDS: SPIRONOLACTONE 50 MG TAB PO SCH (09:17)
[2017-07-12 10:27] LABS: CALCIUM 8.1 mg/dl (8.4-10.2); CREATININE 0.87 mg/dl (0.44-1.00); POTASSIUM 3.3 mmol/L (3.5-5.1)
--- NOTE | 2017-07-12 18:56 | PN ---
Date/Time of Note Date/Time of Note DATE: 07/12/17 TIME: 18:52 Assessment/Plan VTE Prophylaxis VTE Prophylaxis Intervention: SCD's Lines/Catheters [facility] Saline Lock Urinary Cath still in place: No Assessment/Plan Chief Complaint/Hosp Course Patient with acute agitation and combativeness over the weekend, patient more awake and cooperative. Assessment/Plan - Alcoholic liver disease. Dr. Gonzalez is following in gastroenterology consultation. Continue propranolol and Aldactone. - Hepatic encephalopathy, continue lactulose and rifaximin, monitor ammonia level. - Possible chronic pancreatitis with pseudocyst formation per CT - Possible ileus per CT - Nonischemic cardiomyopathy. - Anemia, will obtain stool for OB, transfuse as needed, need to monitor hemoglobin and hematocrit. - Hx of GI bleed - History of alcohol abuse. - History of amphetamine - Morbid obesity. Further recommendations based on clinical course. Plan of care discussed with Dr. Dawson. Problems: Exam/Review of Systems Vital Signs Vitals Vital Signs Date Time Temp Pulse Resp B/P Pulse Ox O2 Delivery O2 Flow Rate FiO2 07/12/17 16:00 67 07/12/17 15:49 97.8 19 151/92 96 07/11/17 04:05 Room Air Intake and Output 07/11/17 07/11/17 07/12/17 15:00 23:00 07:00 Intake Total 500 ml Balance 500 ml Exam Constitutional: alert, oriented, other (jaundiced) Respiratory: normal air movement Cardiovascular: nl pulses Gastrointestinal: distended, hepatomegaly, soft, tender Extremities: normal pulses Neurological: 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 Results Result Diagram: 07/12/17 0827 07/12/17 1243 Results 24 hrs Laboratory Tests Test 07/12/17 08:27 07/12/17 10:43 07/12/17 12:43 White Blood Count 8.9 Red Blood Count 2.39 L Hemoglobin 7.8 L Hematocrit 24.6 L Mean Corpuscular Volume 102.9 H Mean Corpuscular Hemoglobin 32.6 Mean Corpuscular Hemoglobin Concent 31.7 L Red Cell Distribution Width 17.8 H Platelet Count 150 Mean Platelet Volume 10.7 H Neutrophils % 71.3 Lymphocytes % 16.7 Monocytes % 9.6 Eosinophils % 0.3 Basophils % 0.0 Nucleated Red Blood Cells % 0.0 Neutrophils # 6.3 Lymphocytes # 1.5 Monocytes # 0.9 Eosinophils # 0.0 Basophils # 0.0 Nucleated Red Blood Cells # 0.0 Sodium Level 131 L Potassium Level 3.3 L Chloride Level 109 # Carbon Dioxide Level 13 L Anion Gap 12 Blood Urea Nitrogen 7 Creatinine 0.87 Glucose Level 691 #*H 197 # Calcium Level 8.1 L Bedside Glucose 234 H Medications Medications Current Medications Ondansetron HCl (Zofran Inj) 4 mg Q4H PRN IV NAUSEA AND/OR VOMITING Last administered on 07/07/17 05:13; Admin Dose 4 MG; Start 06/29/17 at 17:00 Pantoprazole (Protonix Tab) 40 mg DAILY@06 PO Last administered on 07/12/17 06:02; Admin Dose 40 MG; Start 06/30/17 at 06:00 Propranolol HCl (Inderal) 10 mg BID PO Last administered on 07/12/17 09:17; Admin Dose 10 MG; Start 06/29/17 at 21:00 Rifaximin (Xifaxan) 550 mg BID PO Last administered on 07/11/17 23:03; Admin Dose 550 MG; Start 06/29/17 at 21:00 Spironolactone (Aldactone) 100 mg DAILY PO Last administered on 07/12/17 09: 17; Admin Dose 100 MG; Start 06/30/17 at 09:00 Prednisolone (Prelone (Ped)) 40 mg DAILY PO Last administered on 07/11/17 09: 57; Admin Dose 40 MG; Start 07/06/17 at 20:30 Tramadol HCl (Ultram) 50 mg Q6H PRN PO PAIN Last administered on 07/11/17 23: 04; Admin Dose 50 MG; Start 07/09/17 at 17:30 Morphine Sulfate (morphine) 1 mg Q6H PRN IV PAIN Last administered on 00:59; Admin Dose 1 MG; Start 07/09/17 at 18:00 Hydralazine HCl 10 mg 10 mg Q6H PRN IV ELEVATED BLOOD PRESSURE; Start at 15:30 Dextrose/Sodium Chloride (D5-1/2ns) 1,000 ml @ 70 mls/hr [id number] IV Last administered on 07/12/17 05:45; Admin Dose 70 MLS/HR; Start 07/10/17 at 15:30 Lactulose (Enulose) 20 gm Q6 PO Last administered on 07/12/17t 17:41; Admin Dose 20 GM; Start 07/12/17 at 12:00 KORIN FORBES Jul 12, 2017 18:56
[2017-07-12] MEDS ORDERED: POTASSIUM CHLORIDE 20 MEQ POWDER FOR ORAL SOLN PO ONE (19:00)
--- NOTE | 2017-07-12 20:03 | CONS ---
Date/Time of Note Date/Time of Note DATE: 07/12/17 TIME: 20:03 Assessment/Plan Assessment/Plan Additional Assessment/Plan Chief Complaint/Hosp Course Impression: 1. Alcoholic liver disease, most probably fatty liver. Total bilirubin has gone up now 2. Cyst in the tail of the pancreas, probably a pseudocyst 3. Anemia. 4. Mild coagulopathy 5. Hepatitic encephalopathy. Patient is confused and agitated PLAN: To continue with lactulose and rifaximin. Avoid sedatives and narcotics continue prednisolone Patient hepatitis discriminant score is 62 and this is an indication for prednisolone treatment 40 mg once a day will check labs tomorrrow to see whether bilirubin is down-rending check ammonia tomorrow as marker to assess for hepatic encephalopathy Increase the dose of lactulose and titrate with 4-5 bowel movements a day alcohol cessation Monitor total bilirubin Consultation Date/Type/Reason Admit Date/Time Jun 29, 2017 at 12:53 24 HR Interval Summary Constitutional: improved Exam/Review of Systems Vital Signs Vitals Vital Signs Date Time Temp Pulse Resp B/P Pulse Ox O2 Delivery O2 Flow Rate FiO2 07/12/17 16:00 67 07/12/17 15:49 97.8 19 151/92 96 07/11/17 04:05 Room Air Intake and Output 07/11/17 07/11/17 07/12/17 15:00 23:00 07:00 Intake Total 500 ml Balance 500 ml Exam Constitutional: alert, oriented, well developed Psych: nl mood/affect, no complaints Head: atraumatic, normocephalic Eyes: EOMI, PERRL, nl conjunctiva, nl lids, nl sclera ENMT: nl external ears & nose, nl lips & teeth, nl nasal mucosa & septum Neck: non-tender, supple Respiratory: clear to auscultation, normal air movement Cardiovascular: nl pulses, regular rate and rhythm Gastrointestinal: nl liver, spleen, non-tender, soft Musculoskeletal: nl extremities to inspection, nl gait and stance Extremities: normal pulses Neurological: SPOUT TENDER II-XII intact, 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, nl speech, nl strength Skin: nl turgor, No rash or lesions Lymph: nl lymph nodes Results Result Diagram: 07/12/17 0827 07/12/17 1243 Results 24 hrs Laboratory Tests Test 07/12/17 08:27 07/12/17 10:43 07/12/17 12:43 White Blood Count 8.9 Red Blood Count 2.39 L Hemoglobin 7.8 L Hematocrit 24.6 L Mean Corpuscular Volume 102.9 H Mean Corpuscular Hemoglobin 32.6 Mean Corpuscular Hemoglobin Concent 31.7 L Red Cell Distribution Width 17.8 H Platelet Count 150 Mean Platelet Volume 10.7 H Neutrophils % 71.3 Lymphocytes % 16.7 Monocytes % 9.6 Eosinophils % 0.3 Basophils % 0.0 Nucleated Red Blood Cells % 0.0 Neutrophils # 6.3 Lymphocytes # 1.5 Monocytes # 0.9 Eosinophils # 0.0 Basophils # 0.0 Nucleated Red Blood Cells # 0.0 Sodium Level 131 L Potassium Level 3.3 L Chloride Level 109 # Carbon Dioxide Level 13 L Anion Gap 12 Blood Urea Nitrogen 7 Creatinine 0.87 Glucose Level 691 #*H 197 # Calcium Level 8.1 L Bedside Glucose 234 H Medications Medications Current Medications Ondansetron HCl (Zofran Inj) 4 mg Q4H PRN IV NAUSEA AND/OR VOMITING Last administered on 07/07/17 05:13; Admin Dose 4 MG; Start 06/29/17 at 17:00 Pantoprazole (Protonix Tab) 40 mg DAILY@06 PO Last administered on 07/12/17 06:02; Admin Dose 40 MG; Start 06/30/17 at 06:00 Propranolol HCl (Inderal) 10 mg BID PO Last administered on 07/12/17 09:17; Admin Dose 10 MG; Start 06/29/17 at 21:00 Rifaximin (Xifaxan) 550 mg BID PO Last administered on 07/11/17 23:03; Admin Dose 550 MG; Start 06/29/17 at 21:00 Spironolactone (Aldactone) 100 mg DAILY PO Last administered on 07/12/17 09: 17; Admin Dose 100 MG; Start 06/30/17 at 09:00 Prednisolone (Prelone (Ped)) 40 mg DAILY PO Last administered on 07/11/17 09: 57; Admin Dose 40 MG; Start 07/06/17 at 20:30 Tramadol HCl (Ultram) 50 mg Q6H PRN PO PAIN Last administered on 07/11/17 23: 04; Admin Dose 50 MG; Start 07/09/17 at 17:30 Morphine Sulfate (morphine) 1 mg Q6H PRN IV PAIN Last administered on 00:59; Admin Dose 1 MG; Start 07/09/17 at 18:00 Hydralazine HCl (Apresoline) 10 mg Q6H PRN IV ELEVATED BLOOD PRESSURE; Start 07/10/17 at 15:30 Lactulose (Enulose) 20 gm Q6 PO Last administered on 07/12/17 17:41; Admin Dose 20 GM; Start 07/12/17 at 12:00 SUSAN GARCIAS MD Jul 12, 2017 20:03
[2017-07-12] MEDS: traMADol 50 MG TAB PO PRN (23:57)
[2017-07-13] VITALS (12 sets, daily range): BP systolic 133–182; BP diastolic 71–97; PULSE 70–87; RESP 16–18
[2017-07-13] MEDS: LACTULOSE 30ML CUP PO SCH ×3 (06:00→17:04)
[2017-07-13] MEDS: PANTOPRAZOLE (EC) 40 MG TAB PO SCH (06:00)
[2017-07-13 09:01] LABS: CALCIUM 9.5 mg/dl (8.4-10.2); CREATININE 1.05 mg/dl (0.44-1.00); POTASSIUM 4.1 mmol/L (3.5-5.1)
[2017-07-13] MEDS: PROPRANOLOL 20 MG TAB PO SCH ×2 (09:08→21:08)
[2017-07-13] MEDS: predniSOLONE (3 MG/ML PO SYG) PO SCH (09:08)
[2017-07-13] MEDS: RIFAXIMIN 550 MG TAB PO SCH ×2 (09:09→21:07)
[2017-07-13] MEDS: SPIRONOLACTONE 50 MG TAB PO SCH (09:09)
[2017-07-13] MEDS: morphine 2 MG INJ IV PRN ×2 (09:18→20:08)
[2017-07-13 10:40] LABS: ABNORMAL IP MESSAGE 1; HEMATOCRIT 30.6 % (37.0-47.0); MEAN CORPUSCULAR HEMOGLOBIN 31.8 pg (29.0-33.0); MEAN CORPUSCULAR HGB CONC 32.7 g/dl (32.0-37.0); MEAN CORPUSCULAR VOLUME 97.5 fl (82.0-101.0); MEAN PLATELET VOLUME 10.6 fl (7.4-10.4); NUCLEATED RED BLOOD CELLS% 0.3 /100WBC (0.0-0.0); PLATELET COUNT 200 10^3/UL (140-415); RED BLOOD COUNT 3.14 10^6/ul (4.20-5.40); RED CELL DISTRIBUTION WIDTH 17.6 % (11.5-14.5); WHITE BLOOD COUNT 12.6 10^3/ul (4.8-10.8)
[2017-07-13 10:44] LABS: POSITIVE DIFF @See below
[2017-07-13 11:38] LABS: ANISOCYTOSIS 2+ (0-0); BURR CELLS 2+ (0-0); EOSINOPHILS % (M) 2 % (0-7); MONOCYTES % (M) 5 % (0-11); PLATELET ESTIMATE NORMAL; POIKILOCYTOSIS 3+ (0-0); POLYCHROMASIA 1+ (0-0)
--- NOTE | 2017-07-13 12:31 | CONS ---
Date/Time of Note Date/Time of Note DATE: 07/13/17 TIME: 12:30 Assessment/Plan Assessment/Plan Additional Assessment/Plan Impression: 1. Alcoholic liver disease, most probably fatty liver. Total bilirubin has gone up now 2. Cyst in the tail of the pancreas, probably a pseudocyst 3. Anemia. 4. Mild coagulopathy 5. Hepatitic encephalopathy. Patient is confused and agitated PLAN: To continue with lactulose and rifaximin. Avoid sedatives and narcotics continue prednisolone Patient hepatitis discriminant score is 62 and this is an indication for prednisolone treatment 40 mg once a day will check labs tomorrrow to see whether bilirubin is down-rending check ammonia tomorrow as marker to assess for hepatic encephalopathy Increase the dose of lactulose and titrate with 4-5 bowel movements a day alcohol cessation Monitor total bilirubin Consultation Date/Type/Reason Admit Date/Time Jun 29, 2017 at 12:53 24 HR Interval Summary Free Text/Dictation Complains of pain Exam/Review of Systems Vital Signs Vitals Vital Signs Date Time Temp Pulse Resp B/P Pulse Ox O2 Delivery O2 Flow Rate FiO2 07/13/17 11:19 98.4 84 17 138/97 100 07/13/17 04:00 Room Air Intake and Output 07/12/17 07/12/17 07/13/17 15:00 23:00 07:00 Intake Total 8755 ml 1300 ml Balance 8755 ml 1300 ml Exam Constitutional: alert, oriented, well developed Psych: nl mood/affect, no complaints Head: atraumatic, normocephalic Eyes: EOMI, PERRL, nl conjunctiva, nl lids, nl sclera ENMT: nl external ears & nose, nl lips & teeth, nl nasal mucosa & septum Neck: non-tender, supple Respiratory: clear to auscultation, normal air movement Cardiovascular: nl pulses, regular rate and rhythm Gastrointestinal: nl liver, spleen, non-tender, soft Musculoskeletal: nl extremities to inspection, nl gait and stance Extremities: normal pulses Neurological: COUNTRY SINGER II-XII intact, 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, nl speech, nl strength Skin: nl turgor, No rash or lesions Lymph: nl lymph nodes Results Result Diagram: 07/13/17 1027 07/13/17 0726 Results 24 hrs Laboratory Tests Test 07/12/17 12:43 07/13/17 07:26 07/13/17 10:27 Glucose Level 197 # 230 H Sodium Level 138 Potassium Level 4.1 Chloride Level 117 H Carbon Dioxide Level 14 L Anion Gap 11 Blood Urea Nitrogen 7 Creatinine 1.05 H Calcium Level 9.5 White Blood Count 12.6 #H Red Blood Count 3.14 #L Hemoglobin 10.0 #L Hematocrit 30.6 #L Mean Corpuscular Volume 97.5 Mean Corpuscular Hemoglobin 31.8 Mean Corpuscular Hemoglobin Concent 32.7 Red Cell Distribution Width 17.6 H Platelet Count 200 # Mean Platelet Volume 10.6 H Neutrophils % Segmented Neutrophils % (Manual) 68 Band Neutrophils % (Manual) 1 Lymphocytes % Lymphocytes % (Manual) 24 Monocytes % Monocytes % (Manual) 5 Eosinophils % Eosinophils % (Manual) 2 Basophils % Nucleated Red Blood Cells % 0.3 H Neutrophils # Neutrophils # (Manual) 8.6 H Band Neutrophils # 0.1 Absolute Lymphocytes (Manual) 3.0 H Lymphocytes # Monocytes # Absolute Monocytes (Manual) 0.6 Eosinophils # Basophils # Nucleated Red Blood Cells # Platelet Estimate NORMAL Polychromasia 1+ Poikilocytosis 3+ Anisocytosis 2+ Macrocytosis 2+ Medications Medications Current Medications Ondansetron HCl (Zofran Inj) 4 mg Q4H PRN IV NAUSEA AND/OR VOMITING Last administered on 07/07/17 05:13; Admin Dose 4 MG; Start 06/29/17 at 17:00 Pantoprazole (Protonix Tab) 40 mg DAILY@06 PO Last administered on 07/13/17 06:00; Admin Dose 40 MG; Start 06/30/17 at 06:00 Propranolol HCl (Inderal) 10 mg BID PO Last administered on 07/13/17 09:08; Admin Dose 10 MG; Start 06/29/17 at 21:00 Rifaximin (Xifaxan) 550 mg BID PO Last administered on 07/13/17 09:09; Admin Dose 550 MG; Start 06/29/17 at 21:00 Spironolactone (Aldactone) 100 mg DAILY PO Last administered on 07/13/17 09: 09; Admin Dose 100 MG; Start 06/30/17 at 09:00 Prednisolone (Prelone (Ped)) 40 mg DAILY PO Last administered on 07/13/17 09: 08; Admin Dose 40 MG; Start 07/06/17 at 20:30 Tramadol HCl (Ultram) 50 mg Q6H PRN PO PAIN Last administered on 07/12/17 23: 57; Admin Dose 50 MG; Start 07/09/17 at 17:30 Morphine Sulfate (morphine) 1 mg Q6H PRN IV PAIN Last administered on 09:18; Admin Dose 1 MG; Start 07/09/17 at 18:00 Hydralazine HCl (Apresoline) 10 mg Q6H PRN IV ELEVATED BLOOD PRESSURE; Start 07/10/17 at 15:30 Lactulose (Enulose) 20 gm Q6 PO Last administered on 07/13/17 12:23; Admin Dose 20 GM; Start 07/12/17 at 12:00 SUSAN GARCIAS MD Jul 13, 2017 12:31
--- NOTE | 2017-07-13 17:27 | PN ---
Date/Time of Note Date/Time of Note DATE: 07/13/17 TIME: 17:26 Assessment/Plan VTE Prophylaxis VTE Prophylaxis Intervention: SCD's Lines/Catheters IV [facility] Urinary Cath still in place: No Assessment/Plan Chief Complaint/Hosp Course Assessment/Plan - Alcoholic liver disease. Dr. Gonzalez is following in gastroenterology consultation. Continue propranolol and Aldactone. - Hepatic encephalopathy, continue lactulose and rifaximin, monitor ammonia level. - Possible chronic pancreatitis with pseudocyst formation per CT - Possible ileus per CT - Nonischemic cardiomyopathy. - Anemia, will obtain stool for OB, transfuse as needed, need to monitor hemoglobin and hematocrit. - Hx of GI bleed - History of alcohol abuse. - History of amphetamine - Morbid obesity. Further recommendations based on clinical course. Plan of care discussed with Dr. Dawson. Problems: Exam/Review of Systems Vital Signs Vitals Vital Signs Date Time Temp Pulse Resp B/P Pulse Ox O2 Delivery O2 Flow Rate FiO2 07/13/17 14:58 98.1 64 18 140/97 99 07/13/17 04:00 Room Air Intake and Output 07/12/17 07/12/17 07/13/17 15:00 23:00 07:00 Intake Total 8755 ml 1300 ml Balance 8755 ml 1300 ml Exam Constitutional: alert, oriented, other (jaundiced) Respiratory: normal air movement Cardiovascular: nl pulses Gastrointestinal: distended, hepatomegaly, soft, tender Extremities: normal pulses Neurological: 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 Results Result Diagram: 07/13/17 1027 07/13/17 0726 Results 24 hrs Laboratory Tests Test 07/13/17 07:26 07/13/17 10:27 Sodium Level 138 Potassium Level 4.1 Chloride Level 117 H Carbon Dioxide Level 14 L Anion Gap 11 Blood Urea Nitrogen 7 Creatinine 1.05 H Glucose Level 230 H Calcium Level 9.5 White Blood Count 12.6 #H Red Blood Count 3.14 #L Hemoglobin 10.0 #L Hematocrit 30.6 #L Mean Corpuscular Volume 97.5 Mean Corpuscular Hemoglobin 31.8 Mean Corpuscular Hemoglobin Concent 32.7 Red Cell Distribution Width 17.6 H Platelet Count 200 # Mean Platelet Volume 10.6 H Neutrophils % Segmented Neutrophils % (Manual) 68 Band Neutrophils % (Manual) 1 Lymphocytes % Lymphocytes % (Manual) 24 Monocytes % Monocytes % (Manual) 5 Eosinophils % Eosinophils % (Manual) 2 Basophils % Nucleated Red Blood Cells % 0.3 H Neutrophils # Neutrophils # (Manual) 8.6 H Band Neutrophils # 0.1 Absolute Lymphocytes (Manual) 3.0 H Lymphocytes # Monocytes # Absolute Monocytes (Manual) 0.6 Eosinophils # Basophils # Nucleated Red Blood Cells # Platelet Estimate NORMAL Polychromasia 1+ Poikilocytosis 3+ Anisocytosis 2+ Macrocytosis 2+ Medications Medications Current Medications Ondansetron HCl (Zofran Inj) 4 mg Q4H PRN IV NAUSEA AND/OR VOMITING Last administered on 07/07/17 05:13; Admin Dose 4 MG; Start 06/29/17 at 17:00 Pantoprazole (Protonix Tab) 40 mg DAILY@06 PO Last administered on 07/13/17 06:00; Admin Dose 40 MG; Start 06/30/17 at 06:00 Propranolol HCl (Inderal) 10 mg BID PO Last administered on 07/13/17 09:08; Admin Dose 10 MG; Start 06/29/17 at 21:00 Rifaximin (Xifaxan) 550 mg BID PO Last administered on 07/13/17 09:09; Admin Dose 550 MG; Start 06/29/17 at 21:00 Spironolactone (Aldactone) 100 mg DAILY PO Last administered on 07/13/17 09: 09; Admin Dose 100 MG; Start 06/30/17 at 09:00 Prednisolone (Prelone (Ped)) 40 mg DAILY PO Last administered on 07/13/17 09: 08; Admin Dose 40 MG; Start 07/06/17 at 20:30 Tramadol HCl (Ultram) 50 mg Q6H PRN PO PAIN Last administered on 07/12/17 23: 57; Admin Dose 50 MG; Start 07/09/17 at 17:30 Morphine Sulfate (morphine) 1 mg Q6H PRN IV PAIN Last administered on 09:18; Admin Dose 1 MG; Start 07/09/17 at 18:00 Hydralazine HCl (Apresoline) 10 mg Q6H PRN IV ELEVATED BLOOD PRESSURE; Start 07/10/17 at 15:30 Lactulose (Enulose) 20 gm Q6 PO Last administered on 07/13/17 17:04; Admin Dose 20 GM; Start 07/12/17 at 12:00 KORIN FORBES Jul 13, 2017 17:27
[2017-07-14] VITALS (8 sets, daily range): BP systolic 138–149; BP diastolic 79–95; PULSE 65–88; RESP 17–19
[2017-07-14] MEDS: LACTULOSE 30ML CUP PO SCH ×3 (02:02→12:21)
[2017-07-14] MEDS: PANTOPRAZOLE (EC) 40 MG TAB PO SCH (06:21)
[2017-07-14 08:29] LABS: ABNORMAL IP MESSAGE 1; BASOPHILS % 0.1 % (0.0-2.0); EOSINOPHILS % 0.2 % (0.0-7.0); HEMATOCRIT 27.9 % (37.0-47.0); HEMOGLOBIN 9.4 g/dl (12.0-16.0); LYMPHOCYTES # 1.7 10^3/ul (0.8-2.9); LYMPHOCYTES % 9.9 % (15.0-51.0); MEAN CORPUSCULAR HGB CONC 33.7 g/dl (32.0-37.0); MEAN CORPUSCULAR VOLUME 94.9 fl (82.0-101.0); MEAN PLATELET VOLUME 10.6 fl (7.4-10.4); MONOCYTE # 1.4 10^3/ul (0.3-0.9); MONOCYTES % 8.1 % (0.0-11.0); NEUTROPHIL # 13.2 10^3/ul (1.6-7.5); NEUTROPHILS % 75.6 % (39.0-77.0); NUCLEATED RED BLOOD CELLS% 0.1 /100WBC (0.0-0.0); PLATELET COUNT 200 10^3/UL (140-415); RED BLOOD COUNT 2.94 10^6/ul (4.20-5.40); RED CELL DISTRIBUTION WIDTH 17.9 % (11.5-14.5); WHITE BLOOD COUNT 17.4 10^3/ul (4.8-10.8)
[2017-07-14 08:33] LABS: POSITIVE DIFF @See below
[2017-07-14 08:45] LABS: ALBUMIN 2.5 g/dl (3.3-4.9); ALBUMIN/GLOBULIN RATIO 0.51; BILIRUBIN,INDIRECT 2.6 mg/dl (0-1.1); BILIRUBIN,TOTAL 14.6 mg/dl (0.2-1.3); CALCIUM 9.8 mg/dl (8.4-10.2); CREATININE 0.89 mg/dl (0.44-1.00); POTASSIUM 4.1 mmol/L (3.5-5.1); TOTAL PROTEIN 7.4 g/dl (6.1-8.1)
[2017-07-14] MEDS: predniSOLONE (3 MG/ML PO SYG) PO SCH (09:12)
[2017-07-14] MEDS: SPIRONOLACTONE 50 MG TAB PO SCH (09:13)
[2017-07-14] MEDS: RIFAXIMIN 550 MG TAB PO SCH (09:13)
[2017-07-14] MEDS: PROPRANOLOL 20 MG TAB PO SCH (09:13)
--- NOTE | 2017-07-18 21:23 | DS ---
Date/Time of Note Date/Time of Note DATE: 07/18/17 TIME: 21:22 Discharge Summary Admission/Discharge Info Admit Date/Time Jun 29, 2017 at 12:53 Discharge Date/Time Jul 14, 2017 at 15:30 Hx of Present Illness Patient is a 27-year-old female known to me from previous admission. The patient with alcoholic liver disease and cardiomyopathy, stated that her last drink was 1 month ago. Patient was treated for hepatic encephalopathy and discharged home in stable condition previously. Patient stated that she was compliant with her medication regimen was discharged on with prescription for lactulose. The patient patient stated that she was feeling weak over the last couple of days, she also felt confused and forgetful. Patient says that she fell 3 days ago while losing her balance but did not hit her head. Patient also complains of generalized abdominal pain but denies any vomiting and diarrhea. She complains of nausea. Patient complains of nonproductive cough, although denies any chest pain denies shortness of breath. Patient underwent CT of the brain in emergency room which was unremarkable. Patient ammonia level was elevated and patient is being admitted for further evaluation and management. Hospital Course Patient left A on 07/14 - Alcoholic liver disease. Dr. Gonzalez is following in gastroenterology consultation. Continue propranolol and Aldactone. - Hepatic encephalopathy, continue lactulose and rifaximin, monitor ammonia level. - Possible chronic pancreatitis with pseudocyst formation per CT - Possible ileus per CT - Nonischemic cardiomyopathy. - Anemia, will obtain stool for OB, transfuse as needed, need to monitor hemoglobin and hematocrit. - Hx of GI bleed - History of alcohol abuse. - History of amphetamine - Morbid obesity. Further recommendations based on clinical course. Plan of care discussed with Dr. Dawson. Home Meds Active Scripts Tramadol HCl (Tramadol HCl) 50 Mg Tablet, 50 MG PO Q6H Y for PAIN, #30 TAB Prov:KORIN FORBES 06/15/17 Folic Acid* (Folic Acid*) 1 Mg Tablet, 1 MG PO DAILY for 14 Days, TAB Prov:KORIN FORBES 06/15/17 [Thiamine] 100 MG TAB No Conflict Check, 100 MG PO DAILY for 14 Days Prov:KORIN FORBES 06/15/17 Spironolactone* (Aldactone*) 50 Mg Tablet, 100 MG PO DAILY for 30 Days, TAB Prov:KORIN FORBES 06/15/17 Rifaximin* (Xifaxan*) 550 Mg Tablet, 550 MG PO BID for 30 Days, TAB Prov:KORIN FORBES 06/15/17 Propranolol Hcl* (Propranolol Hcl*) 20 Mg Tablet, 10 MG PO BID for 30 Days, TAB Prov:KORIN FORBES 06/15/17 Pantoprazole* (Pantoprazole*) 40 Mg Tablet.dr, 40 MG PO DAILY@06 for 30 Days Prov:KORIN FORBES 06/15/17 Lactulose* (Lactulose*) 20 Gm/30 Ml Solution, 20 GM PO Q8 for 30 Days Prov:KORIN FORBES 06/15/17 Reported Medications Multivitamin (Daily Vitamin Formula) 1 Each Tablet, 1 EACH PO DAILY, TAB 03/20/17 Levothyroxine Sodium* (Levoxyl*) 50 Mcg Tablet, 50 MCG PO BEFORE BREAKFAST, #30 TAB 03/20/17 Primary Care Provider Care Physician No Primary KORIN FORBES Jul 18, 2017 21:23
== END 2017-07-14 15:30 | disposition left against medical advice (07) | DRG 433 ==
LOC: E/R 09:37 → MS2 12:53 → MS4 07-10 18:10
PROVIDERS: ADMIT Internal Medicine; ATTEND Internal Medicine
PROC: 30233N1 Transfusion of Nonautologous Red Blood Cells into Peripheral Vein, Percutaneous Approach (ICD-10-PCS; principal; 2017-06-30)
DX: K70.40 Alcoholic hepatic failure without coma (principal); D68.9 Coagulation defect, unspecified; K86.3 Pseudocyst of pancreas; I42.6 Alcoholic cardiomyopathy; K56.7 Ileus, unspecified; K86.1 Other chronic pancreatitis; R17 Unspecified jaundice; E66.01 Morbid (severe) obesity due to excess calories; D64.9 Anemia, unspecified; F10.10 Alcohol abuse, uncomplicated; F15.10 Other stimulant abuse, uncomplicated; Z68.33 Body mass index [BMI] 33.0-33.9, adult; K76.0 Fatty (change of) liver, not elsewhere classified
CPT/HCPCS: 36415; 36430; 70450; 74177; 80048; 80053; 80307; 81001; 82105; 82140; 82150; 82270; 82947; 82962; 83690; 84443; 85025; 85610; 85730; 86850; 86900; 86901; 86920; 90686; 96374; 96375; 97110; 97116; 97161; 97530; J0360; J1630; J2060; J2270; J2405; J7030; J7040; J7042; J7510; P9016; Q9967

== ENCOUNTER 2017-08-06 05:36 | Inpatient (IN) | payer OTHER ==
[~2017-08-06] VITALS: Ht 154.9 cm; Wt 93.0 kg
[2017-08-06 06:06] VITALS: TEMP 98.5
[2017-08-06] MEDS ORDERED: ONDANSETRON (ODT) 4 MG TAB ODT STA (06:19)
[2017-08-06] MEDS ORDERED: HYDROCODONE/APAP (10/325) TAB PO ONE (06:30)
[2017-08-06 07:26] LABS: BASOPHILS % 0.2 % (0.0-2.0); EOSINOPHILS # 0.2 10^3/ul (0.0-0.5); EOSINOPHILS % 2.4 % (0.0-7.0); HEMATOCRIT 23.3 % (37.0-47.0); HEMOGLOBIN 7.9 g/dl (12.0-16.0); LYMPHOCYTES # 1.6 10^3/ul (0.8-2.9); LYMPHOCYTES % 18.6 % (15.0-51.0); MEAN CORPUSCULAR HEMOGLOBIN 32.8 pg (29.0-33.0); MEAN CORPUSCULAR HGB CONC 33.9 g/dl (32.0-37.0); MEAN CORPUSCULAR VOLUME 96.7 fl (82.0-101.0); MEAN PLATELET VOLUME 10.3 fl (7.4-10.4); MONOCYTE # 1.1 10^3/ul (0.3-0.9); MONOCYTES % 12.4 % (0.0-11.0); NEUTROPHIL # 5.5 10^3/ul (1.6-7.5); NEUTROPHILS % 65.6 % (39.0-77.0); PLATELET COUNT 163 10^3/UL (140-415); RED BLOOD COUNT 2.41 10^6/ul (4.20-5.40); RED CELL DISTRIBUTION WIDTH 21.9 % (11.5-14.5); WHITE BLOOD COUNT 8.4 10^3/ul (4.8-10.8)
[2017-08-06 07:27] LABS: ADD UMIC YES; UR ASCORBIC ACID NEGATIVE (NEGATIVE); UR BACTERIA FEW /HPF (NONE SEEN); UR BILIRUBIN (Dip) NEGATIVE (NEGATIVE); UR BLOOD (Dip) 1+ mg/dL (NEGATIVE); UR CLARITY CLEAR (CLEAR); UR COLOR YELLOW (YELLOW); UR GLUCOSE (Dip) NEGATIVE (NEGATIVE); UR KETONES (Dip) NEGATIVE (NEGATIVE); UR LEUKOCYTE ESTERASE (Dip) 3+ Leu/ul (NEGATIVE); UR NITRITE (Dip) NEGATIVE (NEGATIVE); UR RBC 4 /HPF (0-5); UR SPECIFIC GRAVITY (Dip) 1.005 (1.003-1.030); UR SQUAMOUS EPITHELIAL CELL FEW /HPF (FEW); UR TOTAL PROTEIN (Dip) NEGATIVE (NEGATIVE); UR UROBILINOGEN (Dip) NEGATIVE (NEGATIVE)
[2017-08-06 07:40] LABS: ALBUMIN 3.9 g/dl (3.3-4.9); ALBUMIN/GLOBULIN RATIO 1.18; BILIRUBIN,INDIRECT 4.2 mg/dl (0-1.1); BILIRUBIN,TOTAL 12.2 mg/dl (0.2-1.3); CALCIUM 8.9 mg/dl (8.4-10.2); CREATININE 0.99 mg/dl (0.44-1.00); POTASSIUM 3.2 mmol/L (3.5-5.1); TOTAL PROTEIN 7.2 g/dl (6.1-8.1)
[2017-08-06 07:46] LABS: INR 2.54; PROTIME 27.7 Sec (12.2-14.2); PT RATIO 2.2
[2017-08-06] MEDS ORDERED: CEFTRIAXONE 1 GM/50 ML (PMX) 50 ML IVPB ONE (08:00)
[2017-08-06] MEDS ORDERED: PHYTONADIONE 10 MG/ML INJ IM ONE (08:00)
[2017-08-06] MEDS ORDERED: ONDANSETRON 4 MG INJ IV PRN ×2 (08:30→13:00)
[2017-08-06] MEDS ORDERED: ACETAMINOPHEN 325 MG TAB PO PRN (08:30)
--- NOTE | 2017-08-06 11:12 | HP ---
Date/Time of Note Date/Time of Note DATE: 08/06/17 TIME: 11:09 Assessment/Plan VTE Prophylaxis VTE Prophylaxis Intervention: SCD's Assessment/Plan Chief Complaint/Hosp Course Assessment/Plan - Alcoholic liver disease. Dr. Gonzalez is following in gastroenterology consultation. Continue propranolol and Aldactone. - Ascites, pending paracentesis - Coagulopathy, pending FFP transfusion - Anemia - Nonischemic cardiomyopathy. - Anemia - History of alcohol abuse. Sober for last 3 months - History of amphetamine - Morbid obesity. Further recommendations based on clinical course. Plan of care discussed with Dr. Dawson. Problems: HPI/ROS Admit Date/Time Admit Date/Time Aug 06, 2017 at 08:27 Hx of Present Illness Patient is 27-year-old female known to me from previous admission. Patient with history of alcoholic liver disease, history of hepatic encephalopathy, and alcohol abuse. Patient stated that she has been sober for the last 3 months. Patient presented to the emergency room due to increased ascites. Patient denies any fever chills denies any dysuria. Patient cannot undergo paracentesis due to coagulopathy. Patient in the process of getting FFP transfusion and possible paracentesis later on. ROS Per HPI PMH/Family/Social Past Medical History Alcoholic liver disease Medical History: hepatitis Family History Significant Family History: other (Both parents from liver cirrhosis) Social History Alcohol Use: other (Patient has a history of alcohol abuse stating that she is sober for the last 3 months) Smoking Status: Never smoker Drug Use: none Exam/Review of Systems Vital Signs Vitals Vital Signs Date Time Temp Pulse Resp B/P Pulse Ox O2 Delivery O2 Flow Rate FiO2 08/06/17 08:28 111 13 118/71 100 08/06/17 06:06 98.5 Exam Constitutional: alert, oriented Head: normocephalic Eyes: icteric Neck: supple Respiratory: clear to auscultation Cardiovascular: nl pulses Gastrointestinal: ascites, distended, hepatomegaly, soft Musculoskeletal: nl extremities to inspection Extremities: normal pulses Neurological: 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 Skin: nl turgor Labs Result Diagram: 08/06/17 0709 08/06/17 0709 KORIN FORBES Aug 06, 2017 11:12
[2017-08-06] MEDS ORDERED: morphine 2 MG INJ IV SCH (11:30)
[2017-08-06] MEDS: traMADol 50 MG TAB PO PRN ×2 (12:09→18:32)
--- NOTE | 2017-08-06 12:55 | ERD ---
ER Documentation Chief Complaint Chief Complaint ABD PAIN HPI Patient is a 27-year-old female with CHF and liver failure who presents with abdominal pain. She says "my stomach is big and I cannot breathe". She said that she suffers from severe liver damage from heavy alcohol use previously. She said that she stopped 3 months ago. She has no fevers. She has no treatment as of yet. She said the fluid and distention started 2 days ago. She does not currently have a primary doctor. ROS All systems reviewed and are negative except as per history of present illness. Medications Home Meds Active Scripts Tramadol HCl (Tramadol HCl) 50 Mg Tablet, 50 MG PO Q6H Y for PAIN, #30 TAB Prov:KORIN FORBES 06/15/17 Folic Acid* (Folic Acid*) 1 Mg Tablet, 1 MG PO DAILY for 14 Days, TAB Prov:KORIN FORBES 06/15/17 [Thiamine] 100 MG TAB No Conflict Check, 100 MG PO DAILY for 14 Days Prov:KORIN FORBES 06/15/17 Spironolactone* (Aldactone*) 50 Mg Tablet, 100 MG PO DAILY for 30 Days, TAB Prov:KORIN FORBES 06/15/17 Rifaximin* (Xifaxan*) 550 Mg Tablet, 550 MG PO BID for 30 Days, TAB Prov:KORIN FORBES 06/15/17 Propranolol Hcl* (Propranolol Hcl*) 20 Mg Tablet, 10 MG PO BID for 30 Days, TAB Prov:KORIN FORBES 06/15/17 Pantoprazole* (Pantoprazole*) 40 Mg Tablet.dr, 40 MG PO DAILY@06 for 30 Days Prov:KORIN FORBES 06/15/17 Lactulose* (Lactulose*) 20 Gm/30 Ml Solution, 20 GM PO Q8 for 30 Days Prov:KORIN FORBES 06/15/17 Reported Medications Multivitamin (Daily Vitamin Formula) 1 Each Tablet, 1 EACH PO DAILY, TAB 03/20/17 Levothyroxine Sodium* (Levoxyl*) 50 Mcg Tablet, 50 MCG PO BEFORE BREAKFAST, #30 TAB 03/20/17 Allergies Allergies: Coded Allergies: Fish Containing Products (Verified Allergy, Unknown, 07/03/17) PMhx/Soc History of Surgery: No Anesthesia Reaction: No Hx Neurological Disorder: No Hx Respiratory Disorders: No Hx Cardiac Disorders: Yes (HTN) Hx Psychiatric Problems: No Hx Miscellaneous Medical Probl: Yes (EtOH liver disease, cardiomyopathy, meth use, obesity) Hx Alcohol Use: Yes Hx Substance Use: Yes (ALCOHOL) Hx Tobacco Use: No Smoking Status: Never smoker FmHx Family History: diabetes Physical Exam Vitals Vital Signs Date Time Temp Pulse Resp B/P Pulse Ox O2 Delivery O2 Flow Rate FiO2 08/06/17 06:06 98.5 104 13 119/84 100 08/06/17 05:38 98.5 105 20 147/87 97 Physical Exam Const: Moderate distress Head: Atraumatic Eyes: Normal Conjunctiva ENT: Scleral icterus Neck: Full range of motion..~ No meningismus. Resp: Clear to auscultation bilaterally Cardio: Regular rate and rhythm, no murmurs Abd: Diffuse abdominal distention with positive fluid wave Skin: Jaundice diffusely Back: No midline or flank tenderness Ext: No cyanosis, or edema Neur: Awake and alert Psych: Normal Mood and Affect Result Diagram: 08/06/17 0709 08/06/17 0709 Results 24 hrs Laboratory Tests Test 08/06/17 06:20 08/06/17 07:09 Urine Color YELLOW Urine Clarity CLEAR Urine pH 7.0 Urine Specific [place] 1.005 Urine Ketones NEGATIVEmg/dL Urine Nitrite NEGATIVEmg/dL Urine Bilirubin NEGATIVEmg/dL Urine Urobilinogen NEGATIVEmg/dL Urine Leukocyte Esterase 3+Chelsie/ul Urine Microscopic RBC 4/HPF Urine Microscopic WBC 16/HPF Urine Squamous Epithelial Cells FEW/HPF Urine Bacteria FEW/HPF Urine Hemoglobin 1+mg/dL Urine Glucose NEGATIVEmg/dL Urine Total Protein NEGATIVEmg/dl White Blood Count 8.410^3/ul Red Blood Count 2.4110^6/ul Hemoglobin 7.9g/dl Hematocrit 23.3% Mean Corpuscular Volume 96.7fl Mean Corpuscular Hemoglobin 32.8pg Mean Corpuscular Hemoglobin Concent 33.9g/dl Red Cell Distribution Width 21.9% Platelet Count 39752^3/UL Mean Platelet Volume 10.3fl Neutrophils % 65.6% Lymphocytes % 18.6% Monocytes % 12.4% Eosinophils % 2.4% Basophils % 0.2% Nucleated Red Blood Cells % 0.0/100WBC Neutrophils # 5.510^3/ul Lymphocytes # 1.610^3/ul Monocytes # 1.110^3/ul Eosinophils # 0.210^3/ul Basophils # 0.010^3/ul Nucleated Red Blood Cells # 0.010^3/ul Prothrombin Time 27.7Sec Prothrombin Time Ratio 2.2 INR International Normalized Ratio 2.54 Activated Partial Thromboplast Time 50.0Sec Sodium Level 145mmol/L Potassium Level 3.2mmol/L Chloride Level 110mmol/L Carbon Dioxide Level 18mmol/L Anion Gap 20 Blood Urea Nitrogen 8mg/dl Creatinine 0.99mg/dl Glucose Level 184mg/dl Calcium Level 8.9mg/dl Total Bilirubin 12.2mg/dl Direct Bilirubin 8.00mg/dl Indirect Bilirubin 4.2mg/dl Aspartate Amino Transf (AST/SGOT) 55IU/L Alanine Aminotransferase (ALT/SGPT) 42IU/L Alkaline Phosphatase 160IU/L Total Protein 7.2g/dl Albumin 3.9g/dl Globulin 3.30g/dl Albumin/Globulin Ratio 1.18 Lipase 20U/L Current Medications Medications (Trade) Dose Ordered Sig/Aliyah Route PRN Reason Start Time Stop Time Status Last Admin Dose Admin Acetaminophen/ Hydrocodone Bitart ([place] (10/325)) 1 tab ONCE ONCE PO 08/06/17 06:30 08/06/17 06:31 DC 08/06/17 06:25 Ondansetron HCl 4 mg 4 mg ONCE STAT ODT 08/06/17 06:19 08/06/17 06:22 DC 08/06/17 06:25 Ceftriaxone Sodium (Rocephin) 50 ml @ 100 mls/hr ONCE ONCE IVPB 08/06/17 08:00 08/06/17 08:29 DC Phytonadione (Vitamin K) 10 mg ONCE ONCE IM 08/06/17 08:00 08/06/17 08:01 DC 08/06/17 08:00 Procedures/MDM Patient is a 27-year-old female who presents with liver failure and ascites. The patient does not likely have spontaneous bacterial peritonitis. She does have a UTI and I will treat her with ceftriaxone. I wanted to do a ultrasound- guided paracentesis but the INR was too high and radiology would not perform this test. Therefore the patient was given vitamin K and FFP and will need admission to correct her coagulopathy prior to the paracentesis. The patient will be admitted to a medical surgical bed under the care of Dr. Dawson. Patient was previously admitted to Dr. Dawson. Critical Care: Time: 35 minutes excluding all billable procedures. Treatments/Evaluations: Close monitoring and treatment of unstable vital signs, cardiorespiratory, and neurologic status, while maintaining tight balance of fluid, respiratory, and cardiac interventions. Departure Diagnosis: Primary Impression: Coagulopathy Additional Impressions: Anemia Anemia type: unspecified type Qualified Code: D64.9 - Anemia, unspecified type Ascites Ascites type: other type Qualified Code: R18.8 - Other ascites Liver failure Liver failure chronicity: unspecified chronicity Hepatic coma status: without hepatic coma Qualified Code: K72.90 - Liver failure without hepatic coma, unspecified chronicity Abdominal pain Abdominal location: generalized Qualified Code: R10.84 - Generalized abdominal pain Condition: Serious JASBIR AGUSTIN MD Aug 06, 2017 12:55
[2017-08-06] MEDS ORDERED: traMADol 50 MG TAB PO PRN (13:00)
[2017-08-06 14:00] VITALS: BP 139/93; RESP 18
[2017-08-06 16:10] VITALS: Ht 154.9 cm; Wt 93.0 kg
[2017-08-06] MEDS: SPIRONOLACTONE 50 MG TAB PO SCH (16:32)
[2017-08-06] MEDS: LACTULOSE 30ML CUP PO SCH ×2 (16:32→22:50)
[2017-08-06] MEDS: RIFAXIMIN 550 MG TAB PO SCH ×2 (16:32→21:01)
[2017-08-06] MEDS: PANTOPRAZOLE (EC) 40 MG TAB PO SCH (16:36)
[2017-08-06 17:24] LABS: INR 2.11; PROTIME 23.9 Sec (12.2-14.2); PT RATIO 1.9
[2017-08-06 17:25] LABS: PARTIAL THROMBOPLASTIN TIME 43.8 Sec (25.0-35.0)
[2017-08-06 17:35] LABS: THROMBIN TIME 13.7 SEC (13.8-19.1)
[2017-08-06 20:00] VITALS: BP 149/85; RESP 18
[2017-08-06] MEDS: PROPRANOLOL 20 MG TAB PO SCH (21:02)
[2017-08-06] MEDS: oxyCODONE 5 MG TAB PO PRN (21:02)
[2017-08-07 02:00] VITALS: BP 128/78; RESP 19
[2017-08-07] MEDS: oxyCODONE 5 MG TAB PO PRN ×3 (02:53→17:15)
[2017-08-07 05:18] LABS: ABNORMAL IP MESSAGE 1; BASOPHILS % 0.3 % (0.0-2.0); EOSINOPHILS # 0.2 10^3/ul (0.0-0.5); EOSINOPHILS % 2.7 % (0.0-7.0); HEMATOCRIT 18.3 % (37.0-47.0); LYMPHOCYTES # 1.4 10^3/ul (0.8-2.9); LYMPHOCYTES % 21.6 % (15.0-51.0); MEAN CORPUSCULAR HEMOGLOBIN 32.3 pg (29.0-33.0); MEAN CORPUSCULAR HGB CONC 33.3 g/dl (32.0-37.0); MEAN CORPUSCULAR VOLUME 96.8 fl (82.0-101.0); MEAN PLATELET VOLUME 10.7 fl (7.4-10.4); MONOCYTE # 0.6 10^3/ul (0.3-0.9); MONOCYTES % 8.2 % (0.0-11.0); NEUTROPHIL # 4.4 10^3/ul (1.6-7.5); NEUTROPHILS % 66.6 % (39.0-77.0); PLATELET COUNT 131 10^3/UL (140-415); RED BLOOD COUNT 1.89 10^6/ul (4.20-5.40); RED CELL DISTRIBUTION WIDTH 22.5 % (11.5-14.5); WHITE BLOOD COUNT 6.7 10^3/ul (4.8-10.8)
[2017-08-07 05:39] LABS: ALBUMIN 3.6 g/dl (3.3-4.9); ALBUMIN/GLOBULIN RATIO 1.2; BILIRUBIN,DIRECT 6.3 mg/dl (0.00-0.20); BILIRUBIN,INDIRECT 3.6 mg/dl (0-1.1); BILIRUBIN,TOTAL 9.9 mg/dl (0.2-1.3); CALCIUM 8.2 mg/dl (8.4-10.2); CREATININE 0.92 mg/dl (0.44-1.00); POTASSIUM 3.4 mmol/L (3.5-5.1); TOTAL PROTEIN 6.6 g/dl (6.1-8.1)
[2017-08-07 05:46] LABS: MAGNESIUM 0.7 mg/dl (1.7-2.5)
[2017-08-07] MEDS: PANTOPRAZOLE (EC) 40 MG TAB PO SCH (05:57)
[2017-08-07] MEDS: LACTULOSE 30ML CUP PO SCH ×3 (05:57→22:35)
[2017-08-07 05:58] VITALS: BP 127/82; PULSE 102
[2017-08-07] MEDS: SPIRONOLACTONE 50 MG TAB PO SCH (05:58)
[2017-08-07 06:09] LABS: HEMOGLOBIN 6.1 g/dl (12.0-16.0); POSITIVE DIFF @See below
[2017-08-07] MEDS ORDERED: POTASSIUM CHLORIDE (SR) 20 MEQ TAB PO ONE (06:37)
[2017-08-07] MEDS ORDERED: SOD CHLORIDE 0.9% 250 ML IV* ONE (06:37)
[2017-08-07] MEDS ORDERED: POTASSIUM CHLORIDE 20 MEQ POWDER FOR ORAL SOLN PO ONE (06:56)
[2017-08-07] MEDS ORDERED: MAGNESIUM SULFATE 3 GM in DEXTROSE 5% 100 ML IVPB ONE (07:00)
[2017-08-07 08:00] VITALS: BP 135/85; RESP 16
[2017-08-07] MEDS ORDERED: INFLUENZA VIRUS VACCINE 0.5 ML SYG IM* ONE (09:00)
[2017-08-07] MEDS: RIFAXIMIN 550 MG TAB PO SCH ×2 (09:54→21:19)
[2017-08-07] MEDS: PROPRANOLOL 20 MG TAB PO SCH ×2 (09:55→21:19)
[2017-08-07] MEDS: CEFTRIAXONE 1 GM/50 ML (PMX) 50 ML IVPB SCH ×2 (13:00→22:35)
[2017-08-07] MEDS: CLOTRIMAZOLE 1% 30 GM CR TOP SCH ×2 (13:00→22:36)
--- NOTE | 2017-08-07 13:40 | CONS ---
Date/Time of Note Date/Time of Note DATE: 08/07/17 TIME: 13:37 Assessment/Plan Assessment/Plan Additional Assessment/Plan Assessment/Plan - Alcoholic liver disease. - Ascites, pending paracentesis - Coagulopathy, pending FFP transfusion - Anemia. - Nonischemic cardiomyopathy. - History of alcohol abuse. Sober for last 3 months - History of amphetamine - Morbid obesity. Plan transfusion stool for OB colonoscopy for rectal bleeding pt had EGD at [facility] 3 days ago ,negative Consultation Date/Type/Reason Admit Date/Time Aug 06, 2017 at 08:27 Initial Consult Date 24 HR Interval Summary Free Text/Dictation abdominal discomfort no g i bleeding Exam/Review of Systems Vital Signs Vitals Vital Signs Date Time Temp Pulse Resp B/P Pulse Ox O2 Delivery O2 Flow Rate FiO2 08/07/17 08:00 98.4 94 16 135/85 100 Intake and Output 08/06/17 08/06/17 08/07/17 15:00 23:00 07:00 Intake Total 2230 ml 400 ml Balance 2230 ml 400 ml Exam Constitutional: alert, oriented, well developed Psych: nl mood/affect, no complaints Head: atraumatic, normocephalic Eyes: EOMI, PERRL, nl conjunctiva, nl lids, nl sclera ENMT: nl external ears & nose, nl lips & teeth, nl nasal mucosa & septum Neck: non-tender, supple Respiratory: clear to auscultation, normal air movement Cardiovascular: nl pulses, regular rate and rhythm Gastrointestinal: nl liver, spleen, non-tender, soft Musculoskeletal: nl extremities to inspection, nl gait and stance Extremities: normal pulses 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, 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, nl speech, nl strength Skin: nl turgor, No rash or lesions Lymph: nl lymph nodes Results Result Diagram: 08/07/17 0440 08/07/17 0440 Results 24 hrs Laboratory Tests Test 08/06/17 16:22 08/07/17 04:40 08/07/17 07:09 Platelet Count 142 131 L Prothrombin Time 23.9 H Prothrombin Time Ratio 1.9 INR International Normalized Ratio 2.11 Activated Partial Thromboplast Time 43.8 H Thrombin Time 13.7 L White Blood Count 6.7 # Red Blood Count 1.89 #L Hemoglobin 6.1 #*L Hematocrit 18.3 #L Mean Corpuscular Volume 96.8 Mean Corpuscular Hemoglobin 32.3 Mean Corpuscular Hemoglobin Concent 33.3 Red Cell Distribution Width 22.5 H Mean Platelet Volume 10.7 H Neutrophils % 66.6 Lymphocytes % 21.6 Monocytes % 8.2 Eosinophils % 2.7 Basophils % 0.3 Nucleated Red Blood Cells % 0.0 Neutrophils # 4.4 Lymphocytes # 1.4 Monocytes # 0.6 Eosinophils # 0.2 Basophils # 0.0 Nucleated Red Blood Cells # 0.0 Sodium Level 144 Potassium Level 3.4 L Chloride Level 107 Carbon Dioxide Level 22 Anion Gap 18 H Blood Urea Nitrogen 7 Creatinine 0.92 Glucose Level 192 Calcium Level 8.2 L Magnesium Level 0.7 *L Total Bilirubin 9.9 #H Direct Bilirubin 6.30 H Indirect Bilirubin 3.6 H Aspartate Amino Transf (AST/SGOT) 42 Alanine Aminotransferase (ALT/SGPT) 38 Alkaline Phosphatase 123 H Total Protein 6.6 Albumin 3.6 Globulin 3.00 Albumin/Globulin Ratio 1.20 Lab Scanned Report BLOOD TRANSFUSION Medications Medications Current Medications Lactulose (Enulose) 20 gm Q8 PO Last administered on 08/07/17 05:57; Admin Dose 20 GM; Start 08/06/17 at 14:00 Pantoprazole (Protonix Tab) 40 mg DAILY@06 PO Last administered on 08/07/17 05:57; Admin Dose 40 MG; Start 08/06/17 at 13:00 Propranolol HCl (Inderal) 10 mg BID PO Last administered on 08/07/17 09:55; Admin Dose 10 MG; Start 08/06/17 at 21:00 Rifaximin (Xifaxan) 550 mg BID PO Last administered on 08/07/17 09:54; Admin Dose 550 MG; Start 08/06/17 at 14:00 Spironolactone (Aldactone) 100 mg DAILY@06 PO Last administered on 08/07/17 05:58; Admin Dose 100 MG; Start 08/06/17 at 14:00 Ondansetron HCl (Zofran Inj) 4 mg Q6H PRN IV NAUSEA AND/OR VOMITING; Start at 13:00 Oxycodone HCl (Roxicodone) 5 mg Q6H PRN PO PAIN Last administered on 09:54; Admin Dose 5 MG; Start 08/06/17 at 20:30 Hydrocortisone 25 mg 25 mg BID [place] ; Start 08/07/17 at 21:00 Ceftriaxone Sodium (Rocephin) 50 ml @ 100 mls/hr Q24H IVPB ; Start 08/07/17 at 13:00 Clotrimazole (Lotrimin Cr) 1 applic BID TOP ; Start 08/07/17 at 13:00 SUSAN GARCIAS MD Aug 07, 2017 13:40
[2017-08-07 14:00] VITALS: BP 138/87; RESP 19
[2017-08-07] MEDS ORDERED: morphine 2 MG INJ IV STA (15:17)
[2017-08-07 21:06] VITALS: BP 132/91; RESP 18
[2017-08-07] MEDS: HYDROCORTISONE 25 MG SUPP PR SCH (21:19)
[2017-08-07] MEDS ORDERED: morphine 2 MG INJ IV PRN (21:30)
[2017-08-07 21:53] LABS: BASOPHILS % 0.1 % (0.0-2.0); EOSINOPHILS # 0.2 10^3/ul (0.0-0.5); HEMATOCRIT 27.4 % (37.0-47.0); HEMOGLOBIN 9.2 g/dl (12.0-16.0); LYMPHOCYTES # 1.4 10^3/ul (0.8-2.9); LYMPHOCYTES % 18.2 % (15.0-51.0); MEAN CORPUSCULAR HEMOGLOBIN 32.5 pg (29.0-33.0); MEAN CORPUSCULAR HGB CONC 33.6 g/dl (32.0-37.0); MEAN CORPUSCULAR VOLUME 96.8 fl (82.0-101.0); MEAN PLATELET VOLUME 10.6 fl (7.4-10.4); MONOCYTE # 0.8 10^3/ul (0.3-0.9); MONOCYTES % 10.7 % (0.0-11.0); NEUTROPHIL # 5.4 10^3/ul (1.6-7.5); NEUTROPHILS % 68.4 % (39.0-77.0); PLATELET COUNT 132 10^3/UL (140-415); RED BLOOD COUNT 2.83 10^6/ul (4.20-5.40); RED CELL DISTRIBUTION WIDTH 20.9 % (11.5-14.5); WHITE BLOOD COUNT 7.9 10^3/ul (4.8-10.8)
[2017-08-07 22:15] LABS: CALCIUM 8.4 mg/dl (8.4-10.2); CREATININE 0.9 mg/dl (0.44-1.00); MAGNESIUM 1.2 mg/dl (1.7-2.5); POTASSIUM 4.4 mmol/L (3.5-5.1)
[2017-08-08] MEDS ORDERED: MAGNESIUM SULFATE 3 GM in DEXTROSE 5% 100 ML IVPB ONE (01:30)
[2017-08-08] MEDS ORDERED: morphine 2 MG INJ IV PRN (02:00)
[2017-08-08 03:06] VITALS: BP 127/84; RESP 18
[2017-08-08] MEDS: SPIRONOLACTONE 50 MG TAB PO SCH (05:57)
[2017-08-08] MEDS: PANTOPRAZOLE (EC) 40 MG TAB PO SCH (05:57)
[2017-08-08] MEDS: LACTULOSE 30ML CUP PO SCH ×3 (05:59→21:16)
[2017-08-08 06:07] LABS: BASOPHILS % 0.4 % (0.0-2.0); EOSINOPHILS # 0.2 10^3/ul (0.0-0.5); EOSINOPHILS % 1.4 % (0.0-7.0); HEMATOCRIT 27.9 % (37.0-47.0); HEMOGLOBIN 9.6 g/dl (12.0-16.0); LYMPHOCYTES # 1.3 10^3/ul (0.8-2.9); LYMPHOCYTES % 11.9 % (15.0-51.0); MEAN CORPUSCULAR HEMOGLOBIN 32.8 pg (29.0-33.0); MEAN CORPUSCULAR HGB CONC 34.4 g/dl (32.0-37.0); MEAN CORPUSCULAR VOLUME 95.2 fl (82.0-101.0); MEAN PLATELET VOLUME 10.5 fl (7.4-10.4); MONOCYTE # 1.1 10^3/ul (0.3-0.9); MONOCYTES % 10.6 % (0.0-11.0); NEUTROPHIL # 8.1 10^3/ul (1.6-7.5); NEUTROPHILS % 74.9 % (39.0-77.0); PLATELET COUNT 146 10^3/UL (140-415); RED BLOOD COUNT 2.93 10^6/ul (4.20-5.40); RED CELL DISTRIBUTION WIDTH 21.2 % (11.5-14.5); WHITE BLOOD COUNT 10.8 10^3/ul (4.8-10.8)
[2017-08-08 06:24] LABS: CALCIUM 8.7 mg/dl (8.4-10.2); CREATININE 0.86 mg/dl (0.44-1.00); MAGNESIUM 1.8 mg/dl (1.7-2.5); POTASSIUM 4.8 mmol/L (3.5-5.1)
[2017-08-08 08:00] VITALS: BP 132/81; RESP 18
[2017-08-08] MEDS: PROPRANOLOL 20 MG TAB PO SCH ×2 (09:11→21:15)
[2017-08-08] MEDS: HYDROCORTISONE 25 MG SUPP PR SCH ×2 (09:12→21:16)
[2017-08-08] MEDS: RIFAXIMIN 550 MG TAB PO SCH ×2 (09:12→21:16)
[2017-08-08] MEDS: CLOTRIMAZOLE 1% 30 GM CR TOP SCH ×2 (09:12→21:16)
[2017-08-08] MEDS: oxyCODONE 5 MG TAB PO PRN ×3 (09:54→23:27)
[2017-08-08] MEDS: CEFTRIAXONE 1 GM/50 ML (PMX) 50 ML IVPB SCH (12:33)
--- NOTE | 2017-08-08 12:41 | PN ---
Date/Time of Note Date/Time of Note DATE: 08/07/17 TIME: 12:19 Assessment/Plan VTE Prophylaxis VTE Prophylaxis Intervention: other Lines/Catheters [facility] MIDLINE Urinary Cath still in place: No Assessment/Plan Assessment/Plan - Alcoholic liver disease. Dr. Gonzalez is following in gastroenterology consultation. Continue propranolol and Aldactone. - Ascites, pending paracentesis - cancelled today due to low H/H - Coagulopathy, SP FFP transfusion - Anemia- Will get 2 units PRBC, 1st unit is transfusing now - UTI - Hemorrhoids- Anusol cream - Right foot ringworm infection- - Nonischemic cardiomyopathy. - History of alcohol abuse. Sober for last 3 months - History of amphetamine - Morbid obesity- dietary consult Further recommendations based on clinical course. Plan of care discussed with Dr. Dawson. Subjective 24 Hr Interval Summary Free Text/Dictation - nad, getting blood transfusion, jaundiced, afebrile, dw staff Respiratory: no complaints Cardiovascular: no complaints Gastrointestinal: pain Musculoskeletal: no complaints Exam/Review of Systems Vital Signs Vitals Vital Signs Date Time Temp Pulse Resp B/P Pulse Ox O2 Delivery O2 Flow Rate FiO2 08/07/17 08:00 98.4 94 16 135/85 100 Intake and Output 08/06/17 08/06/17 08/07/17 14:59 22:59 06:59 Intake Total 1730 ml 900 ml Balance 1730 ml 900 ml Exam Constitutional: alert, well developed Eyes: icteric Respiratory: diminished breath sounds, normal air movement Cardiovascular: nl pulses, other (s1s2) Gastrointestinal: ascites, soft, tender Musculoskeletal: nl extremities to inspection Extremities: normal pulses Neurological: 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, nl speech Results Result Diagram: 08/07/170 08/07/17439 Results 24 hrs Laboratory Tests Test 08/06/17 16:22 08/07/17 04:40 08/07/17 07:09 Platelet Count 142 131 L Prothrombin Time 23.9 H Prothrombin Time Ratio 1.9 INR International Normalized Ratio 2.11 Activated Partial Thromboplast Time 43.8 H Thrombin Time 13.7 L White Blood Count 6.7 # Red Blood Count 1.89 #L Hemoglobin 6.1 #*L Hematocrit 18.3 #L Mean Corpuscular Volume 96.8 Mean Corpuscular Hemoglobin 32.3 Mean Corpuscular Hemoglobin Concent 33.3 Red Cell Distribution Width 22.5 H Mean Platelet Volume 10.7 H Neutrophils % 66.6 Lymphocytes % 21.6 Monocytes % 8.2 Eosinophils % 2.7 Basophils % 0.3 Nucleated Red Blood Cells % 0.0 Neutrophils # 4.4 Lymphocytes # 1.4 Monocytes # 0.6 Eosinophils # 0.2 Basophils # 0.0 Nucleated Red Blood Cells # 0.0 Sodium Level 144 Potassium Level 3.4 L Chloride Level 107 Carbon Dioxide Level 22 Anion Gap 18 H Blood Urea Nitrogen 7 Creatinine 0.92 Glucose Level 192 Calcium Level 8.2 L Magnesium Level 0.7 *L Total Bilirubin 9.9 #H Direct Bilirubin 6.30 H Indirect Bilirubin 3.6 H Aspartate Amino Transf (AST/SGOT) 42 Alanine Aminotransferase (ALT/SGPT) 38 Alkaline Phosphatase 123 H Total Protein 6.6 Albumin 3.6 Globulin 3.00 Albumin/Globulin Ratio 1.20 Lab Scanned Report BLOOD TRANSFUSION Medications Medications Current Medications Lactulose (Enulose) 20 gm Q8 PO Last administered on 08/07/17 05:57; Admin Dose 20 GM; Start 08/06/17 at 14:00 Pantoprazole (Protonix Tab) 40 mg DAILY@06 PO Last administered on 08/07/17 05:57; Admin Dose 40 MG; Start 08/06/17 at 13:00 Propranolol HCl (Inderal) 10 mg BID PO Last administered on 08/07/17 09:55; Admin Dose 10 MG; Start 08/06/17 at 21:00 Rifaximin (Xifaxan) 550 mg BID PO Last administered on 08/07/17 09:54; Admin Dose 550 MG; Start 08/06/17 at 14:00 Spironolactone (Aldactone) 100 mg DAILY@06 PO Last administered on 08/07/17 05:58; Admin Dose 100 MG; Start 08/06/17 at 14:00 Ondansetron HCl (Zofran Inj) 4 mg Q6H PRN IV NAUSEA AND/OR VOMITING; Start at 13:00 Oxycodone HCl (Roxicodone) 5 mg Q6H PRN PO PAIN Last administered on 09:54; Admin Dose 5 MG; Start 08/06/17 at 20:30 SWATHI RESENDIZ Aug 07, 2017 12:31
--- NOTE | 2017-08-08 12:43 | PN ---
Date/Time of Note Date/Time of Note DATE: 08/08/17 TIME: 12:41 Assessment/Plan VTE Prophylaxis VTE Prophylaxis Intervention: other Lines/Catheters IV C[facility] Type (from [facility] MIDLINE Urinary Cath still in place: No Assessment/Plan Assessment/Plan - Electrolyte imbalance- resolved - Alcoholic liver disease. Dr. Gonzalez is following in gastroenterology consultation. Continue propranolol and Aldactone. - Ascites, pending paracentesis - cancelled today due to low H/H - Coagulopathy, SP FFP transfusion - Anemia- sp 2 units PRBC - UTI - Hemorrhoids- Anusol cream - Right foot ringworm infection- Lamisil - Nonischemic cardiomyopathy. - History of alcohol abuse. Sober for last 3 months - History of amphetamine - Morbid obesity. - per dietary Further recommendations based on clinical course. Plan of care discussed with Dr. Dawson. Subjective 24 Hr Interval Summary Free Text/Dictation pending paracentesis, nad, afebrile, dw staff Exam/Review of Systems Vital Signs Vitals Vital Signs Date Time Temp Pulse Resp B/P Pulse Ox O2 Delivery O2 Flow Rate FiO2 08/08/17 08:00 98.2 90 18 132/81 100 Intake and Output 08/07/17 08/07/17 08/08/17 15:00 23:00 07:00 Intake Total 106 ml 876 ml Balance 106 ml 876 ml Exam Constitutional: alert, well developed Eyes: icteric Respiratory: normal air movement Gastrointestinal: non-tender, soft Musculoskeletal: nl extremities to inspection Extremities: normal pulses Neurological: other (alert,responsive) Results Result Diagram: 08/08/17 0515 08/08/17 0515 Results 24 hrs Laboratory Tests Test 08/07/17 21:29 08/08/17 00:45 08/08/17 05:15 08/08/17 06:10 White Blood Count 7.9 10.8 # Red Blood Count 2.83 #L 2.93 L Hemoglobin 9.2 #L 9.6 L Hematocrit 27.4 #L 27.9 L Mean Corpuscular Volume 96.8 95.2 Mean Corpuscular Hemoglobin 32.5 32.8 Mean Corpuscular Hemoglobin Concent 33.6 34.4 Red Cell Distribution Width 20.9 H 21.2 H Platelet Count 132 L 146 Mean Platelet Volume 10.6 H 10.5 H Neutrophils % 68.4 74.9 Lymphocytes % 18.2 11.9 L Monocytes % 10.7 10.6 Eosinophils % 2.0 1.4 Basophils % 0.1 0.4 Nucleated Red Blood Cells % 0.0 0.0 Neutrophils # 5.4 8.1 H Lymphocytes # 1.4 1.3 Monocytes # 0.8 1.1 H Eosinophils # 0.2 0.2 Basophils # 0.0 0.0 Nucleated Red Blood Cells # 0.0 0.0 Sodium Level 140 140 Potassium Level 4.4 4.8 Chloride Level 106 106 Carbon Dioxide Level 21 25 Anion Gap 17 H 14 Blood Urea Nitrogen 7 7 Creatinine 0.90 0.86 Glucose Level 119 # 149 Calcium Level 8.4 8.7 Magnesium Level 1.2 L 1.8 Stool Occult Blood NEGATIVE Lab Scanned Report BLOOD TRANSFUSION Medications Medications Current Medications Lactulose (Enulose) 20 gm Q8 PO Last administered on 08/07/17 22:35; Admin Dose 20 GM; Start 08/06/17 at 14:00 Pantoprazole (Protonix Tab) 40 mg DAILY@06 PO Last administered on 08/08/17 05:57; Admin Dose 40 MG; Start 08/06/17 at 13:00 Propranolol HCl (Inderal) 10 mg BID PO Last administered on 08/08/17 09:11; Admin Dose 10 MG; Start 08/06/17 at 21:00 Rifaximin (Xifaxan) 550 mg BID PO Last administered on 08/08/17 09:12; Admin Dose 550 MG; Start 08/06/17 at 14:00 Spironolactone (Aldactone) 100 mg DAILY@06 PO Last administered on 08/08/17 05:57; Admin Dose 100 MG; Start 08/06/17 at 14:00 Ondansetron HCl (Zofran Inj) 4 mg Q6H PRN IV NAUSEA AND/OR VOMITING; Start at 13:00 Oxycodone HCl (Roxicodone) 5 mg Q6H PRN PO PAIN Last administered on 09:54; Admin Dose 5 MG; Start 08/06/17 at 20:30 Hydrocortisone 25 mg 25 mg BID [place] Last administered on 08/08/17 09:12; Admin Dose 25 MG; Start 08/07/17 at 21:00 Ceftriaxone Sodium (Rocephin) 50 ml @ 100 mls/hr Q24H IVPB Last administered on 08/08/17 12:33; Admin Dose 100 MLS/HR; Start 08/07/17 at 13:00 Clotrimazole (Lotrimin Cr) 1 applic BID TOP Last administered on 08/08/17 09: 12; Admin Dose 1 APPLIC; Start 08/08/17 at 09:00 Morphine Sulfate (morphine) 2 mg Q4H PRN IV PAIN Last administered on 01:57; Admin Dose 2 MG; Start 08/08/17 at 02:00 SWATHI RESENDIZ Aug 08, 2017 12:43
[2017-08-08] MEDS: DIPHENHYDRAMINE 25 MG CAP PO PRN ×2 (13:10→23:30)
[2017-08-08 14:00] VITALS: BP 137/92; RESP 19
--- NOTE | 2017-08-08 15:44 | RADRPT ---
PROCEDURE: US limited abdomen CLINICAL INDICATION: Evaluate ascites TECHNIQUE: Multiple real-time images were acquired of the patient's abdomen utilizing a high resol ution transducer. COMPARISON: CT 06/29/2017 FINDINGS: Limited ultrasound demonstrates a trace amount of ascites around the liver. IMPRESSION: Trace peritoneal free fluid. RPTAT:AAJJ Physician Jeronimo Date Time Electronically viewed and signed by Antonio Ahumada Physician on 08/08/2017 15:43 /
[2017-08-08 20:33] VITALS: BP 136/88; RESP 18
[2017-08-09 02:42] VITALS: BP 142/74; RESP 18
[2017-08-09] MEDS ORDERED: LORAZEPAM 0.5 MG TAB PO PRN (04:30)
[2017-08-09] MEDS: LACTULOSE 30ML CUP PO SCH (05:39)
[2017-08-09] MEDS: DIPHENHYDRAMINE 25 MG CAP PO PRN (05:40)
[2017-08-09] MEDS: SPIRONOLACTONE 50 MG TAB PO SCH (05:40)
[2017-08-09] MEDS: PANTOPRAZOLE (EC) 40 MG TAB PO SCH (05:40)
[2017-08-09 06:51] LABS: BASOPHIL # 0.1 10^3/ul (0.0-0.1); BASOPHILS % 0.6 % (0.0-2.0); EOSINOPHILS # 0.1 10^3/ul (0.0-0.5); EOSINOPHILS % 0.6 % (0.0-7.0); HEMATOCRIT 26.1 % (37.0-47.0); HEMOGLOBIN 8.8 g/dl (12.0-16.0); LYMPHOCYTES # 1.1 10^3/ul (0.8-2.9); LYMPHOCYTES % 10.2 % (15.0-51.0); MEAN CORPUSCULAR HEMOGLOBIN 32.6 pg (29.0-33.0); MEAN CORPUSCULAR HGB CONC 33.7 g/dl (32.0-37.0); MEAN CORPUSCULAR VOLUME 96.7 fl (82.0-101.0); MONOCYTE # 0.7 10^3/ul (0.3-0.9); MONOCYTES % 7.1 % (0.0-11.0); NEUTROPHIL # 8.4 10^3/ul (1.6-7.5); PLATELET COUNT 139 10^3/UL (140-415); RED CELL DISTRIBUTION WIDTH 20.9 % (11.5-14.5); WHITE BLOOD COUNT 10.3 10^3/ul (4.8-10.8)
[2017-08-09 07:47] VITALS: BP 129/89; RESP 20
[2017-08-09 07:54] LABS: CALCIUM 8.9 mg/dl (8.4-10.2); CREATININE 0.77 mg/dl (0.44-1.00); POTASSIUM 4.6 mmol/L (3.5-5.1)
[2017-08-09 08:05] VITALS: BP 133/75; RESP 20
[2017-08-09] MEDS: PROPRANOLOL 20 MG TAB PO SCH ×2 (08:10→20:24)
[2017-08-09] MEDS: RIFAXIMIN 550 MG TAB PO SCH ×2 (08:10→20:24)
[2017-08-09] MEDS: oxyCODONE 5 MG TAB PO PRN (08:11)
[2017-08-09] MEDS: CLOTRIMAZOLE 1% 30 GM CR TOP SCH ×2 (08:12→20:23)
[2017-08-09] MEDS: HYDROCORTISONE 25 MG SUPP PR SCH ×2 (08:12→20:24)
--- NOTE | 2017-08-09 12:25 | PN ---
Date/Time of Note Date/Time of Note DATE: 08/09/17 TIME: 11:55 Assessment/Plan VTE Prophylaxis VTE Prophylaxis Intervention: other Lines/Catheters [facility]from [facility] midline Urinary Cath still in place: No Assessment/Plan Assessment/Plan - Alcoholic liver disease. Dr. Gonzalez is following in gastroenterology consultation. Continue propranolol and Aldactone. - Elevated NH3 level- 84 - Ascites, pending paracentesis - cancelled today due to low H/H - Coagulopathy, SP FFP transfusion - Anemia- sp 2 units PRBC - UTI - Hemorrhoids- Anusol cream - Right foot ringworm infection- Lamisil - Bilateral groin- fungal infection- will order Nystatin powder - Vaginal fungal infection- Diflucan x 1 - Nonischemic cardiomyopathy. - History of alcohol abuse. Sober for last 3 months - History of amphetamine - Morbid obesity. - per dietary Further recommendations based on clinical course. Plan of care discussed with Dr. Dawson. Subjective 24 Hr Interval Summary Free Text/Dictation c/o vaginal discharge, afebrile abd distension- no paracentesis done as no enough fluid dw staff Exam/Review of Systems Vital Signs Vitals Vital Signs Date Time Temp Pulse Resp B/P Pulse Ox O2 Delivery O2 Flow Rate FiO2 08/09/17 08:05 98.4 56 20 133/75 99 Intake and Output 08/08/17 08/08/17 08/09/17 15:00 23:00 07:00 Intake Total 850 ml 850 ml Output Total 100 ml 5 ml Balance 750 ml 845 ml Exam Constitutional: alert, obese, well developed Respiratory: diminished breath sounds, normal air movement Cardiovascular: nl pulses Gastrointestinal: distended, soft Musculoskeletal: nl extremities to inspection Extremities: normal pulses, other Neurological: other (confused ) Results Result Diagram: 08/09/17 0535 08/09/17 0535 Results 24 hrs Laboratory Tests Test 08/09/17 05:35 08/09/17 05:37 White Blood Count 10.3 Red Blood Count 2.70 L Hemoglobin 8.8 L Hematocrit 26.1 L Mean Corpuscular Volume 96.7 Mean Corpuscular Hemoglobin 32.6 Mean Corpuscular Hemoglobin Concent 33.7 Red Cell Distribution Width 20.9 H Platelet Count 139 L Mean Platelet Volume 11.0 H Neutrophils % 81.0 H Lymphocytes % 10.2 L Monocytes % 7.1 Eosinophils % 0.6 Basophils % 0.6 Nucleated Red Blood Cells % 0.0 Neutrophils # 8.4 H Lymphocytes # 1.1 Monocytes # 0.7 Eosinophils # 0.1 Basophils # 0.1 Nucleated Red Blood Cells # 0.0 Sodium Level 141 Potassium Level 4.6 Chloride Level 107 Carbon Dioxide Level 25 Anion Gap 14 Blood Urea Nitrogen 5 L Creatinine 0.77 Glucose Level 194 Calcium Level 8.9 Ammonia 87 H Medications Medications Current Medications Lactulose (Enulose) 20 gm Q8 PO Last administered on 08/09/17 05:39; Admin Dose 20 GM; Start 08/06/17 at 14:00 Pantoprazole (Protonix Tab) 40 mg DAILY@06 PO Last administered on 08/09/17 05:40; Admin Dose 40 MG; Start 08/06/17 at 13:00 Propranolol HCl (Inderal) 10 mg BID PO Last administered on 08/09/17 08:10; Admin Dose 10 MG; Start 08/06/17 at 21:00 Rifaximin (Xifaxan) 550 mg BID PO Last administered on 08/09/17 08:10; Admin Dose 550 MG; Start 08/06/17 at 14:00 Spironolactone (Aldactone) 100 mg DAILY@06 PO Last administered on 08/09/17 05:40; Admin Dose 100 MG; Start 08/06/17 at 14:00 Ondansetron HCl (Zofran Inj) 4 mg Q6H PRN IV NAUSEA AND/OR VOMITING; Start at 13:00 Oxycodone HCl (Roxicodone) 5 mg Q6H PRN PO PAIN Last administered on 08:11; Admin Dose 5 MG; Start 08/06/17 at 20:30 Hydrocortisone 25 mg 25 mg BID [place] Last administered on 08/09/17 08:12; Admin Dose 25 MG; Start 08/07/17 at 21:00 Ceftriaxone Sodium (Rocephin) 50 ml @ 100 mls/hr Q24H IVPB Last administered on 08/08/17 12:33; Admin Dose 100 MLS/HR; Start 08/07/17 at 13:00 Clotrimazole (Lotrimin Cr) 1 applic BID TOP Last administered on 08/09/17 08: 12; Admin Dose 1 APPLIC; Start 08/08/17 at 09:00 Morphine Sulfate (morphine) 2 mg Q4H PRN IV PAIN Last administered on 01:57; Admin Dose 2 MG; Start 08/08/17 at 02:00 Diphenhydramine HCl (Benadryl) 25 mg Q6 PRN PO ITCHING Last administered on 05:40; Admin Dose 25 MG; Start 08/08/17 at 13:00 Lorazepam (Ativan) 0.5 mg BID PRN PO ANXIETY Last administered on 08/09/17 04 :50; Admin Dose 0.5 MG; Start 08/09/17 at 04:30 Dimethicone (Blistex Lip [place]) 1 applic Q2H PRN TOP dry lips; Start 08/09/17 at 12:30 SWATHI RESENDIZ Aug 09, 2017 12:09
[2017-08-09] MEDS ORDERED: DIMETHICONE STICK TOP PRN (12:30)
[2017-08-09] MEDS ORDERED: FLUCONAZOLE 200 MG TAB PO ONE (13:00)
[2017-08-09] MEDS: CEFTRIAXONE 1 GM/50 ML (PMX) 50 ML IVPB SCH (13:17)
[2017-08-09 15:00] VITALS: BP 92/58; RESP 18
[2017-08-09 15:02] VITALS: BP 144/90; RESP 20
--- NOTE | 2017-08-09 15:34 | CONS ---
Date/Time of Note Date/Time of Note DATE: 08/09/17 TIME: 15:32 Assessment/Plan Assessment/Plan Additional Assessment/Plan Assessment/Plan - Alcoholic liver disease. - Ascites, pending paracentesis - Coagulopathy, pending FFP transfusion - Anemia. Status post trans- - Nonischemic cardiomyopathy. As per patient ejection fraction is only 35% - History of alcohol abuse. Sober for last 3 months - History of amphetamine - Morbid obesity. -Hepatic encephalopathy, with the positive hepatic flap Plan transfusion stool for OB colonoscopy for rectal bleeding pt had EGD at [facility] ,negative Continue with lactulose and rifaximin Avoid all kinds of narcotics and sleeping medication Consultation Date/Type/Reason Admit Date/Time Aug 06, 2017 at 08:27 24 HR Interval Summary Free Text/Dictation Patient wants to go home No acute GI bleeding No nausea no vomiting no abdominal pain. Exam/Review of Systems Vital Signs Vitals Vital Signs Date Time Temp Pulse Resp B/P Pulse Ox O2 Delivery O2 Flow Rate FiO2 08/09/17 15:02 98.1 99 20 144/90 99 Intake and Output 08/08/17 08/08/17 08/09/17 15:00 23:00 07:00 Intake Total 850 ml 850 ml Output Total 100 ml 5 ml Balance 750 ml 845 ml Exam Constitutional: alert, oriented, well developed Psych: nl mood/affect, no complaints Head: atraumatic, normocephalic Eyes: EOMI, PERRL, nl conjunctiva, nl lids, nl sclera ENMT: nl external ears & nose, nl lips & teeth, nl nasal mucosa & septum Neck: non-tender, supple Respiratory: clear to auscultation, normal air movement Cardiovascular: nl pulses, regular rate and rhythm Gastrointestinal: nl liver, spleen, non-tender, soft Musculoskeletal: nl extremities to inspection, nl gait and stance Extremities: normal pulses Neurological: BARREL WASHER II-XII intact, 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, nl speech, nl strength Skin: nl turgor, No rash or lesions Lymph: nl lymph nodes Results Result Diagram: 08/09/17 0535 08/09/17 0535 Results 24 hrs Laboratory Tests Test 08/09/17 05:35 08/09/17 05:37 White Blood Count 10.3 Red Blood Count 2.70 L Hemoglobin 8.8 L Hematocrit 26.1 L Mean Corpuscular Volume 96.7 Mean Corpuscular Hemoglobin 32.6 Mean Corpuscular Hemoglobin Concent 33.7 Red Cell Distribution Width 20.9 H Platelet Count 139 L Mean Platelet Volume 11.0 H Neutrophils % 81.0 H Lymphocytes % 10.2 L Monocytes % 7.1 Eosinophils % 0.6 Basophils % 0.6 Nucleated Red Blood Cells % 0.0 Neutrophils # 8.4 H Lymphocytes # 1.1 Monocytes # 0.7 Eosinophils # 0.1 Basophils # 0.1 Nucleated Red Blood Cells # 0.0 Sodium Level 141 Potassium Level 4.6 Chloride Level 107 Carbon Dioxide Level 25 Anion Gap 14 Blood Urea Nitrogen 5 L Creatinine 0.77 Glucose Level 194 Calcium Level 8.9 Ammonia 87 H Medications Medications Current Medications Pantoprazole (Protonix Tab) 40 mg DAILY@06 PO Last administered on 08/09/17 05:40; Admin Dose 40 MG; Start 08/06/17 at 13:00 Propranolol HCl (Inderal) 10 mg BID PO Last administered on 08/09/17 08:10; Admin Dose 10 MG; Start 08/06/17 at 21:00 Rifaximin (Xifaxan) 550 mg BID PO Last administered on 08/09/17 08:10; Admin Dose 550 MG; Start 08/06/17 at 14:00 Spironolactone (Aldactone) 100 mg DAILY@06 PO Last administered on 08/09/17 05:40; Admin Dose 100 MG; Start 08/06/17 at 14:00 Ondansetron HCl (Zofran Inj) 4 mg Q6H PRN IV NAUSEA AND/OR VOMITING; Start at 13:00 Oxycodone HCl (Roxicodone) 5 mg Q6H PRN PO PAIN Last administered on 08:11; Admin Dose 5 MG; Start 08/06/17 at 20:30 Hydrocortisone 25 mg 25 mg BID WI Last administered on 08/09/17 08:12; Admin Dose 25 MG; Start 08/07/17 at 21:00 Ceftriaxone Sodium (Rocephin) 50 ml @ 100 mls/hr Q24H IVPB Last administered on 08/09/17 13:17; Admin Dose 100 MLS/HR; Start 08/07/17 at 13:00 Clotrimazole (Lotrimin Cr) 1 applic BID TOP Last administered on 08/09/17 08: 12; Admin Dose 1 APPLIC; Start 08/08/17 at 09:00 Morphine Sulfate (morphine) 2 mg Q4H PRN IV PAIN Last administered on 01:57; Admin Dose 2 MG; Start 08/08/17 at 02:00 Diphenhydramine HCl (Benadryl) 25 mg Q6 PRN PO ITCHING Last administered on 05:40; Admin Dose 25 MG; Start 08/08/17 at 13:00 Lorazepam (Ativan) 0.5 mg BID PRN PO ANXIETY Last administered on 08/09/17 04 :50; Admin Dose 0.5 MG; Start 08/09/17 at 04:30 Dimethicone (Blistex Lip Counselor) 1 applic Q2H PRN TOP dry lips; Start 08/09/17 at 12:30 Lactulose (Enulose) 20 gm Q6 PO ; Start 08/09/17 at 18:00 Nystatin (Nystatin Powder) 1 applic BID TOP ; Start 08/09/17 at 13:30 SUSAN GARCIAS MD Aug 09, 2017 15:34
[2017-08-09] MEDS: NYSTATIN 30 GM POWDER BTL TOP SCH ×2 (16:41→20:21)
[2017-08-09] MEDS ORDERED: LACTULOSE 30ML CUP PO SCH (18:00)
== END 2017-08-09 22:25 | disposition left against medical advice (07) | DRG 433 ==
LOC: E/R 05:36 → PP2 08:27
PROVIDERS: ADMIT Internal Medicine; ATTEND Internal Medicine
PROC: 30233K1 Transfusion of Nonautologous Frozen Plasma into Peripheral Vein, Percutaneous Approach (ICD-10-PCS; principal; 2017-08-06)
PROC: 30233N1 Transfusion of Nonautologous Red Blood Cells into Peripheral Vein, Percutaneous Approach (ICD-10-PCS; 2017-08-07)
DX: K70.11 Alcoholic hepatitis with ascites (principal); D68.9 Coagulation defect, unspecified; K70.40 Alcoholic hepatic failure without coma; I42.9 Cardiomyopathy, unspecified; D64.9 Anemia, unspecified; E66.01 Morbid (severe) obesity due to excess calories; N39.0 Urinary tract infection, site not specified; I10 Essential (primary) hypertension; B35.3 Tinea pedis; Z68.38 Body mass index [BMI] 38.0-38.9, adult; F15.90 Other stimulant use, unspecified, uncomplicated; K64.9 Unspecified hemorrhoids; F10.10 Alcohol abuse, uncomplicated
CPT/HCPCS: 36415; 36430; 76705; 80048; 80053; 81001; 82140; 82270; 83690; 83735; 85025; 85049; 85610; 85670; 85730; 86850; 86900; 86901; 86920; 87040; 87081; 87086; 90686; 96372; J0696; J2270; J3475; J7040; P9016; P9059

== ENCOUNTER 2017-08-13 19:21 | Inpatient (IN) | END 2017-09-23 13:15 | disposition home health service (06) | DRG 441 ==

== ENCOUNTER 2017-09-28 15:27 | Inpatient (IN) | END 2017-09-29 19:11 | disposition home or self-care (01) | DRG 433 ==

== ENCOUNTER 2017-10-02 14:25 | Inpatient (IN) | END 2017-10-13 16:55 | disposition home or self-care (01) | DRG 602 ==

== ENCOUNTER 2017-12-29 13:20 | Inpatient (IN) | END 2018-01-01 17:46 | disposition home or self-care (01) | DRG 432 ==

== ENCOUNTER 2018-01-13 13:17 | Inpatient (IN) | END 2018-01-23 07:59 | disposition left against medical advice (07) | DRG 595 ==